=== PATIENT | female | born 1955 | race Caucasian/White ===

== ENCOUNTER 2017-02-22 14:50 | Emergency (ER) | payer MEDICARE, OTHER ==
[2017-02-22] MEDS ORDERED: SODIUM CHLORIDE 0.9% 1,000 ML IV ONE (15:21)
--- NOTE | 2017-02-22 15:30 | ED ---
Altered Mental Status HPI - General Source: patient, EMS, RN notes reviewed, Caregiver Mode of arrival: EMS Limitations: altered mental status <Gadiel Delaney - Last Filed: 02/22/17 19:17> <Meche Worley - Last Filed: 02/23/17 07:02> <Cresencio Arguello - Last Filed: 02/23/17 20:56> <Suresh Vuong - Last Filed: 02/24/17 16:07> - General Chief Complaint: Altered Mental Status Stated Complaint: Altered Mental Status Time Seen by Provider: 02/22/17 15:06 - History of Present Illness Initial Comments: This 61-year-old female presents emergency Department with caregiver for evaluation. There is concerns the patient may have infection or possible dehydration. Patient had a decline in her mental state. Patient has resided at a assisted living for over 4 years and struggles with schizophrenia. They state that her mental state he has declined tremendously over the last few weeks. Patient has had recurrent urinary tract infections though patient did have urinalysis 2 weeks ago which is negative. There has been no reported fever. Patient is not ambulatory and she only pivots to transfer from to her wheelchair. Information patient is very limited as she is unable to provide any useful information. Patient believes that she is and has had some outbursts. Client Portfolio Manager states ativan does help though only prescribed once a day. There has been no medication changes recently. Patient had lab work approx 2 months ago which showed elevated blood blood cells. There was no further workup from there. (Gadiel Delaney) - Related Data Home Medications Medication Instructions Recorded Confirmed Alendronate Sodium [Fosamax] 70 mg PO FR 10/30/13 02/22/17 Calcium Carbonate/Vitamin D3 1 tab PO BID@0500,1700 10/30/13 02/22/17 [Caltrate 600 Plus D3 Tablet] Docusate Sodium [Dulcolax Stool 100 mg PO BID@0800,1700 10/30/13 02/22/17 Softener] Lovastatin [Mevacor] 20 mg PO HS@2100 10/30/13 02/22/17 Bumetanide [BUMEX] 2 mg PO DAILY@1400 10/20/15 02/22/17 Cetirizine HCl [Zyrtec] 10 mg PO DAILY@1700 06/13/16 10/17/17 Levothyroxine Sodium [Synthroid] 88 mcg PO DAILY@0700 10/20/15 02/22/17 Metolazone [Zaroxolyn] 2.5 mg PO MOFR 10/20/15 02/22/17 Potassium Chloride ER [K-Dur 10] 10 meq PO DAILY@0800 10/20/15 02/22/17 Spironolactone [Aldactone] 100 mg PO DAILY@0800 10/20/15 02/22/17 amLODIPine [Norvasc] 5 mg PO DAILY@1700 10/20/15 02/22/17 ARIPiprazole [Abilify] 30 mg PO HS@209902/22/17 02/22/17 Acetaminophen/Diphenhydramine 2 tab PO HS@209902/22/17 02/22/17 [Tylenol PM 500-25mg] DULoxetine HCL [Cymbalta] 60 mg PO DAILY@0800 02/22/17 02/22/17 LORazepam [Ativan] 1 mg PO BID@0800,199902/22/17 02/22/17 LORazepam [Ativan] 1 mg PO DAILY PRN 02/22/17 02/22/17 Allergies Allergy/AdvReac Type Severity Reaction Status Date / Time Penicillins Allergy Unknown Unknown Verified 02/22/17 15:14 Childhood Review of Systems ROS Other: All systems not noted in ROS Statement are negative. <Gadiel Delaney - Last Filed: 02/22/17 19:17> ROS Other: All systems not noted in ROS Statement are negative. <Meche Worley - Last Filed: 02/23/17 07:02> ROS Other: All systems not noted in ROS Statement are negative. <Cresencio Arguello - Last Filed: 02/23/17 20:56> ROS Other: All systems not noted in ROS Statement are negative. <Suresh Vuong - Last Filed: 02/24/17 16:07> ROS Statement: Those systems with pertinent positive or pertinent negative responses have been documented in the HPI. Past Medical History Past Medical History: GERD/Reflux, Hyperlipidemia, Hypertension, Thyroid Disorder History of Any Multi-Drug Resistant Organisms: None Reported Past Surgical History: Breast Surgery, Tubal Ligation Additional Past Surgical History / Comment(s): BREAST BX'S- CAREGIVER UNSURE OF OTHER SURGERYS Past Anesthesia/Blood Transfusion Reactions: Unable to Obtain Past Psychological History: Anxiety, Depression, Schizophrenia Smoking Status: Never smoker Past Alcohol Use History: None Reported Past Drug Use History: None Reported <Gadiel Delaney - Last Filed: 02/22/17 19:17> General Exam Limitations: altered mental status General appearance: alert, in no apparent distress Head exam: Present: atraumatic, normocephalic, normal inspection Eye exam: Present: normal appearance, PERRL, EOMI. Absent: scleral icterus, conjunctival injection, periorbital swelling ENT exam: Present: normal exam, normal oropharynx, mucous membranes moist, TM's normal bilaterally, normal external ear exam Neck exam: Present: normal inspection, full ROM. Absent: tenderness, meningismus, lymphadenopathy Respiratory exam: Present: normal lung sounds bilaterally. Absent: respiratory distress, wheezes, rales, rhonchi, stridor Cardiovascular Exam: Present: normal rhythm, tachycardia, normal heart sounds. Absent: systolic murmur, diastolic murmur, rubs, gallop, clicks GI/Abdominal exam: Present: soft, normal bowel sounds. Absent: distended, tenderness, guarding, rebound, rigid Neurological exam: Present: alert, CN II-XII intact. Absent: oriented X3 Skin exam: Present: warm, dry, intact, normal color. Absent: rash <Gadiel Delaney M - Last Filed: 02/22/17 19:17> Course <Gadiel Delaney - Last Filed: 02/22/17 19:17> <Meche Worley - Last Filed: 02/23/17 07:02> <Cresencio Arguello - Last Filed: 02/23/17 20:56> <Suresh Vuong - Last Filed: 02/24/17 16:07> Vital Signs 02/22/17 02/22/17 02/22/17 15:09 18:17 19:00 Temperature 97.0 F L Pulse Rate 114 H 94 Respiratory 22 17 18 Rate Blood Pressure 161/81 108/66 O2 Sat by Pulse 94 L 96 Oximetry 02/22/17 02/22/17 02/22/17 20:00 21:00 22:00 Temperature 97.0 F L Pulse Rate 94 91 Respiratory 16 16 16 Rate Blood Pressure O2 Sat by Pulse 94 L 96 Oximetry 02/23/17 02/23/17 02/23/17 00:20 01:21 02:26 Temperature 98.5 F Pulse Rate 80 71 71 Respiratory 18 18 18 Rate Blood Pressure 127/58 109/65 105/58 O2 Sat by Pulse 96 98 97 Oximetry 02/23/17 02/23/17 02/23/17 03:05 04:41 05:50 Temperature Pulse Rate 84 89 Respiratory 18 17 17 Rate Blood Pressure 134/71 126/71 O2 Sat by Pulse 95 95 Oximetry 02/23/17 02/23/17 02/23/17 14:00 14:51 16:42 Temperature Pulse Rate 107 H 70 77 Respiratory 20 20 20 Rate Blood Pressure 140/72 134/73 O2 Sat by Pulse 96 99 99 Oximetry 02/23/17 02/23/17 02/23/17 19:00 20:30 21:31 Temperature Pulse Rate 79 79 92 Respiratory 20 20 18 Rate Blood Pressure 141/68 155/84 121/56 O2 Sat by Pulse 99 99 97 Oximetry 02/23/17 02/24/17 02/24/17 22:52 06:18 07:18 Temperature 98.3 F Pulse Rate 69 71 90 Respiratory 18 19 16 Rate Blood Pressure 136/62 110/65 140/75 O2 Sat by Pulse 94 L 100 95 Oximetry 02/24/17 02/24/17 11:00 15:14 Temperature Pulse Rate 85 84 Respiratory 18 20 Rate Blood Pressure 132/75 122/72 O2 Sat by Pulse 96 98 Oximetry Cert was done with the patient, heart pressure is pending at this point (Meche Worley) - Reevaluation(s) Reevaluation #1: 02/24/17 16:07 Psychiatrists in ED evaluating patient (Suresh Vuong) Medical Decision Making - Lab Data Result diagrams: 02/22/17 15:30 02/22/17 15:30 <Gadiel Delaney - Last Filed: 02/22/17 19:17> - Lab Data Result diagrams: 02/22/17 15:30 02/22/17 15:30 <Meche Worley - Last Filed: 02/23/17 07:02> - Lab Data Result diagrams: 02/23/17 17:20 02/23/17 17:20 <Cresencio Arguello - Last Filed: 02/23/17 20:56> - Lab Data Result diagrams: 02/24/17 14:46 02/24/17 14:46 <Suresh Vuong - Last Filed: 02/24/17 16:07> - Medical Decision Making Patient continues to have psychotic features. Still thinking delusions of being . Not able to care for herself her understanding for further treatment. I completed a certificate after reevaluation. Dr. Arguello (Cresencio Arguello ) 61 female in the ER for evaluation. Patient was evaluated here in the ER by psychiatry and okay for discharge home (Suresh Vuong) - Lab Data Lab Results 02/22/17 02/22/17 02/22/17 Range/Units 15:30 15:30 15:30 WBC 13.4 H (3.8-10.6) k/uL RBC 4.23 (3.80-5.40) m/uL Hgb 13.7 (11.4-16.0) gm/dL Hct 42.2 (34.0-46.0) % MCV 99.7 (80.0-100.0) fL MCH 32.3 (25.0-35.0) pg MCHC 32.4 (31.0-37.0) g/dL RDW 12.0 (11.5-15.5) % Plt Count 392 (150-450) k/uL Neutrophils % 78 % Lymphocytes % 11 % Monocytes % 9 % Eosinophils % 0 % Basophils % 0 % Neutrophils # 10.5 H (1.3-7.7) k/uL Lymphocytes # 1.5 (1.0-4.8) k/uL Monocytes # 1.2 H (0-1.0) k/uL Eosinophils # 0.0 (0-0.7) k/uL Basophils # 0.0 (0-0.2) k/uL PT (9.0-12.0) sec INR (<1.2) APTT (22.0-30.0) sec Sodium 136 L (137-145) mmol/L Potassium 3.8 (3.5-5.1) mmol/L Chloride 95 L (98-107) mmol/L Carbon Dioxide 26 (22-30) mmol/L Anion Gap 15 mmol/L BUN 41 H (7-17) mg/dL Creatinine 1.41 H (0.52-1.04) mg/dL Est GFR (MDRD) Af Amer 46 (>60 ml/min/1.73 sqM) Est GFR (MDRD) Non-Af 38 (>60 ml/min/1.73 sqM) Glucose 143 H (74-99) mg/dL POC Glucose (mg/dL) (75-99) mg/dL POC Glu Chemistry Technician ID Calcium 10.2 (8.4-10.2) mg/dL Total Bilirubin 0.4 (0.2-1.3) mg/dL AST 22 (14-36) U/L ALT 27 (9-52) U/L Alkaline Phosphatase 102 (38-126) U/L Total Creatine Kinase 101 (30-135) U/L CK-MB (CK-2) 2.4 (0.0-2.4) ng/mL CK-MB (CK-2) Rel Index 2.4 Troponin I <0.012 (0.000-0.034) ng/mL Total Protein 7.7 (6.3-8.2) g/dL Albumin 4.3 (3.5-5.0) g/dL Urine Color Urine Appearance (Clear) Urine pH (5.0-8.0) Ur Specific [place] (1.001-1.035) Urine Protein (Negative) Urine Glucose (UA) (Negative) Urine Ketones (Negative) Urine Blood (Negative) Urine Nitrite (Negative) Urine Bilirubin (Negative) Urine Urobilinogen (<2.0) mg/dL Ur Leukocyte Esterase (Negative) Urine Opiates Screen (NotDetected) Ur Oxycodone Screen (NotDetected) Urine Methadone Screen (NotDetected) Ur Propoxyphene Screen (NotDetected) Ur Barbiturates Screen (NotDetected) U Tricyclic Antidepress (NotDetected) Ur Phencyclidine Scrn (NotDetected) Ur Amphetamines Screen (NotDetected) U Methamphetamines Scrn (NotDetected) U Benzodiazepines Scrn (NotDetected) Urine Cocaine Screen (NotDetected) U Marijuana (THC) Screen (NotDetected) Serum Alcohol <10 mg/dL 02/22/17 02/22/17 02/22/17 Range/Units 15:30 15:30 16:13 WBC (3.8-10.6) k/uL RBC (3.80-5.40) m/uL Hgb (11.4-16.0) gm/dL Hct (34.0-46.0) % MCV (80.0-100.0) fL MCH (25.0-35.0) pg MCHC (31.0-37.0) g/dL RDW (11.5-15.5) % Plt Count (150-450) k/uL Neutrophils % % Lymphocytes % % Monocytes % % Eosinophils % % Basophils % % Neutrophils # (1.3-7.7) k/uL Lymphocytes # (1.0-4.8) k/uL Monocytes # (0-1.0) k/uL Eosinophils # (0-0.7) k/uL Basophils # (0-0.2) k/uL PT 10.6 (9.0-12.0) sec INR 1.0 (<1.2) APTT 22.5 (22.0-30.0) sec Sodium (137-145) mmol/L Potassium (3.5-5.1) mmol/L Chloride (98-107) mmol/L Carbon Dioxide (22-30) mmol/L Anion Gap mmol/L BUN (7-17) mg/dL Creatinine (0.52-1.04) mg/dL Est GFR (MDRD) Af Amer (>60 ml/min/1.73 sqM) Est GFR (MDRD) Non-Af (>60 ml/min/1.73 sqM) Glucose (74-99) mg/dL POC Glucose (mg/dL) 119 H (75-99) mg/dL POC Glu Chemistry Technician ID Michael, Jasen Calcium (8.4-10.2) mg/dL Total Bilirubin (0.2-1.3) mg/dL AST (14-36) U/L ALT (9-52) U/L Alkaline Phosphatase (38-126) U/L Total Creatine Kinase (30-135) U/L CK-MB (CK-2) (0.0-2.4) ng/mL CK-MB (CK-2) Rel Index Troponin I (0.000-0.034) ng/mL Total Protein (6.3-8.2) g/dL Albumin (3.5-5.0) g/dL Urine Color Yellow Urine Appearance Clear (Clear) Urine pH 5.5 (5.0-8.0) Ur Specific [place] 1.016 (1.001-1.035) Urine Protein Trace H (Negative) Urine Glucose (UA) Negative (Negative) Urine Ketones Negative (Negative) Urine Blood Negative (Negative) Urine Nitrite Negative (Negative) Urine Bilirubin Negative (Negative) Urine Urobilinogen <2.0 (<2.0) mg/dL Ur Leukocyte Esterase Negative (Negative) Urine Opiates Screen Not Detected (NotDetected) Ur Oxycodone Screen Not Detected (NotDetected) Urine Methadone Screen Not Detected (NotDetected) Ur Propoxyphene Screen Not Detected (NotDetected) Ur Barbiturates Screen Not Detected (NotDetected) U Tricyclic Antidepress Not Detected (NotDetected) Ur Phencyclidine Scrn Not Detected (NotDetected) Ur Amphetamines Screen Not Detected (NotDetected) U Methamphetamines Scrn Not Detected (NotDetected) U Benzodiazepines Scrn Detected H (NotDetected) Urine Cocaine Screen Not Detected (NotDetected) U Marijuana (THC) Screen Not Detected (NotDetected) Serum Alcohol mg/dL 02/23/17 02/23/17 02/24/17 Range/Units 17:20 17:20 14:46 WBC 10.6 8.6 (3.8-10.6) k/uL RBC 3.74 L 3.63 L (3.80-5.40) m/uL Hgb 12.0 11.8 (11.4-16.0) gm/dL Hct 37.5 36.3 (34.0-46.0) % MCV 100.2 H 100.1 H (80.0-100.0) fL MCH 32.1 32.5 (25.0-35.0) pg MCHC 32.1 32.4 (31.0-37.0) g/dL RDW 12.9 12.0 (11.5-15.5) % Plt Count 331 334 (150-450) k/uL Neutrophils % 75 % Lymphocytes % 15 % Monocytes % 7 % Eosinophils % 1 % Basophils % 1 % Neutrophils # 7.9 H (1.3-7.7) k/uL Lymphocytes # 1.5 (1.0-4.8) k/uL Monocytes # 0.7 (0-1.0) k/uL Eosinophils # 0.1 (0-0.7) k/uL Basophils # 0.1 (0-0.2) k/uL PT (9.0-12.0) sec INR (<1.2) APTT (22.0-30.0) sec Sodium 138 (137-145) mmol/L Potassium 3.5 (3.5-5.1) mmol/L Chloride 99 (98-107) mmol/L Carbon Dioxide 29 (22-30) mmol/L Anion Gap 10 mmol/L BUN 33 H (7-17) mg/dL Creatinine 1.10 H (0.52-1.04) mg/dL Est GFR (MDRD) Af Amer >60 (>60 ml/min/1.73 sqM) Est GFR (MDRD) Non-Af 51 (>60 ml/min/1.73 sqM) Glucose 143 H (74-99) mg/dL POC Glucose (mg/dL) (75-99) mg/dL POC Glu Chemistry Technician ID Calcium 9.1 (8.4-10.2) mg/dL Total Bilirubin (0.2-1.3) mg/dL AST (14-36) U/L ALT (9-52) U/L Alkaline Phosphatase (38-126) U/L Total Creatine Kinase (30-135) U/L CK-MB (CK-2) (0.0-2.4) ng/mL CK-MB (CK-2) Rel Index Troponin I (0.000-0.034) ng/mL Total Protein (6.3-8.2) g/dL Albumin (3.5-5.0) g/dL Urine Color Urine Appearance (Clear) Urine pH (5.0-8.0) Ur Specific [place] (1.001-1.035) Urine Protein (Negative) Urine Glucose (UA) (Negative) Urine Ketones (Negative) Urine Blood (Negative) Urine Nitrite (Negative) Urine Bilirubin (Negative) Urine Urobilinogen (<2.0) mg/dL Ur Leukocyte Esterase (Negative) Urine Opiates Screen (NotDetected) Ur Oxycodone Screen (NotDetected) Urine Methadone Screen (NotDetected) Ur Propoxyphene Screen (NotDetected) Ur Barbiturates Screen (NotDetected) U Tricyclic Antidepress (NotDetected) Ur Phencyclidine Scrn (NotDetected) Ur Amphetamines Screen (NotDetected) U Methamphetamines Scrn (NotDetected) U Benzodiazepines Scrn (NotDetected) Urine Cocaine Screen (NotDetected) U Marijuana (THC) Screen (NotDetected) Serum Alcohol mg/dL 02/24/17 Range/Units 14:46 WBC (3.8-10.6) k/uL RBC (3.80-5.40) m/uL Hgb (11.4-16.0) gm/dL Hct (34.0-46.0) % MCV (80.0-100.0) fL MCH (25.0-35.0) pg MCHC (31.0-37.0) g/dL RDW (11.5-15.5) % Plt Count (150-450) k/uL Neutrophils % % Lymphocytes % % Monocytes % % Eosinophils % % Basophils % % Neutrophils # (1.3-7.7) k/uL Lymphocytes # (1.0-4.8) k/uL Monocytes # (0-1.0) k/uL Eosinophils # (0-0.7) k/uL Basophils # (0-0.2) k/uL PT (9.0-12.0) sec INR (<1.2) APTT (22.0-30.0) sec Sodium 139 (137-145) mmol/L Potassium 3.9 (3.5-5.1) mmol/L Chloride 102 (98-107) mmol/L Carbon Dioxide 29 (22-30) mmol/L Anion Gap 8 mmol/L BUN 29 H (7-17) mg/dL Creatinine 1.10 H (0.52-1.04) mg/dL Est GFR (MDRD) Af Amer >60 (>60 ml/min/1.73 sqM) Est GFR (MDRD) Non-Af 51 (>60 ml/min/1.73 sqM) Glucose 99 (74-99) mg/dL POC Glucose (mg/dL) (75-99) mg/dL POC Glu Chemistry Technician ID Calcium 8.6 (8.4-10.2) mg/dL Total Bilirubin 0.4 (0.2-1.3) mg/dL AST 23 (14-36) U/L ALT 27 (9-52) U/L Alkaline Phosphatase 94 (38-126) U/L Total Creatine Kinase (30-135) U/L CK-MB (CK-2) (0.0-2.4) ng/mL CK-MB (CK-2) Rel Index Troponin I (0.000-0.034) ng/mL Total Protein 6.9 (6.3-8.2) g/dL Albumin 3.7 (3.5-5.0) g/dL Urine Color Urine Appearance (Clear) Urine pH (5.0-8.0) Ur Specific [place] (1.001-1.035) Urine Protein (Negative) Urine Glucose (UA) (Negative) Urine Ketones (Negative) Urine Blood (Negative) Urine Nitrite (Negative) Urine Bilirubin (Negative) Urine Urobilinogen (<2.0) mg/dL Ur Leukocyte Esterase (Negative) Urine Opiates Screen (NotDetected) Ur Oxycodone Screen (NotDetected) Urine Methadone Screen (NotDetected) Ur Propoxyphene Screen (NotDetected) Ur Barbiturates Screen (NotDetected) U Tricyclic Antidepress (NotDetected) Ur Phencyclidine Scrn (NotDetected) Ur Amphetamines Screen (NotDetected) U Methamphetamines Scrn (NotDetected) U Benzodiazepines Scrn (NotDetected) Urine Cocaine Screen (NotDetected) U Marijuana (THC) Screen (NotDetected) Serum Alcohol mg/dL 02/22/17 19:17 EKG performed at 15:39 normal sinus rhythm with left axis deviation rate of 98 UT interval 138 QRS duration 76 QT/QTC 358/457 (Gadiel Delaney) Disposition <Gadiel Delaney - Last Filed: 02/22/17 19:17> <Meche Worley - Last Filed: 02/23/17 07:02> <Cresencio Arguello - Last Filed: 02/23/17 20:56> <Suresh Vuong - Last Filed: 02/24/17 16:07> Clinical Impression: Psychosis Disposition: HOME SELF-CARE Condition: Fair Instructions: Brief Psychotic Disorder (ED) Referrals: Jozef Borrero MD [Primary Care Provider] - 1-2 days
[2017-02-22 16:12] LABS: Appearance,Urine Clear (Clear); Bilirubin,Urine Negative (Negative); Glucose,Urine (UA) Negative (Negative); Ketones,Urine Negative (Negative); Leukocyte Esterase,Urine Negative (Negative); Nitrite,Urine Negative (Negative); PH, Urine 5.5 (5.0-8.0); Protein,Urine Trace (Negative); Specific Gravity,Urine 1.016 (1.001-1.035); UA Billing (MACRO vs. MICRO) CHEM; Urobilinogen,Urine <2.0 mg/dL (<2.0)
[2017-02-22 16:14] LABS: Basophils % (A) 0 %; CH 32.9; CHCM 33.1; Eosinophils % (A) 0 %; HCT 42.2 % (34.0-46.0); HDW 2.12; HGB 13.7 gm/dL (11.4-16.0); Luc # (Auto) 0.26; Luc % (Auto) 2; Lymphocytes # (A) 1.5 k/uL (1.0-4.8); Lymphocytes % (A) 11 %; MCH 32.3 pg (25.0-35.0); MCHC 32.4 g/dL (31.0-37.0); MCV 99.7 fL (80.0-100.0); Mean Platelet Volume 6.5; Monocytes # (A) 1.2 k/uL (0-1.0); Monocytes % (A) 9 %; Neutrophils # (A) 10.5 k/uL (1.3-7.7); Neutrophils % (A) 78 %; RBC 4.23 m/uL (3.80-5.40); WBC 13.4 k/uL (3.8-10.6); WBC (Perox) 13.25
[2017-02-22 16:16] LABS: Glucose,Whole Blood 119 mg/dL (75-99)
[2017-02-22 16:21] LABS: Partial Thromboplastin Time 22.5 sec (22.0-30.0)
[2017-02-22 16:23] LABS: Prothrombin Time 10.6 sec (9.0-12.0)
[2017-02-22 16:26] LABS: ALT 27 U/L (9-52); AST 22 U/L (14-36); Alcohol <10 mg/dL; Alkaline Phosphatase 102 U/L (38-126); Anion Gap 15 mmol/L; Blood Urea Nitrogen 41 mg/dL (7-17); Calcium 10.2 mg/dL (8.4-10.2); Carbon Dioxide 26 mmol/L (22-30); Chloride 95 mmol/L (98-107); Glucose 143 mg/dL (74-99); Non-African American GFR(MDRD) 38 (>60 ml/min/1.73 sqM); Potassium 3.8 mmol/L (3.5-5.1); Sodium 136 mmol/L (137-145); Total Bilirubin 0.4 mg/dL (0.2-1.3); Total Protein 7.7 g/dL (6.3-8.2)
[2017-02-22 16:39] LABS: Creatine Kinase 101 U/L (30-135)
[2017-02-22 16:51] LABS: Creatine Kinase MB 2.4 ng/mL (0.0-2.4); Troponin I <0.012 ng/mL (0.000-0.034)
--- NOTE | 2017-02-22 16:56 | CT ---
EXAMINATION TYPE: CT brain wo con DATE OF EXAM: 02/22/2017 COMPARISON: NONE HISTORY: Altered mental status. CT DLP: 1056.60 mGycm Automated exposure control for dose reduction was used. FINDINGS: There is some limitations for subtle hemorrhage due to artifact. No obvious gross acute intraparenchy mal hemorrhage. No midline shift or mass effect. Areas of low attenuation in the white matter are non specific. Calvarium intact. Intracranial atherosclerotic changes noted. Ossified density along the an terior parietal bone superiorly may represent a small osteoma. IMPRESSION: NO OBVIOUS ACUTE INTRACRANIAL HEMORRHAGE OR MASS EFFECT. THERE IS SOME LIMITATION DUE TO ARTIFACT. AR EA OF INCREASED DENSITY ALONG THE RIGHT FRONTAL CORTEX IS FELT TO BE MOST LIKELY ARTIFACTUAL. RECOMME ND CORRELATION WITH MRI.
--- NOTE | 2017-02-22 16:59 | XR ---
EXAMINATION TYPE: XR chest 2V DATE OF EXAM: 02/22/2017 COMPARISON: NONE TECHNIQUE: PA and lateral views submitted. HISTORY: Altered mental status FINDINGS: Exam limited. The heart is prominent. Arthropathy of the shoulders seen. Small bilateral effusion not ed. No overt failure. Degenerative change of the spine noted. IMPRESSION: 1. Subsegmental atelectasis or infiltrate at the lung bases correlate clinically.
[2017-02-23] MEDS ORDERED: LORazepam 2 MG/ML INJ IV STA ×2 (14:05→16:58)
--- NOTE | 2017-02-23 16:58 | XR ---
EXAMINATION TYPE: XR chest 2V DATE OF EXAM: 02/23/2017 COMPARISON: 02/22/2017 INDICATION: Chest pain cough TECHNIQUE: Frontal and lateral views of the chest are obtained. FINDINGS: The heart size is enlarged. The pulmonary vasculature is normal. The lungs are clear. Advanced degenerative changes are at the left shoulder. IMPRESSION: 1. Mild cardiomegaly
[2017-02-23 17:27] LABS: Basophils # (A) 0.1 k/uL (0-0.2); Basophils % (A) 1 %; CH 33.7; CHCM 33.8; Eosinophils # (A) 0.1 k/uL (0-0.7); Eosinophils % (A) 1 %; HCT 37.5 % (34.0-46.0); HDW 2.08; Luc # (Auto) 0.23; Luc % (Auto) 2; Lymphocytes # (A) 1.5 k/uL (1.0-4.8); Lymphocytes % (A) 15 %; MCH 32.1 pg (25.0-35.0); MCHC 32.1 g/dL (31.0-37.0); MCV 100.2 fL (80.0-100.0); Mean Platelet Volume 7.2; Monocytes # (A) 0.7 k/uL (0-1.0); Monocytes % (A) 7 %; Neutrophils # (A) 7.9 k/uL (1.3-7.7); Neutrophils % (A) 75 %; RBC 3.74 m/uL (3.80-5.40); RDW 12.9 % (11.5-15.5); WBC 10.6 k/uL (3.8-10.6)
[2017-02-23 17:41] LABS: Anion Gap 10 mmol/L; Blood Urea Nitrogen 33 mg/dL (7-17); Calcium 9.1 mg/dL (8.4-10.2); Carbon Dioxide 29 mmol/L (22-30); Chloride 99 mmol/L (98-107); Glucose 143 mg/dL (74-99); Non-African American GFR(MDRD) 51 (>60 ml/min/1.73 sqM); Potassium 3.5 mmol/L (3.5-5.1); Sodium 138 mmol/L (137-145)
[2017-02-24] MEDS ORDERED: LORazepam 2 MG/ML INJ IV STA (06:59)
[2017-02-24] MEDS ORDERED: LORazepam 2 MG/ML INJ ONE (07:05)
[2017-02-24 14:59] LABS: CH 32.8; CHCM 32.9; HCT 36.3 % (34.0-46.0); HDW 2.13; HGB 11.8 gm/dL (11.4-16.0); MCH 32.5 pg (25.0-35.0); MCHC 32.4 g/dL (31.0-37.0); MCV 100.1 fL (80.0-100.0); Mean Platelet Volume 6.8; RBC 3.63 m/uL (3.80-5.40); WBC 8.6 k/uL (3.8-10.6)
[2017-02-24 15:07] LABS: ALT 27 U/L (9-52); AST 23 U/L (14-36); Alkaline Phosphatase 94 U/L (38-126); Anion Gap 8 mmol/L; Blood Urea Nitrogen 29 mg/dL (7-17); Calcium 8.6 mg/dL (8.4-10.2); Carbon Dioxide 29 mmol/L (22-30); Chloride 102 mmol/L (98-107); Glucose 99 mg/dL (74-99); Non-African American GFR(MDRD) 51 (>60 ml/min/1.73 sqM); Sodium 139 mmol/L (137-145); Total Bilirubin 0.4 mg/dL (0.2-1.3); Total Protein 6.9 g/dL (6.3-8.2)
[2017-02-24 15:10] LABS: Potassium 3.9 mmol/L (3.5-5.1)
[2017-02-25 01:40] VITALS: BP 122/65; PULSE 85; RESP 18; TEMP 97.5
== END 2017-02-24 19:40 | disposition home or self-care (01) ==
LOC: EC 14:50
DX: F29 Unspecified psychosis not due to a substance or known physiological condition (principal); R41.82 Altered mental status, unspecified; K21.9 Gastro-esophageal reflux disease without esophagitis; E78.5 Hyperlipidemia, unspecified; I10 Essential (primary) hypertension; E07.9 Disorder of thyroid, unspecified; F32.9 Major depressive disorder, single episode, unspecified; F41.9 Anxiety disorder, unspecified; F20.9 Schizophrenia, unspecified; Z79.899 Other long term (current) drug therapy; Z88.0 Allergy status to penicillin
CPT/HCPCS: 99285 ×2; 96374 ×2; 96376 ×3; 96361 ×16; 36415 ×3; 93005; 80053 ×2; 80048; 82550; 82553; 84484; 85025 ×2; 85027; 85610; 85730; 81003; 80306; 80320; 71020 ×2; 70450; J2060 ×2

== ENCOUNTER 2017-09-14 15:52 | Emergency (ER) | payer MEDICARE, OTHER ==
[2017-09-14] MEDS ORDERED: ONDANSETRON 4 MG/2 ML VIAL IVP STA (16:21)
[2017-09-14] MEDS ORDERED: LORazepam 2 MG/ML INJ IV STA ×2 (16:21→19:05)
[2017-09-14] MEDS ORDERED: SODIUM CHLORIDE 0.9% 1,000 ML IV STA (16:21)
--- NOTE | 2017-09-14 16:25 | ED ---
General Adult HPI - General Source: patient, RN notes reviewed Mode of arrival: EMS Limitations: no limitations <Tulio Preciado - Last Filed: 09/14/17 19:30> <Gerardo Kwong - Last Filed: 09/14/17 19:57> <Gerardo Dupont - Last Filed: 09/15/17 04:04> - General Chief complaint: Psychiatric Symptoms Stated complaint: Mental Health Time Seen by Provider: 09/14/17 15:58 - History of Present Illness Initial comments: Patient 62-year-old female presenting to the emergency room today by EMS, with a pairing machine operator who states that she has been willing to take her medication of Ativan at home. States that she's been screaming at times. States that this is similar to episodes that she's had in the past but does admit that usually she'll take Ativan abdomen: Down. Patient refusing to take medicine. Does admit to abdominal pain. She states it's all over. Rv Repairer stating that she complained about this in the morning she offered her Tums and Tylenol but did not want take any medication. Patient's sports internship was at the residence eventually decided to have her sent here to the emergency room for further evaluation. Patient admits to abdominal pain but denies complaints. Patient denies any recent fever, chills, shortness of breath, chest pain, back pain, nausea or vomiting, dysuria or hematuria, constipation or diarrhea, or any other complaints. (Tulio Preciado) - Related Data Home Medications Medication Instructions Recorded Confirmed Alendronate Sodium [Fosamax] 70 mg PO FR 10/30/13 09/14/17 Calcium Carbonate/Vitamin D3 1 tab PO BID@0500,169910/30/13 09/14/17 [Caltrate 600 Plus D3 Tablet] Docusate Sodium [Dulcolax Stool 100 mg PO BID@0800,169910/30/13 09/14/17 Softener] Lovastatin [Mevacor] 20 mg PO HS@2100 10/30/13 09/14/17 Cetirizine HCl [Zyrtec] 10 mg PO DAILY@1700 10/20/15 09/14/17 Levothyroxine Sodium [Synthroid] 88 mcg PO DAILY@0700 10/20/15 09/14/17 Potassium Chloride ER [K-Dur 10] 10 meq PO DAILY@0800 10/20/15 09/14/17 Spironolactone [Aldactone] 100 mg PO DAILY@0800 10/20/15 09/14/17 amLODIPine [Norvasc] 5 mg PO DAILY@1700 10/20/15 09/14/17 Acetaminophen/Diphenhydramine 2 tab PO HS@2100 02/22/17 09/14/17 [Tylenol PM 500-25mg] DULoxetine HCL [Cymbalta] 60 mg PO DAILY@0800 02/22/17 09/14/17 DULoxetine HCL [Cymbalta] 30 mg PO DAILY 09/14/17 09/14/17 Furosemide [Lasix] 20 mg PO DAILY@0809/14/17 09/14/17 LORazepam [Ativan] 2 mg PO BID PRN 09/14/17 09/14/17 Losartan Potassium [Cozaar] 25 mg PO DAILY@0809/14/17 09/14/17 Allergies Allergy/AdvReac Type Severity Reaction Status Date / Time Penicillins Allergy Unknown Unknown Verified 09/14/17 16:19 Childhood Review of Systems ROS Other: All systems not noted in ROS Statement are negative. <Tulio Preciado - Last Filed: 09/14/17 19:30> ROS Other: All systems not noted in ROS Statement are negative. <Gerardo Kwong - Last Filed: 09/14/17 19:57> ROS Other: All systems not noted in ROS Statement are negative. <Gerardo Dupont - Last Filed: 09/15/17 04:04> ROS Statement: Those systems with pertinent positive or pertinent negative responses have been documented in the HPI. Past Medical History Past Medical History: GERD/Reflux, Hyperlipidemia, Hypertension, Thyroid Disorder History of Any Multi-Drug Resistant Organisms: None Reported Past Surgical History: Breast Surgery, Tubal Ligation Additional Past Surgical History / Comment(s): BREAST BX'S- CAREGIVER UNSURE OF OTHER SURGERYS Past Anesthesia/Blood Transfusion Reactions: Unable to Obtain Past Psychological History: Anxiety, Depression, Schizophrenia Smoking Status: Never smoker Past Alcohol Use History: None Reported Past Drug Use History: None Reported <Tulio Preciado - Last Filed: 09/14/17 19:30> General Exam Limitations: no limitations <Tulio Preciado - Last Filed: 09/14/17 19:30> <Gerardo Kwong - Last Filed: 09/14/17 19:57> <Gerardo Dupont - Last Filed: 09/15/17 04:04> - General Exam Comments Initial Comments: General: The patient is awake and alert, in no distress, and does not appear acutely ill. Eye: Pupils are equal, round and reactive to light, extra-ocular movements are intact. No nystagmus. There is normal conjunctiva bilaterally. No signs of icterus. Ears, nose, mouth and throat: There are moist mucous membranes and no oral lesions. Neck: The neck is supple, there is no tenderness or JVD. Cardiovascular: There is a regular rate and rhythm. No murmur, rub or gallop is appreciated. Respiratory: Lungs are clear to auscultation, respirations are non-labored, breath sounds are equal. No wheezes, stridor, rales, or rhonchi. Gastrointestinal: Abdomen soft on palpation. Mild tenderness throughout abdomen. No specific point tenderness. No rebound tenderness. No guarding. Musculoskeletal: Normal ROM, no tenderness. Strength 5/5. Sensation intact. Pulses equal bilaterally 2+. Neurological: A&O x 3. CN II-XII intact, There are no obvious motor or sensory deficits. Coordination appears grossly intact. Speech is normal. Skin: Skin is warm and dry and no rashes or lesions are noted. Psychiatric: Cooperative. Sporadic random outburst (Tulio Preciado) Course <Tulio Preciado - Last Filed: 09/14/17 19:30> <Gerardo Kwong N - Last Filed: 09/14/17 19:57> <Gerardo Dupont - Last Filed: 09/15/17 04:04> Vital Signs 09/14/17 09/14/17 09/14/17 16:01 18:27 20:00 Temperature 97.9 F 98.9 F Pulse Rate 125 H 106 H 110 H Respiratory 16 16 16 Rate Blood Pressure 156/63 152/76 124/71 O2 Sat by Pulse 98 97 95 Oximetry 09/14/17 09/15/17 09/15/17 22:26 00:00 01:00 Temperature 98.0 F 97.8 F Pulse Rate 100 Respiratory 16 15 Rate Blood Pressure 158/77 O2 Sat by Pulse 100 Oximetry 09/15/17 09/15/17 02:12 03:42 Temperature 98.3 F Pulse Rate 94 78 Respiratory 19 16 Rate Blood Pressure 143/78 129/63 O2 Sat by Pulse 95 96 Oximetry - Reevaluation(s) Reevaluation #1: 09/14/17 19:27 Patient has been seen here in emergency room and evaluated by mental health. They recommend admission. Patient unable to stay here at the hospital and will need to be transferred. Case discussed and signed out to Dr. Kwong (Tulio Preciado) 09/14/17 2100 Patient's care is signed out at shift change to Dr. Dupont awaiting placement and final EPS disposition. (Gerardo Kwong) Medical Decision Making - Lab Data Result diagrams: 09/14/17 16:47 09/14/17 16:47 <Tulio Preciado - Last Filed: 09/14/17 19:30> - Lab Data Result diagrams: 09/14/17 16:47 09/14/17 16:47 <Gerardo Kwong - Last Filed: 09/14/17 19:57> - Lab Data Result diagrams: 09/14/17 16:47 09/14/17 16:47 <Gerardo Dupont - Last Filed: 09/15/17 04:04> - Medical Decision Making The patient did require some sedation while in the emergency department. She was resting comfortably afterwards. She will be transferred I did fill out a clinical certification on the patient. She is demonstrating schizophrenia with psychotic features. (Gerardo Dupont) - Lab Data Lab Results 09/14/17 09/14/17 09/14/17 Range/Units 16:47 16:47 16:47 WBC 11.9 H (3.8-10.6) k/uL RBC 4.14 (3.80-5.40) m/uL Hgb 13.1 (11.4-16.0) gm/dL Hct 39.3 (34.0-46.0) % MCV 95.1 (80.0-100.0) fL MCH 31.8 (25.0-35.0) pg MCHC 33.4 (31.0-37.0) g/dL RDW 12.2 (11.5-15.5) % Plt Count 324 (150-450) k/uL Neutrophils % 77 % Lymphocytes % 14 % Monocytes % 7 % Eosinophils % 0 % Basophils % 0 % Neutrophils # 9.2 H (1.3-7.7) k/uL Lymphocytes # 1.7 (1.0-4.8) k/uL Monocytes # 0.8 (0-1.0) k/uL Eosinophils # 0.0 (0-0.7) k/uL Basophils # 0.0 (0-0.2) k/uL PT 9.7 (9.0-12.0) sec INR 1.0 (<1.2) APTT 22.0 (22.0-30.0) sec Sodium 138 (137-145) mmol/L Potassium 4.7 (3.5-5.1) mmol/L Chloride 101 (98-107) mmol/L Carbon Dioxide 22 (22-30) mmol/L Anion Gap 15 mmol/L BUN 18 H (7-17) mg/dL Creatinine 0.94 (0.52-1.04) mg/dL Est GFR (CKD-EPI)AfAm 76 (>60 ml/min/1.73 sqM) Est GFR (CKD-EPI)NonAf 66 (>60 ml/min/1.73 sqM) Glucose 130 H (74-99) mg/dL Calcium 9.6 (8.4-10.2) mg/dL Total Bilirubin 0.3 (0.2-1.3) mg/dL AST 19 (14-36) U/L ALT 22 (9-52) U/L Alkaline Phosphatase 95 (38-126) U/L Total Protein 7.3 (6.3-8.2) g/dL Albumin 4.5 (3.5-5.0) g/dL Urine Color Urine Appearance (Clear) Urine pH (5.0-8.0) Ur Specific [place] (1.001-1.035) Urine Protein (Negative) Urine Glucose (UA) (Negative) Urine Ketones (Negative) Urine Blood (Negative) Urine Nitrite (Negative) Urine Bilirubin (Negative) Urine Urobilinogen (<2.0) mg/dL Ur Leukocyte Esterase (Negative) Urine Opiates Screen (NotDetected) Ur Oxycodone Screen (NotDetected) Urine Methadone Screen (NotDetected) Ur Propoxyphene Screen (NotDetected) Ur Barbiturates Screen (NotDetected) U Tricyclic Antidepress (NotDetected) Ur Phencyclidine Scrn (NotDetected) Ur Amphetamines Screen (NotDetected) U Methamphetamines Scrn (NotDetected) U Benzodiazepines Scrn (NotDetected) Urine Cocaine Screen (NotDetected) U Marijuana (THC) Screen (NotDetected) Serum Alcohol <10 mg/dL 09/14/17 Range/Units 17:00 WBC (3.8-10.6) k/uL RBC (3.80-5.40) m/uL Hgb (11.4-16.0) gm/dL Hct (34.0-46.0) % MCV (80.0-100.0) fL MCH (25.0-35.0) pg MCHC (31.0-37.0) g/dL RDW (11.5-15.5) % Plt Count (150-450) k/uL Neutrophils % % Lymphocytes % % Monocytes % % Eosinophils % % Basophils % % Neutrophils # (1.3-7.7) k/uL Lymphocytes # (1.0-4.8) k/uL Monocytes # (0-1.0) k/uL Eosinophils # (0-0.7) k/uL Basophils # (0-0.2) k/uL PT (9.0-12.0) sec INR (<1.2) APTT (22.0-30.0) sec Sodium (137-145) mmol/L Potassium (3.5-5.1) mmol/L Chloride (98-107) mmol/L Carbon Dioxide (22-30) mmol/L Anion Gap mmol/L BUN (7-17) mg/dL Creatinine (0.52-1.04) mg/dL Est GFR (CKD-EPI)AfAm (>60 ml/min/1.73 sqM) Est GFR (CKD-EPI)NonAf (>60 ml/min/1.73 sqM) Glucose (74-99) mg/dL Calcium (8.4-10.2) mg/dL Total Bilirubin (0.2-1.3) mg/dL AST (14-36) U/L ALT (9-52) U/L Alkaline Phosphatase (38-126) U/L Total Protein (6.3-8.2) g/dL Albumin (3.5-5.0) g/dL Urine Color Yellow Urine Appearance Clear (Clear) Urine pH 6.5 (5.0-8.0) Ur Specific [place] 1.012 (1.001-1.035) Urine Protein Trace H (Negative) Urine Glucose (UA) Negative (Negative) Urine Ketones Negative (Negative) Urine Blood Negative (Negative) Urine Nitrite Negative (Negative) Urine Bilirubin Negative (Negative) Urine Urobilinogen <2.0 (<2.0) mg/dL Ur Leukocyte Esterase Negative (Negative) Urine Opiates Screen Not Detected (NotDetected) Ur Oxycodone Screen Not Detected (NotDetected) Urine Methadone Screen Not Detected (NotDetected) Ur Propoxyphene Screen Not Detected (NotDetected) Ur Barbiturates Screen Not Detected (NotDetected) U Tricyclic Antidepress Not Detected (NotDetected) Ur Phencyclidine Scrn Not Detected (NotDetected) Ur Amphetamines Screen Not Detected (NotDetected) U Methamphetamines Scrn Not Detected (NotDetected) U Benzodiazepines Scrn Not Detected (NotDetected) Urine Cocaine Screen Not Detected (NotDetected) U Marijuana (THC) Screen Not Detected (NotDetected) Serum Alcohol mg/dL Disposition <Tulio Preciado - Last Filed: 09/14/17 19:30> <Gerardo Kwong - Last Filed: 09/14/17 19:57> Is patient prescribed a controlled substance at d/c from ED?: No - Out of Hospital Transfer - Req. Specs Out of Hospital Transfer - Requested Specifics: Psychiatric Non-ICU <Gerardo Dupont - Last Filed: 09/15/17 04:04> Clinical Impression: Acute psychosis, Chronic schizophrenia Disposition: TRANSFER TO PSYCH HOSP/UNIT Condition: Stable Referrals: None,Stated [Primary Care Provider] - 1-2 days
[2017-09-14 16:56] LABS: Basophils % (A) 0 %; Eosinophils % (A) 0 %; HCT 39.3 % (34.0-46.0); HGB 13.1 gm/dL (11.4-16.0); Lymphocytes # (A) 1.7 k/uL (1.0-4.8); Lymphocytes % (A) 14 %; MCH 31.8 pg (25.0-35.0); MCHC 33.4 g/dL (31.0-37.0); MCV 95.1 fL (80.0-100.0); Mean Platelet Volume 7.3; Monocytes # (A) 0.8 k/uL (0-1.0); Monocytes % (A) 7 %; Neutrophils # (A) 9.2 k/uL (1.3-7.7); Neutrophils % (A) 77 %; Platelet Count 324 k/uL (150-450); RBC 4.14 m/uL (3.80-5.40); RDW 12.2 % (11.5-15.5); WBC 11.9 k/uL (3.8-10.6)
[2017-09-14 17:05] LABS: ALT 22 U/L (9-52); AST 19 U/L (14-36); Albumin 4.5 g/dL (3.5-5.0); Alcohol <10 mg/dL; Alkaline Phosphatase 95 U/L (38-126); Anion Gap 15 mmol/L; Blood Urea Nitrogen 18 mg/dL (7-17); Calcium 9.6 mg/dL (8.4-10.2); Carbon Dioxide 22 mmol/L (22-30); Chloride 101 mmol/L (98-107); Glucose 130 mg/dL (74-99); Potassium 4.7 mmol/L (3.5-5.1); Sodium 138 mmol/L (137-145); Total Bilirubin 0.3 mg/dL (0.2-1.3); Total Protein 7.3 g/dL (6.3-8.2)
[2017-09-14 17:14] LABS: Prothrombin Time 9.7 sec (9.0-12.0)
[2017-09-14 17:15] LABS: Appearance,Urine Clear (Clear); Bilirubin,Urine Negative (Negative); Blood,Urine Negative (Negative); Color,Urine Yellow; Glucose,Urine (UA) Negative (Negative); Ketones,Urine Negative (Negative); Leukocyte Esterase,Urine Negative (Negative); Nitrite,Urine Negative (Negative); PH, Urine 6.5 (5.0-8.0); Protein,Urine Trace (Negative); Specific Gravity,Urine 1.012 (1.001-1.035); Urobilinogen,Urine <2.0 mg/dL (<2.0)
[2017-09-14 17:26] LABS: Cocaine Screen,Urine Not Detected (NotDetected); Opiate Screen,Urine Not Detected (NotDetected); Phencyclidine Screen,Urine Not Detected (NotDetected); Urn Cannabinoid Scrn Not Detected (NotDetected)
[2017-09-14 17:27] LABS: Amphetamine Screen,Urine Not Detected (NotDetected); Barbiturate Screen,Urine Not Detected (NotDetected); Benzodiazepines Screen,Urine Not Detected (NotDetected); Methadone Screen, Urine Not Detected (NotDetected); Oxycodone Screen, Urine Not Detected (NotDetected); Tricyclic Antidepressant,Urine Not Detected (NotDetected)
[2017-09-14] MEDS ORDERED: LORazepam 2 MG/ML INJ IM STA (22:16)
[2017-09-14] MEDS ORDERED: ZIPRASIDONE 20 MG VIAL IM STA (22:31)
[2017-09-15 04:01] VITALS: BP 129/63; PULSE 78; RESP 16; TEMP 98.3
[2017-09-15] MEDS ORDERED: LORazepam 2 MG/ML INJ IM STA (04:56)
== END 2017-09-15 05:17 ==
LOC: EC 15:52
DX: F23 Brief psychotic disorder (principal); F20.9 Schizophrenia, unspecified; R10.9 Unspecified abdominal pain; K21.9 Gastro-esophageal reflux disease without esophagitis; E78.5 Hyperlipidemia, unspecified; I10 Essential (primary) hypertension; E07.9 Disorder of thyroid, unspecified; F32.9 Major depressive disorder, single episode, unspecified; F41.9 Anxiety disorder, unspecified; Z79.899 Other long term (current) drug therapy; Z88.0 Allergy status to penicillin
CPT/HCPCS: 36415; 80053; 85025; 85610; 85730; 81003; 80306; 80320; 87086; 99285; 96374; 96376; 96375; 96361 ×2; 96372 ×3; J2060 ×2; J2405; J3486

== ENCOUNTER 2017-10-21 12:55 | Inpatient (IN) | payer MEDICARE, MEDICAID ==
--- NOTE | 2017-10-21 14:16 | ED ---
General Adult HPI - General Chief complaint: Psychiatric Symptoms Stated complaint: Mental Health Eval Time Seen by Provider: 10/21/17 13:05 Source: patient, EMS, RN notes reviewed, old records reviewed Mode of arrival: EMS Limitations: altered mental status - History of Present Illness Initial comments: 62-year-old female history of schizophrenia presents for psychiatric evaluation. Patient has increased verbal outbursts she has also been throwing food and coffee at the staff members of the long term where she resides. She was recently admitted approximately one month ago for inpatient psychiatric treatment. She was discharged earlier this week. She has not slept in the past 3-4 days. She is accompanied by her caregiver at the long term who is able to give a history. Patient is nonverbal. - Related Data Home Medications Medication Instructions Recorded Confirmed Alendronate Sodium [Fosamax] 70 mg PO FR 10/30/13 10/21/17 Calcium Carbonate/Vitamin D3 1 tab PO BID@0500,1700 10/30/13 10/21/17 [Caltrate 600 Plus D3 Tablet] Docusate Sodium [Dulcolax Stool 100 mg PO BID@0800,1700 10/30/13 10/21/17 Softener] Lovastatin [Mevacor] 20 mg PO HS@209910/30/13 10/21/17 Cetirizine HCl [Zyrtec] 10 mg PO DAILY@1700 PRN 10/20/15 10/21/17 Levothyroxine Sodium [Synthroid] 88 mcg PO DAILY@0700 10/20/15 10/21/17 Potassium Chloride ER [K-Dur 10] 10 meq PO DAILY@0810/20/15 10/21/17 Spironolactone [Aldactone] 100 mg PO DAILY@0810/20/15 10/21/17 amLODIPine [Norvasc] 5 mg PO DAILY@1700 10/20/15 10/21/17 Acetaminophen/Diphenhydramine 2 tab PO HS@2100 02/22/17 10/21/17 [Tylenol PM 500-25mg] Furosemide [Lasix] 20 mg PO DAILY@0800 09/14/17 10/21/17 LORazepam [Ativan] 2 mg PO BID PRN 09/14/17 10/21/17 Losartan Potassium [Cozaar] 25 mg PO DAILY@0800 09/14/17 10/21/17 ARIPiprazole [Abilify] 20 mg PO DAILY@0800 10/21/17 10/21/17 Escitalopram [Lexapro] 20 mg PO DAILY@0800 10/21/17 10/21/17 traZODone HCL [Desyrel] 100 mg PO HS@2100 10/21/17 10/21/17 Allergies Allergy/AdvReac Type Severity Reaction Status Date / Time Penicillins Allergy Unknown Unknown Verified 10/21/17 13:15 Childhood Review of Systems ROS Statement: Those systems with pertinent positive or pertinent negative responses have been documented in the HPI. ROS Other: All systems not noted in ROS Statement are negative. Past Medical History Past Medical History: GERD/Reflux, Hyperlipidemia, Hypertension, Thyroid Disorder History of Any Multi-Drug Resistant Organisms: None Reported Past Surgical History: Breast Surgery, Tubal Ligation Additional Past Surgical History / Comment(s): BREAST BX'S- CAREGIVER UNSURE OF OTHER SURGERYS Past Anesthesia/Blood Transfusion Reactions: Unable to Obtain Past Psychological History: Anxiety, Depression, Schizophrenia Smoking Status: Never smoker Past Alcohol Use History: None Reported Past Drug Use History: None Reported General Exam Limitations: altered mental status General appearance: alert, in no apparent distress Head exam: Present: atraumatic, normocephalic Eye exam: Present: normal appearance, PERRL, EOMI ENT exam: Present: normal exam Neck exam: Present: normal inspection. Absent: tenderness, meningismus Respiratory exam: Present: normal lung sounds bilaterally. Absent: respiratory distress, wheezes Cardiovascular Exam: Present: regular rate, normal rhythm GI/Abdominal exam: Present: soft. Absent: distended, tenderness, guarding, rebound Extremities exam: Present: normal inspection, full ROM. Absent: tenderness Neurological exam: Present: alert, CN II-XII intact. Absent: motor sensory deficit Psychiatric exam: Present: agitated, flat affect Skin exam: Present: warm, dry, intact. Absent: cyanosis, diaphoretic Course Vital Signs 10/21/17 10/22/17 10/22/17 12:58 03:51 09:42 Temperature 98.9 F Pulse Rate 82 78 82 Respiratory 18 18 18 Rate Blood Pressure 119/69 132/79 109/62 O2 Sat by Pulse 100 97 98 Oximetry - Reevaluation(s) Reevaluation #1: 10/21/17 15:27 Patient will be signed out at shift change to Dr. Vuong. Medical Decision Making - Medical Decision Making 62-year-old female brought in for psychiatric evaluation. Patient has been observed in the emergency department for 24 hours. She has been evaluated by EPS. She does require inpatient treatment. There is no transfer facility available at this time patient will be admitted to this institution for further psychiatric care. - Lab Data Result diagrams: 10/21/17 14:13 10/21/17 14:13 Lab Results 10/21/17 10/21/17 10/21/17 Range/Units 14:13 14:13 15:32 WBC 7.3 (3.8-10.6) k/uL RBC 4.05 (3.80-5.40) m/uL Hgb 12.6 (11.4-16.0) gm/dL Hct 38.5 (34.0-46.0) % MCV 95.2 (80.0-100.0) fL MCH 31.1 (25.0-35.0) pg MCHC 32.7 (31.0-37.0) g/dL RDW 12.2 (11.5-15.5) % Plt Count 322 (150-450) k/uL Neutrophils % 65 % Lymphocytes % 22 % Monocytes % 9 % Eosinophils % 2 % Basophils % 1 % Neutrophils # 4.7 (1.3-7.7) k/uL Lymphocytes # 1.6 (1.0-4.8) k/uL Monocytes # 0.7 (0-1.0) k/uL Eosinophils # 0.1 (0-0.7) k/uL Basophils # 0.1 (0-0.2) k/uL Sodium 141 (137-145) mmol/L Potassium 4.4 (3.5-5.1) mmol/L Chloride 106 (98-107) mmol/L Carbon Dioxide 25 (22-30) mmol/L Anion Gap 10 mmol/L BUN 24 H (7-17) mg/dL Creatinine 1.09 H (0.52-1.04) mg/dL Est GFR (CKD-EPI)AfAm 64 (>60 ml/min/1.73 sqM) Est GFR (CKD-EPI)NonAf 56 (>60 ml/min/1.73 sqM) Glucose 91 (74-99) mg/dL Calcium 9.3 (8.4-10.2) mg/dL Total Bilirubin 0.3 (0.2-1.3) mg/dL AST 27 (14-36) U/L ALT 28 (9-52) U/L Alkaline Phosphatase 70 (38-126) U/L Total Protein 6.6 (6.3-8.2) g/dL Albumin 4.0 (3.5-5.0) g/dL Urine Color Yellow Urine Appearance Clear (Clear) Urine pH 5.5 (5.0-8.0) Ur Specific [place] 1.023 (1.001-1.035) Urine Protein Negative (Negative) Urine Glucose (UA) Negative (Negative) Urine Ketones Trace H (Negative) Urine Blood Negative (Negative) Urine Nitrite Negative (Negative) Urine Bilirubin Negative (Negative) Urine Urobilinogen <2.0 (<2.0) mg/dL Ur Leukocyte Esterase Small H (Negative) Urine RBC <1 (0-5) /hpf Urine WBC 2 (0-5) /hpf Ur Squamous Epith Cells 1 (0-4) /hpf Urine Bacteria Rare H (None) /hpf Urine Mucus Rare H (None) /hpf Urine Opiates Screen Not Detected (NotDetected) Ur Oxycodone Screen Not Detected (NotDetected) Urine Methadone Screen Not Detected (NotDetected) Ur Propoxyphene Screen Not Detected (NotDetected) Ur Barbiturates Screen Not Detected (NotDetected) U Tricyclic Antidepress Not Detected (NotDetected) Ur Phencyclidine Scrn Not Detected (NotDetected) Ur Amphetamines Screen Not Detected (NotDetected) U Methamphetamines Scrn Not Detected (NotDetected) U Benzodiazepines Scrn Not Detected (NotDetected) Urine Cocaine Screen Not Detected (NotDetected) U Marijuana (THC) Screen Not Detected (NotDetected) Disposition Clinical Impression: Bipolar disorder, Psychosis Disposition: ADMITTED IP TO THIS [facility] Condition: Stable Is patient prescribed a controlled substance at d/c from ED?: No Referrals: None,Stated [Primary Care Provider] - 1-2 days Decision to Admit Reason: Admit from EC Decision Date: 10/22/17 Decision Time: 13:13
[2017-10-21 14:27] LABS: Basophils # (A) 0.1 k/uL (0-0.2); Basophils % (A) 1 %; Eosinophils # (A) 0.1 k/uL (0-0.7); Eosinophils % (A) 2 %; HCT 38.5 % (34.0-46.0); HGB 12.6 gm/dL (11.4-16.0); Lymphocytes # (A) 1.6 k/uL (1.0-4.8); Lymphocytes % (A) 22 %; MCH 31.1 pg (25.0-35.0); MCHC 32.7 g/dL (31.0-37.0); MCV 95.2 fL (80.0-100.0); Mean Platelet Volume 6.8; Monocytes # (A) 0.7 k/uL (0-1.0); Monocytes % (A) 9 %; Neutrophils # (A) 4.7 k/uL (1.3-7.7); Neutrophils % (A) 65 %; Platelet Count 322 k/uL (150-450); RBC 4.05 m/uL (3.80-5.40); RDW 12.2 % (11.5-15.5); WBC 7.3 k/uL (3.8-10.6)
[2017-10-21] MEDS ORDERED: LORazepam 2 MG/ML INJ IV STA (14:30)
[2017-10-21 14:34] LABS: Calcium 9.3 mg/dL (8.4-10.2); Potassium 4.4 mmol/L (3.5-5.1); Total Bilirubin 0.3 mg/dL (0.2-1.3); Total Protein 6.6 g/dL (6.3-8.2)
[2017-10-21] MEDS ORDERED: LORazepam 2 MG/ML INJ IM STA ×2 (14:56→19:39)
[2017-10-21 15:56] LABS: Phencyclidine Screen,Urine Not Detected (NotDetected); Urn Cannabinoid Scrn Not Detected (NotDetected)
[2017-10-21 15:57] LABS: Amphetamine Screen,Urine Not Detected (NotDetected); Barbiturate Screen,Urine Not Detected (NotDetected); Benzodiazepines Screen,Urine Not Detected (NotDetected); Cocaine Screen,Urine Not Detected (NotDetected); Methadone Screen, Urine Not Detected (NotDetected); Opiate Screen,Urine Not Detected (NotDetected); Oxycodone Screen, Urine Not Detected (NotDetected); Tricyclic Antidepressant,Urine Not Detected (NotDetected)
[2017-10-21 15:58] LABS: Appearance,Urine Clear (Clear); Bacteria,Urine Rare /hpf; Bilirubin,Urine Negative (Negative); Blood,Urine Negative (Negative); Color,Urine Yellow; Glucose,Urine (UA) Negative (Negative); Ketones,Urine Trace (Negative); Leukocyte Esterase,Urine Small (Negative); Mucus,Urine Rare /hpf; Nitrite,Urine Negative (Negative); PH, Urine 5.5 (5.0-8.0); Protein,Urine Negative (Negative); RBC,Urine <1 /hpf (0-5); Specific Gravity,Urine 1.023 (1.001-1.035); Squamous Epithelial Cell,Urine 1 /hpf (0-4); Urobilinogen,Urine <2.0 mg/dL (<2.0); WBC,Urine 2 /hpf (0-5)
[2017-10-21] MEDS: LORazepam 2 MG/ML INJ IM STA (23:18)
[2017-10-22] MEDS ORDERED: LORazepam 1 MG TAB PO PRN (05:21)
[2017-10-22] MEDS ORDERED: ESCITALOPRAM 20 MG TAB PO SCH (09:00)
[2017-10-22] MEDS ORDERED: amLODIPine 5 MG TAB PO SCH (09:00)
[2017-10-22] MEDS ORDERED: LEVOTHYROXINE 88 MCG TAB PO SCH (09:00)
[2017-10-22] MEDS ORDERED: LOSARTAN 25 MG TAB PO SCH (09:00)
[2017-10-22] MEDS ORDERED: SPIRONOLACTONE 25 MG TAB PO SCH (09:00)
[2017-10-22] MEDS ORDERED: POTASSIUM CHLORIDE ER 10 MEQ TAB.ER.PRT PO SCH (09:00)
[2017-10-22] MEDS: LORazepam 2 MG/ML INJ IM STA (11:47)
[2017-10-22] MEDS ORDERED: MAG HYDROX/AL HYDROX/SIMETH 30 ML CUP PO PRN (16:47)
[2017-10-22] MEDS ORDERED: MAGNESIUM HYDROXIDE 2,400 MG/10 ML CUP PO PRN (16:47)
[2017-10-22] MEDS ORDERED: LORATADINE 10 MG TAB PO PRN (16:49)
[2017-10-22] MEDS ORDERED: HALOPERIDOL 2 MG TAB PO PRN (17:18)
[2017-10-22] MEDS: amLODIPine 5 MG TAB PO SCH (18:37)
[2017-10-22] MEDS: CALCIUM CARB-VIT D 500MG-200UN 1 EACH TAB PO SCH (18:38)
[2017-10-22] MEDS: DOCUSATE 100 MG CAP PO SCH (18:39)
[2017-10-22] MEDS: traZODone HCL 100 MG TAB PO SCH (20:24)
[2017-10-22] MEDS: ACETAMINOPHEN TAB 325 MG TAB PO PRN (20:25)
[2017-10-22] MEDS: ATORVASTATIN 10 MG TAB PO SCH (20:26)
--- NOTE | 2017-10-22 20:40 | P.MDCNMH ---
History of Present Illness H&P Date: 10/22/17 Chief Complaint: Medical evaluation 62-year-old female with history of schizophrenia who was just discharged from an outside hospital after a prolonged stay presented to the emergency department because of increased verbal outbursts at her prison, she has also been throwing food and coffee at the staff members. Patient complained that she has not slept in the past 3-4 days. When I talked to her she seemed intermittently confused. She denied having any symptoms including chest pain, shortness of breath, nausea or vomiting, diarrhea or constipation. She stated that she has chronic abdominal pain. No recent illness, no fevers or chills. Review of Systems 12 point review of system performed, negative except HPI Past Medical History Past Medical History: GERD/Reflux, Hyperlipidemia, Hypertension, Thyroid Disorder History of Any Multi-Drug Resistant Organisms: None Reported Past Surgical History: Breast Surgery, Tubal Ligation Additional Past Surgical History / Comment(s): BREAST BX'S- CAREGIVER UNSURE OF OTHER SURGERYS Past Anesthesia/Blood Transfusion Reactions: Unable to Obtain Past Psychological History: Anxiety, Depression, Schizophrenia Smoking Status: Never smoker Past Alcohol Use History: None Reported Past Drug Use History: None Reported Medications and Allergies Home Medications Medication Instructions Recorded Confirmed Type Alendronate Sodium [Fosamax] 70 mg PO FR 10/30/13 10/22/17 History Calcium Carbonate/Vitamin D3 1 tab PO BID@0500,1700 10/30/13 10/22/17 History [Caltrate 600 Plus D3 Tablet] Docusate Sodium [Dulcolax Stool 100 mg PO BID@0800,1700 10/30/13 10/22/17 History Softener] Lovastatin [Mevacor] 20 mg PO HS@2100 10/30/13 10/22/17 History Cetirizine HCl [Zyrtec] 10 mg PO DAILY@1700 PRN 10/20/15 10/22/17 History Levothyroxine Sodium [Synthroid] 88 mcg PO DAILY@0700 10/20/15 10/22/17 History Potassium Chloride ER [K-Dur 10] 10 meq PO DAILY@0800 10/20/15 10/22/17 History Spironolactone [Aldactone] 100 mg PO DAILY@0800 10/20/15 10/22/17 History amLODIPine [Norvasc] 5 mg PO DAILY@1700 10/20/15 10/22/17 History Acetaminophen/Diphenhydramine 2 tab PO HS@2100 02/22/17 10/22/17 History [Tylenol PM 500-25mg] Furosemide [Lasix] 20 mg PO DAILY@0809/14/17 10/22/17 History LORazepam [Ativan] 2 mg PO BID PRN 09/14/17 10/22/17 History Losartan Potassium [Cozaar] 25 mg PO DAILY@0809/14/17 10/22/17 History ARIPiprazole [Abilify] 20 mg PO DAILY@0810/21/17 10/22/17 History Escitalopram [Lexapro] 20 mg PO DAILY@0810/21/17 10/22/17 History traZODone HCL [Desyrel] 100 mg PO HS@209910/21/17 10/22/17 History Allergies Allergy/AdvReac Type Severity Reaction Status Date / Time Penicillins Allergy Unknown Unknown Verified 10/21/17 13:15 Childhood Physical Exam Vitals: Vital Signs Temp Pulse Pulse Resp BP BP Pulse Ox 10/22/17 16:37 98.3 F 73 16 134/61 97 10/22/17 14:35 99.2 F 87 15 127/76 97 10/22/17 09:42 82 18 109/62 98 10/22/17 03:51 78 18 132/79 97 Intake and Output 10/22/17 10/22/17 10/22/17 06:59 14:59 22:59 Other: Weight 96.615 kg Constitutional: No acute distress, conversant, pleasant Eyes:Anicteric sclerae, moist conjunctiva, no lid-lag, PERRLA, ENMT: Oropharynx clear, no erythema, exudates Neck: Supple, FROM, no masses, or JVD, No carotid bruits, No thyromegaly Lungs: Clear to auscultation, Clear to percussion, Normal respiratory effort, no accessory muscle use Cardiovascular: Heart regular in rate and rhythm, No murmurs, gallops, or rubs, No peripheral edema Abdominal: Soft, Nontender, no guarding, rebound or rigidity, Normoactive bowel sounds, No hepatomegaly, No splenomegaly, No palpable mass Skin: Normal temperature, tone, texture, turgor, no induration, No subcutaneous nodules, No rash, lesions, No ulcers Extremities: No digital cyanosis, No clubbing, Pedal pulses intact and symmetrical, Radial pulses intact and symmetrical, No calf tenderness Neuro: Muscles Strength 5/5 in all 4 extremities, Sensation to light touch grossly present throughout, Cranial nerves II-XII grossly intact, no focal sensory deficits Cranial Nerve Examination - Cranial Nerves Cranial Nerve II- Optic: Intact Cranial Nerve III- Oculomotor: Intact Cranial Nerve IV- Trochlear: Intact Cranial Nerve V- Trigeminal: Intact Cranial Nerve - Abducens: Intact Cranial Nerve VII- Facial: Intact Cranial Nerve VIII- Auditory: Intact Cranial Nerve IX- Glossopharyngeal: Intact Cranial Nerve X- Vagus: Intact Cranial Nerve XI- Accessory: Intact Cranial Nerve XII- Hypoglossal: Intact Results CBC & Chem 7: 10/21/17 14:13 10/21/17 14:13 Labs: Microbiology - Last 24 Hours (Table) 10/21/17 15:32 Urine Culture - Preliminary Urine,Catheterized Assessment and Plan Plan: #1 Anger issues/history of schizophrenia and depression Management per psychiatry #2 GERD/Reflux, Hyperlipidemia, Hypertension, Thyroid Disorder Check CBC, CMP, TSH, A1c and lipid profile Resume home medications
[2017-10-22] MEDS ORDERED: traZODone HCL 100 MG TAB PO SCH (21:00)
[2017-10-22] MEDS ORDERED: ATORVASTATIN 20 MG TAB PO SCH (21:00)
[2017-10-23] MEDS: HALOPERIDOL LACTATE 5 MG/ML 1 ML VIAL IM PRN ×2 (00:43→06:55)
[2017-10-23] MEDS: LORazepam 2 MG/ML INJ IM PRN (03:25)
[2017-10-23] MEDS: DOCUSATE 100 MG CAP PO SCH ×2 (08:00→16:43)
[2017-10-23] MEDS: LEVOTHYROXINE 88 MCG TAB PO SCH (08:00)
[2017-10-23] MEDS: CALCIUM CARB-VIT D 500MG-200UN 1 EACH TAB PO SCH ×2 (08:00→16:43)
[2017-10-23] MEDS: FUROSEMIDE 20 MG TAB PO SCH (08:00)
[2017-10-23] MEDS: POTASSIUM CHLORIDE ER 10 MEQ TAB.ER.PRT PO SCH (08:00)
[2017-10-23] MEDS: SPIRONOLACTONE 25 MG TAB PO SCH (08:00)
[2017-10-23] MEDS: LOSARTAN 25 MG TAB PO SCH (08:00)
[2017-10-23] MEDS: ESCITALOPRAM 20 MG TAB PO SCH (08:00)
--- NOTE | 2017-10-23 12:36 | HP ---
HISTORY AND PHYSICAL DATE OF SERVICE: 10/23/2017. IDENTIFYING DATA: This patient is a 62-year-old single female who was admitted to us from her adult foster senior care for acutely agitated behavior. HISTORY OF PRESENT ILLNESS: The patient presents with a petition stating "patient not sleeping, screaming, grabbing hair, swatting at staff at [facility] home, hearing voices 'why did you do that to me', screaming." The patient is a partial historian. Reportedly, she was admitted to [facility] for approximately 4 weeks. We have no records available at this time. We are requesting records from that facility. She reportedly was discharged back to the [facility] home. She was mute for 2-3 days but then began demonstrating agitated behavior, which prompted the transfer to our ER. [facility] declined readmitting the patient and she was subsequently admitted to our unit. The patient states that she has not been sleeping. She feels sad for unexplained reasons. She describes experiencing "bad voices" but provides no specific information as to what she is hearing. She describes feeling anxious but is unable to state why. She states that her past diagnosis could be bipolar or schizophrenia. Again, she is a partial historian and with several questions. She will provide no answer. Staff reports that the patient was yelling all evening, which was a significant disruption for the entire milieu. They report that she has not been doing that this morning. She is in a wheelchair and staff reports that she is not doing anything in terms of self-care and requires assistance. We currently have her on a one-to-one due to concern of fall risk and transfers. She indicates that previously she was ambulating with a walker. It is unclear if she has any history of hypomanic or manic episodes. She is endorsing no visual hallucinations. She indicates she feels safe in the hospital. PAST PSYCHIATRIC HISTORY: She states that she has had 4-5 inpatient admissions. No suicide attempts are reported. She does go to [facility] and Karyna Gomez is her prescriber. Currently she is on Abilify 20 mg daily, Lexapro 20 mg daily, trazodone 100 mg at bedtime. There is documentation that she has been on Abilify Maintena and the last known injection at [facility] was 08/23/2017. It is unclear if that was continued while at [facility]. The patient has a documented history of intellectual disability. PAST MEDICAL HISTORY: GERD, hyperlipidemia, hypertension, thyroid disorder. She is on Lipitor, Lasix, Synthroid, Cozaar, Aldactone. ALLERGIES: PENICILLIN. CHEMICAL DEPENDENCY HISTORY: She reports using no alcohol or illicit drugs. Again, she is an [facility] home resident. It is unclear if she has ever been placed in residential treatment for chemical dependency reasons. FAMILY PSYCHIATRIC HISTORY: She reports her brother has schizophrenia. Unclear if there are any suicides in the family. FAMILY CHEMICAL DEPENDENCY HISTORY: Unknown. SOCIAL HISTORY: The patient is 62 years old. She is single. She has no children. She has resided at the same [facility] home for the last 4 years. She has a guardian, Ramandeep. It is unclear as to what the patient's education level is. She states she is originally from the [facility]. LEGAL HISTORY: She was arrested at age 23 for DUI. ABUSE HISTORY: Unknown. MENTAL STATUS EXAM: The patient is an obese female, appearing her stated age. She is dressed in hospital attire. She seated in a wheelchair. She wears eye glasses. She demonstrates psychomotor slowing, most likely from medications administered last evening. She has a distraught affect at times. Speech can be spontaneous. There are questions that she provides no response to and simply stares back at me. She is demonstrating no verbal or physical aggressiveness. She denies having any thoughts of wanting to hurt herself or others. She indicates she is hearing "bad voices but does not specify the content of what she is hearing. Both insight and judgment are impaired. She is oriented to person. She is oriented to place as hospital, the month is October, the year is 2017. She incorrectly names the day of the week as Tuesday. She was able to spell world backwards. STRENGTHS: Housing, [facility], outpatient followup. She has a guardian in place. WEAKNESSES: Exacerbation of psychosis, possible noncompliance recently with medication. INTELLECT: Documented to be below average. IMPRESSIONS: 1. Psychosis, unspecified. Rule out schizoaffective disorder versus schizophrenia, intellectual disability, mild. 2. Medical comorbidities include hypertension, hyperlipidemia, hypothyroidism, gastroesophageal reflux disease. PLAN: The patient has been admitted to the mental health unit on a petition and clinical certificate. She is not able to understand the options of signing in versus being here involuntarily. I will proceed with completing a 2nd clinical certificate and she will have an opportunity to meet with a court-appointed district attorney to discuss further options in terms of this hospitalization. At this time, we will continue her Abilify 20 mg daily, Lexapro 20 mg daily, trazodone 100 mg at bedtime. We will verify when she received her last Abilify Maintena. We are hoping to get records from [facility] today. We may need to prescribe different medication in the evening for her to sleep. She will be seen by internal medicine for routine history and physical exam. Laboratory studies reviewed, which were essentially normal. There was a mild elevation of BUN and creatinine, but nothing significant. Vital signs reviewed. She will remain on one-to-one supervision. We will put in for a physical therapy evaluation so we can determine her capabilities to transfer and ambulate with or without an implement. We will attempt to get collateral information from her sister if possible as well as her guardian. Social Work will complete a psychosocial assessment. MMODL / IJN: [id number] /
[2017-10-23] MEDS: ACETAMINOPHEN TAB 325 MG TAB PO PRN (14:05)
[2017-10-23] MEDS: LORazepam 1 MG TAB PO PRN ×2 (14:05→16:43)
[2017-10-23] MEDS: amLODIPine 5 MG TAB PO SCH (16:44)
[2017-10-23] MEDS: ATORVASTATIN 10 MG TAB PO SCH (21:14)
[2017-10-23] MEDS: traZODone HCL 100 MG TAB PO SCH (21:14)
[2017-10-24] MEDS: LORazepam 2 MG/ML INJ IM PRN ×2 (01:13→23:28)
[2017-10-24] MEDS: HALOPERIDOL LACTATE 5 MG/ML 1 ML VIAL IM PRN ×2 (01:13→23:29)
[2017-10-24] MEDS: SPIRONOLACTONE 25 MG TAB PO SCH (09:34)
[2017-10-24] MEDS: DOCUSATE 100 MG CAP PO SCH ×2 (09:35→17:04)
[2017-10-24] MEDS: CALCIUM CARB-VIT D 500MG-200UN 1 EACH TAB PO SCH ×2 (09:35→17:04)
[2017-10-24] MEDS: LOSARTAN 25 MG TAB PO SCH (09:35)
[2017-10-24] MEDS: ESCITALOPRAM 20 MG TAB PO SCH (09:35)
[2017-10-24] MEDS: LEVOTHYROXINE 88 MCG TAB PO SCH (09:35)
[2017-10-24] MEDS: FUROSEMIDE 20 MG TAB PO SCH (09:35)
[2017-10-24] MEDS: POTASSIUM CHLORIDE ER 10 MEQ TAB.ER.PRT PO SCH (09:35)
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
[2017-10-24] MEDS: DIVALPROEX ER 500 MG TAB.ER.24H PO SCH ×3 (10:43→20:01)
[2017-10-24 11:38] LABS: Hemoglobin A1C 5.4 % (4.0-6.0)
[2017-10-24] MEDS: LORazepam 1 MG TAB PO PRN (14:27)
[2017-10-24] MEDS: HALOPERIDOL 5 MG TAB PO PRN (14:27)
[2017-10-24] MEDS: amLODIPine 5 MG TAB PO SCH (17:04)
[2017-10-24] MEDS: ATORVASTATIN 10 MG TAB PO SCH (20:01)
[2017-10-24] MEDS ORDERED: traZODone HCL 50 MG TAB PO SCH (21:00)
[2017-10-24] MEDS: ACETAMINOPHEN TAB 325 MG TAB PO PRN (21:59)
[2017-10-25] MEDS ORDERED: ZIPRASIDONE 20 MG VIAL IM STA (01:16)
[2017-10-25] MEDS: CALCIUM CARB-VIT D 500MG-200UN 1 EACH TAB PO SCH ×4 (05:35→18:41)
[2017-10-25] MEDS: LEVOTHYROXINE 88 MCG TAB PO SCH (06:03)
[2017-10-25] MEDS ORDERED: ESCITALOPRAM 10 MG TAB PO SCH (09:00)
[2017-10-25] MEDS: HALOPERIDOL LACTATE 5 MG/ML 1 ML VIAL IM PRN (10:01)
[2017-10-25] MEDS: LORazepam 2 MG/ML INJ IM PRN (10:01)
--- NOTE | 2017-10-25 10:27 | P.PN ---
Progress Note - Text Interval history: The patient is found in her room. She is heard screaming loudly. Staff report she was up all night screaming and fell asleep at 6 AM waking around 10 AM we continued to have a loss prevention/safety district manager at bedside. Upon entering the room the patient is lying in bed her eyes are closed she will yell "stop it" she provides very few answers to questions asked. Staff reports she' s been more aggressive in terms of trying to hit. Staff are trying to engage in conversation to see what needs can be met to make her more comfortable but she provides no response other than screaming loudly. Mental status exam: The patient is an obese female she is disheveled hygiene and impaired. She is dressed in hospital attire. She keeps her eyes closed and is constantly yelling. She does not engage in a conversation. She often yells "stop it" randomly. Insight and judgment are poor. She does appear more agitated and she was observed making a hitting-like motion towards the staff sitting with her. She displays a dysphoric affect but is not tearful. She demonstrates no abnormal involuntary movements. Plan: The patient's will continue on the Abilify we will increase that to 30 mg daily. Continue Depakote ER. She has Haldol available as needed for agitation. Although we prefer to try not to combine antipsychotics I will prescribe Seroquel at bedtime. This was added by [facility] as an outpatient and it may possibly have helped with sleep. I will discontinue the antidepressant medication at this time as it may be agitating her. She requires continued psychiatric hospitalization. We will continue the one-to- one supervision at this time due to her unpredictable behavior.
[2017-10-25] MEDS: LOSARTAN 25 MG TAB PO SCH (10:50)
[2017-10-25] MEDS: POTASSIUM CHLORIDE ER 10 MEQ TAB.ER.PRT PO SCH (10:51)
[2017-10-25] MEDS: SPIRONOLACTONE 25 MG TAB PO SCH (10:51)
[2017-10-25] MEDS: DOCUSATE 100 MG CAP PO SCH ×3 (10:51→18:41)
[2017-10-25] MEDS: FUROSEMIDE 20 MG TAB PO SCH (10:51)
[2017-10-25] MEDS: DIVALPROEX ER 500 MG TAB.ER.24H PO SCH ×2 (10:51→20:06)
[2017-10-25] MEDS: LORazepam 1 MG TAB PO PRN (15:06)
[2017-10-25] MEDS: amLODIPine 5 MG TAB PO SCH ×2 (16:40→18:42)
[2017-10-25] MEDS: ATORVASTATIN 10 MG TAB PO SCH (20:06)
[2017-10-25] MEDS: ACETAMINOPHEN TAB 325 MG TAB PO PRN (20:49)
[2017-10-25] MEDS ORDERED: QUEtiapine 100 MG TAB PO SCH (21:00)
[2017-10-26] MEDS: LORazepam 1 MG TAB PO PRN (01:25)
[2017-10-26] MEDS: HALOPERIDOL 5 MG TAB PO PRN (01:25)
[2017-10-26] MEDS: LORazepam 2 MG/ML INJ IM PRN ×3 (01:34→16:34)
[2017-10-26] MEDS: HALOPERIDOL LACTATE 5 MG/ML 1 ML VIAL IM PRN ×2 (01:34→16:33)
[2017-10-26] MEDS: LEVOTHYROXINE 88 MCG TAB PO SCH (06:02)
[2017-10-26] MEDS: CALCIUM CARB-VIT D 500MG-200UN 1 EACH TAB PO SCH ×2 (06:03→17:20)
[2017-10-26] MEDS: SPIRONOLACTONE 25 MG TAB PO SCH (08:43)
[2017-10-26] MEDS: POTASSIUM CHLORIDE ER 10 MEQ TAB.ER.PRT PO SCH (08:43)
[2017-10-26] MEDS: FUROSEMIDE 20 MG TAB PO SCH (08:43)
[2017-10-26] MEDS: ARIPiprazole 15 MG TAB PO SCH (08:43)
[2017-10-26] MEDS: LOSARTAN 25 MG TAB PO SCH (08:43)
[2017-10-26] MEDS: DIVALPROEX ER 500 MG TAB.ER.24H PO SCH ×2 (08:43→20:55)
[2017-10-26] MEDS: DOCUSATE 100 MG CAP PO SCH ×2 (08:43→17:20)
--- NOTE | 2017-10-26 09:53 | P.PN ---
Progress Note - Text Interval history: The patient is found in her room she is lying in bed she remains on one-to-one supervision. Staff report that the patient did yell throughout the night but it was less than the night before. It seemed that the addition of Seroquel did help with sleep. This morning the patient is awake in bed initially she stares at me and then spontaneously screams. She is her doing this throughout the morning hours. She does provide some verbal responses. She indicates that staff and patients are laughing at her. She reports feeling unsafe and states "you know why". At random times she will begin yelling the rest of her response or statement. She slowly rolls back and forth in her bed but is redirectable in terms of lying back down. Mental status exam: The patient is an obese female. She is more attentive to the conversation versus yesterday. She still remains acutely agitated and screams. She indicates a paranoid and persecutory thought process. Insight and judgment are poor. She is known to have an intellectual disability. In terms of orientation she is oriented to [facility], she names the months of year as July and the date as the . She does correctly name the year. She did not respond when asked if she had any suicidal thoughts or thought of harming others. She demonstrates no abnormal involuntary movements. Plan: Vital signs reviewed. We will titrate the Seroquel to 200 mg at bedtime. This is being done to try to improve the quantity of sleep in the evening. It will also augment the Abilify in terms of treating symptoms of psychosis. Ideally we would only use one antipsychotic medication however this patient is very agitated and is not sufficiently responding to the Abilify alone. We will continue to monitor her with one-to-one supervision primarily for fall risk and for transferring. She requires ongoing psychiatric hospitalization.
[2017-10-26] MEDS: ACETAMINOPHEN TAB 325 MG TAB PO PRN (10:44)
[2017-10-26] MEDS: amLODIPine 5 MG TAB PO SCH (17:20)
[2017-10-26] MEDS: QUEtiapine 200 MG TAB PO SCH (20:55)
[2017-10-26] MEDS: ATORVASTATIN 10 MG TAB PO SCH (20:55)
[2017-10-26] MEDS ORDERED: LORazepam 2 MG/ML INJ IM STA (22:43)
[2017-10-26] MEDS ORDERED: HALOPERIDOL LACTATE 5 MG/ML 1 ML VIAL IM ONE (22:46)
[2017-10-27] MEDS: LEVOTHYROXINE 88 MCG TAB PO SCH ×3 (06:12→09:35)
[2017-10-27] MEDS: CALCIUM CARB-VIT D 500MG-200UN 1 EACH TAB PO SCH ×4 (06:16→17:31)
[2017-10-27] MEDS: ARIPiprazole 15 MG TAB PO SCH ×2 (08:50→09:34)
[2017-10-27] MEDS: LOSARTAN 25 MG TAB PO SCH ×2 (08:51→09:35)
[2017-10-27] MEDS: DIVALPROEX ER 500 MG TAB.ER.24H PO SCH ×3 (08:51→20:25)
[2017-10-27] MEDS: DOCUSATE 100 MG CAP PO SCH ×3 (08:51→17:31)
[2017-10-27] MEDS: FUROSEMIDE 20 MG TAB PO SCH ×2 (08:51→09:34)
[2017-10-27] MEDS: SPIRONOLACTONE 25 MG TAB PO SCH ×2 (08:51→09:34)
[2017-10-27] MEDS: HALOPERIDOL LACTATE 5 MG/ML 1 ML VIAL IM PRN (08:52)
[2017-10-27] MEDS: LORazepam 2 MG/ML INJ IM PRN (08:53)
[2017-10-27] MEDS: POTASSIUM CHLORIDE ER 10 MEQ TAB.ER.PRT PO SCH (09:34)
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
[2017-10-27] MEDS: amLODIPine 5 MG TAB PO SCH (16:10)
[2017-10-27] MEDS: ATORVASTATIN 10 MG TAB PO SCH (20:25)
[2017-10-27] MEDS: QUEtiapine 200 MG TAB PO SCH (20:25)
[2017-10-27] MEDS: HALOPERIDOL 5 MG TAB PO PRN (20:43)
[2017-10-27] MEDS: LORazepam 1 MG TAB PO PRN (23:31)
[2017-10-27] MEDS: ACETAMINOPHEN TAB 325 MG TAB PO PRN (23:31)
[2017-10-28] MEDS ORDERED: HALOPERIDOL LACTATE 5 MG/ML 1 ML VIAL IM STA (02:50)
[2017-10-28] MEDS ORDERED: LORazepam 2 MG/ML INJ IM STA (02:50)
[2017-10-28] MEDS: LEVOTHYROXINE 88 MCG TAB PO SCH (06:32)
[2017-10-28] MEDS: CALCIUM CARB-VIT D 500MG-200UN 1 EACH TAB PO SCH ×2 (06:32→17:07)
[2017-10-28] MEDS: FUROSEMIDE 20 MG TAB PO SCH (08:45)
[2017-10-28] MEDS: DIVALPROEX ER 500 MG TAB.ER.24H PO SCH ×2 (08:45→21:02)
[2017-10-28] MEDS: LOSARTAN 25 MG TAB PO SCH (08:45)
[2017-10-28] MEDS: POTASSIUM CHLORIDE ER 10 MEQ TAB.ER.PRT PO SCH (08:45)
[2017-10-28] MEDS: ARIPiprazole 15 MG TAB PO SCH (08:45)
[2017-10-28] MEDS: DOCUSATE 100 MG CAP PO SCH ×2 (08:45→17:07)
[2017-10-28] MEDS: SPIRONOLACTONE 25 MG TAB PO SCH (08:46)
[2017-10-28] MEDS: NON-FORMULARY DRUG (Alendronate Sodium [Fosamax] 70 MG) PO SCH (08:49)
--- NOTE | 2017-10-28 11:26 | P.PN ---
Progress Note - Text Interval history: The patient is found in her room she remains on one-to-one supervision. She continues to have difficulty sleeping in the evening. She does sleep during the later morning hours. Staff report that in comparison to the last 2 days her behavior has improved. She will still yell or scream but it has been less frequent. She did engage in conversation with some staff this morning and she was verbal with me as well. During our brief interaction she did not yell. She indicated some distress that she is being teased and that people here we'll try to hurt her. She indicated she had nightmares last evening and try to describe it. Appetite is been stable. She does require continued use of injected when necessary medication. Mental status exam: The patient is an obese female she has a disheveled appearance she is dressed in hospital gowns. She does appear tired but is not lethargic this morning she makes eye contact. She provides verbal responses to several questions without yelling area she describes a sense of fearfulness and persecution. She states she is being teased and is in danger. She briefly response to reassurance that she is safe. She is oriented to the hospital she knows my name can name the month day and year. She is reporting no suicidal or homicidal thoughts. She is endorsing no auditory or visual hallucinations. Insight and judgment remain impaired. Again she does have a chronic intellectual disability. Plan: The patient's is demonstrating some mild improvement in comparison to last 2 days. She continues to require as needed medication but her episodes of screaming are less frequent. We will continue her medications as written. We will provide reality orientation when possible. We will continue one-to-one supervision for her safety. Vital signs reviewed.
[2017-10-28] MEDS: HALOPERIDOL 5 MG TAB PO PRN (12:43)
[2017-10-28] MEDS: LORazepam 1 MG TAB PO PRN ×2 (12:43→21:03)
[2017-10-28] MEDS: amLODIPine 5 MG TAB PO SCH (17:07)
[2017-10-28] MEDS: ACETAMINOPHEN TAB 325 MG TAB PO PRN (19:14)
[2017-10-28] MEDS: QUEtiapine 200 MG TAB PO SCH (21:02)
[2017-10-28] MEDS: ATORVASTATIN 10 MG TAB PO SCH (21:02)
[2017-10-29] MEDS: HALOPERIDOL LACTATE 5 MG/ML 1 ML VIAL IM PRN (00:33)
[2017-10-29] MEDS: LORazepam 2 MG/ML INJ IM PRN (04:39)
[2017-10-29] MEDS: LEVOTHYROXINE 88 MCG TAB PO SCH (06:28)
[2017-10-29] MEDS: CALCIUM CARB-VIT D 500MG-200UN 1 EACH TAB PO SCH ×2 (06:28→17:32)
[2017-10-29] MEDS: ARIPiprazole 15 MG TAB PO SCH (09:19)
[2017-10-29] MEDS: FUROSEMIDE 20 MG TAB PO SCH (09:19)
[2017-10-29] MEDS: SPIRONOLACTONE 25 MG TAB PO SCH (09:19)
[2017-10-29] MEDS: LOSARTAN 25 MG TAB PO SCH (09:19)
[2017-10-29] MEDS: DOCUSATE 100 MG CAP PO SCH ×2 (09:20→17:32)
[2017-10-29] MEDS: DIVALPROEX ER 500 MG TAB.ER.24H PO SCH ×2 (09:20→20:27)
[2017-10-29] MEDS: POTASSIUM CHLORIDE ER 10 MEQ TAB.ER.PRT PO SCH (09:20)
--- NOTE | 2017-10-29 10:38 | P.PN ---
Progress Note - Text Progress Note Date: 10/29/17 Interval History: I reviewed the medical record and attempted to interview the patient. She is a 62-year-old female who has history of an intellectual disability. She was admitted to the psychiatric unit for treatment of an specified psychotic disorder. She has been a challenge to manage on the unit due to her disruptive behavior. She remains on one-to-one throughout the day. She was markedly sedated this morning and difficult interview. According to the MAR she received 1 mg of Ativan IM at 439 and 5mg of Haldol IM at 1236 this morning. She has been compliant with prescribed psychotropic medications. Overall, nursing reports less "screaming" then was present earlier admission. Mental Status Exam: She presented as a disheveled appearing and sedated 8-year- old woman who was sitting in a wheelchair. The clinical nursing director was in attendance throughout the interview. The patient did not make eye contact and did not appear to attend to interview. She showed psychomotor retardation but no abnormal movements. Her speech was not spontaneous and was slurred. Her affect was flat. She did not express suicidal ideation or wishes. She stated that "voices" are saying "kill her." She did not appear to be responding to internal stimuli during our interview. Her thinking was concrete and associations were not fully coherent and organized. Plan: Continue inpatient hospitalization. Continue one-to-one supervision and safety precautions. Continue Abilify 30 mg daily, Depakote 500 mg twice a day and Seroquel 200 mg at bedtime. Continue Haldol 5 mg IM/by mouth twice a day and lorazepam 1 mg by mouth 3 times a day when necessary and/or 1 mg IM every 8 hours when necessary; both the Haldol and Ativan treatment for agitation and/or aggression. Continue dose of Norvasc, Lipitor, Os-Neto, Colace, Lasix, Synthroid , Claritin, Cozaar, Fosamax, K door and Aldactone as recommended by medicine service. She is not appropriate for therapeutic groups and activities due to her disruptive behavior. Evaluate clinical status response to treatment on a daily basis.
[2017-10-29 11:07] LABS: Valproic Acid (Depakene) 63.4 ug/mL
[2017-10-29] MEDS: ACETAMINOPHEN TAB 325 MG TAB PO PRN (16:27)
[2017-10-29] MEDS: amLODIPine 5 MG TAB PO SCH (17:33)
[2017-10-29] MEDS: QUEtiapine 200 MG TAB PO SCH (20:26)
[2017-10-29] MEDS: ATORVASTATIN 10 MG TAB PO SCH (20:27)
[2017-10-30] MEDS: LORazepam 2 MG/ML INJ IM PRN (01:18)
[2017-10-30] MEDS: HALOPERIDOL LACTATE 5 MG/ML 1 ML VIAL IM PRN ×3 (01:19→22:46)
[2017-10-30] MEDS: LEVOTHYROXINE 88 MCG TAB PO SCH (06:56)
[2017-10-30] MEDS: CALCIUM CARB-VIT D 500MG-200UN 1 EACH TAB PO SCH ×2 (06:56→16:39)
[2017-10-30] MEDS: DOCUSATE 100 MG CAP PO SCH ×2 (08:04→16:39)
[2017-10-30] MEDS: ARIPiprazole 15 MG TAB PO SCH (08:04)
[2017-10-30] MEDS: FUROSEMIDE 20 MG TAB PO SCH (08:04)
[2017-10-30] MEDS: SPIRONOLACTONE 25 MG TAB PO SCH (08:04)
[2017-10-30] MEDS: LOSARTAN 25 MG TAB PO SCH (08:06)
[2017-10-30] MEDS: POTASSIUM CHLORIDE ER 10 MEQ TAB.ER.PRT PO SCH (08:06)
[2017-10-30] MEDS: DIVALPROEX ER 500 MG TAB.ER.24H PO SCH ×2 (08:06→20:41)
[2017-10-30 11:50] LABS: Appearance,Urine Cloudy (Clear); Bacteria,Urine Rare /hpf; Bilirubin,Urine Negative (Negative); Blood,Urine Moderate (Negative); Budding Yeast,Urine Many /hpf; Color,Urine Light Yellow; Glucose,Urine (UA) Negative (Negative); Ketones,Urine Negative (Negative); Leukocyte Esterase,Urine Large (Negative); Nitrite,Urine Negative (Negative); Protein,Urine Negative (Negative); RBC,Urine 16 /hpf (0-5); Specific Gravity,Urine 1.009 (1.001-1.035); Squamous Epithelial Cell,Urine 1 /hpf (0-4); Urobilinogen,Urine <2.0 mg/dL (<2.0); WBC,Urine >182 /hpf (0-5)
--- NOTE | 2017-10-30 11:51 | P.PN ---
Progress Note - Text Progress Note Date: 10/30/17 Interval history: I reviewed the medical record and attempted to interview the patient. She is a 8-year-old female who has history of an intellectual disability. She was admitted to the psychiatric unit for the treatment of an unspecified psychosis. She has been a challenge to manage on the unit due to her disruptive behavior. She remains on one-to-one throughout the day. She complained that staff are "making fun of me." I ask questions in an attempt understand why she believes this but I could not understand her answers. When I asked her attendant whether she had recently received any IM medications she feels "no more injections." She attended most therapeutic groups and activities briefly yesterday. Staff report that she appears disheveled and her speech is slow and garbled. She was "inattentive" and unable to focus on the topic of conversation. She did not sleep last night. She had difficulty falling asleep, was restless and woke up frequently during the night. Mental Status Exam: She presented as a disheveled-appearing, moderately obese female who is laying comfortably in bed. She appeared sedated but opened her eyes and made eye contact. She appeared to attend to the interview. She had a blunted facial expression. She showed psychomotor retardation but no abnormal movements. Her speech was not spontaneous and was dysarthric and difficult to understand. Her affect was blunted and labile. She did not express suicidal or homicidal ideation. She expressed fragmented paranoid delusional beliefs. Her thinking was concrete and not fully organized and coherent. She did not appear to be responding to internal stimuli. Plan: Continue inpatient hospitalization. Continue one-to-one supervision and safety precautions. Continue Abilify 30 mg daily, Depakote 500 mg twice per day and Seroquel 200 mg at bedtime. Continue Haldol 5 mg IM/by mouth twice a day and/or lorazepam 1 mg by mouth 3 times a day IM/by mouth for agitation acute psychosis. Continue other medications as recommended by medicine service. Continue to encourage as much participation in therapeutic groups as tolerated. Evaluate clinical status response to treatment daily basis.
[2017-10-30] MEDS: LORazepam 1 MG TAB PO PRN ×2 (13:27→20:42)
[2017-10-30] MEDS: amLODIPine 5 MG TAB PO SCH (16:39)
[2017-10-30] MEDS: QUEtiapine 200 MG TAB PO SCH (20:41)
[2017-10-30] MEDS: ATORVASTATIN 10 MG TAB PO SCH (20:41)
[2017-10-31] MEDS: ARIPiprazole 15 MG TAB PO SCH (08:28)
[2017-10-31] MEDS: POTASSIUM CHLORIDE ER 10 MEQ TAB.ER.PRT PO SCH (08:28)
[2017-10-31] MEDS: DOCUSATE 100 MG CAP PO SCH ×2 (08:28→16:59)
[2017-10-31] MEDS: DIVALPROEX ER 500 MG TAB.ER.24H PO SCH ×2 (08:28→21:08)
[2017-10-31] MEDS: FUROSEMIDE 20 MG TAB PO SCH (08:28)
[2017-10-31] MEDS: LOSARTAN 25 MG TAB PO SCH (08:28)
[2017-10-31] MEDS: CALCIUM CARB-VIT D 500MG-200UN 1 EACH TAB PO SCH ×2 (08:28→16:59)
[2017-10-31] MEDS: LEVOTHYROXINE 88 MCG TAB PO SCH (08:28)
[2017-10-31] MEDS: SPIRONOLACTONE 25 MG TAB PO SCH (08:30)
[2017-10-31] MEDS: LORazepam 1 MG TAB PO PRN ×2 (08:31→15:43)
[2017-10-31] MEDS: SULFAMETHOX-TMP 800-160MG 1 EACH TAB PO SCH ×2 (08:44→21:08)
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
[2017-10-31] MEDS: HALOPERIDOL 5 MG TAB PO PRN (15:43)
[2017-10-31] MEDS: amLODIPine 5 MG TAB PO SCH (16:59)
[2017-10-31] MEDS: ACETAMINOPHEN TAB 325 MG TAB PO PRN ×2 (17:52→23:46)
[2017-10-31] MEDS: ATORVASTATIN 10 MG TAB PO SCH (21:08)
[2017-10-31] MEDS: QUEtiapine 200 MG TAB PO SCH (21:08)
[2017-10-31] MEDS: HALOPERIDOL LACTATE 5 MG/ML 1 ML VIAL IM PRN (23:13)
[2017-10-31] MEDS: LORazepam 2 MG/ML INJ IM PRN (23:14)
[2017-11-01] MEDS: CALCIUM CARB-VIT D 500MG-200UN 1 EACH TAB PO SCH ×2 (08:12→16:36)
[2017-11-01] MEDS: LEVOTHYROXINE 88 MCG TAB PO SCH (08:12)
[2017-11-01] MEDS: DOCUSATE 100 MG CAP PO SCH ×2 (09:27→16:36)
[2017-11-01] MEDS: SPIRONOLACTONE 25 MG TAB PO SCH (09:27)
[2017-11-01] MEDS: DIVALPROEX ER 500 MG TAB.ER.24H PO SCH ×2 (09:27→20:37)
[2017-11-01] MEDS: LOSARTAN 25 MG TAB PO SCH (09:27)
[2017-11-01] MEDS: POTASSIUM CHLORIDE ER 10 MEQ TAB.ER.PRT PO SCH (09:28)
[2017-11-01] MEDS: ARIPiprazole 15 MG TAB PO SCH (09:28)
[2017-11-01] MEDS: FUROSEMIDE 20 MG TAB PO SCH (09:28)
[2017-11-01] MEDS: SULFAMETHOX-TMP 800-160MG 1 EACH TAB PO SCH ×2 (09:28→20:37)
--- NOTE | 2017-11-01 10:21 | P.PN ---
Progress Note - Text Interval history: The patient is found in her room. She remains on one-to-one supervision as ordered. She is much more agitated this morning compared to yesterday. She has been heard yelling throughout the morning. She was able to refrain from yelling behavior during our conversation but does appear agitated. She states that she is being tortured here and laughed at. She states she wants to return home. She is not able to participate in a conversation regarding her medications at this time. Staff report she slept 2 hours last evening. Mental status exam: The patient is an obese female she seated in her wheelchair. She has a disheveled appearance she is dressed in hospital gowns. She is agitated but not yelling during our interaction but is observed yelling before and after our interaction. She endorses paranoid and persecutory thoughts. She demonstrated no physical aggressiveness during our interaction. Insight and judgment remain poor. She is reporting no thoughts of wanting to harm herself or harm others. Thought process can be tangential no loose associations or flight of ideas. Physically she is in no acute distress respirations are normal. She does have some psychomotor slowing most likely due to as needed medication. Plan: The patient's continues to verbalize paranoid persecutory thoughts that seem to be responsible for the yelling behavior. I will titrate the Seroquel to 100 mg in the morning and 300 mg at bedtime. She continues to sleep poorly at night. We will continue her other psychotropic medication as written. Vital signs reviewed they're within normal limits. Continue one-to-one supervision due to unpredictable aggressive behavior and fall risk. She requires continued psychiatric hospitalization for her acute symptoms.
[2017-11-01] MEDS: QUEtiapine 100 MG TAB PO SCH ×2 (10:22→20:37)
[2017-11-01] MEDS: ACETAMINOPHEN TAB 325 MG TAB PO PRN ×3 (13:00→21:50)
[2017-11-01] MEDS: LORazepam 1 MG TAB PO PRN ×2 (14:03→17:49)
[2017-11-01] MEDS: amLODIPine 5 MG TAB PO SCH (16:38)
[2017-11-01] MEDS: ATORVASTATIN 10 MG TAB PO SCH (20:37)
[2017-11-01] MEDS: HALOPERIDOL LACTATE 5 MG/ML 1 ML VIAL IM PRN (22:47)
[2017-11-01] MEDS: LORazepam 2 MG/ML INJ IM PRN (22:47)
[2017-11-02] MEDS: DOCUSATE 100 MG CAP PO SCH ×2 (09:10→16:49)
[2017-11-02] MEDS: LOSARTAN 25 MG TAB PO SCH (09:10)
[2017-11-02] MEDS: ARIPiprazole 15 MG TAB PO SCH (09:10)
[2017-11-02] MEDS: CALCIUM CARB-VIT D 500MG-200UN 1 EACH TAB PO SCH ×2 (09:10→16:49)
[2017-11-02] MEDS: SPIRONOLACTONE 25 MG TAB PO SCH (09:10)
[2017-11-02] MEDS: POTASSIUM CHLORIDE ER 10 MEQ TAB.ER.PRT PO SCH (09:10)
[2017-11-02] MEDS: QUEtiapine 100 MG TAB PO SCH ×2 (09:10→20:02)
[2017-11-02] MEDS: LEVOTHYROXINE 88 MCG TAB PO SCH (09:10)
[2017-11-02] MEDS: SULFAMETHOX-TMP 800-160MG 1 EACH TAB PO SCH ×2 (09:10→20:02)
[2017-11-02] MEDS: DIVALPROEX ER 500 MG TAB.ER.24H PO SCH ×2 (09:10→20:02)
[2017-11-02] MEDS: FUROSEMIDE 20 MG TAB PO SCH (09:10)
--- NOTE | 2017-11-02 10:57 | P.PN ---
Progress Note - Text Interval history: The patient is found in the hallway she was interviewed in the library. She continues to be on one-to-one supervision as ordered. She indicates that she is eating she had some difficulty sleeping last night. Staff report that she did receive a Haldol and Ativan injection. She's been demonstrating less screaming behavior this morning compared to yesterday. No reports of any aggressive behavior in the last 24 hours. She appears tired but does make an effort to participate in the conversation. Mental status exam: The patient is tired appearing she is an overweight female. She is disheveled she is dressed in hospital gowns. She is mobile with a wheelchair. Eye contact is intermittent. She demonstrates psychomotor slowing. She provides verbal responses to several questions. She has a chronic impediment of speech. During our interaction she demonstrated no yelling behavior. She demonstrated no physical aggressiveness. Insight and judgment remain impaired. She continues to have paranoid and persecutory thinking. She is reporting no suicidal or homicidal thoughts. She is oriented to place as the hospital the year the day the week. She names the current month as September. Plan: The patient will continue on her current medications. The Seroquel has been recently titrated. We will monitor her for safety we will continue her on one-to-one supervision. Once she is more cooperative we consider a physical therapy evaluation. Vital signs reviewed.
[2017-11-02] MEDS: LORazepam 1 MG TAB PO PRN (15:52)
[2017-11-02] MEDS: amLODIPine 5 MG TAB PO SCH (16:49)
[2017-11-02] MEDS: ATORVASTATIN 10 MG TAB PO SCH (20:02)
[2017-11-02] MEDS: ACETAMINOPHEN TAB 325 MG TAB PO PRN (20:03)
[2017-11-02] MEDS: LORazepam 2 MG/ML INJ IM PRN (23:46)
[2017-11-02] MEDS: HALOPERIDOL LACTATE 5 MG/ML 1 ML VIAL IM PRN (23:48)
[2017-11-03] MEDS: POTASSIUM CHLORIDE ER 10 MEQ TAB.ER.PRT PO SCH (09:17)
[2017-11-03] MEDS: CALCIUM CARB-VIT D 500MG-200UN 1 EACH TAB PO SCH ×2 (09:17→18:38)
[2017-11-03] MEDS: DIVALPROEX ER 500 MG TAB.ER.24H PO SCH ×2 (09:17→20:51)
[2017-11-03] MEDS: LOSARTAN 25 MG TAB PO SCH (09:17)
[2017-11-03] MEDS: SPIRONOLACTONE 25 MG TAB PO SCH (09:17)
[2017-11-03] MEDS: DOCUSATE 100 MG CAP PO SCH ×2 (09:17→18:38)
[2017-11-03] MEDS: SULFAMETHOX-TMP 800-160MG 1 EACH TAB PO SCH ×2 (09:17→20:51)
[2017-11-03] MEDS: ARIPiprazole 15 MG TAB PO SCH (09:17)
[2017-11-03] MEDS: FUROSEMIDE 20 MG TAB PO SCH (09:17)
[2017-11-03] MEDS: QUEtiapine 100 MG TAB PO SCH ×2 (09:18→20:51)
[2017-11-03] MEDS: LEVOTHYROXINE 88 MCG TAB PO SCH (09:18)
--- NOTE | 2017-11-03 09:39 | P.PN ---
Progress Note - Text Interval history: The patient is found in her room we spoke in the library. She continues to have one-to-one supervision as ordered. She indicates that her mood is better today. She does continue to feel tired reporting that she received injectable medication again yesterday. Staff report that the patient has been more cooperative this morning she is dressed in her own clothing. She reports feeling safe today in the hospital. We discussed prior behaviors and she demonstrates little insight into those. She has no questions regarding her medications she has been compliant with them. Mental status exam: The patient is an obese female she is dressed in her own clothing she is seated in a wheelchair. She is tired appearing but not lethargic. She has a disheveled appearance. She indicates her mood is better she describes some uncertainty as to how her mood will be throughout the day. She is reporting no suicidal or homicidal ideation. She demonstrated no yelling or screaming behavior during our interaction. I have not heard her doing that this morning yet. She demonstrates no physical aggressiveness. No abnormal involuntary movements observed. Insight and judgment chronically impaired. She does have an impediment of speech chronically and she is known to have intellectual disability. She is reporting visual hallucinations but does not specify what. She reports no auditory hallucinations. Plan: The patient will continue on her current psychotropic medication we will monitor her for safety. Vital signs reviewed. This morning she demonstrates clinical improvement compared to past days. We will continue to provide reality orientation and encourage appropriate participation in the milieu.
[2017-11-03 09:55] VITALS: BMI 33.3
[2017-11-03] MEDS: HALOPERIDOL 5 MG TAB PO PRN (10:43)
[2017-11-03] MEDS: LORazepam 1 MG TAB PO PRN (10:43)
[2017-11-03] MEDS: amLODIPine 5 MG TAB PO SCH (16:53)
[2017-11-03] MEDS: ATORVASTATIN 10 MG TAB PO SCH (20:51)
[2017-11-04] MEDS: HALOPERIDOL 5 MG TAB PO PRN ×2 (01:11→14:01)
[2017-11-04] MEDS: LORazepam 1 MG TAB PO PRN ×2 (01:11→14:01)
[2017-11-04] MEDS: ACETAMINOPHEN TAB 325 MG TAB PO PRN ×3 (01:11→21:59)
[2017-11-04] MEDS: CALCIUM CARB-VIT D 500MG-200UN 1 EACH TAB PO SCH ×2 (05:21→16:42)
[2017-11-04] MEDS: LEVOTHYROXINE 88 MCG TAB PO SCH (08:52)
[2017-11-04] MEDS: QUEtiapine 100 MG TAB PO SCH ×2 (08:52→20:21)
[2017-11-04] MEDS: SPIRONOLACTONE 25 MG TAB PO SCH (08:52)
[2017-11-04] MEDS: DIVALPROEX ER 500 MG TAB.ER.24H PO SCH ×2 (08:52→20:21)
[2017-11-04] MEDS: SULFAMETHOX-TMP 800-160MG 1 EACH TAB PO SCH ×2 (08:52→20:21)
[2017-11-04] MEDS: ARIPiprazole 15 MG TAB PO SCH (08:52)
[2017-11-04] MEDS: DOCUSATE 100 MG CAP PO SCH ×2 (08:52→16:42)
[2017-11-04] MEDS: LOSARTAN 25 MG TAB PO SCH (08:53)
[2017-11-04] MEDS: FUROSEMIDE 20 MG TAB PO SCH (08:53)
[2017-11-04] MEDS: POTASSIUM CHLORIDE ER 10 MEQ TAB.ER.PRT PO SCH (08:53)
[2017-11-04] MEDS: NON-FORMULARY DRUG (Alendronate Sodium [Fosamax] 70 MG) PO SCH (08:54)
--- NOTE | 2017-11-04 11:19 | P.PN ---
Progress Note - Text Interval history: The patient is found in her room sleeping. She has a sitter at bedside. The patient was observed earlier this morning the library with staff. She participated in breakfast she has demonstrated no yelling behavior so far this morning. Staff report no aggressive behavior in the last 24 hours although she did receive Haldol and Ativan by mouth during the evening. Mental status exam: The patient is currently sleeping. Efforts were made to wake her but she is too tired to tolerate an interview. She is in no acute distress. She is lying comfortably in bed with a normal respiratory rate. Again she was observed seated upright in her wheelchair earlier this morning allowing staff to help with her grooming. She was observed participating in conversation with staff. Staff reports she continues to report some symptoms of psychosis. Reportedly she has been making more of an effort to ambulate. Insight and judgment chronically limited. She does have an ongoing diagnosis of intellectual disability. Plan: The patient will be continued on her current medication. It appears her has been demonstrations of clinical improvement over this week. We will continue to monitor her for safety. We will continue the one-to-one supervision for fall risk. She requires continued psychiatric hospitalization as we are trying to improve her overall function prior to returning back to her longterm.
[2017-11-04] MEDS: amLODIPine 5 MG TAB PO SCH (16:41)
[2017-11-04] MEDS: ATORVASTATIN 10 MG TAB PO SCH (20:21)
[2017-11-05] MEDS: LORazepam 1 MG TAB PO PRN ×3 (00:44→22:00)
[2017-11-05] MEDS: HALOPERIDOL 5 MG TAB PO PRN ×3 (00:44→22:00)
[2017-11-05] MEDS: CALCIUM CARB-VIT D 500MG-200UN 1 EACH TAB PO SCH ×2 (06:55→16:15)
[2017-11-05] MEDS: LEVOTHYROXINE 88 MCG TAB PO SCH (08:19)
[2017-11-05] MEDS: POTASSIUM CHLORIDE ER 10 MEQ TAB.ER.PRT PO SCH (08:53)
[2017-11-05] MEDS: ARIPiprazole 15 MG TAB PO SCH (08:53)
[2017-11-05] MEDS: QUEtiapine 100 MG TAB PO SCH ×2 (08:53→20:07)
[2017-11-05] MEDS: DOCUSATE 100 MG CAP PO SCH ×2 (08:53→16:15)
[2017-11-05] MEDS: DIVALPROEX ER 500 MG TAB.ER.24H PO SCH ×2 (08:53→20:07)
[2017-11-05] MEDS: SULFAMETHOX-TMP 800-160MG 1 EACH TAB PO SCH ×2 (08:53→20:07)
[2017-11-05] MEDS: FUROSEMIDE 20 MG TAB PO SCH ×2 (10:48→10:49)
[2017-11-05] MEDS: SPIRONOLACTONE 25 MG TAB PO SCH (10:49)
[2017-11-05] MEDS: LOSARTAN 25 MG TAB PO SCH (10:50)
[2017-11-05] MEDS: amLODIPine 5 MG TAB PO SCH (16:16)
[2017-11-05] MEDS: ATORVASTATIN 10 MG TAB PO SCH (20:07)
--- NOTE | 2017-11-05 21:19 | P.PN ---
Progress Note - Text Progress Note Date: 11/05/17 Patient was seen today. She uses wheel chair to ambulate but says she tries to walk with out it at times. She has a sitter due to fall risk. She complains of hearing a jorge voice. She says the voice is not clear but feels bothered with it. She also complains of seeing a man sleeping at the bottom of her bed. She reports poor sleep due to pain. She reports good appetite. She denies symptoms of depression or branden. No major behavioral problems reported. 62 year old woman. She is obese. She appears in marginal grooming and hygiene. She maintains good eye contact. No abnormal movements noted. Her speech is soft , low in volume and rate. Her mood is reported as fair and affect appropriate. She reports auditory and visual hallucinations. She denies paranoia. Her insight and judgement are limited. Continue her current medications Will titrate her medications if she continues to complain about auditory and visual hallucinations. Monitor for symptoms.
[2017-11-06] MEDS: LOSARTAN 25 MG TAB PO SCH (08:46)
[2017-11-06] MEDS: FUROSEMIDE 20 MG TAB PO SCH (08:46)
[2017-11-06] MEDS: CALCIUM CARB-VIT D 500MG-200UN 1 EACH TAB PO SCH ×2 (08:46→16:55)
[2017-11-06] MEDS: LEVOTHYROXINE 88 MCG TAB PO SCH (08:46)
[2017-11-06] MEDS: DOCUSATE 100 MG CAP PO SCH ×2 (08:46→16:55)
[2017-11-06] MEDS: POTASSIUM CHLORIDE ER 10 MEQ TAB.ER.PRT PO SCH (08:47)
[2017-11-06] MEDS: ARIPiprazole 15 MG TAB PO SCH (08:47)
[2017-11-06] MEDS: SPIRONOLACTONE 25 MG TAB PO SCH (08:47)
[2017-11-06] MEDS: LORazepam 1 MG TAB PO PRN ×3 (08:48→21:50)
[2017-11-06] MEDS: SULFAMETHOX-TMP 800-160MG 1 EACH TAB PO SCH ×2 (08:48→20:02)
[2017-11-06] MEDS: DIVALPROEX ER 500 MG TAB.ER.24H PO SCH ×2 (08:48→20:02)
[2017-11-06] MEDS: HALOPERIDOL 5 MG TAB PO PRN ×2 (08:48→21:50)
[2017-11-06] MEDS: QUEtiapine 100 MG TAB PO SCH (08:48)
[2017-11-06] MEDS: ACETAMINOPHEN TAB 325 MG TAB PO PRN (15:36)
[2017-11-06] MEDS: amLODIPine 5 MG TAB PO SCH (16:55)
[2017-11-06] MEDS: ATORVASTATIN 10 MG TAB PO SCH (20:02)
[2017-11-06] MEDS: QUEtiapine 400 MG TAB PO SCH (20:02)
[2017-11-06] MEDS ORDERED: QUEtiapine 100 MG TAB PO SCH (21:00)
[2017-11-06] MEDS ORDERED: QUEtiapine 400 MG TAB PO SCH (21:00)
[2017-11-07] MEDS: CALCIUM CARB-VIT D 500MG-200UN 1 EACH TAB PO SCH ×2 (06:25→16:38)
[2017-11-07] MEDS: ACETAMINOPHEN TAB 325 MG TAB PO PRN (06:25)
[2017-11-07] MEDS: POTASSIUM CHLORIDE ER 10 MEQ TAB.ER.PRT PO SCH (08:41)
[2017-11-07] MEDS: DIVALPROEX ER 500 MG TAB.ER.24H PO SCH ×2 (08:41→20:44)
[2017-11-07] MEDS: SPIRONOLACTONE 25 MG TAB PO SCH (08:41)
[2017-11-07] MEDS: LEVOTHYROXINE 88 MCG TAB PO SCH (08:41)
[2017-11-07] MEDS: ARIPiprazole 15 MG TAB PO SCH (08:41)
[2017-11-07] MEDS: FUROSEMIDE 20 MG TAB PO SCH (08:41)
[2017-11-07] MEDS: DOCUSATE 100 MG CAP PO SCH ×2 (08:41→16:38)
[2017-11-07] MEDS: SULFAMETHOX-TMP 800-160MG 1 EACH TAB PO SCH ×2 (08:41→20:44)
[2017-11-07] MEDS: LOSARTAN 25 MG TAB PO SCH (08:41)
[2017-11-07] MEDS: HALOPERIDOL 5 MG TAB PO PRN ×2 (10:41→20:45)
[2017-11-07] MEDS: LORazepam 1 MG TAB PO PRN ×2 (10:41→15:31)
--- NOTE | 2017-11-07 11:17 | P.PN ---
Progress Note - Text Interval history: The patient is found in the hallway she is seen in an interview room. She continues to have one-to-one staff ordered for fall risk. Staff report that the patient demonstrates some improvement in behavior. There has been less yelling. She did receive Ativan over the weekend but I was informed she did not receive Haldol Tuesday or Tuesday. The patient is more tearful this morning and pessimistic that she'll ever be discharged. She indicates that she would like to return home. Social work states that the patient is able to return back to the [facility] home at any time. Documentation from the weekend was reviewed. The Seroquel was titrated to 400 mg at bedtime. Mental status exam: The patient is an obese female she seated in a wheelchair. She is awake but keeps her eyes closed for most of our interaction. She has a disheveled appearance. She is dressed in her own clothing. She is tearful for several minutes. She indicates she wants to go home. Later she is very pessimistic that she'll ever leave here. She is reporting no suicidal or homicidal ideation. She is chronically reported a concern of people teasing her or trying to hurt her. No abnormal involuntary movements. There is some psychomotor slowing. Insight and judgment are limited. There is chronic intellectual disability. There is an impediment of speech which worsens when she is upset and crying. She demonstrates no verbal or physical aggressiveness. Plan: The patient will continue on her current psychotropic medication. We will continue to monitor her for safety with one-to-one supervision. She is slowly stabilizing. We'll continue to assess her daily. Vital signs reviewed. If she demonstrates sufficient improvement we could consider discharge sometime this week.
[2017-11-07] MEDS: amLODIPine 5 MG TAB PO SCH (16:37)
[2017-11-07] MEDS: ATORVASTATIN 10 MG TAB PO SCH (20:44)
[2017-11-07] MEDS: QUEtiapine 400 MG TAB PO SCH (20:45)
[2017-11-08] MEDS: LORazepam 1 MG TAB PO PRN ×2 (00:10→12:28)
[2017-11-08] MEDS: ACETAMINOPHEN TAB 325 MG TAB PO PRN (00:10)
[2017-11-08 07:25] VITALS: BP 100/59; PULSE 66; RESP 14; TEMP 97.6
[2017-11-08] MEDS: LEVOTHYROXINE 88 MCG TAB PO SCH (07:54)
[2017-11-08] MEDS: CALCIUM CARB-VIT D 500MG-200UN 1 EACH TAB PO SCH (07:55)
[2017-11-08] MEDS: FUROSEMIDE 20 MG TAB PO SCH (09:01)
[2017-11-08] MEDS: LOSARTAN 25 MG TAB PO SCH (09:01)
[2017-11-08] MEDS: POTASSIUM CHLORIDE ER 10 MEQ TAB.ER.PRT PO SCH (09:02)
[2017-11-08] MEDS: DOCUSATE 100 MG CAP PO SCH (09:03)
[2017-11-08] MEDS: ARIPiprazole 15 MG TAB PO SCH (09:03)
[2017-11-08] MEDS: DIVALPROEX ER 500 MG TAB.ER.24H PO SCH (09:05)
[2017-11-08] MEDS: SPIRONOLACTONE 25 MG TAB PO SCH (09:06)
[2017-11-08] MEDS: SULFAMETHOX-TMP 800-160MG 1 EACH TAB PO SCH (09:07)
[2017-11-08] MEDS ORDERED: ARIPiprazole 400 MG VIAL (NO CHARGE) IM ONE (11:14)
--- NOTE | 2017-11-08 11:41 | P.DS ---
Providers Date of admission: 10/22/17 14:32 Expected date of discharge: 11/08/17 Attending physician: Alejandro Hunter Consults: 10/22/17 16:47 Consult Physician Routine Consulting Provider: [facility] Consult Reason/Comments: follow up H & P Do you want consulting provider notified?: Yes Primary care physician: Stated None - Discharge Diagnosis(es) (1) Schizoaffective disorder Current Visit: Yes Status: Acute Priority: High (2) Intellectual disability Current Visit: Yes Status: Acute Priority: High Hospital Course: Brief summary of admission note: This patient is a 62-year-old single female who was admitted to the mental health unit from her adult foster detention for acutely agitated behavior. The patient was petition stating she was not sleeping she was demonstrating screaming behavior grabbing her hair and trying to hit staff. she indicated hearing voices and felt persecuted. Prior to this admission the patient was at [facility] for approximately 4 weeks. She will return to the long-term for approximately 2-3 days and presented to our emergency room. The patient has a known diagnosis of schizoaffective disorder intellectual disability and receives outpatient care through [facility]. For full details please refer to the psychiatric evaluation dictated October 24 2007. Summary of hospital course: The patient was admitted to the mental health unit in voluntarily. A second clinical certificate was completed and a court hearing was held regarding a treatment order. The patient did not attend the hearing by choice. A treatment order was issued. The patient was continued on Abilify 30 mg daily Seroquel was titrated during the course of her stay. Depakote ER was added for behavioral control. A Depakote level was drawn during the hospitalization and the level was therapeutic at 63.4 Haldol and Ativan were used during the hospitalization for agitated behaviors. To address all risk patient was kept on one-to-one supervision during the hospitalization. She has made progress in terms of some ambulation with in her room utilizing a walker. Over the last week the patient has improved in significantly reducing yelling behavior and attending some groups. She has been compliant with getting dressed in her own clothing. She does clearly use the yelling as a behavioral strategy. She has been verbally redirectable and it easier to get her to engage in a healthier activity. She is reporting no thoughts of harming herself or others. She has not been demonstrating any aggressive behavior such as trying to hit or throw anything for more than a week. She is able to return to her long-term. She was treated for a urinary tract infection with Bactrim. Mental status exam: The patient is an obese female seated in a wheelchair. She is dressed in her own clothing. She has a disheveled appearance hygiene is adequate. She has a hirsute facies. Eye contact is intermittent. Speech is spontaneous. She demonstrates no yelling behavior. She does express some tearfulness but reconstitutes. She reports no suicidal or homicidal ideation intent or plan. She endorses no thoughts of wanting to harm others. She is reporting no auditory hallucinations. She continues to express a thought that people may be teasing her. No command auditory hallucinations endorses area she demonstrates no abnormal involuntary movements. She demonstrates no verbal or physical aggressiveness. Affect is constricted for the most part. She is oriented to person place and year. She indicates wanting to return to long-term and indicates she will sleep better in her own bed. Impressions 1. Schizoaffective disorder, intellectual disability 2. Medical comorbidities including hypertension, hyperlipidemia, hypothyroidism , GERD, recent UTI 3. Impaired coping skills due to intellectual disability Plan: The patient will be discharged from the mental health unit today to return to her long-term. She will continue on Abilify 30 mg daily for 2 weeks then discontinue. She will receive and Abilify maintena injection today prior to discharge of 300 mg. We will continue Depakote ER 500 mg twice daily and Seroquel 400 mg at bedtime. Only as a when necessary we will supply Ativan 1 mg up to 3 times daily. There is no imminent safety risk the patient is appropriate for transition back to outpatient care with community mental services. She will present to the hospital again any acute safety issues. Patient Condition at Discharge: Stable Plan - Discharge Summary New Discharge Prescriptions: New ARIPiprazole [Abilify] 30 mg PO DAILY #14 tab ARIPiprazole IM [Abilify Maintena] 300 mg IM ONCE #1 vial Divalproex ER [Depakote ER] 500 mg PO BID #60 tab.er.24h Docusate [Colace] 100 mg PO BID@0800,1700 #60 cap Levothyroxine Sodium [Synthroid] 88 mcg PO DAILY@0700 #30 tab LORazepam [Ativan] 1 mg PO TID PRN #45 tab PRN Reason: Anxiety, Agitation QUEtiapine [SEROquel] 400 mg PO HS #30 tab Continue Calcium Carbonate/Vitamin D3 [Caltrate 600 Plus D3 Tablet] 1 tab PO BID@0500, 1700 Alendronate Sodium [Fosamax] 70 mg PO FR #4 tablet amLODIPine [Norvasc] 5 mg PO DAILY@1700 #30 tab Cetirizine HCl [Zyrtec] 10 mg PO DAILY@1700 PRN #30 tablet PRN Reason: Allergy Symptoms Furosemide [Lasix] 20 mg PO DAILY@0800 #30 tab Losartan Potassium [Cozaar] 25 mg PO DAILY@0800 #30 tablet Lovastatin [Mevacor] 20 mg PO HS@2100 #30 tab Potassium Chloride ER [K-Dur 10] 10 meq PO DAILY@0800 #30 tab.er.prt Spironolactone [Aldactone] 100 mg PO DAILY@0800 #30 tablet Discontinued Docusate Sodium [Dulcolax Stool Softener] 100 mg PO BID@0800,1700 Levothyroxine Sodium [Synthroid] 88 mcg PO DAILY@0700 Acetaminophen/Diphenhydramine [Tylenol PM 500-25mg] 2 tab PO HS@2100 LORazepam [Ativan] 2 mg PO BID PRN PRN Reason: Anxiety traZODone HCL [Desyrel] 100 mg PO HS@2100 Escitalopram [Lexapro] 20 mg PO DAILY@0800 ARIPiprazole [Abilify] 20 mg PO DAILY@0800 Discharge Medication List Calcium Carbonate/Vitamin D3 [Caltrate 600 Plus D3 Tablet] 1 tab PO BID@0500, 1700 10/30/13 [History] ARIPiprazole IM [Abilify Maintena] 300 mg IM ONCE #1 vial 11/08/17 [Rx] ARIPiprazole [Abilify] 30 mg PO DAILY #14 tab 11/08/17 [Rx] Alendronate Sodium [Fosamax] 70 mg PO FR #4 tablet 11/08/17 [Rx] Cetirizine HCl [Zyrtec] 10 mg PO DAILY@1700 PRN #30 tablet 11/08/17 [Rx] Divalproex ER [Depakote ER] 500 mg PO BID #60 tab.er.24h 11/08/17 [Rx] Docusate [Colace] 100 mg PO BID@0800,1700 #60 cap 11/08/17 [Rx] Furosemide [Lasix] 20 mg PO DAILY@0800 #30 tab 11/08/17 [Rx] LORazepam [Ativan] 1 mg PO TID PRN #45 tab 11/08/17 [Rx] Levothyroxine Sodium [Synthroid] 88 mcg PO DAILY@0700 #30 tab 11/08/17 [Rx] Losartan Potassium [Cozaar] 25 mg PO DAILY@0800 #30 tablet 11/08/17 [Rx] Lovastatin [Mevacor] 20 mg PO HS@2100 #30 tab 11/08/17 [Rx] Potassium Chloride ER [K-Dur 10] 10 meq PO DAILY@0800 #30 tab.er.prt 11/08/17 [ Rx] QUEtiapine [SEROquel] 400 mg PO HS #30 tab 11/08/17 [Rx] Spironolactone [Aldactone] 100 mg PO DAILY@0800 #30 tablet 11/08/17 [Rx] amLODIPine [Norvasc] 5 mg PO DAILY@1700 #30 tab 11/08/17 [Rx] Follow up Appointment(s)/Referral(s): None,Stated [Primary Care Provider] - 1-2 days
[2017-11-08] MEDS: HALOPERIDOL 5 MG TAB PO PRN (12:28)
== END 2017-11-08 13:38 | disposition home or self-care (01) | DRG 885 ==
LOC: EC 12:55 → 3MHU 10-22 14:32
PROVIDERS: ADMIT Psychiatry & Neurology Psychiatry; ATTEND Psychiatry & Neurology Psychiatry
DX: F25.9 Schizoaffective disorder, unspecified (principal); N39.0 Urinary tract infection, site not specified; F79 Unspecified intellectual disabilities; E03.9 Hypothyroidism, unspecified; F41.9 Anxiety disorder, unspecified; R45.1 Restlessness and agitation; G47.9 Sleep disorder, unspecified; I10 Essential (primary) hypertension; E78.5 Hyperlipidemia, unspecified; K21.9 Gastro-esophageal reflux disease without esophagitis; E66.9 Obesity, unspecified; Z68.35 Body mass index [BMI] 35.0-35.9, adult; Z79.83 Long term (current) use of bisphosphonates; Z79.890 Hormone replacement therapy; Z79.899 Other long term (current) drug therapy; Z91.81 History of falling; Z98.51 Tubal ligation status; Z88.0 Allergy status to penicillin; Z81.8 Family history of other mental and behavioral disorders
CPT/HCPCS: 36415; 80053; 80061; 80164; 80306; 81001; 82075; 83036; 84443; 84450; 84460; 85025; 87086; 96372; 99285

== ENCOUNTER → 2018-05-16 | Outpatient (CLI) | payer MEDICARE, MEDICAID ==
--- NOTE | 2018-05-16 18:46 | BD ---
EXAMINATION TYPE: Axial Bone Density DATE OF EXAM: 05/16/2018 COMPARISON: NONE CLINICAL HISTORY: 63-year-old female osteoporosis Height: 5'2 Weight: 236 FRAX RISK QUESTIONS: Secondary Osteoporosis: RISK FACTORS HISTORY OF: Active: n Postmenopausal woman: y MEDICATIONS: Thyroid Medications: Which medication: Synthroid How Lon years Additional History: blood pressure, depression EXAM MEASUREMENTS: Bone mineral densitometry was performed using the Breather System. Bone mineral density as measured about the Lumbar spine is: ----- L1-L4(G/cm2): 1.446 T Score Values are as follows: ----- L2: 3.3 ----- L3: 1.5 ----- L4: 1.7 ----- L1-L4:2.2 (Suspect increased T score values due to underlying degenerative sclerosis) Bone mineral density about the R hip (g/cm2): 0.858 Bone mineral density about the L hip (g/cm2): 0.919 T Score values are as follows: -----R Neck: -1.3 -----L Neck: -0.9 -----R Total: -0.6 -----L Total: -0.7 IMPRESSION: Osteopenia (T Score between -2.5 and -1). There is slightly increased risk of fracture and the patient may be considered for treatment. Re-Screen 2-5 years. NOTE: T-SCORE=SD OF THE YOUNG ADULT MEAN.
== END ==
LOC: RADBDWWP 09:09
PROVIDERS: ATTEND Family Medicine
DX: M85.80 Other specified disorders of bone density and structure, unspecified site (principal)
CPT/HCPCS: 77080

== ENCOUNTER → 2021-11-26 | Outpatient (CLI) | payer MEDICARE, OTHER ==
--- NOTE | 2021-11-27 08:27 | MM ---
Reason for Exam: Screening (asymptomatic). Last mammogram was performed 6 year(s) and 1 month(s) ago. Patient History: Menarche at age 14. Patient has no children. Postmenopausal. Breast cancer, right, age 58. 2001, Benign Excisional Biopsy on the left side. 11/05/2013, Mastectomy on the Right side. 11/05/2013, Malignant Core Biopsy on the right side. 10/15/2013, Malignant Core Biopsy on the right side. Sister had breast cancer, age 50. Mother had breast cancer, right, age 50. Prior Study Comparison: 10/05/2013 Right Diagnostic Mammogram, [facility]. 10/22/2014 Left Diagnostic Mammogram, [facility]. 10/31/2015 Left Diagnostic Mammogram, [facility]. Tissue Density: Left: The breast tissue is heterogeneously dense. This may lower the sensitivity of mammography. Findings: Analyzed By CAD. Finding 1: Calcification. Laterality: Left. Depth: Anterior. Region: Retroareolar. 15 cm cm from nipple. Distribution: Grouped/Clustered. Suspicious morphology: Fine pleomorphic. New punctate clustered calcifications in the left breast retroareolar region about 1.5 cm from the nipple. Overall Assessment: Incomplete: need additional imaging evaluation, BI-RAD 0 Management: Diagnostic Mammogram of the left breast. A clinical breast exam by your physician is recommended on an annual basis and results should be correlated with mammographic findings. [facility] will attempt to contact patient to return for supplemental views and ultrasound if indicated. Electronically signed and approved by: Henok Daly D.O.
== END | disposition home or self-care (01) ==
LOC: RADMAMWWP 11:49
PROVIDERS: ATTEND General Practice
DX: Z12.31 Encounter for screening mammogram for malignant neoplasm of breast (principal); M15.9 Polyosteoarthritis, unspecified; K59.00 Constipation, unspecified; E66.01 Morbid (severe) obesity due to excess calories
CPT/HCPCS: 77063; 77067

== ENCOUNTER → 2021-12-23 | Outpatient (CLI) | payer MEDICARE, OTHER ==
--- NOTE | 2021-12-23 11:42 | MM ---
Reason for Exam: Additional evaluation requested from abnormal screening. Last screening mammogram was performed less than 1 month ago. Patient History: Menarche at age 14. Patient has no children. Postmenopausal. Breast cancer, right, age 58. 2001, Benign Excisional Biopsy on the left side. 11/05/2013, Mastectomy on the Right side. 11/05/2013, Malignant Core Biopsy on the right side. 10/15/2013, Malignant Core Biopsy on the right side. Sister had breast cancer, age 50. Mother had breast cancer, right, age 50. Prior Study Comparison: 10/22/2014 Left Diagnostic Mammogram, [facility]. 10/31/2015 Left Diagnostic Mammogram, [facility]. 11/26/2021 Left MG screen fito unilateral w/cad, [facility]. Tissue Density: Left: There are scattered fibroglandular densities. Findings: Analyzed By CAD. Benign oil cyst calcifications. Small grouped subareolar calcifications on the left appear punctate and are likely benign. Six-month follow-up recommended to reassess. Overall Assessment: Probably benign, BI-RAD 3 Management: Diagnostic Mammogram of the left breast in 6 months. 1. Patient should continue monthly self breast exams. 2. A clinical breast exam by your physician is recommended on an annual basis. 3. This exam should not preclude additional follow-up of suspicious palpable abnormalities. Results were given to the patient verbally at the time of exam. Electronically signed and approved by: Abeba Echavarria M.D. Radiologist
== END | disposition home or self-care (01) ==
LOC: RADMAMWWP 10:19
PROVIDERS: ATTEND General Practice
DX: R92.8 Other abnormal and inconclusive findings on diagnostic imaging of breast (principal); Z78.0 Asymptomatic menopausal state; Z85.3 Personal history of malignant neoplasm of breast
CPT/HCPCS: 77065; G0279; 77061

== ENCOUNTER 2022-05-16 03:15 | Inpatient (IN) | payer MEDICARE, OTHER ==
[2022-05-16 03:55] LABS: Basophils % (A) 1 %; Eosinophils # (A) 0.1 k/uL (0-0.7); Eosinophils % (A) 1 %; HCT 39.3 % (34.0-46.0); HGB 12.7 gm/dL (11.4-16.0); Lymphocytes # (A) 2.1 k/uL (1.0-4.8); Lymphocytes % (A) 27 %; MCH 32.3 pg (25.0-35.0); MCHC 32.4 g/dL (31.0-37.0); MCV 99.7 fL (80.0-100.0); Mean Platelet Volume 7.5; Monocytes # (A) 0.8 k/uL (0-1.0); Monocytes % (A) 11 %; Neutrophils # (A) 4.5 k/uL (1.3-7.7); Neutrophils % (A) 58 %; Platelet Count 282 k/uL (150-450); RBC 3.94 m/uL (3.80-5.40); RDW 11.6 % (11.5-15.5); WBC 7.8 k/uL (3.8-10.6)
[2022-05-16 04:07] LABS: Calcium 9.1 mg/dL (8.4-10.2); Magnesium 2.3 mg/dL (1.6-2.3); Potassium 4.3 mmol/L (3.5-5.1); Total Bilirubin 0.3 mg/dL (0.2-1.3); Total Protein 6.9 g/dL (6.3-8.2)
--- NOTE | 2022-05-16 04:44 | XR ---
EXAMINATION TYPE: XR chest 2V DATE OF EXAM: 05/16/2022 COMPARISON: 02/23/2017 HISTORY: Cough TECHNIQUE: FINDINGS: There is no heart failure nor confluent pneumonic infiltrate. No pleural effusion. There ar e chest leads. There is spurring in the thoracic spine. IMPRESSION: No active cardiopulmonary disease. No adverse change.
--- NOTE | 2022-05-16 06:46 | ED ---
General Adult HPI - General Source: patient, EMS Mode of arrival: EMS Limitations: altered mental status <Micah Falk - Last Filed: 05/16/22 06:37> <Suresh Kuhn - Last Filed: 05/16/22 10:25> - General Chief complaint: Fall Stated complaint: Lower extremity swelling, Weakness Time Seen by Provider: 05/16/22 03:16 - History of Present Illness Initial comments: This is a 67-year-old female with an extensive past medical history [facility] emergency department [facility] after being unable to be picked up off of her bed. The patient stated that she has had this issue at night several times but because of this, the [facility]entiary workers called EMS. The patient on arrival denied any acute pain or distress and denied any different symptoms. The patient was resting in bed comfortably and denied any shortness breath or difficulty in breathing. The patient stated that she has had this weakness and difficulty getting out of bed at night since and has not changed. (Micah Falk) - Related Data Home Medications Medication Instructions Recorded Confirmed Calcium Carbonate/Vitamin D3 1 tab PO BID@0500,1700 10/30/13 10/22/17 [Caltrate 600 Plus D3 Tablet] Previous Rx's Medication Instructions Recorded ARIPiprazole IM [Abilify Maintena] 300 mg IM ONCE #1 vial 11/08/17 ARIPiprazole [Abilify] 30 mg PO DAILY #14 tab 11/08/17 Alendronate Sodium [Fosamax] 70 mg PO FR #4 tablet 11/08/17 Cetirizine HCl [Zyrtec] 10 mg PO DAILY@1700 PRN #30 tablet 11/08/17 Divalproex ER [Depakote ER] 500 mg PO BID #60 tab.er.24h 11/08/17 Docusate [Colace] 100 mg PO BID@0800,1700 #60 cap 11/08/17 Furosemide [Lasix] 20 mg PO DAILY@0800 #30 tab 11/08/17 LORazepam [Ativan] 1 mg PO TID PRN #45 tab 11/08/17 Levothyroxine Sodium [Synthroid] 88 mcg PO DAILY@0700 #30 tab 11/08/17 Losartan Potassium [Cozaar] 25 mg PO DAILY@0800 #30 tablet 11/08/17 Lovastatin [Mevacor] 20 mg PO HS@2100 #30 tab 11/08/17 Potassium Chloride ER [K-Dur 10] 10 meq PO DAILY@0800 #30 tab.er.prt 11/08/17 QUEtiapine [SEROquel] 400 mg PO HS #30 tab 11/08/17 Spironolactone [Aldactone] 100 mg PO DAILY@0800 #30 tablet 11/08/17 amLODIPine [Norvasc] 5 mg PO DAILY@1700 #30 tab 11/08/17 Allergies Allergy/AdvReac Type Severity Reaction Status Date / Time Penicillins Allergy Unknown Unknown Verified 10/21/17 13:15 Childhood Review of Systems ROS Other: All systems not noted in ROS Statement are negative. <Micah Falk - Last Filed: 05/16/22 06:37> ROS Other: All systems not noted in ROS Statement are negative. <Suresh Kuhn - Last Filed: 05/16/22 10:25> ROS Statement: Those systems with pertinent positive or pertinent negative responses have been documented in the HPI. Past Medical History Past Medical History: GERD/Reflux, Hyperlipidemia, Hypertension, Thyroid Disorder History of Any Multi-Drug Resistant Organisms: None Reported Past Surgical History: Breast Surgery, Tubal Ligation Additional Past Surgical History / Comment(s): BREAST BX'S- CAREGIVER UNSURE OF OTHER SURGERYS Past Anesthesia/Blood Transfusion Reactions: Unable to Obtain Past Psychological History: Anxiety, Depression, Schizophrenia Past Alcohol Use History: None Reported Past Drug Use History: None Reported <Micah Falk - Last Filed: 05/16/22 06:37> General Exam Limitations: no limitations General appearance: alert, in no apparent distress, obese Head exam: Present: atraumatic, normocephalic, normal inspection Eye exam: Present: normal appearance, PERRL Pupils: Present: normal accommodation ENT exam: Present: normal exam, normal oropharynx, mucous membranes moist Neck exam: Present: normal inspection, full ROM Respiratory exam: Present: normal lung sounds bilaterally Cardiovascular Exam: Present: regular rate, normal rhythm, normal heart sounds GI/Abdominal exam: Present: soft, normal bowel sounds Extremities exam: Present: normal inspection, full ROM, pedal edema Back exam: Present: normal inspection, full ROM Neurological exam: Present: alert, oriented X3, CN II-XII intact Psychiatric exam: Present: normal affect, normal mood Skin exam: Present: warm, dry <Micah Falk - Last Filed: 05/16/22 06:37> Course Vital Signs 05/16/22 05/16/22 05/16/22 03:19 06:18 08:00 Temperature 97.7 F Pulse Rate 76 79 67 Respiratory 16 16 18 Rate Blood Pressure 128/80 138/69 138/67 O2 Sat by Pulse 98 97 97 Oximetry EKG Findings - EKG Comments: EKG Findings:: An EKG was obtained was interpreted by myself. EKG showed a rate of 76, IL interval of 161, QRS duration of 73 and QTC of 391. This EKG showed a normal sinus rhythm with no ST segment elevation or depression noted. <Micah Falk - Last Filed: 05/16/22 06:37> Medical Decision Making - Lab Data Result diagrams: 05/16/22 03:45 05/16/22 03:45 <Micah Falk - Last Filed: 05/16/22 06:37> - Lab Data Result diagrams: 05/16/22 03:45 05/16/22 03:45 <Suresh Kuhn - Last Filed: 05/16/22 10:25> - Medical Decision Making Was pt. sent in by a medical professional or institution ([facility], [employer], urgent care, hospital, or usp...) When possible be specific @ -Yes, penitentiary Did you speak to anyone other than the patient for history (EMS, parent, family, police, friend...)? What history was obtained from this source @ -No Did you review nursing and triage notes (agree or disagree)? Why? @ -I reviewed and agree with nursing and triage notes Were old charts reviewed (outside hosp., previous admission, EMS record, old EKG, old radiological studies, urgent care reports/EKG's, usp records)? Report findings @ -No old charts were reviewed Differential Diagnosis (chest pain, altered mental status, abdominal pain women, abdominal pain men, vaginal bleeding, weakness, fever, dyspnea, syncope, headache, dizziness, GI bleed, back pain, seizure, CVA, palpatations, mental health)? @ -UTI, pneumonia, URI EKG interpreted by me (3pts min.). @ -As above X-rays interpreted by me (1pt min.). @ -Chest x-ray was obtained and was interpreted by myself showing no acute process. CT interpreted by me (1pt min.). @ -None done U/S interpreted by me (1pt. min.). @ -None done What testing was considered but not performed or refused? (CT, X-rays, U/S, labs)? Why? @ -None What meds were considered but not given or refused? Why? @ -None Did you discuss the management of the patient with other professionals (professionals i.e. , PA, CANDY MAKER HELPER, lab, RT, psych nurse, social work assistant, blanker press operator, teacher, immigration officer, case repairer)? Give summary @ -No Was smoking cessation discussed for >3mins.? @ -No Was critical care preformed (if so, how long)? @ -No Were there social determinants of health that impacted care today? How? (Homelessness, low income, unemployed, alcoholism, drug addiction, transportation, low edu. Level, literacy, decrease access to med. care, custodial, rehab)? @ -Yes, patient lives in a penitentiary Was there de-escalation of care discussed even if they declined (Discuss DNR or withdrawal of care, Hospice)? DNR status @ -No What co-morbidities impacted this encounter? (DM, HTN, Smoking, COPD, CAD, Cancer, CVA, ARF, Chemo, Hep., AIDS, mental health diagnosis, sleep apnea, morbid obesity)? @ -Multiple including hypertension, CHF, CAD Was patient admitted / discharged? Hospital course, mention meds given and route, prescriptions, significant lab abnormalities, going to OR and other pertinent info. @ -The patient was seen and evaluated emergency department. Physical exam, the patient was sitting in bed without any acute distress. Vital signs were stable. Laboratory workup was within normal limits however urine was to pending at this time. The patient was offered to be admitted for placement as she had some possible issues with treatment at the penitentiary because she has been using increasing amount of staff to help but the patient refuses and wanted to go back to the penitentiary. The patient will be signed out to Dr. Kuhn pending the urine in order to discharge the patient back to the penitentiary. Undiagnosed new problem with uncertain prognosis? @ -No Drug Therapy requiring intensive monitoring for toxicity (Heparin, Nitro, Insulin, Cardizem)? @ -No Were any procedures done? @ -No Diagnosis/symptom? @ -Weakness, NOS Acute, or Chronic, or Acute on Chronic? @ -Chronic Uncomplicated (without systemic symptoms) or Complicated (systemic symptoms)? @ -Uncomplicated Side effects of treatment? @ -No Exacerbation, Progression, or Severe Exacerbation? @ -No Poses a threat to life or bodily function? How? (Chest pain, [place], [place], pneumonia, PE, COPD, DKA, ARF, appy, cholecystitis, CVA, Diverticulitis, Homicidal, Suicidal, threat to staff... and all critical care pts) @ -No (Micah Falk) Patient needed to be admitted because she was too weak to help assist at the penitentiary so I spoke with Dr. Matt he agreed to admit the patient to the patient wrote admitting orders. (Suresh Kuhn) - Lab Data Lab Results 05/16/22 05/16/22 05/16/22 Range/Units 03:45 03:45 03:45 WBC 7.8 (3.8-10.6) k/uL RBC 3.94 (3.80-5.40) m/uL Hgb 12.7 (11.4-16.0) gm/dL Hct 39.3 (34.0-46.0) % MCV 99.7 (80.0-100.0) fL MCH 32.3 (25.0-35.0) pg MCHC 32.4 (31.0-37.0) g/dL RDW 11.6 (11.5-15.5) % Plt Count 282 (150-450) k/uL MPV 7.5 Neutrophils % 58 % Lymphocytes % 27 % Monocytes % 11 % Eosinophils % 1 % Basophils % 1 % Neutrophils # 4.5 (1.3-7.7) k/uL Lymphocytes # 2.1 (1.0-4.8) k/uL Monocytes # 0.8 (0-1.0) k/uL Eosinophils # 0.1 (0-0.7) k/uL Basophils # 0.0 (0-0.2) k/uL Sodium 138 (137-145) mmol/L Potassium 4.3 (3.5-5.1) mmol/L Chloride 103 (98-107) mmol/L Carbon Dioxide 29 (22-30) mmol/L Anion Gap 6 mmol/L BUN 24 H (7-17) mg/dL Creatinine 0.97 (0.52-1.04) mg/dL Est GFR (CKD-EPI)AfAm 71 (>60 ml/min/1.73 sqM) Est GFR (CKD-EPI)NonAf 62 (>60 ml/min/1.73 sqM) Glucose 106 H (74-99) mg/dL Calcium 9.1 (8.4-10.2) mg/dL Magnesium 2.3 (1.6-2.3) mg/dL Total Bilirubin 0.3 (0.2-1.3) mg/dL AST 22 (14-36) U/L ALT 19 (4-34) U/L Alkaline Phosphatase 75 (38-126) U/L Troponin I <0.012 (0.000-0.034) ng/mL NT-Pro-B Natriuret Pep pg/mL Total Protein 6.9 (6.3-8.2) g/dL Albumin 4.0 (3.5-5.0) g/dL Lipase 185 (23-300) U/L Urine Color Urine Appearance (Clear) Urine pH (5.0-8.0) Ur Specific [place] (1.001-1.035) Urine Protein (Negative) Urine Glucose (UA) (Negative) Urine Ketones (Negative) Urine Blood (Negative) Urine Nitrite (Negative) Urine Bilirubin (Negative) Urine Urobilinogen (<2.0) mg/dL Ur Leukocyte Esterase (Negative) Valproic Acid ug/mL 05/16/22 05/16/22 05/16/22 Range/Units 03:45 08:05 09:28 WBC (3.8-10.6) k/uL RBC (3.80-5.40) m/uL Hgb (11.4-16.0) gm/dL Hct (34.0-46.0) % MCV (80.0-100.0) fL MCH (25.0-35.0) pg MCHC (31.0-37.0) g/dL RDW (11.5-15.5) % Plt Count (150-450) k/uL MPV Neutrophils % % Lymphocytes % % Monocytes % % Eosinophils % % Basophils % % Neutrophils # (1.3-7.7) k/uL Lymphocytes # (1.0-4.8) k/uL Monocytes # (0-1.0) k/uL Eosinophils # (0-0.7) k/uL Basophils # (0-0.2) k/uL Sodium (137-145) mmol/L Potassium (3.5-5.1) mmol/L Chloride (98-107) mmol/L Carbon Dioxide (22-30) mmol/L Anion Gap mmol/L BUN (7-17) mg/dL Creatinine (0.52-1.04) mg/dL Est GFR (CKD-EPI)AfAm (>60 ml/min/1.73 sqM) Est GFR (CKD-EPI)NonAf (>60 ml/min/1.73 sqM) Glucose (74-99) mg/dL Calcium (8.4-10.2) mg/dL Magnesium (1.6-2.3) mg/dL Total Bilirubin (0.2-1.3) mg/dL AST (14-36) U/L ALT (4-34) U/L Alkaline Phosphatase (38-126) U/L Troponin I (0.000-0.034) ng/mL NT-Pro-B Natriuret Pep 59 pg/mL Total Protein (6.3-8.2) g/dL Albumin (3.5-5.0) g/dL Lipase (23-300) U/L Urine Color Light Yellow Urine Appearance Clear (Clear) Urine pH 7.0 (5.0-8.0) Ur Specific [place] 1.009 (1.001-1.035) Urine Protein Negative (Negative) Urine Glucose (UA) Negative (Negative) Urine Ketones Negative (Negative) Urine Blood Negative (Negative) Urine Nitrite Negative (Negative) Urine Bilirubin Negative (Negative) Urine Urobilinogen <2.0 (<2.0) mg/dL Ur Leukocyte Esterase Negative (Negative) Valproic Acid 58.1 ug/mL Disposition Is patient prescribed a controlled substance at d/c from ED?: No <Micah Falk - Last Filed: 05/16/22 06:37> <Suresh Kuhn - Last Filed: 05/16/22 10:25> Clinical Impression: Weakness Disposition: ADMITTED IP TO THIS HOSP Condition: Stable Instructions (If sedation given, give patient instructions): Fall Prevention for Older Adults (ED) Referrals: Jozef Borrero MD [Primary Care Provider] - 1-2 days
[2022-05-16 08:26] LABS: Appearance,Urine Clear (Clear); Bilirubin,Urine Negative (Negative); Blood,Urine Negative (Negative); Color,Urine Light Yellow; Glucose,Urine (UA) Negative (Negative); Ketones,Urine Negative (Negative); Leukocyte Esterase,Urine Negative (Negative); Nitrite,Urine Negative (Negative); Protein,Urine Negative (Negative); Specific Gravity,Urine 1.009 (1.001-1.035); Urobilinogen,Urine <2.0 mg/dL (<2.0)
[2022-05-16] MEDS ORDERED: SODIUM CHLORIDE 0.9% 1,000 ML IV ONE (10:25)
[2022-05-16] MEDS ORDERED: LACTULOSE 20 GM/30 ML CUP PO PRN (14:52)
[2022-05-16] MEDS ORDERED: NALOXONE 0.4 MG/ML 1 ML VIAL IV PRN (14:52)
[2022-05-16] MEDS ORDERED: CALCIUM CARBONATE 500 MG CHEWABLE PO PRN (14:52)
[2022-05-16] MEDS ORDERED: ONDANSETRON 4 MG/2 ML VIAL IVP PRN (14:52)
--- NOTE | 2022-05-16 16:27 | P.HPIM ---
History of Present Illness H&P Date: 05/16/22 Chief Complaint: Week This is a pleasant 67-year-old patient, follows with visiting physicians Dr. Borrero. Chronic stable medical conditions include GERD, hypertension, hyperlip idemia, hypothyroid. Schizophrenia. Patient is resident of [facility]. According to the staff of the EMS patient is attempting to transfer onto a wheelchair use a bathroom when she slid out of the bed onto the floor. Patient was AO 4. Denied any pain. Patient been having some increased weakness. Unable to maintain standing position on her own. Patient states her appetite is good. No foreign bowel movement. No injury. She just notices increasing weakness and lower limbs. Finding it difficult to stand. No fever no chills. No history symptoms. Patient does feel she feels sleepy in the daytime. Takes medications to sleep. Some swelling of lower extremity. Patient denies any back pain or trauma. Review of systems: GEN.: Tired] EYES: None HEENT: None NECK: None RESPIRATORY: None CARDIOVASCULAR: None GASTROINTESTINAL: None GENITOURINARY: None MUSCULOSKELETAL: Joint pains LYMPHATICS: None HEMATOLOGICAL: None PSYCHIATRY: None NEUROLOGICAL: [Weakness of the legs Past medical history to include: GERD, hyperlipidemia, hypertension, hypothyroid, schizophrenia, anxiety de pression Social history: No smoking and I'll call. Resident of [facility]. Physical examination: VITAL SIGNS: 97.4, 76, 16, 120/80, 98% room air GENERAL: BMI 43.9, declining red, awake, comfortable. EYES: Pupils equal. Conjunctiva normal. HEENT: External appearance of nose and ears normal, oral cavity grossly normal. NECK: JVD not raised; masses not palpable. HEART: First and second heart sounds are normal; no edema. LUNGS: Respiratory rate normal; clear to auscultation. ABDOMEN: Soft, nontender, liver spleen not palpable, no masses palpable. PSYCH: Alert and oriented x3; mood and affect normal. MUSCULOSKELETAL:No Clubbing/cyanosis;muscles-grossly intact. Evidence of OA NEUROLOGICAL: Cranial nerves grossly intact; no facial asymmetry, able to move her lower extremity and sensation grossly intact. LYMPHATICS: No lymph nodes palpable in the axilla and neck INVESTIGATIONS, reviewed in the clinical context: White count 7.8 hemoglobin 12.7 platelets 282 progression 4.3 BUN 24 creatinine 0.97 Troponin I less than 0.012 UA: Negative EKG tracing personally reviewed by me-sinus rhythm Chest x-ray film personally reviewed by me-no obvious abnormality Assessment and plan: -Increased fluid retention in the lower extremity leading to increased weakness. This seems to be combination of side effect of amlodipine and venous stasis. DC amlodipine. Fluid restriction. Angelito wrap. PTOT -Schizophrenia Abilify -Anxiety depression Cymbalta, Depakote -Chronic insomnia Continue Seroquel -Hypothyroid Synthroid -Essential hypertension DC amlodipine because of edema. Increase Cozaar to 50 mg day. -Chronic gait dysfunction, uses a baseline wheelchair/walker DC amlodipine. Increase Cozaar to 50 mg day. PTOT. Stop Lasix. Fluid restriction 1500 mL a day. Angelito wrap. Consult family caseworker for rehab. Past Medical History Past Medical History: GERD/Reflux, Hyperlipidemia, Hypertension, Thyroid Disorder History of Any Multi-Drug Resistant Organisms: None Reported Past Surgical History: Breast Surgery, Tubal Ligation Additional Past Surgical History / Comment(s): BREAST BX'S- CAREGIVER UNSURE OF OTHER SURGERYS Past Anesthesia/Blood Transfusion Reactions: Unable to Obtain Past Psychological History: Anxiety, Depression, Schizophrenia Past Alcohol Use History: None Reported Past Drug Use History: None Reported Medications and Allergies Home Medications Medication Instructions Recorded Confirmed Type Alendronate Sodium [Fosamax] 70 mg PO FR #4 tablet 11/08/17 05/16/22 Rx ARIPiprazole [Abilify] 30 mg PO DAILY@59905/16/22 05/16/22 History Calcium Citrate 200mg 1 tab PO DAILY@59905/16/22 05/16/22 History Cetirizine HCl [Zyrtec] 10 mg PO AC-SUPPER@179905/16/22 05/16/22 History DULoxetine HCL [Cymbalta] 60 mg PO DAILY@59905/16/22 05/16/22 History Divalproex ER [Depakote ER] 500 mg PO BID@0600,1800 05/16/22 05/16/22 History Docusate [Colace] 100 mg PO DAILY@59905/16/22 05/16/22 History Furosemide [Lasix] 40 mg PO DAILY@59905/16/22 05/16/22 History Levothyroxine Sodium [Synthroid] 100 mcg PO DAILY@0600 05/16/22 05/16/22 History Losartan Potassium [Cozaar] 25 mg PO DAILY@0600 05/16/22 05/16/22 History Lovastatin [Mevacor] 20 mg PO HS 05/16/22 05/16/22 History Potassium Chloride ER [K-Dur 10] 10 meq PO DAILY@0600 05/16/22 05/16/22 History QUEtiapine [SEROquel] 50 mg PO HS 05/16/22 05/16/22 History QUEtiapine [SEROquel] 100 mg PO HS 05/16/22 05/16/22 History amLODIPine [Norvasc] 5 mg PO AC-SUPPER@1800 05/16/22 05/16/22 History Allergies Allergy/AdvReac Type Severity Reaction Status Date / Time Penicillins Allergy Unknown Unknown Verified 05/16/22 14:17 Childhood Physical Exam Vitals: Vital Signs Temp Pulse Resp BP Pulse Ox 05/16/22 10:00 70 18 135/70 98 05/16/22 08:00 67 18 138/67 97 05/16/22 06:18 79 16 138/69 97 05/16/22 03:19 97.7 F 76 16 128/80 98 Intake and Output 05/15/22 05/16/22 05/16/22 22:59 06:59 14:59 Other: Weight 112.491 kg Results CBC & Chem 7: 05/16/22 03:45 05/16/22 03:45 Labs: Abnormal Lab Results - Last 24 Hours (Table) 05/16/22 Range/Units 03:45 BUN 24 H (7-17) mg/dL Glucose 106 H (74-99) mg/dL
[2022-05-16] MEDS: DIVALPROEX ER 500 MG TAB.ER.24H PO SCH (17:59)
[2022-05-16] MEDS ORDERED: amLODIPine 5 MG TAB PO SCH (18:00)
[2022-05-16] MEDS: QUEtiapine 100 MG TAB PO SCH (20:03)
[2022-05-16] MEDS: ATORVASTATIN 10 MG TAB PO SCH (20:03)
[2022-05-16] MEDS ORDERED: QUEtiapine 50 MG TAB PO SCH (21:00)
[2022-05-16] MEDS ORDERED: LISINOPRIL-HCTZ 20-12.5 MG 1 EACH TAB PO SCH (21:00)
[2022-05-17] MEDS: LEVOTHYROXINE 100 MCG TAB PO SCH (05:40)
[2022-05-17] MEDS: DULoxetine HCL 60 MG CAPSULE.DR PO SCH (05:41)
[2022-05-17] MEDS: DIVALPROEX ER 500 MG TAB.ER.24H PO SCH ×2 (05:41→17:22)
[2022-05-17] MEDS: CALCIUM CARBONATE 500 MG CHEWABLE PO SCH (05:41)
[2022-05-17] MEDS: ARIPiprazole 15 MG TAB PO SCH (05:41)
[2022-05-17] MEDS ORDERED: LOSARTAN 25 MG TAB PO SCH (06:00)
[2022-05-17] MEDS: LOSARTAN 50 MG TAB PO SCH (07:53)
[2022-05-17] MEDS: ACETAMINOPHEN TAB 325 MG TAB PO PRN (14:58)
--- NOTE | 2022-05-17 17:12 | P.PN ---
Progress Note - Text Progress Note Date: 05/17/22 Chief Complaint: Week This is a pleasant 67-year-old patient, follows with visiting physicians Dr. Borrero. Chronic stable medical conditions include GERD, hypertension, hyperlipidemia, hypothyroid. Schizophrenia. Patient is resident of [facility]. According to the staff of the EMS patient is attempting to transfer onto a wheelchair use a bathroom when she slid out of the bed onto the floor. Patient was AO 4. Denied any pain. Patient been having some increased weakness. Unable to maintain standing position on her own. Patient states her appetite is good. No foreign bowel movement. No injury. She just notices increasing weakness and lower limbs. Finding it difficult to stand. No fever no chills. No history symptoms. Patient does feel she feels sleepy in the daytime. Takes medications to sleep. Some swelling of lower extremity. Patient denies any back pain or trauma. Admitted with lower extremity weakness and swelling. 05/17/2022: Sitting up in a chair. Yesterday patient's evening dose of Seroquel was cutback. Norvasc was changed with increased dose of Cozaar to cutback on lower extremity swelling. Oral intake good. Patient was a total assist to pivot transfer to a chair with PT OT. farmworker machine looking into placement. Active Medications Acetaminophen (Acetaminophen Tab 325 Mg Tab) 650 mg PO Q6HR PRN PRN Reason: Mild Pain or Fever > 100.5 Last Admin: 05/17/22 14:58 Dose: 650 mg Aripiprazole (Aripiprazole 15 Mg Tab) 30 mg PO DAILY@0600 [facility] Last Admin: 05/17/22 05:41 Dose: 30 mg Atorvastatin Calcium (Atorvastatin 10 Mg Tab) 10 mg PO HS [facility] Last Admin: 05/16/22 20:03 Dose: 10 mg Calcium Carbonate/Glycine (Calcium Carbonate 500 Mg Chewable) 500 mg PO DAILY@0600 [facility] Last Admin: 05/17/22 05:41 Dose: 500 mg Calcium Carbonate/Glycine (Calcium Carbonate 500 Mg Chewable) 1,000 mg PO Q4HR PRN PRN Reason: Dyspepsia Divalproex Sodium (Divalproex Er 500 Mg Tab.Er.24h) 500 mg PO BID@0600,1800 [facility] Last Admin: 05/17/22 05:41 Dose: 500 mg Duloxetine HCl (Duloxetine Hcl 60 Mg Capsule.) 60 mg PO DAILY@0600 [facility] Last Admin: 05/17/22 05:41 Dose: 60 mg Lactulose (Lactulose 20 Gm/30 Ml Cup) 20 gm PO DAILY PRN PRN Reason: Constipation Levothyroxine Sodium (Levothyroxine 100 Mcg Tab) 100 mcg PO DAILY@0600 [facility] Last Admin: 05/17/22 05:40 Dose: 100 mcg Losartan Potassium (Losartan 50 Mg Tab) 50 mg PO DAILY [facility] Last Admin: 05/17/22 07:53 Dose: 50 mg Naloxone HCl (Naloxone 0.4 Mg/Ml 1 Ml Vial) 0.2 mg IV Q2M PRN PRN Reason: Opioid Reversal Ondansetron HCl (Ondansetron 4 Mg/2 Ml Vial) 4 mg IVP Q8HR PRN PRN Reason: Nausea And Vomiting Quetiapine Fumarate (Quetiapine 100 Mg Tab) 100 mg PO HS [facility] Last Admin: 05/16/22 20:03 Dose: 100 mg Past medical history to include: GERD, hyperlipidemia, hypertension, hypothyroid, schizophrenia, anxiety de pression Social history: No smoking and I'll call. Resident of [place]. Physical examination: VITAL SIGNS: 98.5, 77, 20, 125/73, 96% room air GENERAL: Sitting up in a chair awake, comfortable. EYES: Pupils equal. Conjunctiva normal. HEENT: External appearance of nose and ears normal, oral cavity grossly normal. NECK: JVD not raised; masses not palpable. HEART: First and second heart sounds are normal; no edema. LUNGS: Respiratory rate normal; clear to auscultation. ABDOMEN: Soft, nontender, liver spleen not palpable, no masses palpable. PSYCH: Alert and oriented x3; mood and affect normal. MUSCULOSKELETAL:No Clubbing/cyanosis;muscles-grossly intact. Evidence of OA NEUROLOGICAL: Cranial nerves grossly intact; no facial asymmetry, able to move her lower extremity and sensation grossly intact. INVESTIGATIONS, reviewed in the clinical context: White count 7.8 hemoglobin 12.7 platelets 282 progression 4.3 BUN 24 creatinine 0.97 Troponin I less than 0.012 UA: Negative EKG tracing personally reviewed by me-sinus rhythm Chest x-ray film personally reviewed by me-no obvious abnormality Assessment and plan: -Increased fluid retention in the lower extremity leading to increased weakness. This seems to be combination of side effect of amlodipine and venous stasis. DC amlodipine. Fluid restriction. Angelito wrap. PTOT -Schizophrenia Abilify -Anxiety depression Cymbalta, Depakote -Chronic insomnia Seroquel decreased 200 mg daily at bedtime -Hypothyroid Synthroid -Essential hypertension DC amlodipine because of edema. Increase Cozaar to 50 mg day. -Chronic gait dysfunction, uses a baseline wheelchair/walker Continue current medication treatment plan. Abatement assessment about placement. Decision.
[2022-05-17] MEDS: ATORVASTATIN 10 MG TAB PO SCH (20:15)
[2022-05-17] MEDS: QUEtiapine 100 MG TAB PO SCH (20:16)
[2022-05-18] MEDS: ARIPiprazole 15 MG TAB PO SCH (05:55)
[2022-05-18] MEDS: DIVALPROEX ER 500 MG TAB.ER.24H PO SCH ×2 (05:56→17:50)
[2022-05-18] MEDS: LEVOTHYROXINE 100 MCG TAB PO SCH (05:56)
[2022-05-18] MEDS: DULoxetine HCL 60 MG CAPSULE.DR PO SCH (05:56)
[2022-05-18] MEDS: CALCIUM CARBONATE 500 MG CHEWABLE PO SCH (05:56)
[2022-05-18] MEDS: LOSARTAN 50 MG TAB PO SCH (08:28)
[2022-05-18] MEDS: ACETAMINOPHEN TAB 325 MG TAB PO PRN ×2 (08:30→23:44)
--- NOTE | 2022-05-18 17:00 | P.PN ---
Progress Note - Text Progress Note Date: 05/18/22 Chief Complaint: Week This is a pleasant 67-year-old patient, follows with visiting physicians Dr. Borrero. Chronic stable medical conditions include GERD, hypertension, hyperlipidemia, hypothyroid. Schizophrenia. Patient is resident of [facility]. According to the staff of the EMS patient is attempting to transfer onto a wheelchair use a bathroom when she slid out of the bed onto the floor. Patient was AO 4. Denied any pain. Patient been having some increased weakness. Unable to maintain standing position on her own. Patient states her appetite is good. No foreign bowel movement. No injury. She just notices increasing weakness and lower limbs. Finding it difficult to stand. No fever no chills. No history symptoms. Patient does feel she feels sleepy in the daytime. Takes medications to sleep. Some swelling of lower extremity. Patient denies any back pain or trauma. Admitted with lower extremity weakness and swelling. 05/17/2022: Sitting up in a chair. Yesterday patient's evening dose of Seroquel was cutback. Norvasc was changed with increased dose of Cozaar to cutback on lower extremity swelling. Oral intake good. Patient was a total assist to pivot transfer to a chair with PT OT. stoneworker looking into placement. 05/18/2022: Up in a chair. Comfortable. Feeling better. Eating well. Discussed with case manager specialist. Looking into placement. Active Medications Acetaminophen (Acetaminophen Tab 325 Mg Tab) 650 mg PO Q6HR PRN PRN Reason: Mild Pain or Fever > 100.5 Last Admin: 05/18/22 08:30 Dose: 650 mg Aripiprazole (Aripiprazole 15 Mg Tab) 30 mg PO DAILY@0600 [facility] Last Admin: 05/18/22 05:55 Dose: 30 mg Atorvastatin Calcium (Atorvastatin 10 Mg Tab) 10 mg PO HS [facility] Last Admin: 05/17/22 20:15 Dose: 10 mg Calcium Carbonate/Glycine (Calcium Carbonate 500 Mg Chewable) 500 mg PO DAILY@0600 [facility] Last Admin: 05/18/22 05:56 Dose: 500 mg Calcium Carbonate/Glycine (Calcium Carbonate 500 Mg Chewable) 1,000 mg PO Q4HR PRN PRN Reason: Dyspepsia Divalproex Sodium (Divalproex Er 500 Mg Tab.Er.24h) 500 mg PO BID@0600,1800 [facility] Last Admin: 05/18/22 05:56 Dose: 500 mg Duloxetine HCl (Duloxetine Hcl 60 Mg Capsule.Dr) 60 mg PO DAILY@0600 [facility] Last Admin: 05/18/22 05:56 Dose: 60 mg Lactulose (Lactulose 20 Gm/30 Ml Cup) 20 gm PO DAILY PRN PRN Reason: Constipation Levothyroxine Sodium (Levothyroxine 100 Mcg Tab) 100 mcg PO DAILY@0600 [facility] Last Admin: 05/18/22 05:56 Dose: 100 mcg Losartan Potassium (Losartan 50 Mg Tab) 50 mg PO DAILY [facility] Last Admin: 05/18/22 08:28 Dose: 50 mg Naloxone HCl (Naloxone 0.4 Mg/Ml 1 Ml Vial) 0.2 mg IV Q2M PRN PRN Reason: Opioid Reversal Ondansetron HCl (Ondansetron 4 Mg/2 Ml Vial) 4 mg IVP Q8HR PRN PRN Reason: Nausea And Vomiting Quetiapine Fumarate (Quetiapine 100 Mg Tab) 100 mg PO HS [facility] Last Admin: 05/17/22 20:16 Dose: 100 mg Past medical history to include: GERD, hyperlipidemia, hypertension, hypothyroid, schizophrenia, anxiety depression Social history: No smoking and I'll call. Resident of [facility]. Physical examination: VITAL SIGNS: 97.6, 84, 16, 114/69, 95% room air GENERAL: Sitting up in a chair , comfortable. EYES: Pupils equal. Conjunctiva normal. HEENT: External appearance of nose and ears normal, oral cavity grossly normal. NECK: JVD not raised; masses not palpable. HEART: First and second heart sounds are normal; Angelito wrap LUNGS: Respiratory rate normal; clear to auscultation. ABDOMEN: Soft, nontender, liver spleen not palpable, no masses palpable. PSYCH: Alert and oriented x3; mood and affect normal. MUSCULOSKELETAL:No Clubbing/cyanosis;muscles-grossly intact. Evidence of OA NEUROLOGICAL: Cranial nerves grossly intact; no facial asymmetry, able to move her lower extremity and sensation grossly intact. INVESTIGATIONS, reviewed in the clinical context: White count 7.8 hemoglobin 12.7 platelets 282 progression 4.3 BUN 24 creatinine 0.97 Troponin I less than 0.012 UA: Negative EKG tracing personally reviewed by me-sinus rhythm Chest x-ray film personally reviewed by me-no obvious abnormality Assessment and plan: -Increased fluid retention in the lower extremity leading to increased weakness. This seems to be combination of side effect of amlodipine and venous stasis. DC amlodipine. Fluid restriction. Angelito wrap. PTOT -Schizophrenia Abilify -Anxiety depression Cymbalta Depakote -Chronic insomnia Seroquel decreased 200 mg daily at bedtime -Hypothyroid Synthroid -Essential hypertension DC amlodipine because of edema. Increase Cozaar to 50 mg day. -Chronic gait dysfunction, uses a baseline wheelchair/walker Continue current medication . Discussed with case manager specialist. Pending rehab placement.
[2022-05-18] MEDS: ATORVASTATIN 10 MG TAB PO SCH (20:09)
[2022-05-18] MEDS: QUEtiapine 100 MG TAB PO SCH (20:10)
[2022-05-19] MEDS: LEVOTHYROXINE 100 MCG TAB PO SCH (05:43)
[2022-05-19] MEDS: DIVALPROEX ER 500 MG TAB.ER.24H PO SCH (05:43)
[2022-05-19] MEDS: DULoxetine HCL 60 MG CAPSULE.DR PO SCH (05:43)
[2022-05-19] MEDS: ARIPiprazole 15 MG TAB PO SCH (05:43)
[2022-05-19] MEDS: CALCIUM CARBONATE 500 MG CHEWABLE PO SCH (05:43)
[2022-05-19] MEDS: ACETAMINOPHEN TAB 325 MG TAB PO PRN (08:39)
[2022-05-19] MEDS: LOSARTAN 50 MG TAB PO SCH (08:39)
[2022-05-19 08:52] VITALS: PULSE 81; RESP 16
[2022-05-19 13:02] VITALS: BP 118/69; TEMP 98.9
--- NOTE | 2022-05-19 13:17 | P.DS ---
Providers Date of admission: 05/16/22 10:25 Expected date of discharge: 05/19/22 Attending physician: Naren Matt Primary care physician: Jozef Borrero MD Hospital Course: Chief Complaint: Week This is a pleasant 67-year-old patient, follows with visiting physicians Dr. Borrero. Chronic stable medical conditions include GERD, hypertension, hyperlipidemia, hypothyroid. Schizophrenia. Patient is resident of [facility]. According to the staff of the EMS patient is attempting to transfer onto a wheelchair use a bathroom when she slid out of the bed onto the floor. Patient was AO 4. Denied any pain. Patient been having some increased weakness. Unable to maintain standing position on her own. Patient states her appetite is good. No foreign bowel movement. No injury. She just notices increasing weakness and lower limbs. Finding it difficult to stand. No fever no chills. No history symptoms. Patient does feel she feels sleepy in the daytime. Takes medications to sleep. Some swelling of lower extremity. Patient denies any back pain or trauma. Admitted with lower extremity weakness and swelling. 05/17/2022: Sitting up in a chair. Yesterday patient's evening dose of Seroquel was cutback. Norvasc was changed with increased dose of Cozaar to cutback on lower extremity swelling. Oral intake good. Patient was a total assist to pivot transfer to a chair with PT OT. machine shop worker looking into placement. 05/18/2022: Up in a chair. Comfortable. Feeling better. Eating well. Discussed with correctional casework specialist. Looking into placement. 05/19/2022: In bed. Comfortable. Blood pressure stable. Decreased edema. Discussed with correctional casework specialist. Accepted at rehab. Discussion and discharge planning more than 35 minutes Past medical history to include: GERD, hyperlipidemia, hypertension, hypothyroid, schizophrenia, anxiety depression Social history: No smoking and I'll call. Resident of [facility]. Physical examination: VITAL SIGNS: 98.9, 16, 80, 11 8 x 69, 91% room air GENERAL: Reclining in bed, comfortable. EYES: Pupils equal. Conjunctiva normal. HEENT: External appearance of nose and ears normal, oral cavity grossly normal. NECK: JVD not raised; masses not palpable. HEART: First and second heart sounds are normal; Angelito wrap LUNGS: Respiratory rate normal; clear to auscultation. ABDOMEN: Soft, nontender, liver spleen not palpable, no masses palpable. PSYCH: Alert and oriented x3; mood and affect normal. MUSCULOSKELETAL:No Clubbing/cyanosis;muscles-grossly intact. Evidence of OA NEUROLOGICAL: Cranial nerves grossly intact; no facial asymmetry, able to move her lower extremity and sensation grossly intact. INVESTIGATIONS, reviewed in the clinical context: COVID-19: Not detected White count 7.8 hemoglobin 12.7 platelets 282 progression 4.3 BUN 24 creatinine 0.97 Troponin I less than 0.012 UA: Negative EKG tracing personally reviewed by me-sinus rhythm Chest x-ray film personally reviewed by me-no obvious abnormality Assessment and plan: -Increased fluid retention in the lower extremity leading to increased weakness. This seems to be combination of side effect of amlodipine and venous stasis. DC amlodipine. Fluid restriction. Angelito wrap. PTOT -Schizophrenia Abilify -Anxiety depression Cymbalta, Depakote -Chronic insomnia Seroquel decreased 100 mg daily at bedtime -Hypothyroid Synthroid 100 g daily -Essential hypertension DC amlodipine because of edema. Increase Cozaar to 50 mg day. -Chronic gait dysfunction, uses a baseline wheelchair/walker Disposition: Rehab at [facility] Patient Condition at Discharge: Stable Plan - Discharge Summary Discharge Rx Participant: Yes New Discharge Prescriptions: New Losartan [Cozaar] 50 mg PO DAILY tab Acetaminophen Tab [Tylenol] 650 mg PO Q6HR PRN tab PRN Reason: Mild Pain Or Fever > 100.5 Continue Alendronate Sodium [Fosamax] 70 mg PO FR #4 tablet Lovastatin [Mevacor] 20 mg PO HS Divalproex ER [Depakote ER] 500 mg PO BID@0600,1800 Calcium Citrate 200mg 1 tab PO DAILY@0600 DULoxetine HCL [Cymbalta] 60 mg PO DAILY@0600 QUEtiapine [SEROquel] 100 mg PO HS Levothyroxine Sodium [Synthroid] 100 mcg PO DAILY@0600 ARIPiprazole [Abilify] 30 mg PO DAILY@0600 Discontinued Furosemide [Lasix] 40 mg PO DAILY@0600 amLODIPine [Norvasc] 5 mg PO AC-SUPPER@1800 Potassium Chloride ER [K-Dur 10] 10 meq PO DAILY@0600 Docusate [Colace] 100 mg PO DAILY@0600 QUEtiapine [SEROquel] 50 mg PO HS Losartan Potassium [Cozaar] 25 mg PO DAILY@0600 Cetirizine HCl [Zyrtec] 10 mg PO AC-SUPPER@1800 Discharge Medication List Alendronate Sodium [Fosamax] 70 mg PO FR #4 tablet 11/08/17 [Rx] ARIPiprazole [Abilify] 30 mg PO DAILY@0600 05/16/22 [History] Calcium Citrate 200mg 1 tab PO DAILY@0605/16/22 [History] DULoxetine HCL [Cymbalta] 60 mg PO DAILY@0605/16/22 [History] Divalproex ER [Depakote ER] 500 mg PO BID@0600,1800 05/16/22 [History] Levothyroxine Sodium [Synthroid] 100 mcg PO DAILY@0600 05/16/22 [History] Lovastatin [Mevacor] 20 mg PO HS 05/16/22 [History] QUEtiapine [SEROquel] 100 mg PO HS 05/16/22 [History] Acetaminophen Tab [Tylenol] 650 mg PO Q6HR PRN tab 05/19/22 [Rx] Losartan [Cozaar] 50 mg PO DAILY tab 05/19/22 [Rx] Follow up Appointment(s)/Referral(s): Jozef Borrero MD [Primary Care Provider] - 1-2 days Patient Instructions/Handouts: Fall Prevention for Older Adults (ED)
[2022-05-21] MEDS ORDERED: NON FORMULARY DRUG (Alendronate Sodium [Fosamax] 70 MG Tablet) PO SCH (14:47)
== END 2022-05-19 14:20 | DRG 556 ==
LOC: EC 03:15 → 5NMEDONC 10:25
PROVIDERS: ADMIT Hospitalist; ATTEND Hospitalist
DX: M79.89 Other specified soft tissue disorders (principal); E03.9 Hypothyroidism, unspecified; F32.A Depression, unspecified; I10 Essential (primary) hypertension; F20.9 Schizophrenia, unspecified; F51.04 Psychophysiologic insomnia; F41.9 Anxiety disorder, unspecified; I87.8 Other specified disorders of veins; E78.5 Hyperlipidemia, unspecified; K21.9 Gastro-esophageal reflux disease without esophagitis; T46.1X5A Adverse effect of calcium-channel blockers, initial encounter; R26.9 Unspecified abnormalities of gait and mobility; W06.XXXA Fall from bed, initial encounter; Y92.122 Bedroom in nursing home as the place of occurrence of the external cause; Z79.890 Hormone replacement therapy; Z79.899 Other long term (current) drug therapy; Z79.83 Long term (current) use of bisphosphonates; Z88.0 Allergy status to penicillin; Z75.1 Person awaiting admission to adequate facility elsewhere
CPT/HCPCS: 36415; 71046; 80053; 80164; 81003; 83690; 83735; 83880; 84484; 85025; 87635; 93005; 99285

== ENCOUNTER 2023-03-19 13:51 | Inpatient (IN) | payer MEDICARE, OTHER ==
[2023-03-19] MEDS ORDERED: IPRATROPIUM-ALBUTEROL 3 ML NEB INHALATION STA (13:59)
[2023-03-19] MEDS ORDERED: methylPREDNISolone SOD SUCCI 125 MG/2 ML VIAL IV STA (13:59)
--- NOTE | 2023-03-19 14:06 | ED ---
SOB HPI - General Chief Complaint: Shortness of Breath Stated Complaint: SOB Time Seen by Provider: 03/19/23 13:53 Source: patient Mode of arrival: EMS - History of Present Illness Initial Comments: 67-year-old female with a history of CHF history of GERD hypertension hyperlipidemia and hypothyroidism schizophrenia who presents by EMS from a [facility] with complaints of fever today 101.2 with shortness of breath basilar rhonchi in the lower lobes hallucinations and possible weight gain over last 24 hours. Per transfer sheet 33.6, awake and in 24 hours patient herself is a poor historian. Patient obtained from paperwork in from paramedics. MD Complaint: shortness of breath - Related Data Home Medications Medication Instructions Recorded Confirmed ARIPiprazole [Abilify] 30 mg PO DAILY@0800 05/16/22 03/19/23 Calcium Citrate 200mg 1 tab PO DAILY@1200 05/16/22 03/19/23 DULoxetine HCL [Cymbalta] 60 mg PO DAILY@0700 05/16/22 03/19/23 Levothyroxine Sodium [Synthroid] 100 mcg PO DAILY@0700 05/16/22 03/19/23 Lovastatin [Mevacor] 20 mg PO HS 05/16/22 03/19/23 ALPRAZolam [Xanax] 0.25 mg PO BID@0800,1700 03/19/23 03/19/23 Alendronate Sodium [Fosamax] 70 mg PO SA@0600 03/19/23 03/19/23 Cariprazine HCl [Vraylar] 3 mg PO HS 03/19/23 03/19/23 Cholecalciferol [Vitamin D3 (25 50 mcg PO DAILY@0800 03/19/23 03/19/23 Mcg = 1000 Iu)] Diclofenac Sodium Gel [Voltaren 1% 1 applic TOPICAL BID@0800,1700 03/19/23 03/19/23 Gel] Divalproex Sodium [Depakote] 500 mg PO BID@0700,1900 03/19/23 03/19/23 Furosemide [Lasix] 40 mg PO DAILY@0800 03/19/23 03/19/23 Gabapentin [Neurontin] 100 mg PO BID@0800,1700 03/19/23 03/19/23 Ipratropium-Albuterol Nebulize 3 ml INHALATION RT-Q6H PRN 03/19/23 03/19/23 [Duoneb 0.5 mg-3 mg/3 ml Soln] Loperamide HCl [Imodium A-D] 2 - 4 mg PO QID PRN 03/19/23 03/19/23 Losartan [Cozaar] 50 mg PO DAILY@0800 03/19/23 03/19/23 Mag Hydrox/Al Hydrox/Simeth 30 ml PO Q6H PRN 03/19/23 03/19/23 [Maalox] Magnesium Hydroxide [Milk of 7,200 mg PO DIRECTED PRN 03/19/23 03/19/23 Magnesia Concentrate] Na Phos,M-B/Na Phos,Di-Ba [Fleet 133 ml RECTAL DAILY PRN 03/19/23 03/19/23 Adult] QUEtiapine [SEROquel] 200 mg PO HS 03/19/23 03/19/23 Sennosides/Docusate Sodium 2 tab PO HS 03/19/23 03/19/23 [Senna-S 8.6-50 mg Tablet] bisacodyL [Dulcolax] 10 mg RECTAL DAILY PRN 03/19/23 03/19/23 guaiFENesin [guaiFENesin Oral 200 mg PO Q4H PRN 03/19/23 03/19/23 Solution] Previous Rx's Medication Instructions Recorded Acetaminophen Tab [Tylenol] 650 mg PO Q6HR PRN tab 05/19/22 Allergies Allergy/AdvReac Type Severity Reaction Status Date / Time Penicillins Allergy Unknown Unknown Verified 03/19/23 16:58 Childhood Review of Systems ROS Statement: Those systems with pertinent positive or pertinent negative responses have been documented in the HPI. ROS Other: All systems not noted in ROS Statement are negative. Past Medical History Past Medical History: GERD/Reflux, Hyperlipidemia, Hypertension, Thyroid Disorder History of Any Multi-Drug Resistant Organisms: None Reported Past Surgical History: Breast Surgery, Tubal Ligation Additional Past Surgical History / Comment(s): BREAST BX'S- CAREGIVER UNSURE OF OTHER SURGERYS Past Anesthesia/Blood Transfusion Reactions: Unable to Obtain Past Psychological History: Anxiety, Depression, Schizophrenia Past Alcohol Use History: None Reported Past Drug Use History: None Reported General Exam - General Exam Comments Initial Comments: This a well-developed well-nourished female who is awake alert demonstrate dyspnea with hypoxemia General appearance: alert, anxious Head exam: Present: atraumatic, normocephalic, normal inspection Eye exam: Present: normal appearance, PERRL, EOMI. Absent: scleral icterus, conjunctival injection, periorbital swelling ENT exam: Present: mucous membranes dry Neck exam: Present: normal inspection, full ROM, other (No stridor JVD or bruits). Absent: tenderness, meningismus, lymphadenopathy Respiratory exam: Present: rhonchi, decreased breath sounds, other (Tachypnea). Absent: respiratory distress, wheezes, rales, stridor Cardiovascular Exam: Present: regular rate, normal rhythm, normal heart sounds. Absent: systolic murmur, diastolic murmur, rubs, gallop, clicks GI/Abdominal exam: Present: soft, normal bowel sounds. Absent: distended, tenderness, guarding, rebound, rigid Extremities exam: Present: normal inspection, full ROM, normal capillary refill. Absent: tenderness, pedal edema, joint swelling, calf tenderness Back exam: Present: normal inspection Neurological exam: Present: alert, oriented X3, CN II-XII intact Psychiatric exam: Present: normal affect, normal mood Skin exam: Present: warm, dry, intact, normal color. Absent: rash Course Vital Signs 03/19/23 03/19/23 03/19/23 13:56 14:00 14:50 Temperature 100.2 F H Pulse Rate 96 93 84 Respiratory 32 H 32 H 18 Rate Blood Pressure 109/56 106/58 111/63 O2 Sat by Pulse 88 L 92 L 93 L Oximetry 03/19/23 03/19/23 03/19/23 15:50 15:58 17:11 Temperature 98.1 F Pulse Rate 76 80 80 Respiratory 18 Rate Blood Pressure 106/67 O2 Sat by Pulse 96 Oximetry 03/19/23 17:41 Temperature Pulse Rate 79 Respiratory 18 Rate Blood Pressure 99/63 O2 Sat by Pulse 93 L Oximetry Medical Decision Making - Medical Decision Making I did discuss findings with the patient. The patient appears to be consistent with pneumonitis lactic acid was elevated 2.2 but this appears be more of a volume issue she does not meet SIRS or septic shock criteria. The patient will be admitted I did discuss case with . Patient be started on IV antibiotics and IV fluids. Was pt. sent in by a medical professional or institution ([facility], TUBING MACHINE TENDER, urgent care, hospital, or [facility]...) When possible be specific @ -No Did you speak to anyone other than the patient for history (EMS, parent, family, police, friend...)? What history was obtained from this source @ -[facility] upon arrival] Did you review nursing and triage notes (agree or disagree)? Why? @ -I reviewed and agree with nursing and triage notes Were old charts reviewed (outside hosp., previous admission, EMS record, old EKG, old radiological studies, urgent care reports/EKG's, [facility] records)? Report findings @ -snf old charts were reviewed Differential Diagnosis (chest pain, altered mental status, abdominal pain women, abdominal pain men, vaginal bleeding, weakness, fever, dyspnea, syncope, headache, dizziness, GI bleed, back pain, seizure, CVA, palpatations, mental health, musculoskeletal)? @ -Febrile illness, pneumonia, UTI, dyspnea EKG interpreted by me (3pts min.). @ -As above EKG interpreted by me normal sinus rhythm 82 WI interval 157 QRS duration 80 QT since QTC 358/396 low-voltage no acute ST-T wave changes X-rays interpreted by me (1pt min.). @ -Chest x-ray interpreted by me evidence of increased bony vascular markings no definitive evidence of focal infiltrate or pleural effusion CT interpreted by me (1pt min.). @ -None done U/S interpreted by me (1pt. min.). @ -None done What testing was considered but not performed or refused? (CT, X-rays, U/S, labs)? Why? @ -None What meds were considered but not given or refused? Why? @ -None Did you discuss the management of the patient with other professionals (vahid cota i.e. [facility], TUBING MACHINE TENDER, lab, RT, psych nurse, social psychologist, lease purchase driver, teacher, electrical engineering drafting officer, case management assistant)? Give summary @ -Dr. Holguin patient will be admitted for pneumonia and fever and dehydration Was smoking cessation discussed for >3mins.? @ -No Was critical care preformed (if so, how long)? @ -No Were there social determinants of health that impacted care today? How? (Homelessness, low income, unemployed, alcoholism, drug addiction, transportation, low edu. Level, literacy, decrease access to med. care, ch[facility], rehab)? @ -No Was there de-escalation of care discussed even if they declined (Discuss DNR or withdrawal of care, Hospice)? DNR status @ -No What co-morbidities impacted this encounter? (DM, HTN, Smoking, COPD, CAD, Cancer, CVA, ARF, Chemo, Hep., AIDS, mental health diagnosis, sleep apnea, morbid obesity)? @ -Hypertension, schizophrenia, depression Was patient admitted / discharged? Hospital course, mention meds given and route, prescriptions, significant lab abnormalities, going to OR and other pertinent info. @ -hospital course was admitted for treatment of fever, pneumonitis, dehydration Undiagnosed new problem with uncertain prognosis? @ -Fever and pneumonitis Drug Therapy requiring intensive monitoring for toxicity (Heparin, Nitro, Insulin, Cardizem)? @ -No Were any procedures done? @ -No Diagnosis/symptom? @ -Febrile illness, pneumonitis, dehydration, lactic acidosis Acute, or Chronic, or Acute on Chronic? @ -Acute Uncomplicated (without systemic symptoms) or Complicated (systemic symptoms)? @ -Complicated Side effects of treatment? @ -No Exacerbation, Progression, or Severe Exacerbation? @ -No Poses a threat to life or bodily function? How? (Chest pain, USA, MD, pneumonia, PE, COPD, DKA, ARF, appy, cholecystitis, CVA, Diverticulitis, Homicidal, Suicidal, threat to staff... and all critical care pts) @ -Potential, pneumonitis, dehydration - Lab Data Result diagrams: 03/19/23 14:17 03/19/23 14:17 Lab Results 03/19/23 03/19/23 03/19/23 Range/Units 14:17 14:17 14:17 WBC 17.3 H (3.8-10.6) k/uL RBC 3.67 L (3.80-5.40) m/uL Hgb 12.2 (11.4-16.0) gm/dL Hct 37.7 (34.0-46.0) % MCV 102.7 H (80.0-100.0) fL MCH 33.3 (25.0-35.0) pg MCHC 32.4 (31.0-37.0) g/dL RDW 12.7 (11.5-15.5) % Plt Count 232 (150-450) k/uL MPV 7.5 Neutrophils % (Manual) 78 % Band Neuts % (Manual) 3 % Lymphocytes % (Manual) 8 % Monocytes % (Manual) 11 % Neutrophils # (Manual) 14.00 H (1.3-7.7) k/uL Lymphocytes # (Manual) 1.38 (1.0-4.8) k/uL Monocytes # (Manual) 1.90 H (0-1.0) k/uL Nucleated RBCs 0 (0-0) /100 WBC Manual Slide Review Performed Macrocytosis Slight PT 10.5 (10.0-12.5) sec INR 0.9 (<1.2) APTT 21.5 L (22.0-30.0) sec Sodium 138 (137-145) mmol/L Potassium 4.3 (3.5-5.1) mmol/L Chloride 101 (98-107) mmol/L Carbon Dioxide 29 (22-30) mmol/L Anion Gap 8 mmol/L BUN 28 H (7-17) mg/dL Creatinine 0.96 (0.52-1.04) mg/dL Est GFR (CKD-EPI)AfAm 72 (>60 ml/min/1.73 sqM) Est GFR (CKD-EPI)NonAf 62 (>60 ml/min/1.73 sqM) Glucose 141 H (74-99) mg/dL Lactic Ac Sepsis Rflx Plasma Lactic Acid Hung (0.7-2.0) mmol/L Calcium 8.7 (8.4-10.2) mg/dL Magnesium 2.0 (1.6-2.3) mg/dL Total Bilirubin 0.4 (0.2-1.3) mg/dL AST 21 (14-36) U/L ALT 14 (4-34) U/L Alkaline Phosphatase 61 (38-126) U/L Troponin I (0.000-0.034) ng/mL NT-Pro-B Natriuret Pep 201 pg/mL Total Protein 6.0 L (6.3-8.2) g/dL Albumin 3.3 L (3.5-5.0) g/dL Influenza Type A (PCR) (Not Detectd) Influenza Type B (PCR) (Not Detectd) RSV (PCR) (Not Detectd) SARS-CoV-2 (PCR) (Not Detectd) 03/19/23 03/19/23 03/19/23 Range/Units 14:17 14:17 14:17 WBC (3.8-10.6) k/uL RBC (3.80-5.40) m/uL Hgb (11.4-16.0) gm/dL Hct (34.0-46.0) % MCV (80.0-100.0) fL MCH (25.0-35.0) pg MCHC (31.0-37.0) g/dL RDW (11.5-15.5) % Plt Count (150-450) k/uL MPV Neutrophils % (Manual) % Band Neuts % (Manual) % Lymphocytes % (Manual) % Monocytes % (Manual) % Neutrophils # (Manual) (1.3-7.7) k/uL Lymphocytes # (Manual) (1.0-4.8) k/uL Monocytes # (Manual) (0-1.0) k/uL Nucleated RBCs (0-0) /100 WBC Manual Slide Review Macrocytosis PT (10.0-12.5) sec INR (<1.2) APTT (22.0-30.0) sec Sodium (137-145) mmol/L Potassium (3.5-5.1) mmol/L Chloride (98-107) mmol/L Carbon Dioxide (22-30) mmol/L Anion Gap mmol/L BUN (7-17) mg/dL Creatinine (0.52-1.04) mg/dL Est GFR (CKD-EPI)AfAm (>60 ml/min/1.73 sqM) Est GFR (CKD-EPI)NonAf (>60 ml/min/1.73 sqM) Glucose (74-99) mg/dL Lactic Ac Sepsis Rflx Plasma Lactic Acid Hung 2.2 H* (0.7-2.0) mmol/L Calcium (8.4-10.2) mg/dL Magnesium (1.6-2.3) mg/dL Total Bilirubin (0.2-1.3) mg/dL AST (14-36) U/L ALT (4-34) U/L Alkaline Phosphatase (38-126) U/L Troponin I <0.012 (0.000-0.034) ng/mL NT-Pro-B Natriuret Pep pg/mL Total Protein (6.3-8.2) g/dL Albumin (3.5-5.0) g/dL Influenza Type A (PCR) Not Detected (Not Detectd) Influenza Type B (PCR) Not Detected (Not Detectd) RSV (PCR) Not Detected (Not Detectd) SARS-CoV-2 (PCR) Not Detected (Not Detectd) 03/19/23 Range/Units 14:55 WBC (3.8-10.6) k/uL RBC (3.80-5.40) m/uL Hgb (11.4-16.0) gm/dL Hct (34.0-46.0) % MCV (80.0-100.0) fL MCH (25.0-35.0) pg MCHC (31.0-37.0) g/dL RDW (11.5-15.5) % Plt Count (150-450) k/uL MPV Neutrophils % (Manual) % Band Neuts % (Manual) % Lymphocytes % (Manual) % Monocytes % (Manual) % Neutrophils # (Manual) (1.3-7.7) k/uL Lymphocytes # (Manual) (1.0-4.8) k/uL Monocytes # (Manual) (0-1.0) k/uL Nucleated RBCs (0-0) /100 WBC Manual Slide Review Macrocytosis PT (10.0-12.5) sec INR (<1.2) APTT (22.0-30.0) sec Sodium (137-145) mmol/L Potassium (3.5-5.1) mmol/L Chloride (98-107) mmol/L Carbon Dioxide (22-30) mmol/L Anion Gap mmol/L BUN (7-17) mg/dL Creatinine (0.52-1.04) mg/dL Est GFR (CKD-EPI)AfAm (>60 ml/min/1.73 sqM) Est GFR (CKD-EPI)NonAf (>60 ml/min/1.73 sqM) Glucose (74-99) mg/dL Lactic Ac Sepsis Rflx Y Plasma Lactic Acid Hung (0.7-2.0) mmol/L Calcium (8.4-10.2) mg/dL Magnesium (1.6-2.3) mg/dL Total Bilirubin (0.2-1.3) mg/dL AST (14-36) U/L ALT (4-34) U/L Alkaline Phosphatase (38-126) U/L Troponin I (0.000-0.034) ng/mL NT-Pro-B Natriuret Pep pg/mL Total Protein (6.3-8.2) g/dL Albumin (3.5-5.0) g/dL Influenza Type A (PCR) (Not Detectd) Influenza Type B (PCR) (Not Detectd) RSV (PCR) (Not Detectd) SARS-CoV-2 (PCR) (Not Detectd) - EKG Data -: EKG Interpreted by Me - Radiology Data Interpreted by me: Imaging interpreted by me evidence of increased pulmonary vascular markings Disposition Clinical Impression: Pneumonia, Febrile illness, acute, Dehydration, Leukocytosis Disposition: ADMITTED IP TO THIS [facility] Condition: Stable Referrals: aMrshall Grande MD [Primary Care Provider] - 1-2 days Decision Date: 03/19/23 Decision Time: 18:00
[2023-03-19 14:33] LABS: HCT 37.7 % (34.0-46.0); HGB 12.2 gm/dL (11.4-16.0); MCH 33.3 pg (25.0-35.0); MCHC 32.4 g/dL (31.0-37.0); MCV 102.7 fL (80.0-100.0); Macrocytosis Slight; Mean Platelet Volume 7.5; Platelet Count 232 k/uL (150-450); RBC 3.67 m/uL (3.80-5.40); RDW 12.7 % (11.5-15.5); WBC 17.3 k/uL (3.8-10.6)
--- NOTE | 2023-03-19 14:40 | XR ---
EXAMINATION TYPE: XR chest 2V DATE OF EXAM: 03/19/2023 2:25 PM CLINICAL INDICATION:Female, 67 years old with history of difficulty breathing; [facility] COMPARISON: Chest radiographs from 05/16/2022 TECHNIQUE: XR chest 2V Frontal and lateral views of the chest. FINDINGS: Lungs/Pleura: There is no evidence of pleural effusion, focal consolidation, or pneumothorax. Pulmonary vascularity: Pulmonary vascular congestion. Heart/mediastinum: Cardiomediastinal silhouette is enlarged and stable. Musculoskeletal: No acute osseous pathology. Other findings: None IMPRESSION: Low lung volumes with a generalized hazy appearance which could represent atelectasis versus pulmonar y edema correlate with serum BNP.
[2023-03-19 14:53] LABS: INR 0.9 (<1.2); Prothrombin Time 10.5 sec (10.0-12.5)
[2023-03-19 14:56] LABS: ALT 14 U/L (4-34); AST 21 U/L (14-36); African American GFR (CKD) 72 (>60 ml/min/1.73 sqM); Albumin 3.3 g/dL (3.5-5.0); Alkaline Phosphatase 61 U/L (38-126); Anion Gap 8 mmol/L; Blood Urea Nitrogen 28 mg/dL (7-17); Calcium 8.7 mg/dL (8.4-10.2); Carbon Dioxide 29 mmol/L (22-30); Chloride 101 mmol/L (98-107); Glucose 141 mg/dL (74-99); Non-African American GFR(CKD) 62 (>60 ml/min/1.73 sqM); Potassium 4.3 mmol/L (3.5-5.1); Sodium 138 mmol/L (137-145); Total Bilirubin 0.4 mg/dL (0.2-1.3)
[2023-03-19 15:00] LABS: Band Neutrophils % 3 %; Lymphocytes # (M) 1.38 k/uL (1.0-4.8); Neutrophils % (M) 78 %; Nucleated Red Blood Cells 0 /100 WBC (0-0); Total Cells Counted 100
[2023-03-19 15:03] LABS: Partial Thromboplastin Time 21.5 sec (22.0-30.0)
[2023-03-19 15:04] LABS: NT-Pro-B-Type Natriuretic Pept 201 pg/mL
[2023-03-19] MEDS ORDERED: cefTRIAXone IN SWFI 1,000 MG/10 ML SYRINGE IVP STA (16:53)
[2023-03-19] MEDS ORDERED: SODIUM CHLORIDE 0.9% 1,000 ML IV STA ×3 (16:54→20:34)
[2023-03-19] MEDS ORDERED: AZITHROMYCIN 500 MG in SODIUM CHLORIDE 0.9% 250 ML IVPB STA (18:45)
[2023-03-19] MEDS ORDERED: PNEUMONIA PROTOCOL UTILIZED 1 EACH MISC PO PRN (18:45)
[2023-03-19] MEDS ORDERED: bisacodyL 10 MG SUPP RECTAL PRN (18:46)
[2023-03-19] MEDS ORDERED: guaiFENesin SYRUP 100MG/5ML 200 MG/10 ML CUP PO PRN (18:46)
[2023-03-19] MEDS ORDERED: NA PHOS,M-B/NA PHOS,DI-BA 133 ML ENEMA RECTAL PRN (18:46)
[2023-03-19] MEDS ORDERED: MAGNESIUM HYDROXIDE 2,400 MG/30 ML CUP PO PRN (18:46)
[2023-03-19] MEDS ORDERED: MAG HYDROX/AL HYDROX/SIMETH 30 ML CUP PO PRN (18:46)
[2023-03-19] MEDS: SODIUM CHLORIDE 0.9% 1,000 ML IV SCH ×2 (19:19→22:56)
[2023-03-19] MEDS: DIVALPROEX 500 MG TABLET.DR PO SCH (19:29)
[2023-03-19] MEDS: ATORVASTATIN 10 MG TAB PO SCH (20:33)
[2023-03-19] MEDS: SENNOSIDES-DOCUSATE SODIUM 1 EACH TAB PO SCH (20:33)
[2023-03-19] MEDS: QUEtiapine 200 MG TAB PO SCH (20:33)
[2023-03-19] MEDS: NON FORMULARY DRUG (Cariprazine Hcl [Vraylar] 3 MG Capsule) PO SCH (20:35)
[2023-03-19] MEDS: IPRATROPIUM-ALBUTEROL 3 ML NEB INHALATION PRN (22:27)
[2023-03-19] MEDS ORDERED: SODIUM CHLORIDE 0.9% 500 ML 500 ML IV ONE (23:41)
[2023-03-20] MEDS: IPRATROPIUM-ALBUTEROL 3 ML NEB INHALATION PRN (04:12)
[2023-03-20] MEDS: LEVOTHYROXINE 100 MCG TAB PO SCH (06:24)
[2023-03-20] MEDS: DULoxetine HCL 60 MG CAPSULE.DR PO SCH (06:24)
[2023-03-20] MEDS: DIVALPROEX 500 MG TABLET.DR PO SCH ×2 (06:24→17:21)
[2023-03-20 07:42] LABS: Basophils % (A) 0 %; Eosinophils % (A) 0 %; HCT 37.9 % (34.0-46.0); HGB 12.4 gm/dL (11.4-16.0); Lymphocytes # (A) 1.1 k/uL (1.0-4.8); Lymphocytes % (A) 5 %; MCH 34.2 pg (25.0-35.0); MCHC 32.7 g/dL (31.0-37.0); MCV 104.5 fL (80.0-100.0); Macrocytosis Slight; Monocytes # (A) 0.8 k/uL (0-1.0); Monocytes % (A) 4 %; Neutrophils # (A) 18.9 k/uL (1.3-7.7); Neutrophils % (A) 90 %; Platelet Count 242 k/uL (150-450); RBC 3.62 m/uL (3.80-5.40); RDW 12.5 % (11.5-15.5); WBC 20.9 k/uL (3.8-10.6)
--- NOTE | 2023-03-20 07:55 | XR ---
EXAMINATION TYPE: XR chest 1V portable DATE OF EXAM: 03/20/2023 6:14 AM COMPARISON: Chest radiographs from .3 TECHNIQUE: XR chest 1V portable Portable AP radiograph of the chest. CLINICAL INDICATION:Female, 67 years old with history of pneumonia; FINDINGS: Lungs/Pleura: No pneumothorax. Blunting of the left costophrenic angle. No focal consolidation. Pulmonary vascularity: Pulmonary vascular congestion. Heart/mediastinum: Cardiomediastinal silhouette is enlarged and stable. Musculoskeletal: No acute osseous pathology. IMPRESSION: Pulmonary vascular congestion with small left pleural effusion and cardiac megaly suggest CHF exacerb ation. Superimposed infectious process not excluded.
[2023-03-20 07:56] LABS: African American GFR (CKD) 73 (>60 ml/min/1.73 sqM); Anion Gap 10 mmol/L; Blood Urea Nitrogen 29 mg/dL (7-17); Calcium 8.5 mg/dL (8.4-10.2); Carbon Dioxide 24 mmol/L (22-30); Chloride 102 mmol/L (98-107); Glucose 169 mg/dL (74-99); Non-African American GFR(CKD) 63 (>60 ml/min/1.73 sqM); Potassium 4.1 mmol/L (3.5-5.1); Sodium 136 mmol/L (137-145)
[2023-03-20 08:11] LABS: C Reactive Protein 17.7 mg/dL (<1.0)
[2023-03-20] MEDS ORDERED: IPRATROPIUM-ALBUTEROL 3 ML NEB INHALATION PRN (08:32)
[2023-03-20] MEDS: FUROSEMIDE 40 MG TAB PO SCH (08:42)
[2023-03-20] MEDS: GABAPENTIN 100 MG CAP PO SCH ×2 (08:42→17:21)
[2023-03-20] MEDS: ALPRAZolam 0.25 MG TAB PO SCH ×2 (08:42→17:21)
[2023-03-20] MEDS: LOSARTAN 50 MG TAB PO SCH (08:42)
[2023-03-20] MEDS: CHOLECALCIFEROL 25 MCG (1000 IU) TABLET PO SCH (08:42)
[2023-03-20] MEDS: PIPERACILLIN-TAZOBACTAM 3.375 GM in SODIUM CHLORIDE 0.9% 100 ML IVPB SCH ×3 (08:43→23:54)
[2023-03-20] MEDS: ARIPiprazole 15 MG TAB PO SCH (08:43)
--- NOTE | 2023-03-20 08:51 | P.HPIM ---
History of Present Illness This is a pleasant 67 years old female with past medical history of schizophrenia, GERD/Reflux, Hyperlipidemia, Hypertension, hypothyroidism. Patient has been living in [facility] for the last 6 months. Patient presents with dyspnea for 2 days duration associated with little confusion.. With her coughing but she denies chest pain. No diarrhea, no change in urine or bowel habits or symptoms. No headache dizziness weakness or numbness. She has good appetite and denies choking. No smoking alcohol or illicit drugs. Patient on the patient has a fever of 100.2, blood pressure was borderline but I was improved, she was on 4 L oxygen via nasal cannula, currently requiring 8 units. Lactic acid this coming down to 3.8, WBC is still elevated at 20,900. Hemoglobin and platelet count are within the reference range. BMP and liver enzymes are unremarkable. Lactic acid is still elevated at 3.8. BNP is 201. CRP is elevated at 17.7 On admission patient received several boluses of normal saline and she was started on Zithromax and ceftriaxone, her oxygen requirements went up before we switch her antibiotics to Zosyn Patient will be transferred from [address] [place] [address] unit at the [facility] for close observation Review of Systems Review of systems CONSTITUTIONAL: No fever, no malaise, no fatigue. HEENT: No recent visual problems or hearing problems. Denied any sore throat. CARDIOVASCULAR: No orthopnea, PND, no palpitations, no syncope. PULMONARY: No chest wall tenderness, no hemoptysis. GASTROINTESTINAL: No diarrhea, no nausea, no vomiting, no abdominal pain. Normoactive bowel sounds. NEUROLOGICAL: No headaches, no weakness, no numbness. HEMATOLOGICAL: Denies any bleeding or petechiae. GENITOURINARY: Denies any burning micturition, frequency, or urgency. MUSCULOSKELETAL/RHEUMATOLOGICAL: Denies any joint pain, swelling, or any muscle pain. ENDOCRINE: Denies any polyuria or polydipsia. Past Medical History Past Medical History: GERD/Reflux, Hyperlipidemia, Hypertension, Thyroid Disorder History of Any Multi-Drug Resistant Organisms: None Reported Past Surgical History: Breast Surgery, Tubal Ligation Additional Past Surgical History / Comment(s): BREAST BX'S- CAREGIVER UNSURE OF OTHER SURGERYS Past Anesthesia/Blood Transfusion Reactions: Unable to Obtain Past Psychological History: Anxiety, Depression, Schizophrenia Smoking Status: Never smoker Past Alcohol Use History: None Reported Past Drug Use History: None Reported Medications and Allergies Home Medications Medication Instructions Recorded Confirmed Type ARIPiprazole [Abilify] 30 mg PO DAILY@0800 05/16/22 03/19/23 History Calcium Citrate 200mg 1 tab PO DAILY@1200 05/16/22 03/19/23 History DULoxetine HCL [Cymbalta] 60 mg PO DAILY@0700 05/16/22 03/19/23 History Levothyroxine Sodium [Synthroid] 100 mcg PO DAILY@0700 05/16/22 03/19/23 History Lovastatin [Mevacor] 20 mg PO HS 05/16/22 03/19/23 History Acetaminophen Tab [Tylenol] 650 mg PO Q6HR PRN tab 05/19/22 03/19/23 Rx ALPRAZolam [Xanax] 0.25 mg PO BID@0800,1700 03/19/23 03/19/23 History Alendronate Sodium [Fosamax] 70 mg PO SA@0600 03/19/23 03/19/23 History Cariprazine HCl [Vraylar] 3 mg PO HS 03/19/23 03/19/23 History Cholecalciferol [Vitamin D3 (25 50 mcg PO DAILY@0800 03/19/23 03/19/23 History Mcg = 1000 Iu)] Diclofenac Sodium Gel [Voltaren 1% 1 applic TOPICAL BID@0800,1700 03/19/2303/09 History Gel] Divalproex Sodium [Depakote] 500 mg PO BID@0700,1900 03/19/23 03/19/23 History Furosemide [Lasix] 40 mg PO DAILY@0800 03/19/23 03/19/23 History Gabapentin [Neurontin] 100 mg PO BID@0800,1700 03/19/23 03/19/23 History Ipratropium-Albuterol Nebulize 3 ml INHALATION RT-Q6H PRN 03/19/23 03/19/23 History [Duoneb 0.5 mg-3 mg/3 ml Soln] Loperamide HCl [Imodium A-D] 2 - 4 mg PO QID PRN 03/19/23 03/19/23 History Losartan [Cozaar] 50 mg PO DAILY@0800 03/19/23 03/19/23 History Mag Hydrox/Al Hydrox/Simeth 30 ml PO Q6H PRN 03/19/23 03/19/23 History [Maalox] Magnesium Hydroxide [Milk of 7,200 mg PO DIRECTED PRN 03/19/23 03/19/23 History Magnesia Concentrate] Na Phos,M-B/Na Phos,Di-Ba [Fleet 133 ml RECTAL DAILY PRN 03/19/23 03/19/23 History Adult] QUEtiapine [SEROquel] 200 mg PO HS 03/19/23 03/19/23 History Sennosides/Docusate Sodium 2 tab PO HS 03/19/23 03/19/23 History [Senna-S 8.6-50 mg Tablet] bisacodyL [Dulcolax] 10 mg RECTAL DAILY PRN 03/19/23 03/19/23 History guaiFENesin [guaiFENesin Oral 200 mg PO Q4H PRN 03/19/23 03/19/23 History Solution] Allergies Allergy/AdvReac Type Severity Reaction Status Date / Time Penicillins Allergy Unknown Unknown Verified 03/19/23 16:58 Childhood Physical Exam Vitals: Vital Signs Temp Pulse Pulse Resp BP BP Pulse Ox 03/20/23 07:23 97.3 F L 88 19 122/74 90 L 03/20/23 06:04 100 03/20/23 04:26 90 03/20/23 04:14 89 L 03/20/23 04:12 89 03/20/23 01:19 97.8 F 70 20 93/57 96 03/19/23 22:36 82 03/19/23 22:27 85 03/19/23 22:25 93 L 03/19/23 21:05 97.7 F 74 18 101/64 93 L 03/19/23 20:48 75 93 H 113/66 92 L 03/19/23 18:56 98.1 F 80 18 107/58 94 L 03/19/23 17:41 79 18 99/63 93 L 03/19/23 17:11 98.1 F 80 18 106/67 96 03/19/23 15:58 80 03/19/23 15:50 76 03/19/23 14:50 84 18 111/63 93 L 03/19/23 14:00 93 32 H 106/58 92 L 03/19/23 13:56 100.2 F H 96 32 H 109/56 88 L Intake and Output 03/19/23 03/20/23 03/20/23 22:59 06:59 14:59 Output Total 600 Balance -600 Output: Urine 600 Other: Voiding Method External Catheter # Voids 2 # Bowel Movements 1 Weight 113.398 kg -GENERAL: The patient is alert and oriented x3, not in any acute distress. Morbidly obese HEENT: Pupils are round and equally reacting to light. EOMI. No scleral icterus. No conjunctival pallor. Normocephalic, atraumatic. No pharyngeal erythema. No thyromegaly. CARDIOVASCULAR: S1 and S2 present. No murmurs, rubs, or gallops. -PULMONARY: Chest is clear to auscultation, no wheezing , no crackles. Tachypnea ABDOMEN: Soft, nontender, nondistended, normoactive bowel sounds. No palpable organomegaly. MUSCULOSKELETAL: No joint swelling or deformity. EXTREMITIES: No cyanosis, clubbing, or pedal edema. NEUROLOGICAL: Gross neurological examination did not reveal any focal deficits. SKIN: No rashes. no petechiae. Results CBC & Chem 7: 03/20/23 05:54 03/20/23 05:54 Labs: Abnormal Lab Results - Last 24 Hours (Table) 03/19/23 03/19/23 03/19/23 Range/Units 14:17 14:17 14:17 WBC 17.3 H (3.8-10.6) k/uL RBC 3.67 L (3.80-5.40) m/uL MCV 102.7 H (80.0-100.0) fL Neutrophils # (1.3-7.7) k/uL Neutrophils # (Manual) 14.00 H (1.3-7.7) k/uL Monocytes # (Manual) 1.90 H (0-1.0) k/uL APTT 21.5 L (22.0-30.0) sec Sodium (137-145) mmol/L BUN 28 H (7-17) mg/dL Glucose 141 H (74-99) mg/dL Plasma Lactic Acid Hung (0.7-2.0) mmol/L C-Reactive Protein (<1.0) mg/dL Total Protein 6.0 L (6.3-8.2) g/dL Albumin 3.3 L (3.5-5.0) g/dL 03/19/23 03/19/23 03/19/23 Range/Units 14:17 19:40 22:42 WBC (3.8-10.6) k/uL RBC (3.80-5.40) m/uL MCV (80.0-100.0) fL Neutrophils # (1.3-7.7) k/uL Neutrophils # (Manual) (1.3-7.7) k/uL Monocytes # (Manual) (0-1.0) k/uL APTT (22.0-30.0) sec Sodium (137-145) mmol/L BUN (7-17) mg/dL Glucose (74-99) mg/dL Plasma Lactic Acid Hung 2.2 H* 2.6 H* 4.1 H* (0.7-2.0) mmol/L C-Reactive Protein (<1.0) mg/dL Total Protein (6.3-8.2) g/dL Albumin (3.5-5.0) g/dL 03/20/23 03/20/23 03/20/23 Range/Units 02:16 05:54 05:54 WBC 20.9 H (3.8-10.6) k/uL RBC 3.62 L (3.80-5.40) m/uL MCV 104.5 H (80.0-100.0) fL Neutrophils # 18.9 H (1.3-7.7) k/uL Neutrophils # (Manual) (1.3-7.7) k/uL Monocytes # (Manual) (0-1.0) k/uL APTT (22.0-30.0) sec Sodium (137-145) mmol/L BUN (7-17) mg/dL Glucose (74-99) mg/dL Plasma Lactic Acid Hung 3.8 H* 3.6 H* (0.7-2.0) mmol/L C-Reactive Protein (<1.0) mg/dL Total Protein (6.3-8.2) g/dL Albumin (3.5-5.0) g/dL 03/20/23 Range/Units 05:54 WBC (3.8-10.6) k/uL RBC (3.80-5.40) m/uL MCV (80.0-100.0) fL Neutrophils # (1.3-7.7) k/uL Neutrophils # (Manual) (1.3-7.7) k/uL Monocytes # (Manual) (0-1.0) k/uL APTT (22.0-30.0) sec Sodium 136 L (137-145) mmol/L BUN 29 H (7-17) mg/dL Glucose 169 H (74-99) mg/dL Plasma Lactic Acid Hung (0.7-2.0) mmol/L C-Reactive Protein 17.7 H (<1.0) mg/dL Total Protein (6.3-8.2) g/dL Albumin (3.5-5.0) g/dL Thrombosis Risk Factor Assmnt - Choose All That Apply Any of the Below Risk Factors Present?: Yes Each Factor Represents 1 point: Obesity (BMI >25), Serious lung disease incl. pneumonia (< 1month), Varicose veins Other Risk Factors: Yes Each Risk Factor Represents 2 Points: Age 61-74 years Other congenital or acquired thrombophilia - If yes, enter type in comment: No Thrombosis Risk Factor Assessment Total Risk Factor Score: 5 Thrombosis Risk Factor Assessment Level: High Risk Assessment and Plan Assessment: Healthcare associated pneumonia Acute hypoxic respiratory failure Hypertension Hyperlipidemia History of GERD Hypothyroidism Morbid obesity with BMI 47.2 Plan: Continue with Zosyn, follow-up culture results Continue with IV hydration Pulmonary team consult Labs and medication were reviewed.. Continue same treatment. Continue with symptomatic treatment. Resume home medication. Monitor labs and vitals. DVT and GI prophylaxis. Further recommendations as per clinical course of the patient DVT prophylaxis: Subcutaneous heparin GI Prophylaxis: Pepcid Prognosis is guarded
[2023-03-20] MEDS: HEPARIN SODIUM,PORCINE 5,000 UNIT/ML 1 ML VIAL SQ SCH ×2 (09:46→20:27)
[2023-03-20] MEDS: FAMOTIDINE 20 MG/2 ML VIAL IV SCH (09:47)
--- NOTE | 2023-03-20 10:11 | P.CNPUL ---
History of Present Illness Consult date: 03/20/23 Requesting physician: Lele E Sheet Reason for consult: dyspnea, hypoxemia, pneumonia, abnormal CXR/CT Chief complaint: Shortness of breath, weight gain. History of present illness: Pulmonary consult dated 03/20/2023. 67-year-old female, poor historian, transferred to [facility] on March 19, via EMS, for shortness of breath. In addition, the patient apparently had a fever of 101.2, and, was thought to have possible pneumonia. In addition, the patient apparently had a significant weight gain of about 33 pounds over the last 24 hours, according to the documentation from [facility]. The patient has a mention is a very poor historian. She's currently on 8 L high bere w oxygen. She's getting saline at 130 mL an hour, which I asked the nurse to turn down to KVO. The patient's currently on Zosyn and azithromycin. A pro- calcitonin level is pending. The patient herself, cannot really had anything to the history. Her white count was 20.9, hemoglobin 12.4, hematocrit 37.9, with a normal platelet count. Sodium 136, potassium 4.1, chlorides 102, CO2 24, BUN 29, and creatinine 0.95. The patient's lactic acids were 3.8, 3.6, and 3.2. The pro-calcitonin level is currently pending. Troponin was normal. The patient tested negative for influenza A and influenza B, respiratory syncytial virus, and coronavirus. Chest x-ray is difficult to interpret because of the patient's body habitus, but, could be consistent with either CHF, and/or pneumonia. Review of Systems REVIEW OF SYSTEMS: CONSTITUTIONAL: Fever. NEUROLOGIC: [ Negative.] HEENT: [ Negative.] CARDIAC: 33 pound weight gain. PULMONARY: Shortness of breath and cough. GI: [Negative.] : [Negative.] RHEUMATOLOGIC: [ Negative.] IMMUNOLOGIC: [ Negative.] ENDOCRINE: [Negative. ] DERMATOLOGIC: [Negative.] Past Medical History Past Medical History: GERD/Reflux, Hyperlipidemia, Hypertension, Thyroid Disorder History of Any Multi-Drug Resistant Organisms: None Reported Past Surgical History: Breast Surgery, Tubal Ligation Additional Past Surgical History / Comment(s): BREAST BX'S- CAREGIVER UNSURE OF OTHER SURGERYS Past Anesthesia/Blood Transfusion Reactions: Unable to Obtain Past Psychological History: Anxiety, Depression, Schizophrenia Smoking Status: Never smoker Past Alcohol Use History: None Reported Past Drug Use History: None Reported Medications and Allergies Home Medications Medication Instructions Recorded Confirmed Type ARIPiprazole [Abilify] 30 mg PO DAILY@0800 05/16/22 03/19/23 History Calcium Citrate 200mg 1 tab PO DAILY@1200 05/16/22 03/19/23 History DULoxetine HCL [Cymbalta] 60 mg PO DAILY@0700 05/16/22 03/19/23 History Levothyroxine Sodium [Synthroid] 100 mcg PO DAILY@0700 05/16/22 03/19/23 History Lovastatin [Mevacor] 20 mg PO HS 05/16/22 03/19/23 History Acetaminophen Tab [Tylenol] 650 mg PO Q6HR PRN tab 05/19/22 03/19/23 Rx ALPRAZolam [Xanax] 0.25 mg PO BID@0800,1700 03/19/23 03/19/23 History Alendronate Sodium [Fosamax] 70 mg PO SA@0600 03/19/23 03/19/23 History Cariprazine HCl [Vraylar] 3 mg PO HS 03/19/23 03/19/23 History Cholecalciferol [Vitamin D3 (25 50 mcg PO DAILY@0800 03/19/23 03/19/23 History Mcg = 1000 Iu)] Diclofenac Sodium Gel [Voltaren 1% 1 applic TOPICAL BID@0800,1700 03/19/23 03/19/23 History Gel] Divalproex Sodium [Depakote] 500 mg PO BID@0700,1900 03/19/23 03/19/23 History Furosemide [Lasix] 40 mg PO DAILY@0800 03/19/23 03/19/23 History Gabapentin [Neurontin] 100 mg PO BID@0800,1700 03/19/23 03/19/23 History Ipratropium-Albuterol Nebulize 3 ml INHALATION RT-Q6H PRN 03/19/23 03/19/23 History [Duoneb 0.5 mg-3 mg/3 ml Soln] Loperamide HCl [Imodium A-D] 2 - 4 mg PO QID PRN 03/19/23 03/19/23 History Losartan [Cozaar] 50 mg PO DAILY@0800 03/19/23 03/19/23 History Mag Hydrox/Al Hydrox/Simeth 30 ml PO Q6H PRN 03/19/23 03/19/23 History [Maalox] Magnesium Hydroxide [Milk of 7,200 mg PO DIRECTED PRN 03/19/23 03/19/23 History Magnesia Concentrate] Na Phos,M-B/Na Phos,Di-Ba [Fleet 133 ml RECTAL DAILY PRN 03/19/23 03/19/23 History Adult] QUEtiapine [SEROquel] 200 mg PO HS 03/19/23 03/19/23 History Sennosides/Docusate Sodium 2 tab PO HS 03/19/23 03/19/23 History [Senna-S 8.6-50 mg Tablet] bisacodyL [Dulcolax] 10 mg RECTAL DAILY PRN 03/19/23 03/19/23 History guaiFENesin [guaiFENesin Oral 200 mg PO Q4H PRN 03/19/23 03/19/23 History Solution] Allergies Allergy/AdvReac Type Severity Reaction Status Date / Time Penicillins Allergy Unknown Unknown Verified 03/19/23 16:58 Childhood Physical Exam Osteopathic Statement: *. No significant issues noted on an osteopathic structural exam other than those noted in the History and Physical/Consult. Vitals: Vital Signs Temp Pulse Pulse Resp BP BP Pulse Ox 03/20/23 09:22 97.8 F 99 22 132/73 93 L 03/20/23 07:23 97.3 F L 88 19 122/74 90 L 03/20/23 06:04 100 03/20/23 04:26 90 03/20/23 04:14 89 L 03/20/23 04:12 89 03/20/23 01:19 97.8 F 70 20 93/57 96 03/19/23 22:36 82 03/19/23 22:27 85 03/19/23 22:25 93 L 03/19/23 21:05 97.7 F 74 18 101/64 93 L 03/19/23 20:48 75 93 H 113/66 92 L 03/19/23 18:56 98.1 F 80 18 107/58 94 L 03/19/23 17:41 79 18 99/63 93 L 03/19/23 17:11 98.1 F 80 18 106/67 96 03/19/23 15:58 80 03/19/23 15:50 76 03/19/23 14:50 84 18 111/63 93 L 03/19/23 14:00 93 32 H 106/58 92 L 03/19/23 13:56 100.2 F H 96 32 H 109/56 88 L Intake and Output 03/19/23 03/20/23 03/20/23 22:59 06:59 14:59 Output Total 600 Balance -600 Output: Urine 600 Other: Voiding Method External Catheter External Catheter # Voids 2 # Bowel Movements 1 Weight 113.398 kg No acute distress, obese, lethargic, and a very poor historian. High flow nasal cannula in place. HEENT examination is grossly unremarkable. Neck supple. Full range of motion. No adenopathy thyromegaly or neck vein distention. Cardiovascular examination reveals regular rhythm rate. S1-S2 normal. No S3 or S4. No discernible murmur noted. Heart rate 99 bpm. Lungs reveal scattered bilateral rhonchi. No distinct wheezes or crackles. Breath sounds are equal bilaterally. 8 L high flow saturation is 93%. Abdomen obese, with bowel sounds. No masses. Extremities are intact. No cyanosis or clubbing, with only minimal edema. Skin is without rash or lesion. Neurologic examination is brief but nonfocal. Results - Laboratory Findings CBC and BMP: 03/20/23 05:54 03/20/23 05:54 PT/INR, D-dimer PT 10.5 sec (10.0-12.5) 03/19/23 14:17 INR 0.9 (<1.2) 03/19/23 14:17 Abnormal lab findings: Abnormal Labs 03/19/23 03/19/23 03/19/23 14:17 14:17 14:17 WBC 17.3 H RBC 3.67 L MCV 102.7 H Neutrophils # Neutrophils # (Manual) 14.00 H Monocytes # (Manual) 1.90 H APTT 21.5 L Sodium BUN 28 H Glucose 141 H Plasma Lactic Acid Hung C-Reactive Protein Total Protein 6.0 L Albumin 3.3 L 03/19/23 03/19/23 03/19/23 14:17 19:40 22:42 WBC RBC MCV Neutrophils # Neutrophils # (Manual) Monocytes # (Manual) APTT Sodium BUN Glucose Plasma Lactic Acid Hung 2.2 H* 2.6 H* 4.1 H* C-Reactive Protein Total Protein Albumin 03/20/23 03/20/23 03/20/23 02:16 05:54 05:54 WBC 20.9 H RBC 3.62 L MCV 104.5 H Neutrophils # 18.9 H Neutrophils # (Manual) Monocytes # (Manual) APTT Sodium BUN Glucose Plasma Lactic Acid Hung 3.8 H* 3.6 H* C-Reactive Protein Total Protein Albumin 03/20/23 03/20/23 05:54 08:46 WBC RBC MCV Neutrophils # Neutrophils # (Manual) Monocytes # (Manual) APTT Sodium 136 L BUN 29 H Glucose 169 H Plasma Lactic Acid Hung 3.2 H* C-Reactive Protein 17.7 H Total Protein Albumin - Diagnostic Findings Chest x-ray: image reviewed Assessment and Plan Assessment: Acute hypoxemic respiratory failure, likely on the bases of the pneumonia, although a component of fluid overload cannot be excluded. History of hypertension. History of hyperlipidemia. History of hypothyroidism. History of GERD. Morbid obesity. Multiple other medical problems and comorbidities. Plan: Plan dated 03/20/2023. The patient continues on Zosyn and azithromycin for the time being. That is an unusual combination, but we will await the pro-calcitonin level. The patient is on 8 L high flow nasal cannula. Her saline which is running at 130 mL an hour, was turned down to 10 mL an hour. According to the retirement, the patient apparently gained 33 pounds in the previous 24 hours. Labs, x-rays, and medications are reviewed. Additional recommendations and suggestions are forthcoming. Prognosis is guarded. We will continue to follow the patient, and make recommendations. In addition, the primary service is transferring the patient down from the 4th floor to the third floor. Time with Patient: Greater than 30
[2023-03-20] MEDS: IPRATROPIUM-ALBUTEROL 3 ML NEB INHALATION SCH ×3 (11:12→20:13)
[2023-03-20] MEDS: CALCIUM CARBONATE 500 MG CHEWABLE PO SCH (12:05)
[2023-03-20] MEDS ORDERED: AZITHROMYCIN 500 MG TAB PO SCH (19:00)
[2023-03-20] MEDS: ATORVASTATIN 10 MG TAB PO SCH (20:26)
[2023-03-20] MEDS: SENNOSIDES-DOCUSATE SODIUM 1 EACH TAB PO SCH (20:26)
[2023-03-20] MEDS: NON FORMULARY DRUG (Cariprazine Hcl [Vraylar] 3 MG Capsule) PO SCH (20:27)
[2023-03-20] MEDS: QUEtiapine 200 MG TAB PO SCH (20:27)
[2023-03-20] MEDS ORDERED: SODIUM CHLORIDE 0.9% 1,000 ML IV SCH (21:00)
[2023-03-21] MEDS: SODIUM CHLORIDE 0.9% 1,000 ML IV SCH (02:31)
[2023-03-21] MEDS: DULoxetine HCL 60 MG CAPSULE.DR PO SCH (05:46)
[2023-03-21] MEDS: DIVALPROEX 500 MG TABLET.DR PO SCH ×2 (05:46→18:33)
[2023-03-21] MEDS: LEVOTHYROXINE 100 MCG TAB PO SCH (05:46)
[2023-03-21] MEDS: FAMOTIDINE 20 MG/2 ML VIAL IV SCH (07:48)
[2023-03-21] MEDS: IPRATROPIUM-ALBUTEROL 3 ML NEB INHALATION SCH ×4 (07:48→20:36)
[2023-03-21] MEDS: HEPARIN SODIUM,PORCINE 5,000 UNIT/ML 1 ML VIAL SQ SCH ×3 (07:48→20:54)
[2023-03-21] MEDS: GABAPENTIN 100 MG CAP PO SCH ×2 (07:49→16:31)
[2023-03-21] MEDS: FUROSEMIDE 40 MG TAB PO SCH (07:49)
[2023-03-21] MEDS: CHOLECALCIFEROL 25 MCG (1000 IU) TABLET PO SCH (07:49)
[2023-03-21] MEDS: ARIPiprazole 15 MG TAB PO SCH (07:49)
[2023-03-21] MEDS: ALPRAZolam 0.25 MG TAB PO SCH ×2 (07:49→16:31)
[2023-03-21] MEDS: LOSARTAN 50 MG TAB PO SCH (07:49)
[2023-03-21] MEDS: PIPERACILLIN-TAZOBACTAM 3.375 GM in SODIUM CHLORIDE 0.9% 100 ML IVPB SCH ×3 (07:50→23:51)
[2023-03-21 08:47] LABS: Basophils % (A) 0 %; Eosinophils % (A) 0 %; HCT 37.4 % (34.0-46.0); HGB 11.9 gm/dL (11.4-16.0); Hypochromasia Moderate; Lymphocytes # (A) 1.8 k/uL (1.0-4.8); Lymphocytes % (A) 16 %; MCH 33.8 pg (25.0-35.0); MCHC 31.8 g/dL (31.0-37.0); MCV 106.3 fL (80.0-100.0); Macrocytosis Moderate; Mean Platelet Volume 7.5; Monocytes # (A) 0.8 k/uL (0-1.0); Monocytes % (A) 7 %; Neutrophils % (A) 76 %; Platelet Count 240 k/uL (150-450); RBC 3.52 m/uL (3.80-5.40); RDW 12.7 % (11.5-15.5); WBC 11.8 k/uL (3.8-10.6)
[2023-03-21 08:59] LABS: African American GFR (CKD) 67 (>60 ml/min/1.73 sqM); Anion Gap 9 mmol/L; Blood Urea Nitrogen 27 mg/dL (7-17); Calcium 8.7 mg/dL (8.4-10.2); Carbon Dioxide 27 mmol/L (22-30); Chloride 105 mmol/L (98-107); Glucose 149 mg/dL (74-99); Non-African American GFR(CKD) 58 (>60 ml/min/1.73 sqM); Potassium 4.5 mmol/L (3.5-5.1); Sodium 141 mmol/L (137-145)
[2023-03-21 09:05] LABS: NT-Pro-B-Type Natriuretic Pept 1000 pg/mL
[2023-03-21 10:39] VITALS: BMI 31.0
--- NOTE | 2023-03-21 11:18 | P.PN ---
Subjective This is a pleasant 67 years old female with past medical history of schizophrenia, GERD/Reflux, Hyperlipidemia, Hypertension, hypothyroidism. Patient has been living in [facility] for the last 6 months. Patient presents with dyspnea for 2 days duration associated with little confusion.. With her coughing but she denies chest pain. No diarrhea, no change in urine or bowel habits or symptoms. No headache dizziness weakness or numbness. She has good appetite and denies choking. No smoking alcohol or illicit drugs. Patient on the patient has a fever of 100.2, blood pressure was borderline but I was improved, she was on 4 L oxygen via nasal cannula, currently requiring 8 units. Lactic acid this coming down to 3.8, WBC is still elevated at 20,900. Hemoglobin and platelet count are within the reference range. BMP and liver enzymes are unremarkable. Lactic acid is still elevated at 3.8. BNP is 201. CRP is elevated at 17.7 On admission patient received several boluses of normal saline and she was started on Zithromax and ceftriaxone, her oxygen requirements went up before we switch her antibiotics to Zosyn Patient will be transferred from [address] [place] [address] unit at the [facility] for close observation 03/21/2023 Patient is still tachypneic and short of breath however oxygen requirements went down from 8 down to 6 L/m No more fever. WBC down to 11,000. ProBNP is elevated from 200 up to 1000. Therefore we will discontinue IV fluids normal saline 75 mL/h She remains on Zosyn. Zithromax was discontinued. We'll continue close monitoring. Speech evaluation is requested Review of systems CONSTITUTIONAL: No fever, no malaise, no fatigue. HEENT: No recent visual problems or hearing problems. Denied any sore throat. CARDIOVASCULAR: No orthopnea, PND, no palpitations, no syncope. NEUROLOGICAL: No headaches, no weakness, no numbness. HEMATOLOGICAL: Denies any bleeding or petechiae. GENITOURINARY: Denies any burning micturition, frequency, or urgency. MUSCULOSKELETAL/RHEUMATOLOGICAL: Denies any joint pain, swelling, or any muscle pain. Active Medications Generic Name Dose Route Start Last Admin Trade Name Freq PRN Reason Stop Dose Admin Acetaminophen 650 mg 03/19/23 18:46 Acetaminophen Tab 325 Mg Tab PO Q6HR PRN Mild Pain or Fever > 100.5 Al Hydroxide/Mg Hydroxide 30 ml 03/19/23 18:46 Mag Hydrox/Al Hydrox/Simeth 30 Ml Cup PO Q6H PRN GI Upset Albuterol/Ipratropium 3 ml 03/20/23 08:32 Ipratropium-Albuterol 3 Ml Neb INHALATION RT-Q2H PRN Shortness Of Breath/Congestion Albuterol/Ipratropium 3 ml 03/20/23 12:00 03/21/23 07:48 Ipratropium-Albuterol 3 Ml Neb INHALATION 3 ml RT-QID PARRISH Administration Alprazolam 0.25 mg 03/20/23 08:00 03/21/23 07:49 Alprazolam 0.25 Mg Tab PO 0.25 mg BID@0800,1700 PARRISH Administration Aripiprazole 30 mg 03/20/23 08:00 03/21/23 07:49 Aripiprazole 15 Mg Tab PO 30 mg DAILY@0800 PARRISH Administration Atorvastatin Calcium 10 mg 03/19/23 21:00 03/20/23 20:26 Atorvastatin 10 Mg Tab PO 10 mg HS PARRISH Administration Bisacodyl 10 mg 03/19/23 18:46 Bisacodyl 10 Mg Supp RECTAL DAILY PRN Constipation Calcium Carbonate/Glycine 500 mg 03/20/23 12:00 03/20/23 12:05 Calcium Carbonate 500 Mg Chewable PO 500 mg DAILY@1200 PARRISH Administration Cholecalciferol 50 mcg 03/20/23 08:00 03/21/23 07:49 Cholecalciferol 25 Mcg (1000 Iu) Tablet PO 50 mcg DAILY@0800 PARRISH Administration Divalproex Sodium 500 mg 03/19/23 19:00 03/21/23 05:46 Divalproex 500 Mg Tablet. PO 500 mg BID@0700,1900 PARRISH Administration Duloxetine HCl 60 mg 03/20/23 07:00 03/21/23 05:46 Duloxetine Hcl 60 Mg Capsule. PO 60 mg DAILY@0700 PARRISH Administration Famotidine 20 mg 03/20/23 09:00 03/21/23 07:48 Famotidine 20 Mg/2 Ml Vial IV 20 mg DAILY PARRISH Administration Furosemide 40 mg 03/20/23 08:00 03/21/23 07:49 Furosemide 40 Mg Tab PO 40 mg DAILY@0800 PARRISH Administration Gabapentin 100 mg 03/20/23 08:00 03/21/23 07:49 Gabapentin 100 Mg Cap PO 100 mg BID@0800,1700 PARRISH Administration Guaifenesin 200 mg 03/19/23 18:46 Guaifenesin Syrup 100mg/5ml 200 Mg/10 Ml Cup PO Q4H PRN Cough Heparin Sodium (Porcine) 5,000 unit 03/20/23 09:00 03/21/23 08:08 Heparin Sodium,Porcine 5,000 Unit/Ml 1 Ml Vial SQ Not Given Q12HR PARRISH Sodium Chloride 1,000 mls @ 10 mls/hr 03/19/23 18:45 03/21/23 02:31 Saline 0.9% IV Not Given .Q24H PARRISH Piperacillin Sod/Tazobactam 100 mls @ 25 mls/hr 03/20/23 08:00 03/21/23 07:50 Sod 3.375 gm/ Sodium Chloride IVPB 25 mls/hr Q8HR PARRISH Administration Protocol Levothyroxine Sodium 100 mcg 03/20/23 07:00 03/21/23 05:46 Levothyroxine 100 Mcg Tab PO 100 mcg DAILY@0700 PARRISH Administration Losartan Potassium 50 mg 03/20/23 08:00 03/21/23 07:49 Losartan 50 Mg Tab PO 50 mg DAILY@0800 PARRISH Administration Magnesium Hydroxide 2,400 mg 03/19/23 18:46 Magnesium Hydroxide 2,400 Mg/30 Ml Cup PO Q48H PRN 2 days no BM Miscellaneous Information 1 each 03/19/23 18:45 Pneumonia Protocol Utilized 1 Each Misc PO ONCE PRN Per Protocol Non-Formulary Medication 3 mg 03/19/23 21:00 03/20/23 20:27 Cariprazine Hcl [Vraylar] PO Not Given HS PARRISH Quetiapine Fumarate 200 mg 03/19/23 21:00 03/20/23 20:27 Quetiapine 200 Mg Tab PO 200 mg HS PARRISH Administration Senna/Docusate Sodium 2 each 03/19/23 21:00 03/20/23 20:26 Sennosides-Docusate Sodium 1 Each Tab PO 2 each HS PARRISH Administration Sodium Biphosphate/Sodium Phosphate 133 ml 03/19/23 18:46 Na Phos,M-B/Na Phos,Di-Ba 133 Ml Enema RECTAL DAILY PRN Constipation Objective - Vital Signs Vital signs: Vital Signs Temp 97.6 F 03/21/23 07:46 Pulse 88 03/21/23 08:05 Resp 20 03/21/23 07:46 BP 103/69 03/21/23 07:46 Pulse Ox 95 03/21/23 07:58 FiO2 Intake & Output 03/20/23 03/21/23 03/21/23 18:59 06:59 18:59 Intake Total 716 357 335 Output Total 2074 1650 850 Balance -4289 -6177 -433 Weight 74.5 kg Intake: Oral 716 357 335 Output: Urine 2074 1650 850 Other: Voiding Method External Catheter External Catheter External Catheter # Voids 1 - Exam GENERAL: The patient is alert and oriented x3, not in any acute distress. Well developed, well nourished. HEENT: Pupils are round and equally reacting to light. EOMI. No scleral icterus. No conjunctival pallor. Normocephalic, atraumatic. No pharyngeal erythema. No thyromegaly. CARDIOVASCULAR: S1 and S2 present. No murmurs, rubs, or gallops. -PULMONARY: Chest is clear to auscultation, no wheezing , no crackles. Tachypnea with decreased air entry at the bases ABDOMEN: Soft, nontender, nondistended, normoactive bowel sounds. No palpable organomegaly. MUSCULOSKELETAL: No joint swelling or deformity. EXTREMITIES: No cyanosis, clubbing, or pedal edema. NEUROLOGICAL: Gross neurological examination did not reveal any focal deficits. SKIN: No rashes. no petechiae. - Labs CBC & Chem 7: 03/21/23 08:11 03/21/23 08:11 Labs: Abnormal Lab Results - Last 24 Hours (Table) 03/20/23 03/21/23 03/21/23 Range/Units 05:54 08:11 08:11 WBC 11.8 H (3.8-10.6) k/uL RBC 3.52 L (3.80-5.40) m/uL MCV 106.3 H (80.0-100.0) fL Neutrophils # 9.0 H (1.3-7.7) k/uL BUN 27 H (7-17) mg/dL Glucose 149 H (74-99) mg/dL Procalcitonin 2.75 H (0.02-0.09) ng/mL Microbiology - Last 24 Hours (Table) 03/19/23 14:46 Blood Culture - Preliminary Blood 03/19/23 14:30 Blood Culture - Preliminary Blood Assessment and Plan Assessment: Healthcare associated pneumonia Acute hypoxic respiratory failure Hypertension Hyperlipidemia History of GERD Hypothyroidism Morbid obesity with BMI 47.2 Plan: Continue with Zosyn, follow-up culture results DC IV hydration Pulmonary team consult Oxygen to keep saturation above 90% no bronchodilator Labs and medication were reviewed.. Continue same treatment. Continue with symptomatic treatment. Resume home medication. Monitor labs and vitals. DVT and GI prophylaxis. Further recommendations as per clinical course of the patient DVT prophylaxis: Subcutaneous heparin GI Prophylaxis: Pepcid Prognosis is guarded
[2023-03-21] MEDS: CALCIUM CARBONATE 500 MG CHEWABLE PO SCH (11:20)
--- NOTE | 2023-03-21 12:47 | P.PN ---
Subjective Progress Note Date: 03/21/23 67-year-old female, poor historian, transferred to [facility] on March 19, via EMS, for shortness of breath. In addition, the patient apparently had a fever of 101.2, and, was thought to have possible pneumonia. In addition, the patient apparently had a significant weight gain of about 33 pounds over the last 24 hours, according to the documentation from [facility]. The patient has a mention is a very poor historian. She's currently on 8 L high flow oxygen. She's getting saline at 130 mL an hour, which I asked the nurse to turn down to KVO. The patient's currently on Zosyn and azithromycin. A pro- calcitonin level is pending. The patient herself, cannot really had anything to the history. Her white count was 20.9, hemoglobin 12.4, hematocrit 37.9, with a normal platelet count. Sodium 136, potassium 4.1, chlorides 102, CO2 24, BUN 29, and creatinine 0.95. The patient's lactic acids were 3.8, 3.6, and 3.2. The pro-calcitonin level is currently pending. Troponin was normal. The patient tested negative for influenza A and influenza B, respiratory syncytial virus, and coronavirus. Chest x-ray is difficult to interpret because of the patient's body habitus, but, could be consistent with either CHF, and/or pneumonia. On today's evaluation of 03/21/2023, seeing the patient for a follow-up. The patient was hospitalized for shortness of breath, COPD exacerbation and fever. Currently the patient is afebrile. She does have some signs of fluid overload and leg edema. She is currently covered with IV Zosyn. She is also taking Lasix 40 mg by mouth daily. She is on 5 L of oxygen by nasal cannula. Chest x- ray and the family admission showed pulmonary vascular congestion and small left-sided pleural effusion suggestive of CHF. No other new complaints otherwise for now. Labs show a meniscal 11.8, hemoglobin 11.7 and a platelet count of 240. BUN is 27 with a creatinine of 1.02 and a sodium level is at 141. ProBNP level is 1000. The lactic acid level has been improving. Objective - Vital Signs Vital signs: Vital Signs Temp 97.6 F 03/21/23 07:46 Pulse 88 03/21/23 08:05 Resp 20 03/21/23 07:46 BP 103/69 03/21/23 07:46 Pulse Ox 95 03/21/23 07:58 FiO2 Intake & Output 03/20/23 03/21/23 03/21/23 18:59 06:59 18:59 Intake Total 716 357 335 Output Total 2074 1650 Balance -1359 -1293 335 Weight 74.5 kg Intake: Oral 716 357 335 Output: Urine 2074 1650 Other: Voiding Method External Catheter External Catheter External Catheter # Voids 1 - Exam No acute distress, obese, lethargic, and a very poor historian. High flow nasal cannula in place. HEENT examination is grossly unremarkable. Neck supple. Full range of motion. No adenopathy thyromegaly or neck vein distention. Cardiovascular examination reveals regular rhythm rate. S1-S2 normal. No S3 or S4. No discernible murmur noted. Heart rate 99 bpm. Lungs reveal scattered bilateral rhonchi. No distinct wheezes or crackles. Breath sounds are equal bilaterally. 8 L high flow saturation is 93%. Abdomen obese, with bowel sounds. No masses. Extremities are intact. No cyanosis or clubbing, with only minimal edema. Skin is without rash or lesion. Neurologic examination is brief but nonfocal. - Labs CBC & Chem 7: 03/21/23 08:11 03/21/23 08:11 Labs: Abnormal Lab Results - Last 24 Hours (Table) 03/20/23 03/21/23 03/21/23 Range/Units 05:54 08:11 08:11 WBC 11.8 H (3.8-10.6) k/uL RBC 3.52 L (3.80-5.40) m/uL MCV 106.3 H (80.0-100.0) fL Neutrophils # 9.0 H (1.3-7.7) k/uL BUN 27 H (7-17) mg/dL Glucose 149 H (74-99) mg/dL Procalcitonin 2.75 H (0.02-0.09) ng/mL Microbiology - Last 24 Hours (Table) 03/19/23 14:46 Blood Culture - Preliminary Blood 03/19/23 14:30 Blood Culture - Preliminary Blood Assessment and Plan Plan: Acute hypoxemic respiratory failure, likely on the bases of the pneumonia, although a component of fluid overload cannot be excluded. Patient is currently on 5 L of oxygen by nasal cannula. Patient is on IV Zosyn. The patient is on oral Lasix. There is any component of CHF currently getting to the patient's hypoxic respiratory failure Shortness of breath secondary to above Acute febrile illness with leukocytosis, improving. Currently afebrile and the white cycles also improving. History of hypertension. History of hyperlipidemia. History of hypothyroidism. History of GERD. Morbid obesity. Multiple other medical problems and comorbidities. Plan: Titrate FiO2 to maintain a saturation above 90% Continue IV Zosyn Stop IV fluids Continue oral Lasix Echocardiogram DVT and GI prophylaxis We'll follow
[2023-03-21] MEDS: SENNOSIDES-DOCUSATE SODIUM 1 EACH TAB PO SCH (20:53)
[2023-03-21] MEDS: ATORVASTATIN 10 MG TAB PO SCH (20:53)
[2023-03-21] MEDS: QUEtiapine 200 MG TAB PO SCH (20:53)
[2023-03-21] MEDS: NON FORMULARY DRUG (Cariprazine Hcl [Vraylar] 3 MG Capsule) PO SCH (20:54)
[2023-03-22] MEDS: SODIUM CHLORIDE 0.9% 1,000 ML IV SCH (02:40)
[2023-03-22] MEDS: DULoxetine HCL 60 MG CAPSULE.DR PO SCH (05:51)
[2023-03-22] MEDS: LEVOTHYROXINE 100 MCG TAB PO SCH (05:51)
[2023-03-22] MEDS: DIVALPROEX 500 MG TABLET.DR PO SCH ×2 (05:51→17:37)
--- NOTE | 2023-03-22 07:29 | CA ---
Transthoracic Echo Report Name: Zeinab Fontenot Age: 67 Gender: F : 1955 Exam Date: 03/21/2023 15:47 Exam Location: [facility] Ht (in): 61 Wt (lb): 164 Ordering Physician: Sandy Ponce MD Attending/Referring Phys: Sack Cleaner Irina Lopez [facility] Procedure CPT: Indications: dyspnea Cardiac Hx: Technical Quality: Technically difficult study Contrast 1: Definity Total Dose (mL): 6 Contrast 2: Total Dose (mL): MEASUREMENTS (Male / Female) Normal Values 2D ECHO LV Diastolic Diameter PLAX 4.3 cm 4.2 - 5.9 / 3.9 - 5.3 cm LV Systolic Diameter PLAX 3.0 cm IVS Diastolic Thickness 1.2 cm 0.6 - 1.0 / 0.6 - 0.9 cm LVPW Diastolic Thickness 1.3 cm 0.6 - 1.0 / 0.6 - 0.9 cm LV Relative Wall Thickness 0.6 LVOT Diameter 2.0 cm Ascending Aorta Diameter 3.2 cm M-MODE Aortic Root Diameter MM 2.6 cm LA Systolic Diameter MM 4.0 cm LA Ao Ratio MM 1.5 AV Cusp Separation MM 1.9 cm DOPPLER AV Peak Velocity 194.5 cm/s AV Peak Gradient 15.1 mmHg AV Mean Velocity 126.5 cm/s AV Mean Gradient 7.2 mmHg AV Velocity Time Integral 34.1 cm LVOT Peak Velocity 111.3 cm/s LVOT Peak Gradient 5.0 mmHg LVOT Velocity Time Integral 20.4 cm LVOT Stroke Volume 61.9 cm??? LVOT Stroke Volume Index 35.6 ml/m??? LVOT Cardiac Index 3268.2 cm???/min???m??? AV Area Cont Eq vti 1.8 cm??? AV Area Cont Eq pk 1.7 cm??? Mitral E Point Velocity 68.5 cm/s Mitral A Point Velocity 83.2 cm/s Mitral E to A Ratio 0.8 MV Deceleration Time 169.5 ms LV E' Septal Velocity 6.3 cm/s Mitral E to LV E' Septal Ratio 10.8 TR Peak Velocity 165.9 cm/s TR Peak Gradient 11.0 mmHg Right Atrial Pressure 8.0 mmHg Pulmonary Artery Systolic Pressu 19.0 mmHg Right Ventricular Systolic Press 19.0 mmHg FINDINGS Left Ventricle Mildly increased left ventricular wall thickness. Left ventricular cavity size normal. Normal left ventricular systolic function with no obvious regional wall motion abnormalities. Left ventricular ejection fraction is estimated at 55- 60%. Right Ventricle Right ventricle not well visualized. Right Atrium Right atrium not well visualized. Left Atrium Left atrium not well visualized. Mitral Valve Mitral valve not well visualized. Aortic Valve Aortic valve not well visualized. Aortic valve sclerosis. No aortic regurgitation. Tricuspid Valve Tricuspid valve not well visualized. Trace tricuspid regurgitation. Pulmonic Valve Pulmonic valve not well visualized. Pericardium No pericardial effusion. Echo free space anterior to the right ventricle likely represents a fat pad. Aorta Normal size aortic root and proximal ascending aorta. CONCLUSIONS TDS, patient uncooperative. Technically difficult study. Echo contrast was used. Grossly LV systolic function is normal. Doppler exam is suboptimal but does not appear to have any significant abnormalities. No significant pulmonary hypertension Probable fat pad but no significant pericardial effusion Previewed by: Dr. Fara Barnes MD (Electronically Signed) Final Date: 22 March 2023 07:28
[2023-03-22] MEDS: ALPRAZolam 0.25 MG TAB PO SCH ×2 (08:10→16:02)
[2023-03-22] MEDS: FUROSEMIDE 40 MG TAB PO SCH (08:13)
[2023-03-22] MEDS: GABAPENTIN 100 MG CAP PO SCH ×2 (08:13→16:02)
[2023-03-22] MEDS: LOSARTAN 50 MG TAB PO SCH (08:14)
[2023-03-22] MEDS: ARIPiprazole 15 MG TAB PO SCH (08:14)
[2023-03-22] MEDS: CHOLECALCIFEROL 25 MCG (1000 IU) TABLET PO SCH (08:20)
[2023-03-22] MEDS: HEPARIN SODIUM,PORCINE 5,000 UNIT/ML 1 ML VIAL SQ SCH ×2 (08:29→22:09)
[2023-03-22] MEDS: IPRATROPIUM-ALBUTEROL 3 ML NEB INHALATION SCH ×4 (08:37→20:21)
[2023-03-22] MEDS: PIPERACILLIN-TAZOBACTAM 3.375 GM in SODIUM CHLORIDE 0.9% 100 ML IVPB SCH ×3 (08:37→23:46)
[2023-03-22] MEDS: FAMOTIDINE 20 MG/2 ML VIAL IV SCH (08:37)
[2023-03-22 09:22] LABS: Basophils % (A) 0 %; Eosinophils # (A) 0.1 k/uL (0-0.7); Eosinophils % (A) 1 %; HCT 39.2 % (34.0-46.0); HGB 12.1 gm/dL (11.4-16.0); Lymphocytes # (A) 2.2 k/uL (1.0-4.8); Lymphocytes % (A) 21 %; MCH 32.3 pg (25.0-35.0); MCHC 30.8 g/dL (31.0-37.0); MCV 104.9 fL (80.0-100.0); Macrocytosis Slight; Mean Platelet Volume 7.9; Monocytes # (A) 0.7 k/uL (0-1.0); Monocytes % (A) 7 %; Neutrophils # (A) 7.4 k/uL (1.3-7.7); Neutrophils % (A) 70 %; Platelet Count 233 k/uL (150-450); RBC 3.74 m/uL (3.80-5.40); WBC 10.6 k/uL (3.8-10.6)
[2023-03-22 09:33] LABS: African American GFR (CKD) 73 (>60 ml/min/1.73 sqM); Anion Gap 10 mmol/L; Blood Urea Nitrogen 28 mg/dL (7-17); Calcium 9.1 mg/dL (8.4-10.2); Carbon Dioxide 28 mmol/L (22-30); Chloride 103 mmol/L (98-107); Glucose 100 mg/dL (74-99); Non-African American GFR(CKD) 63 (>60 ml/min/1.73 sqM); Potassium 4.4 mmol/L (3.5-5.1); Sodium 141 mmol/L (137-145)
[2023-03-22 09:40] LABS: NT-Pro-B-Type Natriuretic Pept 260 pg/mL
--- NOTE | 2023-03-22 10:58 | P.PN ---
Subjective Progress Note Date: 03/22/23 67-year-old female, poor historian, transferred to [facility] on March 19, via EMS, for shortness of breath. In addition, the patient apparently had a fever of 101.2, and, was thought to have possible pneumonia. In addition, the patient apparently had a significant weight gain of about 33 pounds over the last 24 hours, according to the documentation from [facility]. The patient has a mention is a very poor historian. She's currently on 8 L high flow oxygen. She's getting saline at 130 mL an hour, which I asked the nurse to turn down to KVO. The patient's currently on Zosyn and azithromycin. A pro- calcitonin level is pending. The patient herself, cannot really had anything to the history. Her white count was 20.9, hemoglobin 12.4, hematocrit 37.9, with a normal platelet count. Sodium 136, potassium 4.1, chlorides 102, CO2 24, BUN 29, and creatinine 0.95. The patient's lactic acids were 3.8, 3.6, and 3.2. The pro-calcitonin level is currently pending. Troponin was normal. The patient tested negative for influenza A and influenza B, respiratory syncytial virus, and coronavirus. Chest x-ray is difficult to interpret because of the patient's body habitus, but, could be consistent with either CHF, and/or pneumonia. On today's evaluation of 03/21/2023, seeing the patient for a follow-up. The patient was hospitalized for shortness of breath, COPD exacerbation and fever. Currently the patient is afebrile. She does have some signs of fluid overload and leg edema. She is currently covered with IV Zosyn. She is also taking Lasix 40 mg by mouth daily. She is on 5 L of oxygen by nasal cannula. Chest x- ray and the family admission showed pulmonary vascular congestion and small left-sided pleural effusion suggestive of CHF. No other new complaints otherwise for now. Labs show a meniscal 11.8, hemoglobin 11.7 and a platelet count of 240. BUN is 27 with a creatinine of 1.02 and a sodium level is at 141. ProBNP level is 1000. The lactic acid level has been improving. On 03/22/2023, the patient remains confused and she is having episodes of hallucinations. She is also having episodes of delusions. She remains on Seroquel 200 mg at bedtime. She also on Abilify. She is on IV Zosyn for pneumonia. No respiratory difficulties. She feels less short of breath compared to yesterday. She is on 3 L of oxygen by nasal cannula with a pulse ox of 94%. Her breathing is nonlabored. She is hemodynamically stable. Blood work from today shows a hemoglobin of 12, white cell count of 10.6, platelet count of 233, BUN is at 28 with a creatinine of 0.9 and sodium levels of 141. The pro BNP level is not elevated at 260. I reviewed the echocardiogram. The patient has normal LV function. No pulmonary hypertension. No evident abnormalities. Objective - Vital Signs Vital signs: Vital Signs Temp 98.2 F 03/22/23 08:33 Pulse 92 03/22/23 08:47 Resp 20 03/22/23 08:33 BP 126/76 03/22/23 08:33 Pulse Ox 94 L 03/22/23 08:40 FiO2 Intake & Output 03/21/23 03/22/23 03/22/23 18:59 06:59 18:59 Intake Total 785 240 Output Total 2000 700 Balance -1215 -700 240 Weight 74.5 kg Intake: Oral 785 240 Output: Urine 2000 700 Other: Voiding Method External Catheter External Catheter External Catheter # Voids 1 - Exam No acute distress, obese, lethargic, and a very poor historian. High flow nasal cannula in place. HEENT examination is grossly unremarkable. Neck supple. Full range of motion. No adenopathy thyromegaly or neck vein distention. Cardiovascular examination reveals regular rhythm rate. S1-S2 normal. No S3 or S4. No discernible murmur noted. Heart rate 99 bpm. Lungs reveal scattered bilateral rhonchi. No distinct wheezes or crackles. Breath sounds are equal bilaterally. 8 L high flow saturation is 93%. Abdomen obese, with bowel sounds. No masses. Extremities are intact. No cyanosis or clubbing, with only minimal edema. Skin is without rash or lesion. Neurologic examination is brief but nonfocal. - Labs CBC & Chem 7: 03/22/23 09:06 03/22/23 09:06 Labs: Microbiology - Last 24 Hours (Table) 03/19/23 14:46 Blood Culture - Preliminary Blood 03/19/23 14:30 Blood Culture - Preliminary Blood Assessment and Plan Plan: Acute hypoxemic respiratory failure, likely on the bases of the pneumonia, although a component of fluid overload cannot be excluded. Patient is currently on 3 L of oxygen by nasal cannula. Patient is on IV Zosyn. The patient is on oral Lasix. There is any component of CHF currently getting to the patient's hypoxic respiratory failure Shortness of breath secondary to above Acute febrile illness with leukocytosis, improving. Currently afebrile and the white cycles also improving. History of hypertension. History of hyperlipidemia. History of hypothyroidism. History of GERD. Morbid obesity. Multiple other medical problems and comorbidities. Plan: Titrate FiO2 to maintain a saturation above 90%, she has been weaned down to 3 L of oxygen by nasal cannula Continue IV Zosyn IV fluids to KVO Continue oral Lasix Echocardiogram was completed and the patient was found to have a normal ejection fraction of 55-60%, no significant valvular abnormalities. DVT and GI prophylaxis We'll follow
[2023-03-22] MEDS: CALCIUM CARBONATE 500 MG CHEWABLE PO SCH (11:38)
[2023-03-22] MEDS: ACETAMINOPHEN TAB 325 MG TAB PO PRN (11:38)
--- NOTE | 2023-03-22 13:22 | P.PN ---
Subjective This is a pleasant 67 years old female with past medical history of schizophrenia, GERD/Reflux, Hyperlipidemia, Hypertension, hypothyroidism. Patient has been living in [facility] for the last 6 months. Patient presents with dyspnea for 2 days duration associated with little confusion.. With her coughing but she denies chest pain. No diarrhea, no change in urine or bowel habits or symptoms. No headache dizziness weakness or numbness. She has good appetite and denies choking. No smoking alcohol or illicit drugs. Patient on the patient has a fever of 100.2, blood pressure was borderline but I was improved, she was on 4 L oxygen via nasal cannula, currently requiring 8 units. Lactic acid this coming down to 3.8, WBC is still elevated at 20,900. Hemoglobin and platelet count are within the reference range. BMP and liver enzymes are unremarkable. Lactic acid is still elevated at 3.8. BNP is 201. CRP is elevated at 17.7 On admission patient received several boluses of normal saline and she was started on Zithromax and ceftriaxone, her oxygen requirements went up before we switch her antibiotics to Zosyn Patient will be transferred from [address] [place] [address] unit at the [facility] for close observation 03/21/2023 Patient is still tachypneic and short of breath however oxygen requirements went down from 8 down to 6 L/m No more fever. WBC down to 11,000. ProBNP is elevated from 200 up to 1000. Therefore we will discontinue IV fluids normal saline 75 mL/h She remains on Zosyn. Zithromax was discontinued. We'll continue close monitoring. Speech evaluation is requested 03/22/2023 Patient breathing easier today however she still somewhat tachypnea, she stain in bed most of the time. Oxygen requirement down to 4 L/m, saturation is at 92%. Personal vitals and labs are reviewed the looks stable. She remains on Zosyn. No IV fluids. Objective - Vital Signs Vital signs: Vital Signs Temp 97.5 F L 03/22/23 11:57 Pulse 87 03/22/23 12:19 Resp 23 03/22/23 11:57 BP 124/74 03/22/23 11:57 Pulse Ox 92 L 03/22/23 11:57 FiO2 Intake & Output 03/21/23 03/22/23 03/22/23 18:59 06:59 18:59 Intake Total 785 240 Output Total 2000 700 300 Balance -1215 -700 -60 Weight 74.5 kg Intake: Oral 785 240 Output: Urine 1999 300 Other: Voiding Method External Catheter External Catheter External Catheter # Voids 1 - Exam GENERAL: The patient is alert and oriented x3, not in any acute distress. Well developed, well nourished. HEENT: Pupils are round and equally reacting to light. EOMI. No scleral icterus. No conjunctival pallor. Normocephalic, atraumatic. No pharyngeal erythema. No thyromegaly. CARDIOVASCULAR: S1 and S2 present. No murmurs, rubs, or gallops. -PULMONARY: Chest is clear to auscultation, no wheezing , no crackles. Tachypnea with decreased air entry at the bases ABDOMEN: Soft, nontender, nondistended, normoactive bowel sounds. No palpable organomegaly. MUSCULOSKELETAL: No joint swelling or deformity. EXTREMITIES: No cyanosis, clubbing, or pedal edema. NEUROLOGICAL: Gross neurological examination did not reveal any focal deficits. SKIN: No rashes. no petechiae. - Labs CBC & Chem 7: 03/22/23 09:06 03/22/23 09:06 Labs: Abnormal Lab Results - Last 24 Hours (Table) 03/22/23 03/22/23 Range/Units 09:06 09:06 RBC 3.74 L (3.80-5.40) m/uL MCV 104.9 H (80.0-100.0) fL MCHC 30.8 L (31.0-37.0) g/dL BUN 28 H (7-17) mg/dL Glucose 100 H (74-99) mg/dL Microbiology - Last 24 Hours (Table) 03/19/23 14:46 Blood Culture - Preliminary Blood 03/19/23 14:30 Blood Culture - Preliminary Blood Assessment and Plan Assessment: Healthcare associated pneumonia Acute hypoxic respiratory failure Hypertension Hyperlipidemia History of GERD Hypothyroidism Morbid obesity with BMI 47.2 Plan: Continue with Zosyn, follow-up culture results DC IV hydration Pulmonary team consult Oxygen to keep saturation above 90% no bronchodilator Labs and medication were reviewed.. Continue same treatment. Continue with symptomatic treatment. Resume home medication. Monitor labs and vitals. DVT and GI prophylaxis. Further recommendations as per clinical course of the patient DVT prophylaxis: Subcutaneous heparin GI Prophylaxis: Pepcid Prognosis is guarded
[2023-03-22] MEDS ORDERED: ALPRAZolam 0.25 MG TAB PO PRN (16:04)
[2023-03-22] MEDS ORDERED: QUEtiapine 25 MG TAB PO STA (17:14)
[2023-03-22] MEDS ORDERED: HALOPERIDOL LACTATE 5 MG/ML 1 ML VIAL IVP PRN (17:14)
[2023-03-22] MEDS: QUEtiapine 200 MG TAB PO SCH (22:08)
[2023-03-22] MEDS: ATORVASTATIN 10 MG TAB PO SCH (22:08)
[2023-03-22] MEDS: SENNOSIDES-DOCUSATE SODIUM 1 EACH TAB PO SCH (22:08)
[2023-03-22] MEDS: NON FORMULARY DRUG (Cariprazine Hcl [Vraylar] 3 MG Capsule) PO SCH (22:09)
[2023-03-23] MEDS ORDERED: HALOPERIDOL LACTATE 5 MG/ML 1 ML VIAL IVP STA ×2 (00:11→01:11)
[2023-03-23] MEDS: SODIUM CHLORIDE 0.9% 1,000 ML IV SCH (03:47)
[2023-03-23] MEDS: DULoxetine HCL 60 MG CAPSULE.DR PO SCH (06:29)
[2023-03-23] MEDS: LEVOTHYROXINE 100 MCG TAB PO SCH (06:29)
[2023-03-23] MEDS: DIVALPROEX 500 MG TABLET.DR PO SCH ×2 (06:30→20:36)
--- NOTE | 2023-03-23 07:26 | XR ---
EXAMINATION TYPE: XR chest 1V DATE OF EXAM: 03/23/2023 COMPARISON: 03/20/2023 INDICATION: CHF TECHNIQUE: Single frontal view of the chest is obtained. FINDINGS: The heart size is enlarged. The pulmonary vasculature is normal. The lungs are clear. IMPRESSION: 1. Cardiomegaly.
[2023-03-23] MEDS: IPRATROPIUM-ALBUTEROL 3 ML NEB INHALATION SCH ×5 (08:40→20:44)
[2023-03-23] MEDS: ARIPiprazole 15 MG TAB PO SCH (09:59)
[2023-03-23] MEDS: PIPERACILLIN-TAZOBACTAM 3.375 GM in SODIUM CHLORIDE 0.9% 100 ML IVPB SCH ×2 (09:59→17:14)
[2023-03-23] MEDS: LOSARTAN 50 MG TAB PO SCH (10:00)
[2023-03-23] MEDS: FUROSEMIDE 40 MG TAB PO SCH (10:00)
[2023-03-23] MEDS: CHOLECALCIFEROL 25 MCG (1000 IU) TABLET PO SCH (10:00)
[2023-03-23] MEDS: FAMOTIDINE 20 MG/2 ML VIAL IV SCH (10:00)
[2023-03-23] MEDS: ALPRAZolam 0.25 MG TAB PO SCH ×2 (10:00→17:12)
[2023-03-23] MEDS: HEPARIN SODIUM,PORCINE 5,000 UNIT/ML 1 ML VIAL SQ SCH ×2 (10:00→20:37)
[2023-03-23] MEDS: GABAPENTIN 100 MG CAP PO SCH ×2 (10:00→17:12)
[2023-03-23] MEDS: CALCIUM CARBONATE 500 MG CHEWABLE PO SCH (12:49)
--- NOTE | 2023-03-23 15:22 | P.PN ---
Subjective Progress Note Date: 03/23/23 67-year-old female, poor historian, transferred to [facility] on March 19, via EMS, for shortness of breath. In addition, the patient apparently had a fever of 101.2, and, was thought to have possible pneumonia. In addition, the patient apparently had a significant weight gain of about 33 pounds over the last 24 hours, according to the documentation from [facility]. The patient has a mention is a very poor historian. She's currently on 8 L high flow oxygen. She's getting saline at 130 mL an hour, which I asked the nurse to turn down to KVO. The patient's currently on Zosyn and azithromycin. A pro- calcitonin level is pending. The patient herself, cannot really had anything to the history. Her white count was 20.9, hemoglobin 12.4, hematocrit 37.9, with a normal platelet count. Sodium 136, potassium 4.1, chlorides 102, CO2 24, BUN 29, and creatinine 0.95. The patient's lactic acids were 3.8, 3.6, and 3.2. The pro-calcitonin level is currently pending. Troponin was normal. The patient tested negative for influenza A and influenza B, respiratory syncytial virus, and coronavirus. Chest x-ray is difficult to interpret because of the patient's body habitus, but, could be consistent with either CHF, and/or pneumonia. On today's evaluation of 03/21/2023, seeing the patient for a follow-up. The patient was hospitalized for shortness of breath, COPD exacerbation and fever. Currently the patient is afebrile. She does have some signs of fluid overload and leg edema. She is currently covered with IV Zosyn. She is also taking Lasix 40 mg by mouth daily. She is on 5 L of oxygen by nasal cannula. Chest x- ray and the family admission showed pulmonary vascular congestion and small left-sided pleural effusion suggestive of CHF. No other new complaints otherwise for now. Labs show a meniscal 11.8, hemoglobin 11.7 and a platelet count of 240. BUN is 27 with a creatinine of 1.02 and a sodium level is at 141. ProBNP level is 1000. The lactic acid level has been improving. On 03/22/2023, the patient remains confused and she is having episodes of hallucinations. She is also having episodes of delusions. She remains on Seroquel 200 mg at bedtime. She also on Abilify. She is on IV Zosyn for pneumonia. No respiratory difficulties. She feels less short of breath compared to yesterday. She is on 3 L of oxygen by nasal cannula with a pulse ox of 94%. Her breathing is nonlabored. She is hemodynamically stable. Blood work from today shows a hemoglobin of 12, white cell count of 10.6, platelet count of 233, BUN is at 28 with a creatinine of 0.9 and sodium levels of 141. The pro BNP level is not elevated at 260. I reviewed the echocardiogram. The patient has normal LV function. No pulmonary hypertension. No evident abnormalities. On 03/23/2023, the patient is essentially stable. She remains confused and she continues to have hallucinations and delusions. This is probably a chronic problem for this patient. She remains on Seroquel and Abilify. Overall respiratory status is stable. The cough is less congested on today's evaluation she remains on IV Zosyn. She remains also on oral Lasix 40 mg by mouth daily. Oxygenation is stable on 4 L of O2 nasal cannula with a pulse ox of 93%. Labs from yesterday were noted. No significant leukocytosis. No function is stable. Lactic acid level is down to 1.3. Objective - Vital Signs Vital signs: Vital Signs Temp 97.3 F L 03/23/23 07:36 Pulse 98 03/23/23 08:51 Resp 22 03/23/23 07:36 BP 137/74 03/23/23 07:36 Pulse Ox 97 03/23/23 08:40 FiO2 Intake & Output 03/22/23 03/23/23 03/23/23 18:59 06:59 18:59 Intake Total 684 100 Output Total 500 1150 Balance 184 -1150 100 Intake: Oral 684 100 Output: Urine 500 1150 Other: Voiding Method External Catheter External Catheter # Voids 1 # Bowel Movements 1 - Exam No acute distress, obese, lethargic, and a very poor historian. High flow nasal cannula in place. HEENT examination is grossly unremarkable. Neck supple. Full range of motion. No adenopathy thyromegaly or neck vein distention. Cardiovascular examination reveals regular rhythm rate. S1-S2 normal. No S3 or S4. No discernible murmur noted. Heart rate 99 bpm. Lungs reveal scattered bilateral rhonchi. No distinct wheezes or crackles. Breath sounds are equal bilaterally. 8 L high flow saturation is 93%. Abdomen obese, with bowel sounds. No masses. Extremities are intact. No cyanosis or clubbing, with only minimal edema. Skin is without rash or lesion. Neurologic examination is brief but nonfocal. - Labs CBC & Chem 7: 03/22/23 09:06 03/22/23 09:06 Labs: Microbiology - Last 24 Hours (Table) 03/19/23 14:46 Blood Culture - Preliminary Blood 03/19/23 14:30 Blood Culture - Preliminary Blood Assessment and Plan Plan: Acute hypoxemic respiratory failure, likely on the bases of the pneumonia, although a component of fluid overload cannot be excluded. Patient is currently on 3 L of oxygen by nasal cannula. Patient is on IV Zosyn. The patient is on oral Lasix. There is any component of CHF currently getting to the patient's hypoxic respiratory failure Shortness of breath secondary to above Acute febrile illness with leukocytosis, improving. Currently afebrile and the white cycles also improving. History of hypertension. History of hyperlipidemia. History of hypothyroidism. History of GERD. Morbid obesity. Multiple other medical problems and comorbidities. Plan: Overall condition remains stable and the patient is not showing any signs of respiratory distress Titrate FiO2 to maintain a saturation above 90%, she is currently on 4 L of Oxymizer nasal cannula Continue IV Zosyn IV fluids to KVO Continue oral Lasix, currently on 40 mg of Lasix on a daily basis Echocardiogram was completed and the patient was found to have a normal ejection fraction of 55-60%, no significant valvular abnormalities. DVT and GI prophylaxis We'll follow
[2023-03-23] MEDS: NON FORMULARY DRUG (Cariprazine Hcl [Vraylar] 3 MG Capsule) PO SCH (20:18)
[2023-03-23] MEDS: SENNOSIDES-DOCUSATE SODIUM 1 EACH TAB PO SCH ×2 (20:36→20:38)
[2023-03-23] MEDS: ATORVASTATIN 10 MG TAB PO SCH (20:36)
[2023-03-23] MEDS: QUEtiapine 200 MG TAB PO SCH (20:37)
--- NOTE | 2023-03-23 23:12 | P.PN ---
Subjective This is a pleasant 67 years old female with past medical history of schizophrenia, GERD/Reflux, Hyperlipidemia, Hypertension, hypothyroidism. Patient has been living in [facility] for the last 6 months. Patient presents with dyspnea for 2 days duration associated with little confusion.. With her coughing but she denies chest pain. No diarrhea, no change in urine or bowel habits or symptoms. No headache dizziness weakness or numbness. She has good appetite and denies choking. No smoking alcohol or illicit drugs. Patient on the patient has a fever of 100.2, blood pressure was borderline but I was improved, she was on 4 L oxygen via nasal cannula, currently requiring 8 units. Lactic acid this coming down to 3.8, WBC is still elevated at 20,900. Hemoglobin and platelet count are within the reference range. BMP and liver enzymes are unremarkable. Lactic acid is still elevated at 3.8. BNP is 201. CRP is elevated at 17.7 On admission patient received several boluses of normal saline and she was started on Zithromax and ceftriaxone, her oxygen requirements went up before we switch her antibiotics to Zosyn Patient will be transferred from [address] [place] [address] unit at the [facility] for close observation 03/21/2023 Patient is still tachypneic and short of breath however oxygen requirements went down from 8 down to 6 L/m No more fever. WBC down to 11,000. ProBNP is elevated from 200 up to 1000. Therefore we will discontinue IV fluids normal saline 75 mL/h She remains on Zosyn. Zithromax was discontinued. We'll continue close monitoring. Speech evaluation is requested 03/22/2023 Patient breathing easier today however she still somewhat tachypnea, she stain in bed most of the time. Oxygen requirement down to 4 L/m, saturation is at 92%. Personal vitals and labs are reviewed the looks stable. She remains on Zosyn. No IV fluids. 03/23/2023 Patient respiratory status is improving, his oxygen requirements down to 3 L/m also patient passed a swallow evaluation Patient may be considered to be discharged soon regarding risks However patient developed a new problem last night, she become more agitated, bedside nurse informed me that he needed 6 people to hold her down a certain point, several doses of Seroquel and IV Haldol are needed to calm her down, this morning she was lying in bed, looks anxious paranoid and she thinks someone was talking to her but she could not tell what exactly. Reassurance provided for the patient as well as her psychiatric medication helps her. We'll consult psychiatry for further recommendation. Objective - Vital Signs Vital signs: Vital Signs Temp 97.3 F L 03/23/23 07:36 Pulse 98 03/23/23 08:51 Resp 22 03/23/23 07:36 BP 137/74 03/23/23 07:36 Pulse Ox 97 03/23/23 08:40 FiO2 Intake & Output 03/22/23 03/23/23 03/23/23 18:59 06:59 18:59 Intake Total 684 100 Output Total 500 1150 Balance 184 -1150 100 Intake: Oral 684 100 Output: Urine 500 1150 Other: Voiding Method External Catheter External Catheter # Voids 1 # Bowel Movements 1 - Exam GENERAL: The patient is alert and oriented x3, not in any acute distress. Well developed, well nourished. HEENT: Pupils are round and equally reacting to light. EOMI. No scleral icterus. No conjunctival pallor. Normocephalic, atraumatic. No pharyngeal erythema. No thyromegaly. CARDIOVASCULAR: S1 and S2 present. No murmurs, rubs, or gallops. -PULMONARY: Chest is clear to auscultation, no wheezing , no crackles. Tachypnea with decreased air entry at the bases ABDOMEN: Soft, nontender, nondistended, normoactive bowel sounds. No palpable organomegaly. MUSCULOSKELETAL: No joint swelling or deformity. EXTREMITIES: No cyanosis, clubbing, or pedal edema. NEUROLOGICAL: Gross neurological examination did not reveal any focal deficits. SKIN: No rashes. no petechiae. - Labs CBC & Chem 7: 03/22/23 09:06 03/22/23 09:06 Labs: Microbiology - Last 24 Hours (Table) 03/19/23 14:46 Blood Culture - Preliminary Blood 03/19/23 14:30 Blood Culture - Preliminary Blood Assessment and Plan Assessment: Acute delirium with hallucinations and agitation which also related to her psychiatric illness Healthcare associated pneumonia Acute hypoxic respiratory failure, improving Schizophrenia, depression and anxiety Hypertension Hyperlipidemia History of GERD Hypothyroidism Morbid obesity with BMI 47.2 Plan: Continue with Zosyn, follow-up culture results DC IV hydration Pulmonary team consult Oxygen to keep saturation above 90% no bronchodilator Psych consult and continue with her psychiatrist medication with when necessary IV haldol Labs and medication were reviewed.. Continue same treatment. Continue with symptomatic treatment. Resume home medication. Monitor labs and vitals. DVT and GI prophylaxis. Further recommendations as per clinical course of the patient DVT prophylaxis: Subcutaneous heparin GI Prophylaxis: Pepcid Prognosis is guarded
[2023-03-24] MEDS: PIPERACILLIN-TAZOBACTAM 3.375 GM in SODIUM CHLORIDE 0.9% 100 ML IVPB SCH ×4 (00:25→23:34)
[2023-03-24] MEDS ORDERED: HALOPERIDOL LACTATE 5 MG/ML 1 ML VIAL IM PRN (02:20)
[2023-03-24] MEDS: DULoxetine HCL 60 MG CAPSULE.DR PO SCH (06:34)
[2023-03-24] MEDS: DIVALPROEX 500 MG TABLET.DR PO SCH ×2 (06:34→21:18)
[2023-03-24] MEDS: LEVOTHYROXINE 100 MCG TAB PO SCH (06:34)
[2023-03-24] MEDS: LOSARTAN 50 MG TAB PO SCH (08:15)
[2023-03-24] MEDS: CHOLECALCIFEROL 25 MCG (1000 IU) TABLET PO SCH (08:16)
[2023-03-24] MEDS: ALPRAZolam 0.25 MG TAB PO SCH ×2 (08:16→16:21)
[2023-03-24] MEDS: GABAPENTIN 100 MG CAP PO SCH ×2 (08:17→16:21)
[2023-03-24] MEDS: FUROSEMIDE 40 MG TAB PO SCH (08:17)
[2023-03-24] MEDS: FAMOTIDINE 20 MG/2 ML VIAL IV SCH (08:17)
[2023-03-24] MEDS: HEPARIN SODIUM,PORCINE 5,000 UNIT/ML 1 ML VIAL SQ SCH ×2 (08:17→21:19)
[2023-03-24] MEDS: IPRATROPIUM-ALBUTEROL 3 ML NEB INHALATION SCH ×4 (08:30→20:12)
[2023-03-24] MEDS: ARIPiprazole 15 MG TAB PO SCH (08:32)
[2023-03-24] MEDS: CALCIUM CARBONATE 500 MG CHEWABLE PO SCH (13:37)
[2023-03-24] MEDS ORDERED: OLANZapine 5 MG TAB PO ONE (13:45)
--- NOTE | 2023-03-24 13:47 | P.CN ---
Psychiatric Consult - . Consult date: 03/24/23 Consult:: 03/24/23 12:48 IDENTIFYING DATA: This patient is a 67-year-old female, she currently lives in a correction. REASON FOR REFERRAL: Psychiatry was consulted for "hallucinations and agitation". HISTORY OF PRESENT ILLNESS: The patient presented to the hospital on 03/19, from the correction complaining of fever, shortness of breath and hallucinations. At that time patient was rather a poor historian. Patient was admitted for dehydration, pneumonia and was placed on antibiotics. Patient's WBCs were elevated at 17.3, MCV was elevated, absolute neutrophil count was elevated. Patient's nurse claims that patient was combative earlier was crying and talking to herself. Patient was seen today at the bedside. She explained that she has a chronic history of schizophrenia, claims that she was at the correction and was not able to sleep and claims that she was having a "fever". She claims that she is doing a little bit better today. She had fair distress tolerance, was fairly concrete and constricted in affect, denies any mood or anxiety changes. States that her mood is "fine". She claims that she is hearing voices "talking about being" and also explained that their negative in nature. She is denying any visual hallucinations. States that she is feeling mildly paranoid at this time. Claims that his sleep has been poor, appetite is fair. At this time patient denies any suicidal or homical ideations, intent or plan. Patients admits to using no recreational drugs or substances PAST PSYCHIATRIC HISTORY: Patient has a a history of schizoaffective disorder, intellectual disability. Patient is currently on several different psychiatric medications including Depakote, Seroquel, Cymbalta, Xanax, Abilify, was previously on Abilify Maintenna. Also on vraylar. Patient states that she was last psychiatrically admitted to the mental health unit in 2018. Patient denies any psychiatric outpatient follow-up. Patient denies any history of suicide attempts in the past. Past Medical History: GERD/Reflux, Hyperlipidemia, Hypertension, Thyroid Disorder History of Any Multi-Drug Resistant Organisms: None Reported Past Surgical History: Breast Surgery, Tubal Ligation Additional Past Surgical History / Comment(s): BREAST BX'S- CAREGIVER UNSURE OF OTHER SURGERYS Past Anesthesia/Blood Transfusion Reactions: Unable to Obtain Past Psychological History: Anxiety, Depression, Schizophrenia Past Alcohol Use History: None Reported Past Drug Use History: None Reported ALLERGIES: as per EMR. CHEMICAL DEPENDENCY HISTORY: as per HPI FAMILY PSYCHIATRIC/SUBSTANCE USE HISTORY: denies SOCIAL HISTORY: Patient was born and raised in [facility]. 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 Claims that she completed high school. States that she currently lives in a correction. She denies any legal history.. MENTAL STATUS EXAM: General Appearance: Patient appears to be mildly overweight, stated age is alert, directable and attempts to be cooperative. Patient appears to have fair hygiene and grooming wearing hospital gown with intense eye contact. Behavior: Patient is calmly lying in bed without any agitated behavior. Suspiciousness Speech: Patient's speech is fluent and nonpressured. concrete. monotone. Mood/Affect: Patient reports their mood is "ok", affect is congruent and constricted Suicidality/Homicidality: Patient denies having any suicidal or homicidal ideation intent or plan Perceptions: Patient denies any visual hallucinations and claims that she is hearing voices Though content/process: Patient has fairly concrete, appropriate, endorsing paranoia. Memory and concentration: AOX3, grossly intact for the purposes of this session. Can spell "WORLD" backwards Judgment and insight: Chronically limited IMPRESSIONS: Schizoaffective disorder Intellectual disability PLAN: -At this time patient DOES NOT meet criteria for inpatient psychiatric admission. -Would recommend the following medication changes/additions: Can continue with Depakote as prescribed, will discontinue vraylar and Seroquel and replace with Zyprexa, will give 5 mg one time dose now with 10 mg scheduled daily at bedtime for mood stabilization/psychosis/insomnia. Can continue Xanax, Abilify and Cymbalta as prescribed. -Communicated plan to patient's nurse -Will continue to follow along tomorrow to ensure that patient is improving with medication adjustments and hopefully sign off tomorrow. Patient should have either [facility] outpatient f/u or f/u at correction for psych services/med mgt. -Please contact with any questions. 03/24/23 13:34
--- NOTE | 2023-03-24 15:19 | P.PN ---
Subjective Progress Note Date: 03/24/23 67-year-old female, poor historian, transferred to [facility] on March 19, via EMS, for shortness of breath. In addition, the patient apparently had a fever of 101.2, and, was thought to have possible pneumonia. In addition, the patient apparently had a significant weight gain of about 33 pounds over the last 24 hours, according to the documentation from [facility]. The patient has a mention is a very poor historian. She's currently on 8 L high flow oxygen. She's getting saline at 130 mL an hour, which I asked the nurse to turn down to KVO. The patient's currently on Zosyn and azithromycin. A pro- calcitonin level is pending. The patient herself, cannot really had anything to the history. Her white count was 20.9, hemoglobin 12.4, hematocrit 37.9, with a normal platelet count. Sodium 136, potassium 4.1, chlorides 102, CO2 24, BUN 29, and creatinine 0.95. The patient's lactic acids were 3.8, 3.6, and 3.2. The pro-calcitonin level is currently pending. Troponin was normal. The patient tested negative for influenza A and influenza B, respiratory syncytial virus, and coronavirus. Chest x-ray is difficult to interpret because of the patient's body habitus, but, could be consistent with either CHF, and/or pneumonia. On today's evaluation of 03/21/2023, seeing the patient for a follow-up. The patient was hospitalized for shortness of breath, COPD exacerbation and fever. Currently the patient is afebrile. She does have some signs of fluid overload and leg edema. She is currently covered with IV Zosyn. She is also taking Lasix 40 mg by mouth daily. She is on 5 L of oxygen by nasal cannula. Chest x- ray and the family admission showed pulmonary vascular congestion and small left-sided pleural effusion suggestive of CHF. No other new complaints otherwise for now. Labs show a meniscal 11.8, hemoglobin 11.7 and a platelet count of 240. BUN is 27 with a creatinine of 1.02 and a sodium level is at 141. ProBNP level is 1000. The lactic acid level has been improving. On 03/22/2023, the patient remains confused and she is having episodes of hallucinations. She is also having episodes of delusions. She remains on Seroquel 200 mg at bedtime. She also on Abilify. She is on IV Zosyn for pneumonia. No respiratory difficulties. She feels less short of breath compared to yesterday. She is on 3 L of oxygen by nasal cannula with a pulse ox of 94%. Her breathing is nonlabored. She is hemodynamically stable. Blood work from today shows a hemoglobin of 12, white cell count of 10.6, platelet count of 233, BUN is at 28 with a creatinine of 0.9 and sodium levels of 141. The pro BNP level is not elevated at 260. I reviewed the echocardiogram. The patient has normal LV function. No pulmonary hypertension. No evident abnormalities. On 03/23/2023, the patient is essentially stable. She remains confused and she continues to have hallucinations and delusions. This is probably a chronic problem for this patient. She remains on Seroquel and Abilify. Overall respiratory status is stable. The cough is less congested on today's evaluation she remains on IV Zosyn. She remains also on oral Lasix 40 mg by mouth daily. Oxygenation is stable on 4 L of O2 nasal cannula with a pulse ox of 93%. Labs from yesterday were noted. No significant leukocytosis. No function is stable. Lactic acid level is down to 1.3. On today's evaluation of 03/24/2023, the patient continues to have delusions and hallucinations. She has been seen by psychiatry and the patient is been diagnosed having a schizoaffective disorder and intellectual disability. The patient was asked to continue Xanax, Abilify and Cymbalta. She was asked to co ntinue the Depakote and Seroquel will be replaced with Zyprexa. The patient has no major respiratory difficulties at this point in time. She remains on oxygen at 3 L with a pulse ox of 97%. Coughing congestion subsided. She is afebrile. She remains on IV Zosyn. A repeat chest x-ray was done yesterday and showed normal pulmonary vasculature, the lungs were clear and there was some myocardial megaly. No other acute abnormalities have been noted. Objective - Vital Signs Vital signs: Vital Signs Temp 97.4 F L 03/24/23 07:04 Pulse 78 03/24/23 07:40 Resp 20 03/24/23 07:40 BP 102/64 03/24/23 07:04 Pulse Ox 92 L 03/24/23 07:04 FiO2 Intake & Output 03/23/23 03/24/23 03/24/23 18:59 06:59 18:59 Intake Total 580 540 Output Total 1300 650 Balance -720 -110 Intake: Oral 580 540 Output: Urine 1300 650 Other: Voiding Method External Catheter External Catheter External Catheter # Voids 4 - Exam No acute distress, obese, lethargic, and a very poor historian. 2 L of oxygen by nasal cannula HEENT examination is grossly unremarkable. Neck supple. Full range of motion. No adenopathy thyromegaly or neck vein distention. Cardiovascular examination reveals regular rhythm rate. S1-S2 normal. No S3 or S4. No discernible murmur noted. Lungs reveal scattered bilateral rhonchi. No distinct wheezes or crackles. Breath sounds are equal bilaterally. 2 L O2 nasal cannula Abdomen obese, with bowel sounds. No masses. Extremities are intact. No cyanosis or clubbing, with only minimal edema. Skin is without rash or lesion. Neurologic examination is brief but nonfocal. - Labs CBC & Chem 7: 03/22/23 09:06 03/22/23 09:06 Assessment and Plan Plan: Acute hypoxemic respiratory failure, likely on the bases of the pneumonia, although a component of fluid overload cannot be excluded. Patient is currently on 2 L of oxygen by nasal cannula. Patient is on IV Zosyn. The patient is on oral Lasix. There is any component of CHF currently getting to the patient's hypoxic respiratory failure, this is a for the most recent chest x-ray from 03/23/2023 showed hepatomegaly without any pulmonary vessel congestion or any signs of failure Schizoaffective disorder with ongoing hallucinations and delusions Shortness of breath secondary to above, improved and stable for now Acute febrile illness with leukocytosis, improving. Currently afebrile and the white cycles also improving. History of hypertension. History of hyperlipidemia. History of hypothyroidism. History of GERD. Morbid obesity. Multiple other medical problems and comorbidities. Plan: I appreciate psychiatric evaluation Overall condition remains stable and the patient is not showing any signs of respiratory distress Titrate FiO2 to maintain a saturation above 90%, she is currently on 2 L of Oxymizer nasal cannula Continue IV Zosyn IV fluids to KVO Continue oral Lasix, currently on 40 mg of Lasix on a daily basis Echocardiogram was completed and the patient was found to have a normal ejection fraction of 55-60%, no significant valvular abnormalities. DVT and GI prophylaxis We'll follow
[2023-03-24] MEDS ORDERED: OLANZapine 10 MG TAB PO SCH (21:00)
[2023-03-24] MEDS: SODIUM CHLORIDE 0.9% 1,000 ML IV SCH (21:13)
[2023-03-24] MEDS: SENNOSIDES-DOCUSATE SODIUM 1 EACH TAB PO SCH (21:18)
[2023-03-24] MEDS: ATORVASTATIN 10 MG TAB PO SCH (21:18)
--- NOTE | 2023-03-24 22:18 | P.PN ---
Subjective This is a pleasant 67 years old female with past medical history of schizophrenia, GERD/Reflux, Hyperlipidemia, Hypertension, hypothyroidism. Patient has been living in [facility] for the last 6 months. Patient presents with dyspnea for 2 days duration associated with little confusion.. With her coughing but she denies chest pain. No diarrhea, no change in urine or bowel habits or symptoms. No headache dizziness weakness or numbness. She has good appetite and denies choking. No smoking alcohol or illicit drugs. Patient on the patient has a fever of 100.2, blood pressure was borderline but I was improved, she was on 4 L oxygen via nasal cannula, currently requiring 8 units. Lactic acid this coming down to 3.8, WBC is still elevated at 20,900. Hemoglobin and platelet count are within the reference range. BMP and liver enzymes are unremarkable. Lactic acid is still elevated at 3.8. BNP is 201. CRP is elevated at 17.7 On admission patient received several boluses of normal saline and she was started on Zithromax and ceftriaxone, her oxygen requirements went up before we switch her antibiotics to Zosyn Patient will be transferred from [address] [place] [id number] unit at the [facility] [[email or web address]] for close observation 03/21/2023 Patient is still tachypneic and short of breath however oxygen requirements went down from 8 down to 6 L/m No more fever. WBC down to 11,000. ProBNP is elevated from 200 up to 1000. Therefore we will discontinue IV fluids normal saline 75 mL/h She remains on Zosyn. Zithromax was discontinued. We'll continue close monitoring. Speech evaluation is requested 03/22/2023 Patient breathing easier today however she still somewhat tachypnea, she stain in bed most of the time. Oxygen requirement down to 4 L/m, saturation is at 92%. Personal vitals and labs are reviewed the looks stable. She remains on Zosyn. No IV fluids. 03/23/2023 Patient respiratory status is improving, his oxygen requirements down to 3 L/m also patient passed a swallow evaluation Patient may be considered to be discharged soon regarding risks However patient developed a new problem last night, she become more agitated, bedside nurse informed me that he needed 6 people to hold her down a certain point, several doses of Seroquel and IV Haldol are needed to calm her down, this morning she was lying in bed, looks anxious paranoid and she thinks someone was talking to her but she could not tell what exactly. Reassurance provided for the patient as well as her psychiatric medication helps her. We'll consult psychiatry for further recommendation. 03/24/2023 Patient pneumonia is improving, respiratory status stable, she is breathing quietly requiring 2-3 L/m while she is on Zosyn. She may be considered for discharge soon However today she is very paranoid and other symptoms of her schizophrenia looks more active, she answers and the other [place] for example when I ask her "how is your pain" she answers me "you know how my pain is". When I asked her "how is your breathing" she answers me "you know how is my breathing is". Psychiatry input is appreciated, patient continued on Cymbalta, Xanax Abilify, Seroquel and Depakote were discontinued and patient was started on Zyprexa Possible discharge in 24-48 hours if she remains stable and improving Objective - Vital Signs Vital signs: Vital Signs Temp 97.4 F L 03/24/23 07:04 Pulse 78 03/24/23 07:40 Resp 20 03/24/23 07:40 BP 102/64 03/24/23 07:04 Pulse Ox 92 L 03/24/23 07:04 FiO2 Intake & Output 03/23/23 03/24/23 03/24/23 18:59 06:59 18:59 Intake Total 580 540 Output Total 1300 650 Balance -720 -110 Intake: Oral 580 540 Output: Urine 1300 650 Other: Voiding Method External Catheter External Catheter External Catheter # Voids 4 - Exam GENERAL: The patient is alert and oriented x3, not in any acute distress. Well developed, well nourished. HEENT: Pupils are round and equally reacting to light. EOMI. No scleral icterus. No conjunctival pallor. Normocephalic, atraumatic. No pharyngeal erythema. No thyromegaly. CARDIOVASCULAR: S1 and S2 present. No murmurs, rubs, or gallops. -PULMONARY: Chest is clear to auscultation, no wheezing , no crackles. Tachypnea with decreased air entry at the bases ABDOMEN: Soft, nontender, nondistended, normoactive bowel sounds. No palpable organomegaly. MUSCULOSKELETAL: No joint swelling or deformity. EXTREMITIES: No cyanosis, clubbing, or pedal edema. NEUROLOGICAL: Gross neurological examination did not reveal any focal deficits. SKIN: No rashes. no petechiae. - Labs CBC & Chem 7: 03/22/23 09:06 03/22/23 09:06 Assessment and Plan Assessment: Acute delirium with hallucinations and agitation which also related to her psychiatric illness Healthcare associated pneumonia Acute hypoxic respiratory failure, improving Schizophrenia, depression and anxiety Hypertension Hyperlipidemia History of GERD Hypothyroidism Morbid obesity with BMI 47.2 Plan: Continue with Zosyn, follow-up culture results DC IV hydration Pulmonary team consult Oxygen to keep saturation above 90% no bronchodilator Psych consult and continue with her psychiatrist medication with when necessary IV haldol Labs and medication were reviewed.. Continue same treatment. Continue with symptomatic treatment. Resume home medication. Monitor labs and vitals. DVT and GI prophylaxis. Further recommendations as per clinical course of the patient DVT prophylaxis: Subcutaneous heparin GI Prophylaxis: Pepcid Prognosis is guarded
[2023-03-25] MEDS: SODIUM CHLORIDE 0.9% 1,000 ML IV SCH (03:44)
[2023-03-25] MEDS: DULoxetine HCL 60 MG CAPSULE.DR PO SCH (05:58)
[2023-03-25] MEDS: ACETAMINOPHEN TAB 325 MG TAB PO PRN (05:58)
[2023-03-25] MEDS: DIVALPROEX 500 MG TABLET.DR PO SCH (05:58)
[2023-03-25] MEDS: LEVOTHYROXINE 100 MCG TAB PO SCH (05:58)
[2023-03-25] MEDS: PIPERACILLIN-TAZOBACTAM 3.375 GM in SODIUM CHLORIDE 0.9% 100 ML IVPB SCH (08:38)
[2023-03-25] MEDS: ARIPiprazole 15 MG TAB PO SCH (08:39)
[2023-03-25] MEDS: HEPARIN SODIUM,PORCINE 5,000 UNIT/ML 1 ML VIAL SQ SCH (08:39)
[2023-03-25] MEDS: FUROSEMIDE 40 MG TAB PO SCH (08:40)
[2023-03-25] MEDS: LOSARTAN 50 MG TAB PO SCH (08:40)
[2023-03-25] MEDS: GABAPENTIN 100 MG CAP PO SCH (08:40)
[2023-03-25] MEDS: FAMOTIDINE 20 MG/2 ML VIAL IV SCH (08:40)
[2023-03-25] MEDS: CHOLECALCIFEROL 25 MCG (1000 IU) TABLET PO SCH (08:40)
[2023-03-25] MEDS: ALPRAZolam 0.25 MG TAB PO SCH (08:40)
[2023-03-25] MEDS: IPRATROPIUM-ALBUTEROL 3 ML NEB INHALATION SCH ×3 (08:48→16:20)
[2023-03-25] MEDS ORDERED: OLANZapine 5 MG TAB PO PRN (09:00)
--- NOTE | 2023-03-25 13:10 | P.PN ---
Subjective Progress Note Date: 03/25/23 67-year-old female, poor historian, transferred to [facility] on March 19, via EMS, for shortness of breath. In addition, the patient apparently had a fever of 101.2, and, was thought to have possible pneumonia. In addition, the patient apparently had a significant weight gain of about 33 pounds over the last 24 hours, according to the documentation from [facility]. The patient has a mention is a very poor historian. She's currently on 8 L high flow oxygen. She's getting saline at 130 mL an hour, which I asked the nurse to turn down to KVO. The patient's currently on Zosyn and azithromycin. A pro- calcitonin level is pending. The patient herself, cannot really had anything to the history. Her white count was 20.9, hemoglobin 12.4, hematocrit 37.9, with a normal platelet count. Sodium 136, potassium 4.1, chlorides 102, CO2 24, BUN 29, and creatinine 0.95. The patient's lactic acids were 3.8, 3.6, and 3.2. The pro-calcitonin level is currently pending. Troponin was normal. The patient tested negative for influenza A and influenza B, respiratory syncytial virus, and coronavirus. Chest x-ray is difficult to interpret because of the patient's body habitus, but, could be consistent with either CHF, and/or pneumonia. On today's evaluation of 03/21/2023, seeing the patient for a follow-up. The patient was hospitalized for shortness of breath, COPD exacerbation and fever. Currently the patient is afebrile. She does have some signs of fluid overload and leg edema. She is currently covered with IV Zosyn. She is also taking Lasix 40 mg by mouth daily. She is on 5 L of oxygen by nasal cannula. Chest x- ray and the family admission showed pulmonary vascular congestion and small left-sided pleural effusion suggestive of CHF. No other new complaints otherwise for now. Labs show a meniscal 11.8, hemoglobin 11.7 and a platelet count of 240. BUN is 27 with a creatinine of 1.02 and a sodium level is at 141. ProBNP level is 1000. The lactic acid level has been improving. On 03/22/2023, the patient remains confused and she is having episodes of hallucinations. She is also having episodes of delusions. She remains on Seroquel 200 mg at bedtime. She also on Abilify. She is on IV Zosyn for pneumonia. No respiratory difficulties. She feels less short of breath compared to yesterday. She is on 3 L of oxygen by nasal cannula with a pulse ox of 94%. Her breathing is nonlabored. She is hemodynamically stable. Blood work from today shows a hemoglobin of 12, white cell count of 10.6, platelet count of 233, BUN is at 28 with a creatinine of 0.9 and sodium levels of 141. The pro BNP level is not elevated at 260. I reviewed the echocardiogram. The patient has normal LV function. No pulmonary hypertension. No evident abnormalities. On 03/23/2023, the patient is essentially stable. She remains confused and she continues to have hallucinations and delusions. This is probably a chronic problem for this patient. She remains on Seroquel and Abilify. Overall respiratory status is stable. The cough is less congested on today's evaluation she remains on IV Zosyn. She remains also on oral Lasix 40 mg by mouth daily. Oxygenation is stable on 4 L of O2 nasal cannula with a pulse ox of 93%. Labs from yesterday were noted. No significant leukocytosis. No function is stable. Lactic acid level is down to 1.3. On today's evaluation of 03/24/2023, the patient continues to have delusions and hallucinations. She has been seen by psychiatry and the patient is been diagnosed having a schizoaffective disorder and intellectual disability. The patient was asked to continue Xanax, Abilify and Cymbalta. She was asked to co ntinue the Depakote and Seroquel will be replaced with Zyprexa. The patient has no major respiratory difficulties at this point in time. She remains on oxygen at 3 L with a pulse ox of 97%. Coughing congestion subsided. She is afebrile. She remains on IV Zosyn. A repeat chest x-ray was done yesterday and showed normal pulmonary vasculature, the lungs were clear and there was some myocardial megaly. No other acute abnormalities have been noted. On 03/25/2023, the patient is stable. No specific complaints. He remains on IV Zosyn. More interactive on today's evaluation. She is still having dreams and hallucinations. Psychiatric medications have been all noted. The patient remains on oxygen at 3 L with a pulse ox of 97% and we should be able to wean it down further. Denies having any chest pain. No cough or sputum production. No other complaints otherwise for now. Objective - Vital Signs Vital signs: Vital Signs Temp 98.1 F 03/25/23 07:45 Pulse 72 03/25/23 09:03 Resp 20 03/25/23 08:00 BP 138/80 03/25/23 07:45 Pulse Ox 97 03/25/23 08:48 FiO2 Intake & Output 03/24/23 03/25/23 03/25/23 18:59 06:59 18:59 Output Total 5250 2900 Balance -5250 -2900 Weight 101 kg Output: Urine 5250 2900 Other: Voiding Method External Catheter External Catheter External Catheter # Bowel Movements 1 - Exam No acute distress, obese, lethargic, and a very poor historian. 2 L of oxygen by nasal cannula HEENT examination is grossly unremarkable. Neck supple. Full range of motion. No adenopathy thyromegaly or neck vein distention. Cardiovascular examination reveals regular rhythm rate. S1-S2 normal. No S3 or S4. No discernible murmur noted. Lungs reveal scattered bilateral rhonchi. No distinct wheezes or crackles. Breath sounds are equal bilaterally. 2 L O2 nasal cannula Abdomen obese, with bowel sounds. No masses. Extremities are intact. No cyanosis or clubbing, with only minimal edema. Skin is without rash or lesion. Neurologic examination is brief but nonfocal. - Labs CBC & Chem 7: 03/22/23 09:06 03/22/23 09:06 Labs: Microbiology - Last 24 Hours (Table) 03/19/23 14:46 Blood Culture - Final Blood 03/19/23 14:30 Blood Culture - Final Blood Assessment and Plan Plan: Acute hypoxemic respiratory failure, likely on the bases of the pneumonia, although a component of fluid overload cannot be excluded. Patient is currently on 3 L of oxygen by nasal cannula. Patient is on IV Zosyn. The patient is on oral Lasix. There is any component of CHF currently getting to the patient's hypoxic respiratory failure, this is a for the most recent chest x-ray from 03/23/2023 showed hepatomegaly without any pulmonary vessel congestion or any signs of failure. Denies having any major respiratory difficulties for now. She should be able to wean down the FiO2 further to maintain a saturation above 90%. Clinically stable. Schizoaffective disorder with ongoing hallucinations and delusions Shortness of breath secondary to above, improved and stable for now Acute febrile illness with leukocytosis, improving. Currently afebrile and the white cell count has dropped down to 10.6 of 03/22/2023. History of hypertension. History of hyperlipidemia. History of hypothyroidism. History of GERD. Morbid obesity. Multiple other medical problems and comorbidities. Plan: I appreciate psychiatric evaluation, we'll continue psychiatric medications Overall condition remains stable and the patient is not showing any signs of respiratory distress Titrate FiO2 to maintain a saturation above 90%, she is currently on 3 L O2 nasal cannula Continue IV Zosyn, this was started 03/20/2023 and the patient should be able to complete a seven-day course and then stop IV fluids to KVO Continue oral Lasix, currently on 40 mg of Lasix on a daily basis Echocardiogram was completed and the patient was found to have a normal ejection fraction of 55-60%, no significant valvular abnormalities. DVT and GI prophylaxis We'll follow
[2023-03-25] MEDS: CALCIUM CARBONATE 500 MG CHEWABLE PO SCH (13:37)
--- NOTE | 2023-03-25 13:43 | P.DS ---
Providers Date of admission: 03/19/23 18:45 Attending physician: Lele Holguin MD Consults: 03/20/23 05:57 Consult Physician Routine Consulting Provider: Gerardo Celaya Consult Reason/Comments: pna Do you want consulting provider notified?: Yes, Notify in am 03/23/23 10:17 Consult Physician Urgent Consulting Provider: Donnie Adkins Consult Reason/Comments: hallucination and agitation Do you want consulting provider notified?: Yes Primary care physician: Vencor Hospital Course: Diagnoses: Healthcare associated pneumonia, improved Acute delirium with hallucinations and agitation which also related to her psychiatric illness and she is a hernia, improved Acute hypoxic respiratory failure, improving Schizophrenia, depression and anxiety Hypertension Hyperlipidemia History of GERD Hypothyroidism Morbid obesity with BMI 47.2 Hospital course: This is a pleasant 67 years old female with past medical history of schizophrenia, GERD/Reflux, Hyperlipidemia, Hypertension, hypothyroidism. Carolina callejas has been living in [facility] for the last 6 months. Patient presents with dyspnea for 2 days duration associated with little confusion.. Patient was found to have bilateral basal pneumonia right more than left, patient was treated with Zosyn and showed interval improvement, pulmonary were following closely, her oxygen requirement went down to baseline of 2-3 L/m Patient that swallow evaluation and she eats well. Patient has very good appetite today. She was calm in the first half of hospitalization however over the last 2 days she was becoming more psychotic, she was agitated and paranoid, psychiatric consult was obtained and he recommended to stop Seroquel and switch her to Zyprexa. Today she is doing very well and it is more calm and interactive and answer questions. She has significant improvement. Also Seroquel was discontinued while Cymbalta, Xanax and Abilify were continued. Depakote was discontinued Patient denies any other new symptoms. pt was cleared for discharge by pulmonary service and psychiatry service. Problems and management plan were discussed with the patient and he verbalized understanding and acceptance Patient was found stable and can be discharged home in guarded prognosis however he needs follow-up as an outpatient. Patient was instructed to follow up with PCP Dr. Valdivia within one week and patient agrees Patient was recommended to follow-up with cable splicer helper Dr. Flores in 2 weeks. We recommend patient follow up with her psychiatrist in 1-2 weeks after discharge. Physical exam -Gen: patient is a AAOx3, no distress. Obese CVS: S1-S2, RRR, no murmur Lungs: B/L CTA, no wheezing. 2l/m oxygen via nasal cannula Abdomen: soft, no distention, no tenderness, positive bowel sounds Extremity: no leg edema or induration Time spent more than 35 minutes Patient Condition at Discharge: Stable Plan - Discharge Summary Discharge Rx Participant: No New Discharge Prescriptions: No Action Lovastatin [Mevacor] 20 mg PO HS Calcium Citrate 200mg 1 tab PO DAILY@1200 Acetaminophen Tab [Tylenol] 650 mg PO Q6HR PRN tab PRN Reason: Mild Pain Or Fever > 100.5 Ipratropium-Albuterol Nebulize [Duoneb 0.5 mg-3 mg/3 ml Soln] 3 ml INHALATION RT-Q6H PRN PRN Reason: Shortness Of Breath/Congestion Na Phos,M-B/Na Phos,Di-Ba [Fleet Adult] 133 ml RECTAL DAILY PRN PRN Reason: Constipation Diclofenac Sodium Gel [Voltaren 1% Gel] 1 applic TOPICAL BID@0800,1700 QUEtiapine [SEROquel] 200 mg PO HS Cariprazine HCl [Vraylar] 3 mg PO HS Sennosides/Docusate Sodium [Senna-S 8.6-50 mg Tablet] 2 tab PO HS Furosemide [Lasix] 40 mg PO DAILY@0800 Magnesium Hydroxide [Milk of Magnesia Concentrate] 7,200 mg PO DIRECTED PRN PRN Reason: 2 dys no BM DULoxetine HCL [Cymbalta] 60 mg PO DAILY@0700 Levothyroxine Sodium [Synthroid] 100 mcg PO DAILY@0700 ARIPiprazole [Abilify] 30 mg PO DAILY@0800 Mag Hydrox/Al Hydrox/Simeth [Maalox] 30 ml PO Q6H PRN PRN Reason: Gi Upset Loperamide HCl [Imodium A-D] 2 - 4 mg PO QID PRN PRN Reason: Diarrhea guaiFENesin [guaiFENesin Oral Solution] 200 mg PO Q4H PRN PRN Reason: Cough bisacodyL [Dulcolax] 10 mg RECTAL DAILY PRN PRN Reason: Constipation Alendronate Sodium [Fosamax] 70 mg PO SA@0600 Gabapentin [Neurontin] 100 mg PO BID@0800,1700 Divalproex Sodium [Depakote] 500 mg PO BID@0700,1900 ALPRAZolam [Xanax] 0.25 mg PO BID@0800,1700 Losartan [Cozaar] 50 mg PO DAILY@0800 Cholecalciferol [Vitamin D3 (25 Mcg = 1000 Iu)] 50 mcg PO DAILY@0800 Discharge Medication List ARIPiprazole [Abilify] 30 mg PO DAILY@0800 05/16/22 [History] Calcium Citrate 200mg 1 tab PO DAILY@1200 05/16/22 [History] DULoxetine HCL [Cymbalta] 60 mg PO DAILY@0700 05/16/22 [History] Levothyroxine Sodium [Synthroid] 100 mcg PO DAILY@0700 05/16/22 [History] Lovastatin [Mevacor] 20 mg PO HS 05/16/22 [History] Acetaminophen Tab [Tylenol] 650 mg PO Q6HR PRN tab 05/19/22 [Rx] ALPRAZolam [Xanax] 0.25 mg PO BID@0800,1700 03/19/23 [History] Alendronate Sodium [Fosamax] 70 mg PO SA@0600 03/19/23 [History] Cariprazine HCl [Vraylar] 3 mg PO HS 03/19/23 [History] Cholecalciferol [Vitamin D3 (25 Mcg = 1000 Iu)] 50 mcg PO DAILY@0800 03/19/23 [History] Diclofenac Sodium Gel [Voltaren 1% Gel] 1 applic TOPICAL BID@0800,1700 03/19/23 [History] Divalproex Sodium [Depakote] 500 mg PO BID@0700,1900 03/19/23 [History] Furosemide [Lasix] 40 mg PO DAILY@0800 03/19/23 [History] Gabapentin [Neurontin] 100 mg PO BID@0800,1700 03/19/23 [History] Ipratropium-Albuterol Nebulize [Duoneb 0.5 mg-3 mg/3 ml Soln] 3 ml INHALATION RT-Q6H PRN 03/19/23 [History] Loperamide HCl [Imodium A-D] 2 - 4 mg PO QID PRN 03/19/23 [History] Losartan [Cozaar] 50 mg PO DAILY@0800 03/19/23 [History] Mag Hydrox/Al Hydrox/Simeth [Maalox] 30 ml PO Q6H PRN 03/19/23 [History] Magnesium Hydroxide [Milk of Magnesia Concentrate] 7,200 mg PO DIRECTED PRN 03/19/23 [History] Na Phos,M-B/Na Phos,Di-Ba [Fleet Adult] 133 ml RECTAL DAILY PRN 03/19/23 [History] QUEtiapine [SEROquel] 200 mg PO HS 03/19/23 [History] Sennosides/Docusate Sodium [Senna-S 8.6-50 mg Tablet] 2 tab PO HS 03/19/23 [History] bisacodyL [Dulcolax] 10 mg RECTAL DAILY PRN 03/19/23 [History] guaiFENesin [guaiFENesin Oral Solution] 200 mg PO Q4H PRN 03/19/23 [History] Follow up Appointment(s)/Referral(s): Marshall Grande MD [Primary Care Provider] - 1-2 days (Please call for follow-up appointment.)
[2023-03-25 15:45] VITALS: BP 125/71; PULSE 80; RESP 21; TEMP 98.5
[2023-03-26] MEDS ORDERED: NON FORMULARY DRUG (Alendronate Sodium [Fosamax] 70 MG Tablet) PO SCH (06:00)
== END 2023-03-25 16:35 | DRG 193 ==
LOC: EC 13:51 → EEVIPCON 13:51 → 4SSUR 18:45 → 3SCARD 03-20 09:00 → 4SSUR 03-23 18:39
PROVIDERS: ADMIT Internal Medicine; ATTEND Internal Medicine
DX: J18.9 Pneumonia, unspecified organism (principal); J96.01 Acute respiratory failure with hypoxia; J44.0 Chronic obstructive pulmonary disease with (acute) lower respiratory infection; Z68.42 Body mass index [BMI] 45.0-49.9, adult; F05 Delirium due to known physiological condition; I50.9 Heart failure, unspecified; I11.0 Hypertensive heart disease with heart failure; E66.01 Morbid (severe) obesity due to excess calories; Z20.822 Contact with and (suspected) exposure to COVID-19; Y95 Nosocomial condition; K21.9 Gastro-esophageal reflux disease without esophagitis; E78.5 Hyperlipidemia, unspecified; E03.9 Hypothyroidism, unspecified; F25.9 Schizoaffective disorder, unspecified; F79 Unspecified intellectual disabilities; F32.A Depression, unspecified; I07.1 Rheumatic tricuspid insufficiency; F41.9 Anxiety disorder, unspecified; J98.4 Other disorders of lung; E86.0 Dehydration; Z71.6 Tobacco abuse counseling; F17.200 Nicotine dependence, unspecified, uncomplicated; Z79.83 Long term (current) use of bisphosphonates; Z79.890 Hormone replacement therapy; Z79.899 Other long term (current) drug therapy; Z88.0 Allergy status to penicillin; Z98.51 Tubal ligation status
CPT/HCPCS: 36415; 71045; 71046; 80048; 80053; 83605; 83735; 83880; 84145; 84484; 85025; 85610; 85730; 86140; 87040; 87449; 87636; 93005; 93306; 94640; 94760; 96361; 96365; 96375; 99285

== ENCOUNTER → 2023-12-22 | Outpatient (CLI) | payer MEDICARE, OTHER | END | disposition home or self-care (01) | LOC: LABPRL 13:00 | PROVIDERS: ATTEND Internal Medicine Geriatric Medicine | DX: R35.0 Frequency of micturition (principal); R82.90 Unspecified abnormal findings in urine | CPT/HCPCS: 87086 ==

== ENCOUNTER 2024-04-26 16:36 | Inpatient (IN) | payer MEDICARE, OTHER ==
--- NOTE | 2024-04-26 17:34 | ED ---
General Adult HPI - General Chief complaint: Altered Mental Status Stated complaint: AMS Time Seen by Provider: 04/26/24 17:03 Source: patient, EMS Mode of arrival: EMS Limitations: altered mental status - History of Present Illness Initial comments: History as noted patient's altered mental status. Per report patient was sent in from [facility] for 4 days of altered mental status though he is "altered at baseline" and hypotension. Further history is obtained by patient from patient's nurse practitioner, Rebeca. States that the patient is usually active at baseline, wanting to go to the cafeteria and socialize any with others over the last 4 days she has been less interactive than normal. Usually oriented x2. Does have hx behavioral issues. Labs and UA were done 4 days ago that did not show signs of infection, mild leukocytosis WBC ~12. Today COPYIST noted patient to have left sided weakness, lethargic, afebrile there, sent patient to the ED for further eval. Has guardian. - Related Data Home Medications Medication Instructions Recorded Confirmed ARIPiprazole [Abilify] 30 mg PO DAILY@0800 05/16/22 04/26/24 Calcium Citrate 200mg 1 tab PO DAILY@1200 05/16/22 04/26/24 DULoxetine HCL [Cymbalta] 60 mg PO DAILY@0700 05/16/22 04/26/24 Levothyroxine Sodium [Synthroid] 100 mcg PO DAILY@0800 05/16/22 04/26/24 Lovastatin [Mevacor] 20 mg PO HS@2100 05/16/22 04/26/24 Alendronate Sodium [Fosamax] 70 mg PO SA@0400 03/19/23 04/26/24 Cholecalciferol [Vitamin D3 (25 50 mcg PO DAILY@0800 03/19/23 04/26/24 Mcg = 1000 Iu)] Diclofenac Sodium Gel [Voltaren 1% 1 applic TOPICAL BID@0800,1700 03/19/23 04/26/24 Gel] Furosemide [Lasix] 40 mg PO BID@0800,1700 03/19/23 04/26/24 Ipratropium-Albuterol Nebulize 3 ml INHALATION RT-Q6H PRN 03/19/23 04/26/24 [Duoneb 0.5 mg-3 mg/3 ml Soln] Loperamide HCl [Imodium A-D] 2 - 4 mg PO QID PRN 03/19/23 04/26/24 Losartan [Cozaar] 50 mg PO DAILY@0800 03/19/23 04/26/24 Mag Hydrox/Al Hydrox/Simeth 30 ml PO Q6H PRN 03/19/23 04/26/24 [Maalox] Magnesium Hydroxide [Milk of 7,200 mg PO Q48H PRN 03/19/23 04/26/24 Magnesia Concentrate] Na Phos,M-B/Na Phos,Di-Ba [Fleet 133 ml RECTAL DAILY PRN 03/19/23 04/26/24 Adult] guaiFENesin [guaiFENesin Oral 200 mg PO Q4H PRN 03/19/23 04/26/24 Solution] Caldesene Powder 1 applic TOPICAL BID 04/26/24 04/26/24 Divalproex Sodium [Depakote] 500 mg PO TID@0800,1400,2200 04/26/24 04/26/24 Docusate [Colace] 100 mg PO BID@0800,1700 04/26/24 04/26/24 Ensure Enlive 120 ml PO DAILY@0800 04/26/24 04/26/24 Hydrophilic Cream [Triad (Kerodex 1 applic TOPICAL TID 04/26/24 04/26/24 geq)] Nystatin 100,000Unit/gm Cream 1 applic TOPICAL TID 04/26/24 04/26/24 [Mycostatin Cream] Potassium Chloride ER [K-Dur 10] 10 meq PO DAILY@0800 04/26/24 04/26/24 bisacodyL [Dulcolax] 10 mg RECTAL DAILY PRN 04/26/24 04/26/24 haloperidoL [Haldol] 10 mg PO TID@0800,1400,2200 04/26/24 04/26/24 Previous Rx's Medication Instructions Recorded Acetaminophen Tab [Tylenol] 650 mg PO Q6HR PRN tab 05/19/22 ALPRAZolam [Xanax] 0.25 mg PO BID@0800,1700 #6 tab 03/25/23 Gabapentin [Neurontin] 100 mg PO BID@0800,1700 #6 cap 03/25/23 Allergies Allergy/AdvReac Type Severity Reaction Status Date / Time Penicillins Allergy Unknown Unknown Verified 04/26/24 17:52 Childhood Review of Systems ROS Statement: Those systems with pertinent positive or pertinent negative responses have been documented in the HPI. ROS Other: All systems not noted in ROS Statement are negative. Limitations: ROS unobtainable due to patients medical condition Past Medical History Past Medical History: GERD/Reflux, Hyperlipidemia, Hypertension, Thyroid Disorder History of Any Multi-Drug Resistant Organisms: None Reported Past Surgical History: Breast Surgery, Tubal Ligation Additional Past Surgical History / Comment(s): BREAST BX'S- CAREGIVER UNSURE OF OTHER SURGERYS Past Anesthesia/Blood Transfusion Reactions: Unable to Obtain Past Psychological History: Anxiety, Depression, Schizophrenia Smoking Status: Never smoker Past Alcohol Use History: None Reported Past Drug Use History: None Reported General Exam - General Exam Comments Initial Comments: PE: CONSTITUTIONAL: In mild distress, ill-appearing, toxic appearing SKIN: Cool, dry, no jaundice, hives or petechiae EYES: Pupils are equally round, extraocular movements intact without nystagmus, discharge, yellowish crusting scant around eyes bilaterally, non-icteric sclera HENT: Normocephalic, atraumatic, dry mucus membranes, oropharynx clear without exudates NECK: , Full range of motion, normal appearance PULMONARY: Exam limited by patient's positioning and body habitus clear to auscultation without wheezes, rhonchi, or rales, normal excursion, no accessory muscle use and no stridor CARDIOVASCULAR: Regular rate, rhythm, normal S1 and S2. No appreciated murmurs, rubs or gallops. Strong radial pulses with intact distal perfusion. No lower extremity edema GASTROINTESTINAL: Soft, active bowel sounds throughout, TTP right side of abdomen/ RUQ, non-distended, no palpable masses, no rebound, guarding with palpation of right side of abdomen. No hepatosplenomegaly GENITOURINARY: MUSCULOSKELETAL: Extremities have no gross deformity, no edema, redness, or swelling. No calf swelling NEUROLOGIC:_a/o x 1, GCS 14, confused mentation and slurred speech. Diffuse weakness, 2/5 strength in all 4 extremities, no facial droop, no focal deficits PSYCHIATRIC: Calm and cooperative Limitations: altered mental status Course Vital Signs 04/26/24 04/26/24 04/26/24 17:10 18:00 19:00 Temperature 98.0 F 101.0 F H Pulse Rate 96 96 87 Respiratory 22 22 18 Rate Blood Pressure 64/47 109/75 104/85 O2 Sat by Pulse 94 L 95 99 Oximetry 04/26/24 04/27/24 04/27/24 21:17 01:20 05:59 Temperature Pulse Rate 74 74 79 Respiratory 18 18 16 Rate Blood Pressure 102/55 102/35 104/78 O2 Sat by Pulse 96 97 Oximetry 04/27/24 04/27/24 04/27/24 09:05 11:00 12:00 Temperature 97.9 F Pulse Rate 90 96 84 Respiratory 20 18 20 Rate Blood Pressure 129/71 106/60 100/60 O2 Sat by Pulse 98 96 96 Oximetry 04/27/24 04/27/24 04/27/24 12:43 14:00 14:51 Temperature 98 F Pulse Rate 65 86 86 Respiratory 20 16 16 Rate Blood Pressure 95/64 100/60 90/60 O2 Sat by Pulse 98 96 98 Oximetry 04/27/24 17:02 Temperature 97.6 F Pulse Rate 95 Respiratory 19 Rate Blood Pressure 92/60 O2 Sat by Pulse 97 Oximetry EKG Findings - EKG Comments: EKG Findings:: Sinus rhythm, rate 96 bpm, DC interval 138 ms, QRS duration 78 ms, QT/QTc 336/390 ms, normal axis, artifact present throughout, no clear ST elevations or depressions. Repeat EKG performed at 1737, artifact present throughout, sinus rhythm, 85 bpm, DC interval 147 ms, QRS duration 88 ms, QT/QTc 335/388 ms, normal axis, artifact does yearly limit interpretation however no clear ST elevations or depressions present Medical Decision Making - Medical Decision Making Was pt. sent in by a medical professional or institution (, PA, COPYIST, urgent care, hospital, or shelter...) When possible be specific @Patient sent in by [facility] Did you speak to anyone other than the patient for history (EMS, parent, family, police, friend...)? What history was obtained from this source @ Called [facility] nursing [facility], [facility], and discussed case with her nurse and the nurse practioner that sent patient to the ED, obtained hx as noted in pts HPI Did you review nursing and triage notes (agree or disagree)? Why? @ -I reviewed and agree with nursing and triage notes Were old charts reviewed (outside hosp., previous admission, EMS record, old EKG, old radiological studies, urgent care reports/EKG's, shelter records)? Report findings Medical records reviewed Differential Diagnosis (chest pain, altered mental status, abdominal pain women, abdominal pain men, vaginal bleeding, weakness, fever, dyspnea, syncope, headache, dizziness, GI bleed, back pain, seizure, CVA, palpatations, mental health, musculoskeletal)? Differential Altered Mental Status: Hypoglycemia, DKA, hypercapnia, ETOH, overdose, myxedema coma, HTN encephalopathy, infection, encephalitis, psychosis, intercranial hemorrhage, hepatic encephalopathy,CVA, this is not meant to be an all-inclusive list EKG interpreted by me (3pts min.). @ -As above X-rays interpreted by me (1pt min.). @X-ray consistent with left lower lobe infiltrate CT interpreted by me (1pt min.). CT brain without evidence of hemorrhage or mass effect, CT abdomen pelvis without evidence of obstruction, mass, free air or free fluid U/S interpreted by me (1pt. min.). @ -None done What testing was considered but not performed or refused? (CT, X-rays, U/S, labs)? Why? @A CTA head and neck was considered due to patient reportedly having left-sided weakness at her facility x 4 days however this was not obtained due to JENNIFER and low GFR, additionally no asymmetric weakness was noted on my assessment What meds were considered but not given or refused? Why? @ -None Did you discuss the management of the patient with other professionals (professionals i.e. , PA, COPYIST, lab, RT, psych nurse, manager social responsibility, contractor buyer, teacher, chief juvenile probation officer, gearcase assembler)? Give summary @Yes this case was discussed with Rebeca, patient's nurse practitioner that evaluates her nursing facility, provided HPI, states patient typically oriented to self and place, usually more interactive able to go to the dining facility and dine with other residents, today did not want to eat or drink Was smoking cessation discussed for >3mins.? @ -No Was critical care preformed (if so, how long)? Yes, 45 minutes Were there social determinants of health that impacted care today? How? (Ho melessness, low income, unemployed, alcoholism, drug addiction, transportation, low edu. Level, literacy, decrease access to med. care, usp, rehab)? @ -Mental health diagnoses, has guardian Was there de-escalation of care discussed even if they declined (Discuss DNR or withdrawal of care, Hospice)? @ -No What co-morbidities impacted this encounter? (DM, HTN, Smoking, COPD, CAD, Cancer, CVA, ARF, Chemo, Hep., AIDS, mental health diagnosis, sleep apnea, morbid obesity)? @GERD, hypertension, hyperlipidemia, thyroid disorder Was patient admitted / discharged? Hospital course, mention meds given and route, prescriptions, significant lab abnormalities, going to OR and other pertinent info. @Admission -patient seen and so shortly for arrival, noted to be hypotensive and tachycardic on my assessment. Chronically ill-appearing, toxic appearing, scant yellow crusting on her eyes, confused, is able to state her name, otherwise unable to provide history. Diffusely weak, abdomen is tender in the right upper quadrant, nondistended with active bowel sounds. Lungs are clear to auscultation bilaterally though this is limited by patient's body habitus and positioning. Patient hypotensive on arrival and tachycardic, rectal temperature 101 degrees. Meets severe sepsis criteria. With abdominal tenderness we will begin broad-spectrum antibiotics with cefepime and Flagyl obtain imaging of the abdomen as well as imaging of the head. 2 blood cultures ordered however only 1 was able to be obtained as patient's RUE is not to be used for lab draws. Patient is on a fluid restriction at her facility and has history of CHF so we will gradually fluid resuscitate with 1 litre NS and reassess instead of giving full 30 cc/kg bolus and in order to avoid fluid overload. Reassessed after liter fluid bolus, blood pressure and maps have improved, MAP consistently >65. Pt placed on maintenance fluids at 130 cc/hr. Her mentation is also improving- she is more alert, stating she wants something to eat and drink. Labs significant for leukocytosis white blood count 20.2, patient has JENNIFER with c reatinine 2.91, previously on 04/23/2024 was 1.5 CK8 34, TSH 5.190 Free T41.48, urine with moderate leukocyte esterase. Of note, lactic level was not ordered until after initial fluid bolus, and was 1.6 when checked. X-ray shows possible left lower lobe infiltrate. Vancomycin and azithromycin was added to antibiotic. CT abdomen/pelvis negative for acute infectious process of abdomen, dose note "early attentuations in left lung" that might be early infectious process. Case discussed with HUONG Boswell, accepts patient for admission. Pt admitted in stable condition. Undiagnosed new problem with uncertain prognosis? @ -No Drug Therapy requiring intensive monitoring for toxicity (Heparin, Nitro, Insulin, Cardizem)? @ -No Were any procedures done? @ -No Diagnosis/symptom? Acute encephalopathy, sepsis, pneumonia Acute, or Chronic, or Acute on Chronic? Acute Uncomplicated (without systemic symptoms) or Complicated (systemic symptoms)? Complicated Side effects of treatment? @ -No Exacerbation, Progression, or Severe Exacerbation? @ -No Poses a threat to life or bodily function? How? (Chest pain, [place], AL, pneumonia, PE, COPD, DKA, ARF, appy, cholecystitis, CVA, Diverticulitis, Homicidal, Suicidal, threat to staff... and all critical care pts) @Yes, can progress to septic shock and if allowed to continue untreated - Lab Data Result diagrams: 04/26/24 18:00 04/26/24 18:00 Lab Results 04/26/24 04/26/24 04/26/24 Range/Units 18:00 18:00 18:00 WBC 20.2 H (3.8-10.6) k/uL RBC 3.56 L (3.80-5.40) m/uL Hgb 12.6 (11.4-16.0) gm/dL Hct 39.3 (34.0-46.0) % MCV 110.3 H (80.0-100.0) fL MCH 35.3 H (25.0-35.0) pg MCHC 32.0 (31.0-37.0) g/dL RDW 12.9 (11.5-15.5) % Plt Count 163 (150-450) k/uL MPV 9.2 Neutrophils % 72 % Lymphocytes % 14 % Monocytes % 12 % Eosinophils % 1 % Basophils % 0 % Neutrophils # 14.5 H (1.3-7.7) k/uL Lymphocytes # 2.9 (1.0-4.8) k/uL Monocytes # 2.3 H (0-1.0) k/uL Eosinophils # 0.1 (0-0.7) k/uL Basophils # 0.1 (0-0.2) k/uL Manual Slide Review Performed Macrocytosis Marked A PT 11.1 (10.0-12.5) sec INR 1.0 (<1.2) APTT 19.0 L (22.0-30.0) sec Sodium (137-145) mmol/L Potassium (3.5-5.1) mmol/L Chloride (98-107) mmol/L Carbon Dioxide (22-30) mmol/L Anion Gap mmol/L BUN (7-17) mg/dL Creatinine (0.52-1.04) mg/dL Est GFR (CKD-EPI)AfAm (>60 ml/min/1.73 sqM) Est GFR (CKD-EPI)NonAf (>60 ml/min/1.73 sqM) Glucose (74-99) mg/dL POC Glucose (mg/dL) (70-110) mg/dL POC Glu Metal Fabricator ID Plasma Lactic Acid Hung (0.7-2.0) mmol/L Calcium (8.4-10.2) mg/dL Total Bilirubin (0.2-1.3) mg/dL AST (14-36) U/L ALT (4-34) U/L Alkaline Phosphatase (38-126) U/L Creatine Kinase (30-135) U/L Troponin I (0.000-0.034) ng/mL NT-Pro-B Natriuret Pep pg/mL Total Protein (6.3-8.2) g/dL Albumin (3.5-5.0) g/dL TSH (0.465-4.680) mIU/L Free T4 (0.78-2.19) ng/dL Urine Color Yellow Urine Appearance Cloudy H (Clear) Urine pH 5.0 (5.0-8.0) Ur Specific [place] 1.020 (1.001-1.035) Urine Protein Trace H (Negative) Urine Glucose (UA) Negative (Negative) Urine Ketones Negative (Negative) Urine Blood Negative (Negative) Urine Nitrite Negative (Negative) Urine Bilirubin Negative (Negative) Urine Urobilinogen 3.0 (<2.0) mg/dL Ur Leukocyte Esterase Moderate H (Negative) Urine RBC 2 (0-5) /hpf Urine WBC 19 H (0-5) /hpf Ur Squamous Epith Cells 4 (0-4) /hpf Hyaline Casts 48 H (0-2) /lpf Urine Mucus Rare H (None) /hpf Urine Opiates Screen Not Detected (NotDetected) Ur Oxycodone Screen Not Detected (NotDetected) Urine Methadone Screen Not Detected (NotDetected) Ur Barbiturates Screen Not Detected (NotDetected) U Tricyclic Antidepress Not Detected (NotDetected) Ur Phencyclidine Scrn Not Detected (NotDetected) Ur Amphetamines Screen Not Detected (NotDetected) U Methamphetamines Scrn Not Detected (NotDetected) U Benzodiazepines Scrn Detected H (NotDetected) Urine Cocaine Screen Not Detected (NotDetected) U Marijuana (THC) Screen Not Detected (NotDetected) 04/26/24 04/26/24 04/26/24 Range/Units 18:00 18:00 18:00 WBC (3.8-10.6) k/uL RBC (3.80-5.40) m/uL Hgb (11.4-16.0) gm/dL Hct (34.0-46.0) % MCV (80.0-100.0) fL MCH (25.0-35.0) pg MCHC (31.0-37.0) g/dL RDW (11.5-15.5) % Plt Count (150-450) k/uL MPV Neutrophils % % Lymphocytes % % Monocytes % % Eosinophils % % Basophils % % Neutrophils # (1.3-7.7) k/uL Lymphocytes # (1.0-4.8) k/uL Monocytes # (0-1.0) k/uL Eosinophils # (0-0.7) k/uL Basophils # (0-0.2) k/uL Manual Slide Review Macrocytosis PT (10.0-12.5) sec INR (<1.2) APTT (22.0-30.0) sec Sodium 145 (137-145) mmol/L Potassium 4.5 (3.5-5.1) mmol/L Chloride 105 (98-107) mmol/L Carbon Dioxide 35 H (22-30) mmol/L Anion Gap 5 mmol/L BUN 67 H (7-17) mg/dL Creatinine 2.91 H (0.52-1.04) mg/dL Est GFR (CKD-EPI)AfAm 19 (>60 ml/min/1.73 sqM) Est GFR (CKD-EPI)NonAf 16 (>60 ml/min/1.73 sqM) Glucose 120 H (74-99) mg/dL POC Glucose (mg/dL) (70-110) mg/dL POC Glu Metal Fabricator ID Plasma Lactic Acid Hung (0.7-2.0) mmol/L Calcium 9.2 (8.4-10.2) mg/dL Total Bilirubin 0.7 (0.2-1.3) mg/dL AST 39 H (14-36) U/L ALT 17 (4-34) U/L Alkaline Phosphatase 86 (38-126) U/L Creatine Kinase 834 H (30-135) U/L Troponin I <0.012 (0.000-0.034) ng/mL NT-Pro-B Natriuret Pep 504 pg/mL Total Protein 7.0 (6.3-8.2) g/dL Albumin 3.5 (3.5-5.0) g/dL TSH 5.190 H (0.465-4.680) mIU/L Free T4 1.48 (0.78-2.19) ng/dL Urine Color Urine Appearance (Clear) Urine pH (5.0-8.0) Ur Specific [place] (1.001-1.035) Urine Protein (Negative) Urine Glucose (UA) (Negative) Urine Ketones (Negative) Urine Blood (Negative) Urine Nitrite (Negative) Urine Bilirubin (Negative) Urine Urobilinogen (<2.0) mg/dL Ur Leukocyte Esterase (Negative) Urine RBC (0-5) /hpf Urine WBC (0-5) /hpf Ur Squamous Epith Cells (0-4) /hpf Hyaline Casts (0-2) /lpf Urine Mucus (None) /hpf Urine Opiates Screen (NotDetected) Ur Oxycodone Screen (NotDetected) Urine Methadone Screen (NotDetected) Ur Barbiturates Screen (NotDetected) U Tricyclic Antidepress (NotDetected) Ur Phencyclidine Scrn (NotDetected) Ur Amphetamines Screen (NotDetected) U Methamphetamines Scrn (NotDetected) U Benzodiazepines Scrn (NotDetected) Urine Cocaine Screen (NotDetected) U Marijuana (THC) Screen (NotDetected) 04/26/24 04/26/24 Range/Units 18:01 21:11 WBC (3.8-10.6) k/uL RBC (3.80-5.40) m/uL Hgb (11.4-16.0) gm/dL Hct (34.0-46.0) % MCV (80.0-100.0) fL MCH (25.0-35.0) pg MCHC (31.0-37.0) g/dL RDW (11.5-15.5) % Plt Count (150-450) k/uL MPV Neutrophils % % Lymphocytes % % Monocytes % % Eosinophils % % Basophils % % Neutrophils # (1.3-7.7) k/uL Lymphocytes # (1.0-4.8) k/uL Monocytes # (0-1.0) k/uL Eosinophils # (0-0.7) k/uL Basophils # (0-0.2) k/uL Manual Slide Review Macrocytosis PT (10.0-12.5) sec INR (<1.2) APTT (22.0-30.0) sec Sodium (137-145) mmol/L Potassium (3.5-5.1) mmol/L Chloride (98-107) mmol/L Carbon Dioxide (22-30) mmol/L Anion Gap mmol/L BUN (7-17) mg/dL Creatinine (0.52-1.04) mg/dL Est GFR (CKD-EPI)AfAm (>60 ml/min/1.73 sqM) Est GFR (CKD-EPI)NonAf (>60 ml/min/1.73 sqM) Glucose (74-99) mg/dL POC Glucose (mg/dL) 119 H (70-110) mg/dL POC Glu Metal Fabricator ID [place] Plasma Lactic Acid Hung 1.6 (0.7-2.0) mmol/L Calcium (8.4-10.2) mg/dL Total Bilirubin (0.2-1.3) mg/dL AST (14-36) U/L ALT (4-34) U/L Alkaline Phosphatase (38-126) U/L Creatine Kinase (30-135) U/L Troponin I (0.000-0.034) ng/mL NT-Pro-B Natriuret Pep pg/mL Total Protein (6.3-8.2) g/dL Albumin (3.5-5.0) g/dL TSH (0.465-4.680) mIU/L Free T4 (0.78-2.19) ng/dL Urine Color Urine Appearance (Clear) Urine pH (5.0-8.0) Ur Specific [place] (1.001-1.035) Urine Protein (Negative) Urine Glucose (UA) (Negative) Urine Ketones (Negative) Urine Blood (Negative) Urine Nitrite (Negative) Urine Bilirubin (Negative) Urine Urobilinogen (<2.0) mg/dL Ur Leukocyte Esterase (Negative) Urine RBC (0-5) /hpf Urine WBC (0-5) /hpf Ur Squamous Epith Cells (0-4) /hpf Hyaline Casts (0-2) /lpf Urine Mucus (None) /hpf Urine Opiates Screen (NotDetected) Ur Oxycodone Screen (NotDetected) Urine Methadone Screen (NotDetected) Ur Barbiturates Screen (NotDetected) U Tricyclic Antidepress (NotDetected) Ur Phencyclidine Scrn (NotDetected) Ur Amphetamines Screen (NotDetected) U Methamphetamines Scrn (NotDetected) U Benzodiazepines Scrn (NotDetected) Urine Cocaine Screen (NotDetected) U Marijuana (THC) Screen (NotDetected) Disposition Clinical Impression: Acute encephalopathy, Sepsis, Pneumonia Disposition: ADMITTED IP TO THIS HOSP Condition: Stable
[2024-04-26 18:02] LABS: Glucose,Whole Blood 119 mg/dL (70-110)
[2024-04-26] MEDS: SODIUM CHLORIDE 0.9% 1,000 ML IV ONE ×2 (18:05→19:37)
[2024-04-26 18:26] LABS: Basophils # (A) 0.1 k/uL (0-0.2); Basophils % (A) 0 %; Eosinophils # (A) 0.1 k/uL (0-0.7); Eosinophils % (A) 1 %; HCT 39.3 % (34.0-46.0); HGB 12.6 gm/dL (11.4-16.0); Lymphocytes # (A) 2.9 k/uL (1.0-4.8); Lymphocytes % (A) 14 %; MCH 35.3 pg (25.0-35.0); MCV 110.3 fL (80.0-100.0); Macrocytosis Marked; Mean Platelet Volume 9.2; Monocytes # (A) 2.3 k/uL (0-1.0); Monocytes % (A) 12 %; Neutrophils # (A) 14.5 k/uL (1.3-7.7); Neutrophils % (A) 72 %; Platelet Count 163 k/uL (150-450); RBC 3.56 m/uL (3.80-5.40); RDW 12.9 % (11.5-15.5); WBC 20.2 k/uL (3.8-10.6)
[2024-04-26 18:28] LABS: ALT 17 U/L (4-34); AST 39 U/L (14-36); African American GFR (CKD) 19 (>60 ml/min/1.73 sqM); Albumin 3.5 g/dL (3.5-5.0); Alkaline Phosphatase 86 U/L (38-126); Anion Gap 5 mmol/L; Blood Urea Nitrogen 67 mg/dL (7-17); Calcium 9.2 mg/dL (8.4-10.2); Carbon Dioxide 35 mmol/L (22-30); Chloride 105 mmol/L (98-107); Creatine Kinase 834 U/L (30-135); Glucose 120 mg/dL (74-99); Non-African American GFR(CKD) 16 (>60 ml/min/1.73 sqM); Potassium 4.5 mmol/L (3.5-5.1); Sodium 145 mmol/L (137-145); Total Bilirubin 0.7 mg/dL (0.2-1.3)
[2024-04-26 18:34] LABS: Prothrombin Time 11.1 sec (10.0-12.5)
[2024-04-26] MEDS: CEFEPIME 2 GM in SODIUM CHLORIDE 0.9% 100 ML IVPB STA (18:54)
[2024-04-26] MEDS: SODIUM CHLORIDE 0.9% 1,000 ML IV SCH (18:57)
[2024-04-26] MEDS: metroNIDAZOLE-NS PMX 500 MG in SALINE 1 100ML.BAG IVPB STA (19:04)
[2024-04-26 19:34] LABS: Appearance,Urine Cloudy (Clear); Bilirubin,Urine Negative (Negative); Blood,Urine Negative (Negative); Color,Urine Yellow; Glucose,Urine (UA) Negative (Negative); Hyaline Casts,Urine 48 /lpf (0-2); Ketones,Urine Negative (Negative); Leukocyte Esterase,Urine Moderate (Negative); Mucus,Urine Rare /hpf; Nitrite,Urine Negative (Negative); Protein,Urine Trace (Negative); RBC,Urine 2 /hpf (0-5); Squamous Epithelial Cell,Urine 4 /hpf (0-4); WBC,Urine 19 /hpf (0-5)
[2024-04-26 19:43] LABS: T4, Free (Free Thyroxine) 1.48 ng/dL (0.78-2.19)
[2024-04-26 19:47] LABS: Amphetamine Screen,Urine Not Detected (NotDetected); Barbiturate Screen,Urine Not Detected (NotDetected); Benzodiazepines Screen,Urine Detected (NotDetected); Cocaine Screen,Urine Not Detected (NotDetected); Methadone Screen, Urine Not Detected (NotDetected); Opiate Screen,Urine Not Detected (NotDetected); Oxycodone Screen, Urine Not Detected (NotDetected); Phencyclidine Screen,Urine Not Detected (NotDetected); Tricyclic Antidepressant,Urine Not Detected (NotDetected); Urn Cannabinoid Scrn Not Detected (NotDetected)
--- NOTE | 2024-04-26 20:12 | XR ---
EXAMINATION TYPE: XR chest 1V portable DATE OF EXAM: 04/26/2024 8:04 PM COMPARISON: Chest radiographs from 03/23/2023 CLINICAL INDICATION: Female, 69 years old with history of altered mental status; [facility] TECHNIQUE: XR chest 1V portable Frontal view of the chest. FINDINGS: Lungs/Pleura: Airspace opacities in the left lung base. The patient is rotated. Possible airspace opa cities on the left lung. There is no evidence of pleural effusion, focal consolidation, or pneumothor ax. Pulmonary vascularity: Unremarkable. Heart/mediastinum: Cardiomediastinal silhouette is unremarkable. Musculoskeletal: No acute osseous pathology. IMPRESSION: Small left pleural effusion versus prominent left epicardial fat pad. [facility], , 04/26/2024 8:10 PM
[2024-04-26] MEDS ORDERED: VANCOMYCIN IV PER PHARMACY 1 EACH MISC MISCELLANE PRN (21:17)
[2024-04-26] MEDS: ACETAMINOPHEN IV (For NPO) 1,000 MG in EMPTY BAG 1 BAG IVPB STA (21:21)
[2024-04-26] MEDS: AZITHROMYCIN 500 MG in SODIUM CHLORIDE 0.9% 250 ML IVPB STA (22:11)
--- NOTE | 2024-04-26 22:13 | CT ---
EXAMINATION TYPE: CT brain wo con CT DLP: 1198.4 mGycm, Automated exposure control for dose reduction was used. DATE OF EXAM: 04/26/2024 9:45 PM COMPARISON: CT head 10/22/2012. CLINICAL INDICATION:Female, 69 years old with history of Altered mental status, AMS. TECHNIQUE: Brain: Axial CT images of the brain were obtained with coronal and sagittal reformats created and rev iewed. Contrast used: None. Oral contrast used: None. FINDINGS: Brain: Extra-axial spaces: No abnormal extra-axial fluid collections. Ventricular system: Dilatation in proportion to cerebral atrophy. Cerebral parenchyma: Cerebral atrophy. No acute intraparenchymal hemorrhage or mass effect. The guo -white junction is well differentiated. Cerebellum: Unremarkable. Mass effect: No evidence of midline shift. Intracranial vasculature: unremarkable Soft tissues: Normal. Calvarium/osseous structures: No depressed skull fracture. Paranasal sinuses and mastoid air cells: Mild scattered paranasal sinus disease. Visualized orbits: Orbital contents are intact. IMPRESSION: No acute intracranial process. [facility], , 04/26/2024 10:11 PM
--- NOTE | 2024-04-26 22:21 | CT ---
EXAMINATION TYPE: CT abdomen pelvis wo con CT DLP: 2830.2 mGycm, Automated exposure control for dose reduction was used. DATE OF EXAM: 04/26/2024 10:01 PM COMPARISON: None. CLINICAL INDICATION:Female, 69 years old with history of diffuse abdominal pain; Diffuse abdominal pa in. TECHNIQUE: Axial CT abdomen pelvis wo con;Sagittal and coronal reformats were created on a separate workstation. Contrast used: mL of , (none if empty) Oral contrast used: without Oral Contrast (none if empty) FINDINGS: LOWER CHEST: Bronchial wall thickening in the lower lobes with bibasilar atelectasis/scarring. Attenu ation in the left lung base may represent small consolidative changes. ABDOMEN LIVER: Unremarkable GALLBLADDER AND BILE DUCTS: Small gallstone noted within the gallbladder which is otherwise unremarka ble. No biliary ductal dilatation. PANCREAS: Unremarkable. SPLEEN: Unremarkable. ADRENAL GLANDS: Unremarkable. KIDNEYS AND URETERS: No evidence of hydronephrosis or renal calculus. The ureters are unremarkable. PELVIS BLADDER: Decompressed with Albright catheter in place. REPRODUCTIVE: Small calcifications noted within the uterus likely related to underlying fibroid brandt es. ABDOMEN & PELVIS STOMACH AND BOWEL: Stomach is grossly unremarkable. Small bowel is of normal caliber. Contrast is see n within the lumen of the large bowel which may be related to recent fluoroscopy or other enteric con tents. No evidence of bowel obstruction. PERITONEUM/RETROPERITONEUM: No evidence of pneumoperitoneum or free fluid. VASCULATURE: No evidence of aortic aneurysm. MUSCULOSKELETAL: No acute osseous abnormalities LYMPH NODES: No gross evidence for lymphadenopathy. SOFT TISSUE/ABDOMINAL WALL: Small fat filled umbilical hernia. IMPRESSION: 1. No acute intra-abdominal/pelvic process. 2. Cholelithiasis. 3. Attenuations in left lung may represent small consolidative changes secondary to early infectious process. Although clinical evaluation. [facility], , 04/26/2024 10:19 PM
[2024-04-26] MEDS: VANCOMYCIN 2,000 MG in SODIUM CHLORIDE 0.9% 500 ML 500 ML IVPB ONE (22:40)
[2024-04-26] MEDS ORDERED: NALOXONE 0.4 MG/ML 1 ML VIAL IV PRN (23:04)
[2024-04-26] MEDS ORDERED: IPRATROPIUM-ALBUTEROL 3 ML NEB INHALATION PRN (23:53)
[2024-04-26] MEDS ORDERED: MAGNESIUM HYDROXIDE 2,400 MG/30 ML CUP PO PRN (23:53)
[2024-04-27] MEDS ORDERED: MAG HYDROX/AL HYDROX/SIMETH 30 ML CUP PO PRN
[2024-04-27] MEDS: haloperidoL 5 MG TAB PO SCH (01:19)
[2024-04-27] MEDS: LEVOTHYROXINE 100 MCG TAB PO SCH (08:41)
[2024-04-27] MEDS: POTASSIUM CHLORIDE ER 10 MEQ TAB.ER.PRT PO SCH (08:41)
[2024-04-27] MEDS: DOCUSATE 100 MG CAP PO SCH (08:41)
[2024-04-27] MEDS: ALPRAZolam 0.25 MG TAB PO SCH (08:41)
[2024-04-27] MEDS: LOSARTAN 50 MG TAB PO SCH (08:41)
[2024-04-27] MEDS: GABAPENTIN 100 MG CAP PO SCH (08:41)
[2024-04-27] MEDS: FAMOTIDINE 20 MG TAB PO SCH (08:41)
[2024-04-27] MEDS: DULoxetine HCL 60 MG CAPSULE.DR PO SCH (08:41)
[2024-04-27] MEDS: CHOLECALCIFEROL 25 MCG (1000 IU) TABLET PO SCH (08:42)
[2024-04-27] MEDS: ARIPiprazole 10 MG TAB PO SCH (08:53)
[2024-04-27] MEDS ORDERED: NA PHOS,M-B/NA PHOS,DI-BA 133 ML ENEMA RECTAL PRN (09:00)
[2024-04-27] MEDS ORDERED: bisacodyL 10 MG SUPP RECTAL PRN (09:00)
[2024-04-27] MEDS ORDERED: NON FORMULARY DRUG (Caldesene Powder 1 APPLIC) TOPICAL SCH (09:00)
[2024-04-27] MEDS ORDERED: HYDROPHILIC TOPICAL SCH (09:00)
[2024-04-27] MEDS ORDERED: CALCIUM CITRATE 200 MG PO SCH (12:00)
[2024-04-27] MEDS ORDERED: IPRATROPIUM-ALBUTEROL 3 ML NEB INHALATION PRN (13:54)
[2024-04-27] MEDS: CEFEPIME 2 GM in SODIUM CHLORIDE 0.9% 100 ML IVPB SCH (14:26)
[2024-04-27] MEDS: PANTOPRAZOLE 40 MG/10 ML VIAL IVP SCH (14:26)
[2024-04-27] MEDS: VANCOMYCIN 1,750 MG in SODIUM CHLORIDE 0.9% 500 ML 500 ML IVPB ONE (16:57)
[2024-04-27] MEDS: SODIUM CHLORIDE 0.9% 500 ML 500 ML IV ONE (19:28)
[2024-04-27] MEDS: IPRATROPIUM-ALBUTEROL 3 ML NEB INHALATION SCH (19:56)
[2024-04-27] MEDS: SODIUM CHLORIDE 0.9% 1,000 ML IV ONE (20:23)
[2024-04-27] MEDS: NOREPINEPHRINE 4 MG in SODIUM CHLORIDE 0.9% 250 ML IV SCH (21:47)
--- NOTE | 2024-04-27 21:53 | P.CONS ---
History of Present Illness - Reason for Consult Consult date: 04/27/24 Sepsis Requesting physician: Niru Hernandez - Chief Complaint Mental status changes x 1 day - History of Present Illness Patient is a 69-year-old female with a past medical history significant for hypertension hyperlipidemia reflux thyroid disorder anxiety depression, patient was brought into the hospital from the local senior care for evaluation of mental status changes that apparently has been admitted from the baseline and hypotension patient apparently did have a UA 4 days ago that was positive though subsequent culture were negative and the patient was noticed to have some left-sided weakness and febrile for the patient was brought into the hospital on arrival to the ER the patient did have a temperature of 101 degrees for night patient was not tachycardic hypotensive mildly hypoxic currently on 2.5 L nasal cannula oxygen patient did have a white count of 20.2 with left shift BUN and creatinine has been mildly elevated AST was elevated urine is mildly positive urine drug screen positive for benzo patient did have a chest x-ray small left effusion versus pulmonary left epicardial fat pad, patient did have a abdominal pelvis CT there was some consolidative changes in the lower lobes cholelithiasis no acute intra-abdominal process patient was started on cefepime and vancomycin infectious disease was consulted regarding sepsis most information has been extracted from review the chart talking to nursing staff patient himself not a very good historian Review of Systems Positive points has been mentioned in HPI complete review could not be obtained because of his underlying mental status Past Medical History Past Medical History: GERD/Reflux, Hyperlipidemia, Hypertension, Thyroid Disorder History of Any Multi-Drug Resistant Organisms: None Reported Past Surgical History: Breast Surgery, Tubal Ligation Additional Past Surgical History / Comment(s): BREAST BX'S- CAREGIVER UNSURE OF OTHER SURGERYS Past Anesthesia/Blood Transfusion Reactions: Unable to Obtain Past Psychological History: Anxiety, Depression, Schizophrenia Smoking Status: Never smoker Past Alcohol Use History: None Reported Past Drug Use History: None Reported Medications and Allergies Home Medications Medication Instructions Recorded Confirmed Type ARIPiprazole [Abilify] 30 mg PO DAILY@0805/16/22 04/26/24 History Calcium Citrate 200mg 1 tab PO DAILY@1200 05/16/22 04/26/24 History DULoxetine HCL [Cymbalta] 60 mg PO DAILY@0700 05/16/22 04/26/24 History Levothyroxine Sodium [Synthroid] 100 mcg PO DAILY@0800 05/16/22 04/26/24 History Lovastatin [Mevacor] 20 mg PO HS@2100 05/16/22 04/26/24 History Acetaminophen Tab [Tylenol] 650 mg PO Q6HR PRN tab 05/19/22 04/26/24 Rx Alendronate Sodium [Fosamax] 70 mg PO SA@0400 03/19/23 04/26/24 History Cholecalciferol [Vitamin D3 (25 50 mcg PO DAILY@0800 03/19/23 04/26/24 History Mcg = 1000 Iu)] Diclofenac Sodium Gel [Voltaren 1% 1 applic TOPICAL BID@0800,1700 03/19/23 04/26/24 History Gel] Furosemide [Lasix] 40 mg PO BID@0800,1700 03/19/23 04/26/24 History Ipratropium-Albuterol Nebulize 3 ml INHALATION RT-Q6H PRN 03/19/23 04/26/24 History [Duoneb 0.5 mg-3 mg/3 ml Soln] Loperamide HCl [Imodium A-D] 2 - 4 mg PO QID PRN 03/19/23 04/26/24 History Losartan [Cozaar] 50 mg PO DAILY@0800 03/19/23 04/26/24 History Mag Hydrox/Al Hydrox/Simeth 30 ml PO Q6H PRN 03/19/23 04/26/24 History [Maalox] Magnesium Hydroxide [Milk of 7,200 mg PO Q48H PRN 03/19/23 04/26/24 History Magnesia Concentrate] Na Phos,M-B/Na Phos,Di-Ba [Fleet 133 ml RECTAL DAILY PRN 03/19/23 04/26/24 History Adult] guaiFENesin [guaiFENesin Oral 200 mg PO Q4H PRN 03/19/23 04/26/24 History Solution] ALPRAZolam [Xanax] 0.25 mg PO BID@0800,1700 #6 tab 03/25/23 04/26/24 Rx Gabapentin [Neurontin] 100 mg PO BID@0800,1700 #6 cap 03/25/23 04/26/24 Rx Caldesene Powder 1 applic TOPICAL BID 04/26/24 04/26/24 History Divalproex Sodium [Depakote] 500 mg PO TID@0800,1400,2200 04/26/24 04/26/24 History Docusate [Colace] 100 mg PO BID@0800,1700 04/26/24 04/26/24 History Ensure Enlive 120 ml PO DAILY@0800 04/26/24 04/26/24 History Hydrophilic Cream [Triad (Kerodex 1 applic TOPICAL TID 04/26/24 04/26/24 History geq)] Nystatin 100,000Unit/gm Cream 1 applic TOPICAL TID 04/26/24 04/26/24 History [Mycostatin Cream] Potassium Chloride ER [K-Dur 10] 10 meq PO DAILY@0800 04/26/24 04/26/24 History bisacodyL [Dulcolax] 10 mg RECTAL DAILY PRN 04/26/24 04/26/24 History haloperidoL [Haldol] 10 mg PO TID@0800,1400,2200 04/26/24 04/26/24 History Allergies Allergy/AdvReac Type Severity Reaction Status Date / Time Penicillins Allergy Unknown Unknown Verified 04/26/24 17:52 Childhood Physical Exam Vitals: Vital Signs Temp Pulse Pulse Resp BP BP Pulse Ox 04/27/24 20:01 78 90/38 04/27/24 19:50 83/44 04/27/24 19:48 83/44 04/27/24 19:36 98.2 F 55 L 15 67/42 98 04/27/24 18:55 56 L 19 78/45 99 04/27/24 17:02 97.6 F 95 19 92/60 97 04/27/24 14:51 86 16 90/60 98 04/27/24 14:00 86 16 100/60 96 04/27/24 12:43 98 F 65 20 95/64 98 04/27/24 12:00 84 20 100/60 96 04/27/24 11:00 96 18 106/60 96 04/27/24 09:05 97.9 F 90 20 129/71 98 04/27/24 05:59 79 16 104/78 97 04/27/24 01:20 74 18 102/35 Intake and Output 04/27/24 04/27/24 04/27/24 06:59 14:59 22:59 Output Total 300 Balance -300 Output: Urine 300 GENERAL DESCRIPTION: Elderly female lying in bed, no distress. No tachypnea or accessory muscle of respiration use. HEENT: Shows Pallor , no scleral icterus. Oral mucous membrane is dry. NECK: Trachea central, no thyromegaly. LUNGS: Unlabored breathing. Decreased breath sound at the base HEART: S1, S2, regular rate and rhythm. No loud murmur ABDOMEN: Soft, no tenderness , guarding or rigidity, no organomegaly EXTREMITIES: No edema of feet. SKIN: No rash, no masses palpable. NEUROLOGICAL: The patient is lethargic but arousable mood and affect normal. Results CBC & Chem 7: 04/29/24 05:12 04/30/24 06:23 Labs: Microbiology - Last 24 Hours (Table) 04/26/24 18:00 Urine Culture - Final Urine,Voided Assessment and Plan (1) Penicillin allergy Current Visit: Yes Status: Acute Code(s): Z88.0 - ALLERGY STATUS TO PENICILLIN SNOMED Code(s): 28699520 (2) Pneumonia Current Visit: Yes Status: Acute Code(s): J18.9 - PNEUMONIA, UNSPECIFIED ORGANISM SNOMED Code(s): 787024795 (3) Sepsis Current Visit: Yes Status: Acute Code(s): A41.9 - SEPSIS, UNSPECIFIED ORGANISM SNOMED Code(s): 76932988 Plan: 1patient kit [facility] hospital with sepsis in this patient who did have a fever elevated white count source likely pneumonia as the patient did have a negative UA noticed to have some consolidative changes in the lung bases on the CT with no intra-abdominal pathology no evidence of any cellulitis or other focus of infection 2-patient with a penicillin allergy that would limit the number of antibiotics safe to use 3-patient with renal insufficiency and high risk of nephrotoxicity 4-patient will be continued on cefepime however discontinue vancomycin to decrease risk of nephrotoxicity We will follow on clinical condition and cultures to further adjust medication if needed Thank you for this consultation we will follow the patient along with you Dictation was produced using [employer] dictation software. please excuse any grammatical, word or spelling errors. Time with Patient: Greater than 30
[2024-04-27] MEDS: ATORVASTATIN 10 MG TAB PO SCH (22:08)
[2024-04-27] MEDS: DIVALPROEX 500 MG TABLET.DR PO SCH (22:09)
[2024-04-27] MEDS: HEPARIN SODIUM,PORCINE 5,000 UNIT/ML 1 ML VIAL SQ SCH (22:42)
--- NOTE | 2024-04-27 23:52 | HP ---
HISTORY AND PHYSICAL CHIEF COMPLAINT: Change in mental status and fever. HISTORY OF PRESENT ILLNESS: This is a 69-year-old woman, who was referred from [facility] with a four- day change in mental status and as well as some fever. The patient is usually active, but diffuse weakness was also noted currently. Apparently, UA was abnormal a few days ago and the patient admitted for further evaluation and treatment. A CT abdomen showed cholelithiasis and possibly left lung pneumonia. The CT of the brain showed no acute intracranial process. There is no history of any rigors, or chills at this time. PAST MEDICAL HISTORY: Reviewed include GERD, hypertension, hyperlipidemia, schizophrenia. Rest of the history and rest of the chart is also reviewed. HOME MEDICATIONS: Reviewed include Dulcolax. Dose and rest of medications reviewed. ALLERGIES: Penicillin. FAMILY HISTORY: Could not be taken. The patient is slightly drowsy. SOCIAL HISTORY: Could not be taken. The patient is slightly drowsy. REVIEW OF SYSTEMS: Could not be taken. The patient is slightly drowsy. PHYSICAL EXAMINATION: VITAL SIGNS: Pulse is 65, blood pressure 95/64, respirations 20. HEENT: Conjunctivae normal. NECK: No JVD. CARDIOVASCULAR: S1, S2. RESPIRATIONS: Breath sounds diminished at the bases. A few scattered rhonchi and crackles. ABDOMEN: Soft, obese. LEGS: No edema. No cyanosis. Diffusely weak. The patient is morbidly obese. BMI is 46. LABORATORY DATA: Reviewed. ASSESSMENT: 1. Possible acute bilateral pneumonia, possibly aspiration with sepsis present on admission. 2. Acute renal failure with acute tubular necrosis. 3. History of recent urinary tract infection. 4. Change in mental status, metabolic encephalopathy, rule out acute stroke. 5. Hypertension. 6. Hyperlipidemia. 7. History of schizophrenia. RECOMMENDATIONS AND DISCUSSION: This is a 69-year-old woman, who presented with multiple complex medical issues, we will monitor the patient closely. I would recommend broad-spectrum IV antibiotics. The patient is started on cefepime. I would also recommend Infectious Disease and Neurology evaluations. Obtain the cultures. Resume the home medications. Prognosis guarded because of multiple complex medical issues. See orders for further details. MMODL / IJN: [id number] /
[2024-04-28 01:25] LABS: Glucose,Whole Blood 105 mg/dL (70-110)
[2024-04-28] MEDS ORDERED: NON FORMULARY DRUG (Alendronate Sodium [Fosamax] 70 MG Tablet) PO SCH (04:00)
[2024-04-28 07:00] LABS: Basophils % (A) 0 %; Eosinophils # (A) 0.3 k/uL (0-0.7); Eosinophils % (A) 3 %; HCT 36.3 % (34.0-46.0); HGB 11.5 gm/dL (11.4-16.0); Hypochromasia Slight; Lymphocytes % (A) 19 %; MCH 35.4 pg (25.0-35.0); MCHC 31.5 g/dL (31.0-37.0); MCV 112.2 fL (80.0-100.0); Macrocytosis Marked; Mean Platelet Volume 8.7; Monocytes # (A) 1.2 k/uL (0-1.0); Monocytes % (A) 11 %; Neutrophils # (A) 7.3 k/uL (1.3-7.7); Neutrophils % (A) 66 %; Platelet Count 165 k/uL (150-450); RBC 3.24 m/uL (3.80-5.40); RDW 12.6 % (11.5-15.5)
[2024-04-28 07:16] LABS: African American GFR (CKD) 63 (>60 ml/min/1.73 sqM); Anion Gap 4 mmol/L; Blood Urea Nitrogen 37 mg/dL (7-17); Calcium 8.7 mg/dL (8.4-10.2); Carbon Dioxide 27 mmol/L (22-30); Chloride 112 mmol/L (98-107); Glucose 113 mg/dL (74-99); Non-African American GFR(CKD) 55 (>60 ml/min/1.73 sqM); Potassium 3.9 mmol/L (3.5-5.1); Sodium 143 mmol/L (137-145)
[2024-04-28 07:21] LABS: Vancomycin,Random 24.6 ug/mL
[2024-04-28] MEDS: FAMOTIDINE 20 MG TAB PO SCH (08:50)
[2024-04-28] MEDS ORDERED: guaiFENesin SYRUP 100MG/5ML 200 MG/10 ML CUP PO PRN (09:11)
[2024-04-28] MEDS ORDERED: ACETAMINOPHEN TAB 325 MG TAB PO PRN (09:11)
[2024-04-28] MEDS: SODIUM CHLORIDE 0.9% 1,000 ML IV SCH (09:59)
--- NOTE | 2024-04-28 12:18 | P.CNPUL ---
History of Present Illness Consult date: 04/28/24 Chief complaint: Sepsis History of present illness: On 04/28/2024, patient is being seen in consultation for sepsis and hypotension. The patient presented to the Emergency Department yesterday because of altered mentation. Apparently, the patient was being treated for urine tract infection or diagnosed having UTI an outpatient basis. The patient was lethargic, weak, debilitated and hypotensive. The patient received a total of 4.5 L of IV fluids. Subsequently, the patient was also started on pressors and the patient is currently on low-dose norepinephrine running at 0.03 mcg/kg/min. Blood pressure is stable for now. Her initial white cell count was 20 dropped down to 11. She had an acute kidney injury with a creatinine of 2.9, creatinine today is down to 1.06. The patient is currently on cefepime and vancomycin. UA is mildly abnormal. Chest x-ray shows some limited left basilar atelectasis. The patient remains on room air oxygen. No significant respiratory distress. Minimal cough. Minimal chest congestion. No pleurisy. No hemoptysis. No nausea. No vomiting. No abdominal pain. No chest pain. She is known to have schizoaffective disorder and she is a senior living resident. Awaiting cultures. Mental status improved significantly compared to yesterday. The patient is able to communicate. Review of Systems Constitutional: Reports fatigue, Reports fever, Reports lethargy, Reports weakness Eyes: denies as per HPI, denies blurred vision, denies bulging eye, denies decreased vision, denies diplopia, denies discharge, denies dry eye, denies irritation, denies itching, denies pain, denies photophobia, denies loss of peripheral vision, denies loss of vision, denies tunnel vision/blind spots Ears: deny: decreased hearing, ear discharge, earache, tinnitus Ears, nose, mouth and throat: Reports as per HPI Breasts: absent: as per HPI, change in shape, gynecomastia, masses, nipple discharge, pain, skin changes, swelling Cardiovascular: Reports dyspnea on exertion Respiratory: Reports as per HPI Gastrointestinal: Reports as per HPI Genitourinary: Reports as per HPI Menstruation: Reports as per HPI Musculoskeletal: Reports as per HPI Musculoskeletal: absent: ankle pain, ankle stiffness, ankle swelling, as per HPI, elbow pain, elbow stiffness, elbow swelling, foot pain, foot stiffness, foot swelling, hand pain, hand stiffness, hand swelling, hip pain, hip stiffness, hip swelling, knee pain, knee stiffness, knee swelling, shoulder pain, shoulder stiffness, shoulder swelling, wrist pain, wrist stiffness, wrist swelling Integumentary: Reports as per HPI Neurological: Reports as per HPI, Reports change in mentation, Reports confusion Psychiatric: Reports as per HPI, Reports confusion Endocrine: Reports as per HPI Hematologic/Lymphatic: Reports as per HPI Allergic/Immunologic: Reports as per HPI Past Medical History Past Medical History: GERD/Reflux, Hyperlipidemia, Hypertension, Thyroid D isorder History of Any Multi-Drug Resistant Organisms: None Reported Past Surgical History: Breast Surgery, Tubal Ligation Additional Past Surgical History / Comment(s): BREAST BX'S- CAREGIVER UNSURE OF OTHER SURGERYS Past Anesthesia/Blood Transfusion Reactions: Unable to Obtain Past Psychological History: Anxiety, Depression, Schizophrenia Smoking Status: Unknown if ever smoked Past Alcohol Use History: None Reported Past Drug Use History: None Reported Medications and Allergies Home Medications Medication Instructions Recorded Confirmed Type ARIPiprazole [Abilify] 30 mg PO DAILY@0800 05/16/22 04/26/24 History Calcium Citrate 200mg 1 tab PO DAILY@1200 05/16/22 04/26/24 History DULoxetine HCL [Cymbalta] 60 mg PO DAILY@0700 05/16/22 04/26/24 History Levothyroxine Sodium [Synthroid] 100 mcg PO DAILY@0800 05/16/22 04/26/24 History Lovastatin [Mevacor] 20 mg PO HS@2100 05/16/22 04/26/24 History Acetaminophen Tab [Tylenol] 650 mg PO Q6HR PRN tab 05/19/22 04/26/24 Rx Alendronate Sodium [Fosamax] 70 mg PO SA@0400 03/19/23 04/26/24 History Cholecalciferol [Vitamin D3 (25 50 mcg PO DAILY@0800 03/19/23 04/26/24 History Mcg = 1000 Iu)] Diclofenac Sodium Gel [Voltaren 1% 1 applic TOPICAL BID@0800,1700 03/19/23 04/26/24 History Gel] Furosemide [Lasix] 40 mg PO BID@0800,1700 03/19/23 04/26/24 History Ipratropium-Albuterol Nebulize 3 ml INHALATION RT-Q6H PRN 03/19/23 04/26/24 History [Duoneb 0.5 mg-3 mg/3 ml Soln] Loperamide HCl [Imodium A-D] 2 - 4 mg PO QID PRN 03/19/23 04/26/24 History Losartan [Cozaar] 50 mg PO DAILY@0800 03/19/23 04/26/24 History Mag Hydrox/Al Hydrox/Simeth 30 ml PO Q6H PRN 03/19/23 04/26/24 History [Maalox] Magnesium Hydroxide [Milk of 7,200 mg PO Q48H PRN 03/19/23 04/26/24 History Magnesia Concentrate] Na Phos,M-B/Na Phos,Di-Ba [Fleet 133 ml RECTAL DAILY PRN 03/19/23 04/26/24 History Adult] guaiFENesin [guaiFENesin Oral 200 mg PO Q4H PRN 03/19/23 04/26/24 History Solution] ALPRAZolam [Xanax] 0.25 mg PO BID@0800,1700 #6 tab 03/25/23 04/26/24 Rx Gabapentin [Neurontin] 100 mg PO BID@0800,1700 #6 cap 03/25/23 04/26/24 Rx Caldesene Powder 1 applic TOPICAL BID 04/26/24 04/26/24 History Divalproex Sodium [Depakote] 500 mg PO TID@0800,1400,2200 04/26/24 04/26/24 History Docusate [Colace] 100 mg PO BID@0800,1700 04/26/24 04/26/24 History Ensure Enlive 120 ml PO DAILY@0800 04/26/24 04/26/24 History Hydrophilic Cream [Triad (Kerodex 1 applic TOPICAL TID 04/26/24 04/26/24 History geq)] Nystatin 100,000Unit/gm Cream 1 applic TOPICAL TID 04/26/24 04/26/24 History [Mycostatin Cream] Potassium Chloride ER [K-Dur 10] 10 meq PO DAILY@0800 04/26/24 04/26/24 History bisacodyL [Dulcolax] 10 mg RECTAL DAILY PRN 04/26/24 04/26/24 History haloperidoL [Haldol] 10 mg PO TID@0800,1400,2200 04/26/24 04/26/24 History Allergies Allergy/AdvReac Type Severity Reaction Status Date / Time Penicillins Allergy Unknown Unknown Verified 04/26/24 17:52 Childhood Physical Exam Vitals: Vital Signs Temp Pulse Pulse Resp BP BP Pulse Ox 04/28/24 08:39 100 04/28/24 08:37 99 04/28/24 08:30 109 H 144/81 97 04/28/24 08:15 123 H 113/77 96 04/28/24 08:00 98.1 F 124 H 20 129/102 96 04/28/24 07:45 123 H 99/84 96 04/28/24 07:30 114 H 100/82 97 04/28/24 07:15 110 H 117/69 98 04/28/24 07:00 104 H 13 115/88 98 04/28/24 06:45 97 21 113/80 99 04/28/24 06:30 15 108/90 100 04/28/24 06:15 116/93 100 04/28/24 06:00 80 22 96/41 99 04/28/24 05:45 16 109/50 99 04/28/24 05:30 68 16 108/84 100 04/28/24 05:15 70 10 L 106/50 100 04/28/24 05:00 67 8 L 120/40 99 04/28/24 04:45 69 8 L 112/59 99 04/28/24 04:30 37 H 113/59 100 04/28/24 04:15 29 H 108/90 100 04/28/24 04:00 98.6 F 82 11 L 113/58 100 04/28/24 03:45 78 9 L 101/49 100 04/28/24 03:30 63 12 92/54 04/28/24 03:15 63 13 106/50 100 04/28/24 03:00 63 13 97/46 100 04/28/24 02:45 62 14 101/53 04/28/24 02:30 63 13 93/73 04/28/24 02:15 65 29 H 107/63 04/28/24 02:00 73 22 111/69 98 04/28/24 01:45 82 19 125/73 99 04/28/24 01:30 15 88/61 99 04/28/24 01:23 21 04/28/24 01:00 78 14 101/50 98 04/28/24 00:45 76 12 110/64 97 04/28/24 00:30 80 14 107/62 99 04/28/24 00:15 82 13 120/69 100 04/28/24 00:00 85 14 116/65 98 04/27/24 23:45 97.6 F 86 86 11 L 110/64 110/64 100 04/27/24 23:30 82 16 109/60 99 04/27/24 23:15 82 12 112/61 99 04/27/24 23:00 67 14 109/61 100 04/27/24 22:55 109/61 04/27/24 22:45 67 14 111/63 100 04/27/24 22:30 67 13 98/66 99 04/27/24 22:21 98/66 04/27/24 22:15 59 L 14 106/66 100 04/27/24 22:05 93/62 04/27/24 22:00 55 L 14 75/50 100 04/27/24 21:51 75/50 04/27/24 21:45 68 13 79/51 98 04/27/24 21:30 68 13 77/40 99 04/27/24 21:18 53 L 14 77/40 98 04/27/24 21:00 69 12 82/43 99 04/27/24 20:45 72 13 89/51 99 04/27/24 20:30 73 14 84/51 97 04/27/24 20:15 76 8 L 89/53 99 04/27/24 20:01 78 90/38 04/27/24 20:00 66 15 83/44 99 04/27/24 19:50 83/44 04/27/24 19:48 83/44 04/27/24 19:45 55 L 13 67/42 97 04/27/24 19:36 98.2 F 55 L 15 67/42 98 04/27/24 19:30 56 L 13 74/42 97 04/27/24 19:15 56 L 15 64/36 97 04/27/24 19:00 67 15 71/46 97 04/27/24 18:55 56 L 19 78/45 99 04/27/24 17:02 97.6 F 95 19 92/60 97 04/27/24 14:51 86 16 90/60 98 04/27/24 14:00 86 16 100/60 96 04/27/24 12:43 98 F 65 20 95/64 98 04/27/24 12:00 84 20 100/60 96 04/27/24 11:00 96 18 106/60 96 04/27/24 09:05 97.9 F 90 20 129/71 98 Intake and Output 04/27/24 04/28/24 04/28/24 22:59 06:59 14:59 Intake Total 92.769 53.228 Output Total 300 580 30 Balance -300 -487.231 23.228 Intake: Intake, IV Titration 92.769 53.228 Amount Norepinephrine 4 mg In 92.769 53.228 Sodium Chloride 0.9% 250 ml @ 0.03 MCG/KG/MIN 11. 406 mls/hr IV .[id number] [facility] Rx#:[id number] Output: Urine 300 580 30 Other: Voiding Method Indwelling Catheter Weight 107 kg The patient appeared well nourished and normally developed. Vital signs as documented. Morbidly obese,, comfortable and the patient is currently on room air oxygen with a BMI of 49.3 Head exam is unremarkable. No scleral icterus or corneal arcus noted. Neck is without jugular venous distension, thyromegaly, or carotid bruits. Ponce tid upstrokes are brisk bilaterally. Lungs Limited crackles in the lung bases specially on the left Cardiac exam reveals the PMI to be normally sized and situated. Rhythm is regular. First and second heart sounds normal. No murmurs, rubs or gallops. Abdominal exam reveals normal bowel sounds, no masses, no organomegaly and no aortic enlargement. Extremities are nonedematous and both femoral and pedal pulses are normal. Examination of the skin revealed no evidence of significant rashes, suspicious appearing nevi or other concerning lesions. Neurologically, the patient is awake and alert and the patient does not have any focal neurological deficit. Cranial nerves are essentially intact. Profound generalized weakness in all 4 extremities. Results - Laboratory Findings CBC and BMP: 04/28/24 06:50 04/28/24 06:50 PT/INR, D-dimer PT 11.1 sec (10.0-12.5) 04/26/24 18:00 INR 1.0 (<1.2) 04/26/24 18:00 Abnormal lab findings: Abnormal Labs 04/26/24 04/26/24 04/26/24 18:00 18:00 18:00 WBC 20.2 H RBC 3.56 L MCV 110.3 H MCH 35.3 H Neutrophils # 14.5 H Monocytes # 2.3 H Macrocytosis Marked A APTT 19.0 L Chloride Carbon Dioxide BUN Creatinine Glucose POC Glucose (mg/dL) AST Creatine Kinase TSH Urine Appearance Cloudy H Urine Protein Trace H Ur Leukocyte Esterase Moderate H Urine WBC 19 H Hyaline Casts 48 H Urine Mucus Rare H U Benzodiazepines Scrn Detected H 04/26/24 04/26/24 04/28/24 18:00 18:01 06:50 WBC RBC MCV MCH Neutrophils # Monocytes # Macrocytosis APTT Chloride 112 H Carbon Dioxide 35 H BUN 67 H 37 H Creatinine 2.91 H 1.06 H Glucose 120 H 113 H POC Glucose (mg/dL) 119 H AST 39 H Creatine Kinase 834 H TSH 5.190 H Urine Appearance Urine Protein Ur Leukocyte Esterase Urine WBC Hyaline Casts Urine Mucus U Benzodiazepines Scrn 04/28/24 06:50 WBC 11.0 H RBC 3.24 L MCV 112.2 H MCH 35.4 H Neutrophils # Monocytes # 1.2 H Macrocytosis Marked A APTT Chloride Carbon Dioxide BUN Creatinine Glucose POC Glucose (mg/dL) AST Creatine Kinase TSH Urine Appearance Urine Protein Ur Leukocyte Esterase Urine WBC Hyaline Casts Urine Mucus U Benzodiazepines Scrn - Diagnostic Findings Chest x-ray: image reviewed Assessment and Plan Plan: Septic shock, under investigation. Rule out urine tract infection with secondary sepsis. Pneumonia is felt to be less likely. Fever, currently afebrile secondary to above Acute hypotension, resuscitated with IV fluids and currently the patient on low- dose pressors as a sepsis being further investigated Acute leukocytosis, improving Acute kidney injury, improving Acute mental status change, improving Schizoaffective disorder History of hypertension. History of hyperlipidemia. History of hypothyroidism. History of GERD. Morbid obesity. Multiple other medical problems and comorbidities. Plan Patient is on room air oxygen. Oxygenation will be monitored. Monitor procalcitonin level Urine cultures and blood cultures Continue cefepime and vancomycin Continue IV fluids and changed to normal saline 20 to 75 cc an hour Resume home medications Provide diet Adequate urine output Mental status improving Will continue to follow
--- NOTE | 2024-04-28 16:10 | P.PN ---
Subjective Progress Note Date: 04/28/24 The patient presented to the Emergency Department yesterday because of altered mentation. Apparently, the patient was being treated for urine tract infection or diagnosed having UTI an outpatient basis. The patient was lethargic, weak, debilitated and hypotensive. The patient received a total of 4.5 L of IV fluids. Subsequently, the patient was also started on pressors and the patient is currently on low-dose norepinephrine running at 0.03 mcg/kg/min. Blood pressure is stable for now. Her initial white cell count was 20 dropped down to 11. She had an acute kidney injury with a creatinine of 2.9, creatinine today is down to 1.06. The patient is currently on cefepime and vancomycin. UA is m ildly abnormal. Chest x-ray shows some limited left basilar atelectasis. The patient remains on room air oxygen. No significant respiratory distress. Minimal cough. Minimal chest congestion. No pleurisy. No hemoptysis. No nausea. No vomiting. No abdominal pain. No chest pain. She is known to have schizoaffective disorder and she is a [facility] resident. Awaiting cultures. Mental status improved significantly compared to yesterday. The patient is able to communicate. Objective - Vital Signs Vital signs: Vital Signs Temp 98.1 F 04/28/24 08:00 Pulse 72 04/28/24 11:00 Resp 16 04/28/24 11:00 BP 89/49 04/28/24 11:00 Pulse Ox 94 L 04/28/24 11:00 FiO2 Intake & Output 04/27/24 04/28/24 04/28/24 18:59 06:59 18:59 Intake Total 92.769 376.915 Output Total 880 235 Balance -787.231 141.915 Weight 107 kg Intake: IV 160 Sodium Chloride 0.9% 1, 160 000 ml @ 75 mls/hr IV . [id number] [facility] Rx#:[id number] Intake, IV Titration 92.769 66.915 Amount Norepinephrine 4 mg In 92.769 66.915 Sodium Chloride 0.9% 250 ml @ 0.03 MCG/KG/MIN 11. 406 mls/hr IV .[id number] [facility] Rx#:[id number] Other 150 Output: Urine 880 235 Other: Voiding Method Indwelling Catheter Indwelling Catheter - Exam SKIN: Cool, dry, no jaundice, hives or petechiae EYES: Pupils are equally round, extraocular movements intact without nystagmus, discharge, yellowish crusting scant around eyes bilaterally, non-icteric sclera HENT: Normocephalic, atraumatic, dry mucus membranes, oropharynx clear without exudates NECK: , Full range of motion, normal appearance PULMONARY: Exam limited by patient's positioning and body habitus clear to auscultation without wheezes, rhonchi, or rales, normal excursion, no accessory muscle use and no stridor CARDIOVASCULAR: Regular rate, rhythm, normal S1 and S2. No appreciated murmurs, rubs or gallops. Strong radial pulses with intact distal perfusion. No lower extremity edema GASTROINTESTINAL: Soft, active bowel sounds throughout, TTP right side of abdomen/ RUQ, non-distended, no palpable masses, no rebound, guarding with palp ation of right side of abdomen. No hepatosplenomegaly GENITOURINARY: MUSCULOSKELETAL: Extremities have no gross deformity, no edema, redness, or swelling. No calf swelling NEUROLOGIC:_a/o x 1, GCS 14, confused mentation and slurred speech. Diffuse weakness, 2/5 strength in all 4 extremities, no facial droop, no focal deficits PSYCHIATRIC: Calm and cooperative - Labs CBC & Chem 7: 04/28/24 06:50 04/28/24 06:50 Labs: Abnormal Lab Results - Last 24 Hours (Table) 04/28/24 04/28/24 Range/Units 06:50 06:50 WBC 11.0 H (3.8-10.6) k/uL RBC 3.24 L (3.80-5.40) m/uL MCV 112.2 H (80.0-100.0) fL MCH 35.4 H (25.0-35.0) pg Monocytes # 1.2 H (0-1.0) k/uL Macrocytosis Marked A Chloride 112 H (98-107) mmol/L BUN 37 H (7-17) mg/dL Creatinine 1.06 H (0.52-1.04) mg/dL Glucose 113 H (74-99) mg/dL Microbiology - Last 24 Hours (Table) 04/26/24 18:00 Blood Culture - Preliminary Blood 04/26/24 18:00 Urine Culture - Final Urine,Voided Assessment and Plan Assessment: Septic shock, under investigation. Rule out urine tract infection with secondary sepsis. Pneumonia is felt to be less likely. Acute hypotension, resuscitated with IV fluids and currently the patient on low- dose pressors as a sepsis being further investigated Acute leukocytosis, improving Acute kidney injury, improving Acute mental status change, improving History of hypertension. History of hyperlipidemia. History of hypothyroidism. Morbid obesity. Plan Patient remains in ICU Patient is on room air oxygen. Oxygenation will be monitored. Monitor procalcitonin level Urine cultures and blood cultures Continue cefepime and vancomycin Continue IV fluids and changed to normal saline 20 to 75 cc an hour Resume home medications Provide diet Adequate urine output Mental status improving
[2024-04-28] MEDS: NYSTATIN 100,000UNIT/GM CREAM 30 GM TUBE TOPICAL SCH (16:25)
[2024-04-28] MEDS: CEFEPIME 2 GM in SODIUM CHLORIDE 0.9% 100 ML IVPB SCH (17:08)
[2024-04-29 05:56] LABS: HCT 31.8 % (34.0-46.0); HGB 10.1 gm/dL (11.4-16.0); Hypochromasia Moderate; MCH 35.8 pg (25.0-35.0); MCHC 31.8 g/dL (31.0-37.0); MCV 112.4 fL (80.0-100.0); Mean Platelet Volume 8.3; Platelet Count 164 k/uL (150-450); RBC 2.83 m/uL (3.80-5.40); RDW 12.3 % (11.5-15.5); WBC 8.6 k/uL (3.8-10.6)
[2024-04-29 06:01] LABS: Macrocytosis Marked
[2024-04-29 06:07] LABS: African American GFR (CKD) 75 (>60 ml/min/1.73 sqM); Anion Gap 3 mmol/L; Blood Urea Nitrogen 27 mg/dL (7-17); Calcium 8.3 mg/dL (8.4-10.2); Carbon Dioxide 26 mmol/L (22-30); Chloride 112 mmol/L (98-107); Glucose 83 mg/dL (74-99); Non-African American GFR(CKD) 65 (>60 ml/min/1.73 sqM); Potassium 3.8 mmol/L (3.5-5.1); Sodium 141 mmol/L (137-145)
[2024-04-29] MEDS ORDERED: NON FORMULARY DRUG (Ensure Enlive 120 ML) PO SCH (08:00)
--- NOTE | 2024-04-29 12:40 | P.PN ---
Subjective Progress Note Date: 04/29/24 On 04/28/2024, patient is being seen in consultation for sepsis and hypotension. The patient presented to the Emergency Department yesterday because of altered mentation. Apparently, the patient was being treated for urine tract infection or diagnosed having UTI an outpatient basis. The patient was lethargic, weak, debilitated and hypotensive. The patient received a total of 4.5 L of IV fluids. Subsequently, the patient was also started on pressors and the patient is currently on low-dose norepinephrine running at 0.03 mcg/kg/min. Blood pressure is stable for now. Her initial white cell count was 20 dropped down to 11. She had an acute kidney injury with a creatinine of 2.9, creatinine today is down to 1.06. The patient is currently on cefepime and vancomycin. UA is mildly abnormal. Chest x-ray shows some limited left basilar atelectasis. The patient remains on room air oxygen. No significant respiratory distress. Minimal cough. Minimal chest congestion. No pleurisy. No hemoptysis. No nausea. No vomiting. No abdominal pain. No chest pain. She is known to have schizoaffective disorder and she is a detention resident. Awaiting cultures. Mental status improved significantly compared to yesterday. The patient is able to communicate. On 04/29/2024, the patient is clinically and hemodynamically stable. The patient denies having any complaints. The patient was adequately resuscitated IV fluids and the patient is currently normotensive and she has recovered from acute kidney injury. She presented to us with septic shock likely secondary urine tract infection. The white cell count is dropped down to 8.6 with a hemoglobin 10.1. The patient's renal function is stable with a BUN of 27 and creatinine 0.9 and sodium levels at 141. She is awake and alert and communicating. She is on room air oxygen. She remains on IV cefepime. IV fluids are in the form of normal saline at rate of 75 cc an hour. Rest of the medications remain unchanged. Objective - Vital Signs Vital signs: Vital Signs Temp 97.6 F 04/29/24 04:00 Pulse 80 04/29/24 07:00 Resp 22 04/29/24 07:00 BP 102/54 04/29/24 07:00 Pulse Ox 97 04/29/24 07:00 FiO2 Intake & Output 1204/29/24 04/29/24 18:59 06:59 18:59 Intake Total 9288.696 4755.224 175 Output Total 592 635 60 Balance 450.975 725.224 115 Weight 110.5 kg Intake: IV 760 825 175 Cefepime 2 gm In Sodium 100 Chloride 0.9% 100 ml @ 25 mls/hr IVPB Q12H [facility] Rx# :[id number] Sodium Chloride 0.9% 1, 760 825 75 000 ml @ 75 mls/hr IV . [id number] [facility] Rx#:[id number] Intake, IV Titration 132.975 55.224 Amount Norepinephrine 4 mg In 132.975 55.224 Sodium Chloride 0.9% 250 ml @ 0.03 MCG/KG/MIN 11. 406 mls/hr IV .[id number] [facility] Rx#:[id number] Oral 480 Other 150 Output: Urine 592 635 60 Other: Voiding Method Indwelling Catheter Indwelling Catheter - Exam The patient appeared well nourished and normally developed. Vital signs as documented. Morbidly obese,, comfortable and the patient is currently on room air oxygen with a BMI of 49.3 Head exam is unremarkable. No scleral icterus or corneal arcus noted. Neck is without jugular venous distension, thyromegaly, or carotid bruits. Carotid upstrokes are brisk bilaterally. Lungs Limited crackles in the lung bases specially on the left Cardiac exam reveals the PMI to be normally sized and situated. Rhythm is regular. First and second heart sounds normal. No murmurs, rubs or gallops. Abdominal exam reveals normal bowel sounds, no masses, no organomegaly and no aortic enlargement. Extremities are nonedematous and both femoral and pedal pulses are normal. Examination of the skin revealed no evidence of significant rashes, suspicious appearing nevi or other concerning lesions. Neurologically, the patient is awake and alert and the patient does not have any focal neurological deficit. Cranial nerves are essentially intact. Profound generalized weakness in all 4 extremities. - Labs CBC & Chem 7: 04/29/24 05:12 04/29/24 05:12 Labs: Abnormal Lab Results - Last 24 Hours (Table) 04/29/24 04/29/24 Range/Units 05:12 05:12 RBC 2.83 L (3.80-5.40) m/uL Hgb 10.1 L (11.4-16.0) gm/dL Hct 31.8 L (34.0-46.0) % MCV 112.4 H (80.0-100.0) fL MCH 35.8 H (25.0-35.0) pg Macrocytosis Marked A Chloride 112 H (98-107) mmol/L BUN 27 H (7-17) mg/dL Calcium 8.3 L (8.4-10.2) mg/dL Microbiology - Last 24 Hours (Table) 04/26/24 18:00 Blood Culture - Preliminary Blood Assessment and Plan Plan: Septic shock, under investigation. Rule out urine tract infection with secondary sepsis. Pneumonia is felt to be less likely. Clinically improved and the patient is currently normotensive off pressors Fever, currently afebrile secondary to above Acute hypotension, resuscitated with IV fluids, currently off pressors, currently on IV cefepime Acute leukocytosis, improving Acute kidney injury, improving, renal function has normalized Acute mental status change, improving Schizoaffective disorder History of hypertension. History of hyperlipidemia. History of hypothyroidism. History of GERD. Morbid obesity. Multiple other medical problems and comorbidities. Plan Patient is on room air oxygen. Oxygenation will be monitored. Monitor procalcitonin level Urine cultures and blood cultures results are still pending Continue cefepime Continue IV fluids a normal saline 75 cc an hour Resume home medications Provide diet Adequate urine output Mental status improving Transferred out of the intensive care unit Will continue to follow
[2024-04-30 07:17] LABS: African American GFR (CKD) >90 (>60 ml/min/1.73 sqM); Non-African American GFR(CKD) 78 (>60 ml/min/1.73 sqM)
--- NOTE | 2024-04-30 07:48 | P.PN ---
Subjective Progress Note Date: 04/28/24 Principal diagnosis: Reason for follow-up is sepsis possible pneumonia Patient is a 69-year-old female with a past medical history significant for hypertension hyperlipidemia reflux thyroid disorder anxiety depression, patient was [facility] the [facility] for evaluation of mental status changes concern for possible pneumonia on the basis of CT. On today's evaluation that is 04/28/2024, patient did have resolution of her fever and is afebrile this morning patient is requiring some amount of pressor support and is currently in the ICU she is said to be breathing comfortably and is currently on 2 L nasal cannula oxygen denies any chest pain or worsening cough no abdominal pain no diarrhea. Patient white count is down to 11,000 creatinine is 1.06, culture have been negative so far Objective - Vital Signs Vital signs: Vital Signs Temp 98.1 F 04/28/24 08:00 Pulse 81 04/28/24 10:00 Resp 16 04/28/24 10:00 BP 95/51 04/28/24 10:00 Pulse Ox 93 L 04/28/24 10:00 FiO2 Intake & Output 04/27/24 04/28/24 04/28/24 18:59 06:59 18:59 Intake Total 92.769 301.915 Output Total 880 185 Balance -787.231 116.915 Weight 107 kg Intake: IV 85 Sodium Chloride 0.9% 1, 85 000 ml @ 75 mls/hr IV . [id number] [facility] Rx#:[id number] Intake, IV Titration 92.769 66.915 Amount Norepinephrine 4 mg In 92.769 66.915 Sodium Chloride 0.9% 250 ml @ 0.03 MCG/KG/MIN 11. 406 mls/hr IV .[id number] [facility] Rx#:[id number] Other 150 Output: Urine 880 185 Other: Voiding Method Indwelling Catheter Indwelling Catheter - Exam GENERAL DESCRIPTION: An elderly female lying in bed in no distress RESPIRATORY SYSTEM: Unlabored breathing , decreased breath sounds at bases HEART: S1 S2 regular rate and rhythm , ABDOMEN: Soft , no tenderness EXTREMITIES: No edema feet - Labs CBC & Chem 7: 04/29/24 05:12 04/30/24 06:23 Labs: Abnormal Lab Results - Last 24 Hours (Table) 12/21/24 12/21/24 Range/Units 06:50 06:50 WBC 11.0 H (3.8-10.6) k/uL RBC 3.24 L (3.80-5.40) m/uL MCV 112.2 H (80.0-100.0) fL MCH 35.4 H (25.0-35.0) pg Monocytes # 1.2 H (0-1.0) k/uL Macrocytosis Marked A Chloride 112 H (98-107) mmol/L BUN 37 H (7-17) mg/dL Creatinine 1.06 H (0.52-1.04) mg/dL Glucose 113 H (74-99) mg/dL Microbiology - Last 24 Hours (Table) 04/26/24 18:00 Blood Culture - Preliminary Blood 04/26/24 18:00 Urine Culture - Final Urine,Voided Assessment and Plan (1) Penicillin allergy Current Visit: Yes Status: Acute Code(s): Z88.0 - ALLERGY STATUS TO PENICILLIN SNOMED Code(s): 54458756 (2) Pneumonia Current Visit: Yes Status: Acute Code(s): J18.9 - PNEUMONIA, UNSPECIFIED ORGANISM SNOMED Code(s): 125902771 (3) Sepsis Current Visit: Yes Status: Acute Code(s): A41.9 - SEPSIS, UNSPECIFIED ORGANISM SNOMED Code(s): 83962088 Plan: 1patient presented hospital with sepsis in this patient who did have a fever elevated white count source likely pneumonia as the patient did have a negative UA noticed to have some consolidative changes in the lung bases on the CT with no intra-abdominal pathology no evidence of any cellulitis or other focus of infection 2-patient with a penicillin allergy that would limit the number of antibiotics safe to use 3-patient with renal insufficiency and high risk of nephrotoxicity, vancomycin has been discontinued 4-patient will be continued on cefepime while waiting for the culture to finalize Dictation was produced using [employer] dictation software. please excuse any grammatical, word or spelling errors. Time with Patient: Less than 30
--- NOTE | 2024-04-30 07:49 | P.PN ---
Subjective Progress Note Date: 04/29/24 Principal diagnosis: Reason for follow-up is sepsis possible pneumonia Patient is a 69-year-old female with a past medical history significant for hypertension hyperlipidemia reflux thyroid disorder anxiety depression, patient was brought into the hospital from the local custodial for evaluation of mental status changes concern for possible pneumonia on the basis of CT. On today's evaluation that is 04/29/2024, Patient is afebrile patient is currently on room air and denies having any shortness of breath, the patient denies any chest pain or any worsening cough, the patient denies any nausea vomiting did not have any abdominal pain and no diarrhea, the patient blood pressure has normalized and has been transferred out of the ICU. Patient white count normalized to 8.6 creatinine 0.92 Objective - Vital Signs Vital signs: Vital Signs Temp 97.4 F L 04/29/24 13:34 Pulse 88 04/29/24 20:20 Resp 17 04/29/24 13:34 BP 86/44 04/29/24 20:02 Pulse Ox 94 L 04/29/24 13:34 FiO2 Intake & Output 04/29/24 04/29/24 04/30/24 06:59 18:59 06:59 Intake Total 1360.224 325 Output Total 635 275 Balance 725.224 50 Weight 110.5 kg Intake: IV 825 325 Cefepime 2 gm In Sodium 100 Chloride 0.9% 100 ml @ 25 mls/hr IVPB Q12H [facility] Rx# :[id number] Sodium Chloride 0.9% 1, 825 225 000 ml @ 75 mls/hr IV . [id number] [facility] Rx#:[id number] Intake, IV Titration 55.224 Amount Norepinephrine 4 mg In 55.224 Sodium Chloride 0.9% 250 ml @ 0.03 MCG/KG/MIN 11. 406 mls/hr IV .[id number] [facility] Rx#:[id number] Oral 480 Output: Urine 635 275 Other: Voiding Method Indwelling Catheter Indwelling Catheter - Exam GENERAL DESCRIPTION: An elderly female lying in bed in no distress RESPIRATORY SYSTEM: Unlabored breathing , decreased breath sounds at bases HEART: S1 S2 regular rate and rhythm , ABDOMEN: Soft , no tenderness EXTREMITIES: No edema feet - Labs CBC & Chem 7: 04/29/24 05:12 04/30/24 06:23 Labs: Abnormal Lab Results - Last 24 Hours (Table) 04/29/24 04/29/24 Range/Units 05:12 05:12 RBC 2.83 L (3.80-5.40) m/uL Hgb 10.1 L (11.4-16.0) gm/dL Hct 31.8 L (34.0-46.0) % MCV 112.4 H (80.0-100.0) fL MCH 35.8 H (25.0-35.0) pg Macrocytosis Marked A Chloride 112 H (98-107) mmol/L BUN 27 H (7-17) mg/dL Calcium 8.3 L (8.4-10.2) mg/dL Microbiology - Last 24 Hours (Table) 04/26/24 18:00 Blood Culture - Preliminary Blood Assessment and Plan (1) Penicillin allergy Current Visit: Yes Status: Acute Code(s): Z88.0 - ALLERGY STATUS TO P ENICILLIN SNOMED Code(s): 50818758 (2) Pneumonia Current Visit: Yes Status: Acute Code(s): J18.9 - PNEUMONIA, UNSPECIFIED ORGANISM SNOMED Code(s): 763735596 (3) Sepsis Current Visit: Yes Status: Acute Code(s): A41.9 - SEPSIS, UNSPECIFIED ORGANISM SNOMED Code(s): 98943726 Plan: 1patient presented hospital with sepsis in this patient who did have a fever elevated white count source likely pneumonia as the patient did have a negative UA noticed to have some consolidative changes in the lung bases on the CT with no intra-abdominal pathology no evidence of any cellulitis or other focus of in fection 2-patient with a penicillin allergy that would limit the number of antibiotics safe to use 3-patient with renal insufficiency and high risk of nephrotoxicity, vancomycin has been discontinued did have improvement in her kidney function 4-patient has shown clinical improvement white count normalized, patient will be treated with cefepime and transition to oral antibiotics on discharge Dictation was produced using [employer] dictation software. please excuse any grammatical, word or spelling errors. Time with Patient: Less than 30
--- NOTE | 2024-04-30 12:00 | XR ---
EXAMINATION TYPE: XR chest 1V portable DATE OF EXAM: 04/30/2024 11:52 AM COMPARISON: 04/26/2024 CLINICAL INDICATION: Female, 69 years old with history of CHF, , FINDINGS: Heart limits of normal in size. Mild interstitial density remains. A small left pleural effusion and adjacent patchy left basilar opacity is now noted. Aeration shows some improvement in the left base. IMPRESSION: 1. Similar interstitial densities, correlate for ongoing pulmonary vascular congestion. 2. Some improvement in aeration at the left base though with residual small effusion and adjacent ate lectasis and/or consolidation. [facility], , 04/30/2024 11:57 AM
--- NOTE | 2024-04-30 13:21 | P.PN ---
Subjective Progress Note Date: 04/30/24 On 04/28/2024, patient is being seen in consultation for sepsis and hypotension. The patient presented to the Emergency Department yesterday because of altered mentation. Apparently, the patient was being treated for urine tract infection or diagnosed having UTI an outpatient basis. The patient was lethargic, weak, debilitated and hypotensive. The patient received a total of 4.5 L of IV fluids. Subsequently, the patient was also started on pressors and the patient is currently on low-dose norepinephrine running at 0.03 mcg/kg/min. Blood pressure is stable for now. Her initial white cell count was 20 dropped down to 11. She had an acute kidney injury with a creatinine of 2.9, creatinine today is down to 1.06. The patient is currently on cefepime and vancomycin. UA is mildly abnormal. Chest x-ray shows some limited left basilar atelectasis. The patient remains on room air oxygen. No significant respiratory distress. Minimal cough. Minimal chest congestion. No pleurisy. No hemoptysis. No nausea. No vomiting. No abdominal pain. No chest pain. She is known to have schizoaffective disorder and she is a [facility] resident. Awaiting cultures. Mental status improved significantly compared to yesterday. The patient is able to communicate. On 04/29/2024, the patient is clinically and hemodynamically stable. The patient denies having any complaints. The patient was adequately resuscitated IV fluids and the patient is currently normotensive and she has recovered from acute kidney injury. She presented to us with septic shock likely secondary urine tract infection. The white cell count is dropped down to 8.6 with a hemoglobin 10.1. The patient's renal function is stable with a BUN of 27 and creatinine 0.9 and sodium levels at 141. She is awake and alert and communicating. She is on room air oxygen. She remains on IV cefepime. IV fluids are in the form of normal saline at rate of 75 cc an hour. Rest of the medications remain unchanged. The patient is seen today April 30, 2024 in follow-up on the regular medical floor. She is awake and alert in no acute distress. Maintaining O2 saturations in the 90s on room air. She is continued on cefepime. Blood cultures revealed no growth. Urine culture revealed no growth. Procalcitonin negative at 0.09. Creatinine 0.79. GFR greater than 90. She remains on heparin for DVT prophylaxis. Objective - Vital Signs Vital signs: Vital Signs Temp 98 F 04/30/24 07:17 Pulse 76 04/30/24 12:37 Resp 16 04/30/24 07:17 BP 101/66 04/30/24 07:17 Pulse Ox 98 04/30/24 07:17 FiO2 Intake & Output 04/29/24 04/30/24 04/30/24 18:59 06:59 18:59 Intake Total 325 Output Total 275 400 Balance 50 -400 Intake: IV 325 Cefepime 2 gm In Sodium 100 Chloride 0.9% 100 ml @ 25 mls/hr IVPB Q12H [facility] Rx# :[id number] Sodium Chloride 0.9% 1, 225 000 ml @ 75 mls/hr IV . [id number] [facility] Rx#:[id number] Output: Urine 275 400 Other: Voiding Method Indwelling Catheter Indwelling Catheter # Voids 1 # Bowel Movements 1 - Exam GENERAL EXAM: Alert, pleasant obese 69-year-old female, on room air, comfortable in no apparent distress. HEAD: Normocephalic. EYES: Normal reaction of pupils, equal size. NOSE: Clear with pink turbinates. THROAT: No erythema or exudates. NECK: No masses, no JVD. CHEST: No chest wall deformity. LUNGS: Equal air entry with no crackles, wheeze, rhonchi or dullness. CVS: S1 and S2 normal with no audible murmur, regular rhythm. ABDOMEN: No hepatosplenomegaly, normal bowel sounds, no guarding or rigidity. SPINE: No scoliosis or deformity SKIN: No rashes CENTRAL NERVOUS SYSTEM: No focal deficits, tone is normal in all 4 extremities. EXTREMITIES: There is no peripheral edema. No clubbing, no cyanosis. Peripheral pulses are intact. - Labs CBC & Chem 7: 04/29/24 05:12 04/30/24 06:23 Labs: Microbiology - Last 24 Hours (Table) 04/26/24 18:00 Blood Culture - Preliminary Blood Assessment and Plan Assessment: Septic shock, under investigation. Ruled out urine tract infection with secondary sepsis. Pneumonia is felt to be less likely. Clinically improved and the patient is currently normotensive off pressors Fever, secondary to above, currently afebrile Acute hypotension, resuscitated with IV fluids, currently off pressors, currently on IV cefepime Acute leukocytosis, improving Acute kidney injury, improving, renal function has normalized Acute mental status change, improving Schizoaffective disorder History of hypertension. History of hyperlipidemia. History of hypothyroidism. History of GERD. Morbid obesity. Multiple other medical problems and comorbidities. Plan: The patient was seen and evaluated Labs and medications reviewed Stable and on room air Procalcitonin negative Urine culture revealed no growth Plan is to return to [facility] at discharge I have personally seen and examined the patient, performed the documentation and the assessment and plan as written. Number of minutes spent on the visit: 10 Dictation was produced using [employer] dictation software. Please excuse any grammatical, word or spelling errors.
--- NOTE | 2024-05-01 07:05 | P.PN ---
Subjective Progress Note Date: 04/30/24 The patient presented to the Emergency Department yesterday because of altered mentation. Apparently, the patient was being treated for urine tract infection or diagnosed having UTI an outpatient basis. The patient was lethargic, weak, debilitated and hypotensive. The patient received a total of 4.5 L of IV fluids. Subsequently, the patient was also started on pressors and the patient is currently on low-dose norepinephrine running at 0.03 mcg/kg/min. Blood pressure is stable for now. Her initial white cell count was 20 dropped down to 11. She had an acute kidney injury with a creatinine of 2.9, creatinine today is down to 1.06. The patient is currently on cefepime and vancomycin. UA is mildly abnormal. Chest x-ray shows some limited left basilar atelectasis. The patient remains on room air oxygen. No significant respiratory distress. Minimal cough. Minimal chest congestion. No pleurisy. No hemoptysis. No nausea. No vomiting. No abdominal pain. No chest pain. She is known to have schizoaffective disorder and she is a [facility] resident. Awaiting cultures. Mental status improved significantly compared to yesterday. The patient is able to communicate. 04/30/2024 Patient is seen in follow-up today continues to be confused and extremely lethargic today. Will adjust Haldol as patient takes it 3 times daily and attempt to decrease to twice daily. Continue other current medications. Patient resides at [facility] and will be returning her on discharge. Patient with pulmonary and infectious disease following maintained on antibiotics. Urine culture was negative and will discuss further with infectious disease regarding antibiotics. Patient does have significant psychiatric history with schizophrenia and will continue other current medications. Review of systems: Unable to completely assess as patient is confused and lethargic, arousable but fatigues easily Physical exam: Gen: This is a 69-year-old female who is lethargic although arousable minimally, wakes up and falls asleep easily, alert and oriented x 0-1, well-developed, elderly, ill-appearing, morbidly obese HEENT: Head is atraumatic, normocephalic. Pupils equal, round. Sclerae is anict bernarda. NECK: Supple. No JVD. No lymphadenopathy. No thyromegaly. LUNGS: Diminished breath sounds bilaterally with a few scattered rhonchi. No intercostal retractions. HEART: S1, S2 are muffled ABDOMEN: Soft. Obese bowel sounds are present. No masses. No tenderness. EXTREMITIES: No pedal edema. No calf tenderness. NEUROLOGICAL: Patient is asleep but arousable, fatigues easily, alert and orient ed x 0-1. Diffusely weak Assessment: Septic shock, under investigation. Rule out urine tract infection with secondary sepsis. Pneumonia is felt to be less likely. Acute hypotension, resuscitated with IV fluids and improved off pressor support and out of the ICU Acute leukocytosis, improving Acute kidney injury, improving Acute mental status change, multifactorial, likely metabolic encephalopathy secondary to urinary tract infection as well as possible pneumonia with strong psychiatric history of schizophrenia History of schizophrenia History of hypertension. History of hyperlipidemia. History of hypothyroidism. Morbid obesity with a BMI of 50.9. GI prophylaxis DVT prophylaxis Full code Plan: Patient is seen in follow-up this morning extremely lethargic and somewhat arousable for a few seconds and then falls asleep easily Patient is continued on antibiotics with infectious disease following and will discuss further regarding discharge planning. Patient resides at [facility] and will return there to [facility] on discharge Mentation wax and wanes and will adjust Haldol as she was taking 3 times daily and will attempt twice daily and monitor for improvements in mentation Follow-up on repeat labs and replace electrolytes per protocol Will discuss further with consultations including infectious disease regarding discharge planning with antibiotic recommendations. Due to multiple complex medical issues, overall prognosis is guarded The impression and plan of care has been dictated by Christie Soria, Nurse Practitioner as directed. Dr. David MD I have performed a history and examination and MDM of this patient, discussed the same with the dictator, and agree with the dictator's assessment and plan as written ,documented as a scribe. Based on total visit time, I have performed more than 50% of the visit. Objective - Vital Signs Vital signs: Vital Signs Temp 97.6 F 05/01/24 02:16 Pulse 77 05/01/24 02:16 Resp 17 05/01/24 02:16 BP 103/67 05/01/24 02:16 Pulse Ox 98 05/01/24 02:16 FiO2 Intake & Output 04/30/24 04/30/24 05/01/24 06:59 18:59 06:59 Output Total 400 500 Balance -400 -500 Output: Urine 400 500 Other: Voiding Method Indwelling Catheter Indwelling Catheter # Voids 1 # Bowel Movements 1 - Labs CBC & Chem 7: 04/29/24 05:12 04/30/24 06:23 Labs: Microbiology - Last 24 Hours (Table) 04/26/24 18:00 Blood Culture - Preliminary Blood
[2024-05-01 07:15] LABS: ALT 23 U/L (4-34); African American GFR (CKD) >90 (>60 ml/min/1.73 sqM); Albumin 2.3 g/dL (3.5-5.0); Albumin/Globulin Ratio 0.8; Anion Gap 2 mmol/L; Blood Urea Nitrogen 15 mg/dL (7-17); Calcium 8.6 mg/dL (8.4-10.2); Carbon Dioxide 25 mmol/L (22-30); Chloride 112 mmol/L (98-107); Globulin 2.8 g/dL; Glucose 82 mg/dL (74-99); Non-African American GFR(CKD) 82 (>60 ml/min/1.73 sqM); Sodium 139 mmol/L (137-145); Total Bilirubin 0.2 mg/dL (0.2-1.3); Total Protein 5.1 g/dL (6.3-8.2)
[2024-05-01 07:35] LABS: AST 35 U/L (14-36); Alkaline Phosphatase 54 U/L (38-126); Potassium 5.2 mmol/L (3.5-5.1)
[2024-05-01 08:13] LABS: Basophils % (A) 1 %; Eosinophils # (A) 0.5 k/uL (0-0.7); Eosinophils % (A) 6 %; HCT 34.5 % (34.0-46.0); HGB 10.6 gm/dL (11.4-16.0); Hypochromasia Marked; Lymphocytes # (A) 2.9 k/uL (1.0-4.8); Lymphocytes % (A) 34 %; MCH 34.4 pg (25.0-35.0); MCHC 30.7 g/dL (31.0-37.0); MCV 112.2 fL (80.0-100.0); Macrocytosis Marked; Mean Platelet Volume 7.9; Monocytes % (A) 12 %; Neutrophils # (A) 3.9 k/uL (1.3-7.7); Neutrophils % (A) 46 %; Platelet Count 218 k/uL (150-450); RBC 3.07 m/uL (3.80-5.40); RDW 12.3 % (11.5-15.5); WBC 8.4 k/uL (3.8-10.6)
[2024-05-01] MEDS: haloperidoL 5 MG TAB PO SCH (09:39)
--- NOTE | 2024-05-01 11:40 | P.PN ---
Subjective Progress Note Date: 05/01/24 On 04/28/2024, patient is being seen in consultation for sepsis and hypotension. The patient presented to the Emergency Department yesterday because of altered mentation. Apparently, the patient was being treated for urine tract infection or diagnosed having UTI an outpatient basis. The patient was lethargic, weak, debilitated and hypotensive. The patient received a total of 4.5 L of IV fluids. Subsequently, the patient was also started on pressors and the patient is currently on low-dose norepinephrine running at 0.03 mcg/kg/min. Blood pressure is stable for now. Her initial white cell count was 20 dropped down to 11. She had an acute kidney injury with a creatinine of 2.9, creatinine today is down to 1.06. The patient is currently on cefepime and vancomycin. UA is mildly abnormal. Chest x-ray shows some limited left basilar atelectasis. The patient remains on room air oxygen. No significant respiratory distress. Minimal cough. Minimal chest congestion. No pleurisy. No hemoptysis. No nausea. No vomiting. No abdominal pain. No chest pain. She is known to have schizoaffective disorder and she is a long-term resident. Awaiting cultures. Mental status improved significantly compared to yesterday. The patient is able to communicate. On 04/29/2024, the patient is clinically and hemodynamically stable. The patient denies having any complaints. The patient was adequately resuscitated IV fluids and the patient is currently normotensive and she has recovered from acute kidney injury. She presented to us with septic shock likely secondary urine tract infection. The white cell count is dropped down to 8.6 with a hemoglobin 10.1. The patient's renal function is stable with a BUN of 27 and creatinine 0.9 and sodium levels at 141. She is awake and alert and communicating. She is on room air oxygen. She remains on IV cefepime. IV fluids are in the form of normal saline at rate of 75 cc an hour. Rest of the medications remain unchanged. The patient is seen today April 30, 2024 in follow-up on the regular medical floor. She is awake and alert in no acute distress. Maintaining O2 saturations in the 90s on room air. She is continued on cefepime. Blood cultures revealed no growth. Urine culture revealed no growth. Procalcitonin negative at 0.09. Creatinine 0.79. GFR greater than 90. She remains on heparin for DVT prophylaxis. The patient is seen today May 01, 2024 in follow-up on the regular medical floor. She is awake and alert in no acute distress. Maintaining O2 saturations in the 90s on room air. She has normal saline at 25 mL/h. Chest x-ray had revealed atelectatic changes. Blood cultures revealed no growth. Urine culture revealed no growth. White count 8.4. Hemoglobin 10.6. Platelets 218. Sodium 139. Potassium 5.2. Bicarb 25. BUN 15. Creatinine 0.76. Procalcitonin was negative at 0.09. He is currently on cefepime. Continued on DuoNeb inhalations. Heparin for DVT prophylaxis. Objective - Vital Signs Vital signs: Vital Signs Temp 97.5 F L 05/01/24 07:23 Pulse 80 05/01/24 07:58 Resp 16 05/01/24 07:23 BP 111/73 05/01/24 07:23 Pulse Ox 95 05/01/24 07:23 FiO2 Intake & Output 04/30/24 05/01/24 05/01/24 18:59 06:59 18:59 Output Total 500 600 Balance -500 -600 Output: Urine 500 600 Other: Voiding Method Indwelling Catheter Indwelling Catheter # Voids 1 - Exam GENERAL EXAM: Alert, obese 69-year-old female, on room air, in no apparent distress. HEAD: Normocephalic. EYES: Normal reaction of pupils, equal size. NOSE: Clear with pink turbinates. THROAT: No erythema or exudates. NECK: No masses, no JVD. CHEST: No chest wall deformity. LUNGS: Equal air entry with no crackles, wheeze, rhonchi or dullness. CVS: S1 and S2 normal with no audible murmur, regular rhythm. ABDOMEN: No hepatosplenomegaly, normal bowel sounds, no guarding or rigidity. SPINE: No scoliosis or deformity SKIN: No rashes CENTRAL NERVOUS SYSTEM: No focal deficits, tone is normal in all 4 extremities. EXTREMITIES: There is no peripheral edema. No clubbing, no cyanosis. Peripheral pulses are intact. - Labs CBC & Chem 7: 05/01/24 07:46 05/01/24 06:01 Labs: Abnormal Lab Results - Last 24 Hours (Table) 05/01/24 05/01/24 Range/Units 06:01 07:46 RBC 3.07 L (3.80-5.40) m/uL Hgb 10.6 L (11.4-16.0) gm/dL MCV 112.2 H (80.0-100.0) fL MCHC 30.7 L (31.0-37.0) g/dL Macrocytosis Marked A Potassium 5.2 H (3.5-5.1) mmol/L Chloride 112 H (98-107) mmol/L Total Protein 5.1 L (6.3-8.2) g/dL Albumin 2.3 L (3.5-5.0) g/dL Assessment and Plan Assessment: Septic shock, under investigation. Ruled out urine tract infection with secondary sepsis. Pneumonia is felt to be less likely. Clinically improved and the patient is currently normotensive off pressors Fever, secondary to above, currently afebrile Acute hypotension, resuscitated with IV fluids, currently off pressors, cu rrently on IV cefepime Acute leukocytosis, improving Acute kidney injury, improving, renal function has normalized Acute mental status change, improving Schizoaffective disorder History of hypertension. History of hyperlipidemia. History of hypothyroidism. History of GERD. Morbid obesity. Multiple other medical problems and comorbidities. Plan: The patient was seen and evaluated Labs and medications reviewed Stable and on room air Cleared for discharge Plan is to return to [facility] I have personally seen and examined the patient, performed the documentation and the assessment and plan as written. Number of minutes spent on the visit: 10 Dictation was produced using [employer] dictation software. Please excuse any grammatical, word or spelling errors.
[2024-05-01] MEDS: FUROSEMIDE 20 MG TAB PO STA (14:35)
--- NOTE | 2024-05-01 15:09 | P.PN ---
Subjective Progress Note Date: 04/30/24 Principal diagnosis: Reason for follow-up is sepsis possible pneumonia Patient is a 69-year-old female with a past medical history significant for hypertension hyperlipidemia reflux thyroid disorder anxiety depression, patient was brought into the hospital from the local intermediate for evaluation of mental status changes concern for possible pneumonia on the basis of CT. On today's evaluation that is 04/30/2024, patient has been afebrile, patient is breathing comfortably and is currently on room air, patient does not significant distress she is sleepy did not pass any question no vomiting or diarrhea has been provided. Patient did have a CBC or BMP done today blood cultures are currently pending, chest x-ray did shows improvement in the left base Objective - Vital Signs Vital signs: Vital Signs Temp 98 F 04/30/24 07:17 Pulse 76 04/30/24 12:37 Resp 16 04/30/24 07:17 BP 101/66 04/30/24 07:17 Pulse Ox 98 04/30/24 07:17 FiO2 Intake & Output 04/29/24 04/30/24 04/30/24 18:59 06:59 18:59 Intake Total 325 Output Total 275 400 Balance 50 -400 Intake: IV 325 Cefepime 2 gm In Sodium 100 Chloride 0.9% 100 ml @ 25 mls/hr IVPB Q12H [facility] Rx# :[id number] Sodium Chloride 0.9% 1, 225 000 ml @ 75 mls/hr IV . [id number] [facility] Rx#:[id number] Output: Urine 275 400 Other: Voiding Method Indwelling Catheter Indwelling Catheter # Voids 1 # Bowel Movements 1 - Exam GENERAL DESCRIPTION: An elderly female lying in bed in no distress RESPIRATORY SYSTEM: Unlabored breathing , decreased breath sounds at bases HEART: S1 S2 regular rate and rhythm , ABDOMEN: Soft , no tenderness EXTREMITIES: No edema feet - Labs CBC & Chem 7: 05/01/24 07:46 05/01/24 06:01 Labs: Microbiology - Last 24 Hours (Table) 04/26/24 18:00 Blood Culture - Preliminary Blood Assessment and Plan (1) Penicillin allergy Current Visit: Yes Status: Acute Code(s): Z88.0 - ALLERGY STATUS TO PENICILLIN SNOMED Code(s): 75354922 (2) Pneumonia Current Visit: Yes Status: Acute Code(s): J18.9 - PNEUMONIA, UNSPECIFIED ORGANISM SNOMED Code(s): 002713681 (3) Sepsis Current Visit: Yes Status: Acute Code(s): A41.9 - SEPSIS, UNSPECIFIED ORGANISM SNOMED Code(s): 02297807 Plan: 1patient presented hospital with sepsis in this patient who did have a fever elevated white count source likely pneumonia as the patient did have a negative UA noticed to have some consolidative changes in the lung bases on the CT with no intra-abdominal pathology no evidence of any cellulitis or other focus of infection 2-patient with a penicillin allergy that would limit the number of antibiotics safe to use 3--patient has shown clinical improvement white count normalized, chest x-ray sh owed improvement of the left base, patient will be treated with cefepime while inpatient monitor clinical course closely Dictation was produced using [employer] dictation software. please excuse any gramm atical, word or spelling errors. Time with Patient: Less than 30
--- NOTE | 2024-05-01 15:10 | P.PN ---
Subjective Progress Note Date: 05/01/24 Principal diagnosis: Reason for follow-up is sepsis possible pneumonia Patient is a 69-year-old female with a past medical history significant for hypertension hyperlipidemia reflux thyroid disorder anxiety depression, patient [facility] of mental status changes concern for possible pneumonia on the basis of CT. On today's evaluation that is 05/01/2024, Patient is afebrile this morning patient denies having any chest pain shortness of breath or cough, the patient is currently on room air, patient denies any abdominal pain no diarrhea no nausea no vomiting, patient mention feeling better. Patient white count is 8.4 creatinine 0.76 urine is negative blood cultures pending Objective - Vital Signs Vital signs: Vital Signs Temp 97.5 F L 05/01/24 07:23 Pulse 72 05/01/24 11:46 Resp 16 05/01/24 07:23 BP 111/73 05/01/24 07:23 Pulse Ox 95 05/01/24 07:23 FiO2 Intake & Output 04/30/24 05/01/24 05/01/24 18:59 06:59 18:59 Output Total 500 600 Balance -500 -600 Output: Urine 500 600 Other: Voiding Method Indwelling Catheter Indwelling Catheter # Voids 1 - Exam GENERAL DESCRIPTION: An elderly female lying in bed in no distress RESPIRATORY SYSTEM: Unlabored breathing , decreased breath sounds at bases HEART: S1 S2 regular rate and rhythm , ABDOMEN: Soft , no tenderness EXTREMITIES: No edema feet - Labs CBC & Chem 7: 05/01/24 07:46 05/01/24 06:01 Labs: Abnormal Lab Results - Last 24 Hours (Table) 05/01/24 05/01/24 Range/Units 06:01 07:46 RBC 3.07 L (3.80-5.40) m/uL Hgb 10.6 L (11.4-16.0) gm/dL MCV 112.2 H (80.0-100.0) fL MCHC 30.7 L (31.0-37.0) g/dL Macrocytosis Marked A Potassium 5.2 H (3.5-5.1) mmol/L Chloride 112 H (98-107) mmol/L Total Protein 5.1 L (6.3-8.2) g/dL Albumin 2.3 L (3.5-5.0) g/dL Assessment and Plan (1) Penicillin allergy Current Visit: Yes Status: Acute Code(s): Z88.0 - ALLERGY STATUS TO PENICILLIN SNOMED Code(s): 93756923 (2) Pneumonia Current Visit: Yes Status: Acute Code(s): J18.9 - PNEUMONIA, UNSPECIFIED ORGANISM SNOMED Code(s): 645181885 (3) Sepsis Current Visit: Yes Status: Acute Code(s): A41.9 - SEPSIS, UNSPECIFIED ORGANISM SNOMED Code(s): 22310763 Plan: 1patient presented hospital with sepsis in this patient who did have a fever elevated white count source likely pneumonia as the patient did have a negative UA noticed to have some consolidative changes in the lung bases on the CT with no intra-abdominal pathology no evidence of any cellulitis or other focus of infection 2-patient with a penicillin allergy that would limit the number of antibiotics safe to use 3--patient is afebrile, white count normalized blood culture currently pending, chest x-ray showed improvement of the left base, 4- patient currently being treated with cefepime while inpatient transition to oral antibiotics on discharge Dictation was produced using [employer] dictation software. please excuse any grammatical, word or spelling errors. Time with Patient: Less than 30
[2024-05-01] MEDS: THIAMINE 100 MG TAB PO SCH (16:58)
--- NOTE | 2024-05-01 20:55 | PN ---
PROGRESS NOTE DATE OF SERVICE: 05/01/2024 SUBJECTIVE: This is a 69-year-old woman, who was admitted with septic shock and possibly UTI, is being closely monitored. The patient still complains of "tired and weak." OBJECTIVE: VITAL SIGNS: Pulse is 72, blood pressure is 111/73, respirations 16. CHEST: A few scattered rhonchi. ABDOMEN: Soft. NERVOUS SYSTEM: Diffusely weak. LABORATORY DATA: Reviewed. MCV is 112.2. ASSESSMENT: 1. Septic shock, possibly urinary tract infection. 2. Acute hypotension. 3. Acute kidney injury. 4. Change in mental status, metabolic encephalopathy, schizophrenia. 5. Multiple medical issues. RECOMMENDATIONS: Recommend to continue current management and continue symptomatic treatment. PT, OT evaluation. Repeat labs. Recommend supplementation with vitamins. The patient is on empiric cefepime. Further recommendations to follow. MMODL / IJN: [id number] /
[2024-05-01 21:08] LABS: Glucose,Whole Blood 88 mg/dL (70-110)
[2024-05-02 09:29] LABS: BUN/Creat Ratio 15.43 Ratio (12.00-20.00); Blood Urea Nitrogen 10.8 mg/dL (9.0-27.0); Calcium 8.3 mg/dL (8.7-10.3); Carbon Dioxide 24.6 mmol/L (21.6-31.8); Chloride 107 mmol/L (96-109); Glucose 83 mg/dL (70-110); Potassium 4.5 mmol/L (3.5-5.5); Sodium 138 mmol/L (135-145)
[2024-05-02 09:31] LABS: HCT 31.1 % (37.2-46.3); HGB 9.3 g/dL (12.0-15.0); MCH 34.4 pg (27.0-32.0); MCHC 29.9 g/dL (32.0-37.0); MCV 115.2 FL (80.0-97.0); Mean Platelet Volume 10.5 FL (9.5-12.2); NRBC Per 100 WBC 0 X 10*3/uL (0.00-0.01); Platelet Count 214 X 10*3/uL (140-440); RDW 12.9 % (11.5-14.5); WBC 9.77 X 10*3/uL (4.50-10.00)
[2024-05-02 10:14] LABS: Eosinophils # (M) 0.98 X 10*3/uL (0.04-0.35); Lymphocytes # (M) 2.54 X 10*3/uL (0.90-5.00); Macrocytosis (M) 2+ (None Seen); Metamyelocytes % 2 % (0-0); Monocytes # (M) 0.68 X 10*3/uL (0.20-1.00); Myelocytes % 2 % (0-0); Neutrophils # (M) 5.08 X 10*3/uL (1.80-7.70); Neutrophils % (M) 52 %
--- NOTE | 2024-05-02 10:47 | P.PN ---
Subjective Progress Note Date: 05/02/24 On 04/28/2024, patient is being seen in consultation for sepsis and hypotension. The patient presented to the Emergency Department yesterday because of altered mentation. Apparently, the patient was being treated for urine tract infection or diagnosed having UTI an outpatient basis. The patient was lethargic, weak, debilitated and hypotensive. The patient received a total of 4.5 L of IV fluids. Subsequently, the patient was also started on pressors and the patient is currently on low-dose norepinephrine running at 0.03 mcg/kg/min. Blood pressure is stable for now. Her initial white cell count was 20 dropped down to 11. She had an acute kidney injury with a creatinine of 2.9, creatinine today is down to 1.06. The patient is currently on cefepime and vancomycin. UA is mildly abnormal. Chest x-ray shows some limited left basilar atelectasis. The patient remains on room air oxygen. No significant respiratory distress. Minimal cough. Minimal chest congestion. No pleurisy. No hemoptysis. No nausea. No vomiting. No abdominal pain. No chest pain. She is known to have schizoaffective disorder and she is a skilled nursing resident. Awaiting cultures. Mental status improved significantly compared to yesterday. The patient is able to communicate. On 04/29/2024, the patient is clinically and hemodynamically stable. The patient denies having any complaints. The patient was adequately resuscitated IV fluids and the patient is currently normotensive and she has recovered from acute kidney injury. She presented to us with septic shock likely secondary urine tract infection. The white cell count is dropped down to 8.6 with a hemoglobin 10.1. The patient's renal function is stable with a BUN of 27 and creatinine 0.9 and sodium levels at 141. She is awake and alert and communicating. She is on room air oxygen. She remains on IV cefepime. IV fluids are in the form of normal saline at rate of 75 cc an hour. Rest of the medications remain unchanged. The patient is seen today April 30, 2024 in follow-up on the regular medical floor. She is awake and alert in no acute distress. Maintaining O2 saturations in the 90s on room air. She is continued on cefepime. Blood cultures revealed no growth. Urine culture revealed no growth. Procalcitonin negative at 0.09. Creatinine 0.79. GFR greater than 90. She remains on heparin for DVT prophylaxis. The patient is seen today May 01, 2024 in follow-up on the regular medical floor. She is awake and alert in no acute distress. Maintaining O2 saturations in the 90s on room air. She has normal saline at 25 mL/h. Chest x-ray had revealed atelectatic changes. Blood cultures revealed no growth. Urine culture revealed no growth. White count 8.4. Hemoglobin 10.6. Platelets 218. Sodium 139. Potassium 5.2. Bicarb 25. BUN 15. Creatinine 0.76. Procalcitonin was negative at 0.09. He is currently on cefepime. Continued on DuoNeb inhalations. Heparin for DVT prophylaxis. The patient is seen today May 02, 2024 in follow-up on the regular medical floor. She is awake and alert in no acute distress. She is maintaining good O2 saturation in the 90s on room air. She is continued on bronchodilators. Heparin for DVT prophylaxis. Remains on cefepime. White count 9.7. Hemoglobin 9.3. Platelets 214. Sodium 138. Potassium 4.5. Bicarb 25. BUN 11. Creatinine 0.7. Glucose 83. Blood and urine cultures revealed no growth. Procalcitonin was negative. Objective - Vital Signs Vital signs: Vital Signs Temp 97.4 F L 05/02/24 07:07 Pulse 69 05/02/24 07:07 Resp 16 05/02/24 07:07 BP 93/59 05/02/24 07:07 Pulse Ox 94 L 05/02/24 07:07 FiO2 Intake & Output 05/01/24 05/02/24 05/02/24 18:59 06:59 18:59 Output Total 1800 1200 500 Balance -1800 -1200 -500 Output: Urine 1800 1200 500 Uretheral (Albright) 1200 Other: Voiding Method Indwelling Catheter Indwelling Catheter - Exam GENERAL EXAM: Alert, obese 69-year-old female, resting comfortably in bed, on room air, in no apparent distress. HEAD: Normocephalic. EYES: Normal reaction of pupils, equal size. NOSE: Clear with pink turbinates. THROAT: No erythema or exudates. NECK: No masses, no JVD. CHEST: No chest wall deformity. LUNGS: Equal air entry with no crackles, wheeze, rhonchi or dullness. CVS: S1 and S2 normal with no audible murmur, regular rhythm. ABDOMEN: No hepatosplenomegaly, normal bowel sounds, no guarding or rigidity. SPINE: No scoliosis or deformity SKIN: No rashes CENTRAL NERVOUS SYSTEM: No focal deficits, tone is normal in all 4 extremities. EXTREMITIES: There is no peripheral edema. No clubbing, no cyanosis. Peripheral pulses are intact. - Labs CBC & Chem 7: 05/02/24 06:05 05/02/24 06:05 Labs: Abnormal Lab Results - Last 24 Hours (Table) 05/02/24 05/02/24 Range/Units 06:05 06:05 RBC 2.70 L (4.10-5.20) X 10*6/uL Hgb 9.3 L (12.0-15.0) g/dL Hct 31.1 L (37.2-46.3) % MCV 115.2 H (80.0-97.0) FL MCH 34.4 H (27.0-32.0) pg MCHC 29.9 L (32.0-37.0) g/dL Eosinophils # (Manual) 0.98 H (0.04-0.35) X 10*3/uL Macrocytosis (manual) 2+ A (None Seen) Calcium 8.3 L (8.7-10.3) mg/dL Microbiology - Last 24 Hours (Table) 04/26/24 18:00 Blood Culture - Final Blood Assessment and Plan Assessment: Septic shock, under investigation. Ruled out urine tract infection with secondary sepsis. Pneumonia felt to be less likely. Procalcitonin was negative. Clinically improved and the patient is currently normotensive off pressors Fever, secondary to above, currently afebrile Acute hypotension, resuscitated with IV fluids, currently off pressors, currently on cefepime Acute leukocytosis, normalized Acute kidney injury, improving, renal function has normalized Acute mental status change, improving Schizoaffective disorder History of hypertension History of hyperlipidemia History of hypothyroidism History of GERD Morbid obesity Multiple other medical problems and comorbidities Plan: The patient was seen and evaluated Labs and medications reviewed Remains on bronchodilators Heparin for DVT prophylaxis Stable and on room air Plan is to return to [facility] at discharge I have personally seen and examined the patient, performed the documentation and the assessment and plan as written. Number of minutes spent on the visit: 10 Dictation was produced using [employer] software. Please excuse any grammatical, word or spelling errors.
[2024-05-02] MEDS: MULTIVITAMINS, THERA 1 EACH TAB PO SCH (11:52)
[2024-05-02] MEDS: FOLIC ACID 1 MG TAB PO SCH (11:52)
[2024-05-02] MEDS: ACETAMINOPHEN TAB 325 MG TAB PO PRN (13:04)
--- NOTE | 2024-05-02 18:28 | PN ---
PROGRESS NOTE DATE OF SERVICE: 05/02/2024 SUBJECTIVE: This is a 69-year-old woman, who was admitted with septic shock and UTI. She is being closely monitored. The patient is mildly confused. OBJECTIVE: VITAL SIGNS: Pulse 62, blood pressure 119/70, respirations 18. CHEST: Clear to auscultation. CARDIOVASCULAR: S1 and S2. ABDOMEN: Soft. LABORATORY DATA: Hemoglobin 9.3. Cultures noted. ASSESSMENT: 1. Septic shock, possibly from acute urinary tract infection. 2. Acute hypotension, present on admission. 3. Acute kidney injury. 4. Change in mental status, acute metabolic encephalopathy, schizophrenia. 5. Multiple medical issues. RECOMMENDATIONS: I recommend to continue current management, continue symptomatic treatment, and repeat labs. PT/OT evaluation and possible rehab in the next 24 to 48 hours. Further recommendations to follow. OMER / ARMIDA: [id number] /
[2024-05-03 06:38] LABS: African American GFR (CKD) >90 (>60 ml/min/1.73 sqM); Anion Gap 5 mmol/L; Blood Urea Nitrogen 12 mg/dL (7-17); Calcium 8.6 mg/dL (8.4-10.2); Carbon Dioxide 24 mmol/L (22-30); Chloride 107 mmol/L (98-107); Glucose 76 mg/dL (74-99); Non-African American GFR(CKD) 90 (>60 ml/min/1.73 sqM); Potassium 4.5 mmol/L (3.5-5.1); Sodium 136 mmol/L (137-145)
--- NOTE | 2024-05-03 07:51 | P.PN ---
Subjective Progress Note Date: 05/02/24 Principal diagnosis: Reason for follow-up is sepsis possible pneumonia Patient is a 69-year-old female with a past medical history significant for hypertension hyperlipidemia reflux thyroid disorder anxiety depression, patient was [facility] for evaluation of mental status changes concern for possible pneumonia on the basis of CT. On today's evaluation that is 05/02/2024,the patient denies any fever or any chills, patient is more awake and alert today, breathing comfortably on room air, the patient denies chest pain shortness of breath and no worsening cough, patient denies abdominal pain, no nausea vomiting or diarrhea. Patient white count is 9.77 creatinine 0.7 blood culture negative sputum not collected Objective - Vital Signs Vital signs: Vital Signs Temp 98.0 F 05/02/24 13:43 Pulse 62 05/02/24 13:43 Resp 18 05/02/24 13:43 BP 109/73 05/02/24 13:43 Pulse Ox 96 05/02/24 13:43 FiO2 Intake & Output 05/01/24 05/02/24 05/02/24 18:59 06:59 18:59 Output Total 1800 1200 500 Balance -1800 -1200 -500 Output: Urine 1800 1200 500 Uretheral (Albright) 1200 Other: Voiding Method Indwelling Catheter Indwelling Catheter # Bowel Movements 1 - Exam GENERAL DESCRIPTION: An elderly female lying in bed in no distress RESPIRATORY SYSTEM: Unlabored breathing , decreased breath sounds at bases HEART: S1 S2 regular rate and rhythm , ABDOMEN: Soft , no tenderness EXTREMITIES: No edema feet - Labs CBC & Chem 7: 05/02/24 06:05 05/03/24 06:09 Labs: Abnormal Lab Results - Last 24 Hours (Table) 05/02/24 05/02/24 Range/Units 06:05 06:05 RBC 2.70 L (4.10-5.20) X 10*6/uL Hgb 9.3 L (12.0-15.0) g/dL Hct 31.1 L (37.2-46.3) % MCV 115.2 H (80.0-97.0) FL MCH 34.4 H (27.0-32.0) pg MCHC 29.9 L (32.0-37.0) g/dL Eosinophils # (Manual) 0.98 H (0.04-0.35) X 10*3/uL Macrocytosis (manual) 2+ A (None Seen) Calcium 8.3 L (8.7-10.3) mg/dL Microbiology - Last 24 Hours (Table) 04/26/24 18:00 Blood Culture - Final Blood Assessment and Plan (1) Penicillin allergy Current Visit: Yes Status: Acute Code(s): Z88.0 - ALLERGY STATUS TO PENICILLIN SNOMED Code(s): 30167667 (2) Pneumonia Current Visit: Yes Status: Acute Code(s): J18.9 - PNEUMONIA, UNSPECIFIED ORGANISM SNOMED Code(s): 878988054 (3) Sepsis Current Visit: Yes Status: Acute Code(s): A41.9 - SEPSIS, UNSPECIFIED ORGANISM SNOMED Code(s): 88614489 Plan: 1patient presented hospital with sepsis in this patient who did have a fever elevated white count source likely pneumonia as the patient did have a negative UA noticed to have some consolidative changes in the lung bases on the CT with no intra-abdominal pathology no evidence of any cellulitis or other focus of infection 2-patient with a penicillin allergy that would limit the number of antibiotics safe to use 3--patient is afebrile, white count normalized blood culture has been negative, last chest x-ray showed improvement of the left base, 4- patient will be continued cefepime while inpatient transition to oral Avelox on discharge Dictation was produced using [employer] dictation software. please excuse any grammatical, word or spelling errors. Time with Patient: Less than 30
[2024-05-03 08:29] VITALS: RESP 18
[2024-05-03 11:06] LABS: Basophils % (A) 0 %; Eosinophils # (A) 0.6 k/uL (0-0.7); Eosinophils % (A) 6 %; HCT 32.3 % (34.0-46.0); HGB 10.2 gm/dL (11.4-16.0); Hypochromasia Marked; Lymphocytes # (A) 2.6 k/uL (1.0-4.8); Lymphocytes % (A) 26 %; MCH 35.2 pg (25.0-35.0); MCHC 31.5 g/dL (31.0-37.0); MCV 111.8 fL (80.0-100.0); Macrocytosis Marked; Mean Platelet Volume 7.3; Monocytes # (A) 1.2 k/uL (0-1.0); Monocytes % (A) 12 %; Neutrophils # (A) 5.3 k/uL (1.3-7.7); Neutrophils % (A) 55 %; Platelet Count 288 k/uL (150-450); RBC 2.89 m/uL (3.80-5.40); RDW 12.3 % (11.5-15.5); WBC 9.8 k/uL (3.8-10.6)
--- NOTE | 2024-05-03 12:44 | P.PN ---
Subjective Progress Note Date: 05/03/24 On 04/28/2024, patient is being seen in consultation for sepsis and hypotension. The patient presented to the Emergency Department yesterday because of altered mentation. Apparently, the patient was being treated for urine tract infection or diagnosed having UTI an outpatient basis. The patient was lethargic, weak, debilitated and hypotensive. The patient received a total of 4.5 L of IV fluids. Subsequently, the patient was also started on pressors and the patient is currently on low-dose norepinephrine running at 0.03 mcg/kg/min. Blood pressure is stable for now. Her initial white cell count was 20 dropped down to 11. She had an acute kidney injury with a creatinine of 2.9, creatinine today is down to 1.06. The patient is currently on cefepime and vancomycin. UA is mildly abnormal. Chest x-ray shows some limited left basilar atelectasis. The patient remains on room air oxygen. No significant respiratory distress. Minimal cough. Minimal chest congestion. No pleurisy. No hemoptysis. No nausea. No vomiting. No abdominal pain. No chest pain. She is known to have schizoaffective disorder and she is a long term resident. Awaiting cultures. Mental status improved significantly compared to yesterday. The patient is able to communicate. On 04/29/2024, the patient is clinically and hemodynamically stable. The patient denies having any complaints. The patient was adequately resuscitated IV fluids and the patient is currently normotensive and she has recovered from acute kidney injury. She presented to us with septic shock likely secondary urine tract infection. The white cell count is dropped down to 8.6 with a hemoglobin 10.1. The patient's renal function is stable with a BUN of 27 and creatinine 0.9 and sodium levels at 141. She is awake and alert and communicating. She is on room air oxygen. She remains on IV cefepime. IV fluids are in the form of normal saline at rate of 75 cc an hour. Rest of the medications remain unchanged. The patient is seen today April 30, 2024 in follow-up on the regular medical floor. She is awake and alert in no acute distress. Maintaining O2 saturations in the 90s on room air. She is continued on cefepime. Blood cultures revealed no growth. Urine culture revealed no growth. Procalcitonin negative at 0.09. Creatinine 0.79. GFR greater than 90. She remains on heparin for DVT prophylaxis. The patient is seen today May 01, 2024 in follow-up on the regular medical floor. She is awake and alert in no acute distress. Maintaining O2 saturations in the 90s on room air. She has normal saline at 25 mL/h. Chest x-ray had revealed atelectatic changes. Blood cultures revealed no growth. Urine culture revealed no growth. White count 8.4. Hemoglobin 10.6. Platelets 218. Sodium 139. Potassium 5.2. Bicarb 25. BUN 15. Creatinine 0.76. Procalcitonin was negative at 0.09. He is currently on cefepime. Continued on DuoNeb inhalations. Heparin for DVT prophylaxis. The patient is seen today May 02, 2024 in follow-up on the regular medical floor. She is awake and alert in no acute distress. She is maintaining good O2 saturation in the 90s on room air. She is continued on bronchodilators. Heparin for DVT prophylaxis. Remains on cefepime. White count 9.7. Hemoglobin 9.3. Platelets 214. Sodium 138. Potassium 4.5. Bicarb 25. BUN 11. Creatinine 0.7. Glucose 83. Blood and urine cultures revealed no growth. Procalcitonin was negative. The patient is seen today May 03, 2024 in follow-up on the regular medical floor. She is awake and alert in no acute distress. Continues to maintain good O2 saturations in the 90s on room air. Her procalcitonin was negative at 0.09. Blood cultures negative. Urine culture negative. White count 9.8. Hemoglobin 10.2. Sodium 136. Potassium 4.5. Bicarb 24. BUN 12. Creatinine 0.70. She remains on bronchodilators. Continued on cefepime. Heparin for DVT prophylaxis. Objective - Vital Signs Vital signs: Vital Signs Temp 97.4 F L 05/03/24 07:14 Pulse 76 05/03/24 08:50 Resp 18 05/03/24 07:14 BP 103/42 05/03/24 07:14 Pulse Ox 98 05/03/24 07:14 FiO2 Intake & Output 05/02/24 05/03/24 05/03/24 18:59 06:59 18:59 Output Total 500 700 Balance -500 -700 Output: Urine 500 700 Other: Voiding Method Indwelling Catheter # Bowel Movements 1 - Exam GENERAL EXAM: Alert, obese 69-year-old female, on room air, in no apparent distress. HEAD: Normocephalic. EYES: Normal reaction of pupils, equal size. NOSE: Clear with pink turbinates. THROAT: No erythema or exudates. NECK: No masses, no JVD. CHEST: No chest wall deformity. LUNGS: Equal air entry with no crackles, wheeze, rhonchi or dullness. CVS: S1 and S2 normal with no audible murmur, regular rhythm. ABDOMEN: No hepatosplenomegaly, normal bowel sounds, no guarding or rigidity. SPINE: No scoliosis or deformity SKIN: No rashes CENTRAL NERVOUS SYSTEM: No focal deficits, tone is normal in all 4 extremities. EXTREMITIES: There is no peripheral edema. No clubbing, no cyanosis. Peripher al pulses are intact. - Labs CBC & Chem 7: 05/03/24 10:59 05/03/24 06:09 Labs: Abnormal Lab Results - Last 24 Hours (Table) 05/03/24 05/03/24 Range/Units 06:09 10:59 RBC 2.89 L (3.80-5.40) m/uL Hgb 10.2 L (11.4-16.0) gm/dL Hct 32.3 L (34.0-46.0) % MCV 111.8 H (80.0-100.0) fL MCH 35.2 H (25.0-35.0) pg Monocytes # 1.2 H (0-1.0) k/uL Macrocytosis Marked A Sodium 136 L (137-145) mmol/L Assessment and Plan Assessment: Septic shock, under investigation. Ruled out urine tract infection with secondary sepsis. Pneumonia felt to be less likely. Procalcitonin was negative. Clinically improved and the patient is currently normotensive off pressors Fever, secondary to above, currently afebrile Acute hypotension, resuscitated with IV fluids, currently off pressors, currently on cefepime Acute leukocytosis, normalized Acute kidney injury, improving, renal function has normalized Acute mental status change, improving Schizoaffective disorder History of hypertension History of hyperlipidemia History of hypothyroidism History of GERD Morbid obesity Multiple other medical problems and comorbidities Plan: The patient was seen and evaluated Labs and medications reviewed Remains on bronchodilators Heparin for DVT prophylaxis Stable and on room air Plan is for Avelox on discharge Plan is to return to [facility] I have personally seen and examined the patient, performed the documentation and the assessment and plan as written. Number of minutes spent on the visit: 10 Dictation was produced using [employer] dictation software. Please excuse any grammatical, word or spelling errors.
[2024-05-03 13:18] VITALS: BMI 50.9
--- NOTE | 2024-05-03 14:16 | P.DS ---
Providers Date of admission: 04/26/24 23:06 Expected date of discharge: 05/03/24 Attending physician: Niru Hernandez Consults: 04/27/24 13:54 Consult Physician Routine Consulting Provider: Tony Worley Consult Reason/Comments: sepsis Do you want consulting provider notified?: Yes 04/27/24 19:42 Consult Physician Stat Consulting Provider: Sandy Ponce Consult Reason/Comments: HoTSN/sepsis Do you want consulting provider notified?: Already Contacted Primary care physician: Marshall Grande Hospital Course: Final diagnosis Septic shock, likely secondary to acute urine tract infection with secondary sepsis. Pneumonia is felt to be less likely. Acute hypotension, resuscitated with IV fluids and improved off pressor support Acute leukocytosis, improving Acute kidney injury, improving Acute mental status change, multifactorial, likely metabolic encephalopathy secondary to urinary tract infection as well as strong psychiatric history of schizophrenia History of schizophrenia History of hypertension. History of hyperlipidemia. History of hypothyroidism. Morbid obesity with a BMI of 50.9. GI prophylaxis DVT prophylaxis Full code Discharge disposition Patient is being discharged in a stable condition with guarded prognosis to [facility]. Patient will follow-up with Dr. Grande in the outpatient setting upon discharge. Patient is to continue with current medications and oral Avelox on discharge. Total time taken is greater than 35 minutes. Hospital course This is a 69-year-old female who was recently admitted with altered mental status with metabolic encephalopathy likely secondary to urinary tract infection and being closely monitored with multiple consultations. Patient maintained on IV antibiotics with infectious disease following and urine and blood cultures are negative and patient will continue on oral Avelox on discharge. Patient does have significant history of schizophrenia and medication slightly adjusted as patient was extremely lethargic throughout the entire day and anxious and combative and agitated. Adjusted Haldol slightly. Continue other current medications. Recommend outpatient follow-up with repeat labs of CBC, CMP, mag in the next few days. Patient has been cleared by consultations and will be returning to [facility] on discharge. Please refer to other consultation notes for further HPI. Currently no reports of chest pain, shortness of breath, or palpitations. Patient is afebrile. No reports of nausea or vomiting and patient is tolerating diet. Patient will be discharged to [facility] where she resides today. Guarded prognosis and high risk for readmissions given significant comorbidities Physical exam: Gen: This is a 69-year-old female who is awake, alert and oriented x 1-2, baseline, well-developed, elderly appearing, morbidly obese HEENT: Head is atraumatic, normocephalic. Pupils equal, round. Sclerae is anicteric. NECK: Supple. No JVD. No lymphadenopathy. No thyromegaly. LUNGS: Diminished breath sounds bilaterally otherwise clear to auscultation. No wheezes or rhonchi. No intercostal retractions. HEART: S1, S2 are muffled ABDOMEN: Soft. Obese bowel sounds are present. No masses. No tenderness. EXTREMITIES: No pedal edema. No calf tenderness. NEUROLOGICAL: Patient is awake, alert and oriented x 12, baseline. Cranial nerves 2 through 12 are grossly intact. Diffusely weak Please refer to medication reconciliation sheet for a list of medications. The impression and plan of care has been dictated by Christie Soria, Nurse Practitioner as directed. Dr. David MD I have performed a history and examination and MDM of this patient, discussed the same with the dictator, and agree with the dictator's assessment and plan as written ,documented as a scribe. Based on total visit time, I have performed more than 50% of the visit. Patient Condition at Discharge: Stable Plan - Discharge Summary New Discharge Prescriptions: New Ipratropium-Albuterol Nebulize [Duoneb 0.5 mg-3 mg/3 ml Soln] 3 ml INHALATION RT-TID each haloperidoL [Haldol] 10 mg PO BID@0800,1600 tab Moxifloxacin HCl [Avelox] 400 mg PO DAILY 7 Days #7 tab Folic Acid 1 mg PO DAILY@1200 tab Heparin Sodium,Porcine (1 ml) [Heparin Sodium] 5,000 unit SQ Q12HR each Multivitamins, Thera [Multivitamin (formulary)] 1 each PO DAILY@1200 tab Thiamine [Vitamin B-1] 100 mg PO BID-W/MEALS tab Continue Lovastatin [Mevacor] 20 mg PO HS@2100 Calcium Citrate 200mg 1 tab PO DAILY@1200 Acetaminophen Tab [Tylenol] 650 mg PO Q6HR PRN tab PRN Reason: Mild Pain Or Fever > 100.5 Ipratropium-Albuterol Nebulize [Duoneb 0.5 mg-3 mg/3 ml Soln] 3 ml INHALATION RT-Q6H PRN PRN Reason: Shortness Of Breath/Congestion Na Phos,M-B/Na Phos,Di-Ba [Fleet Adult] 133 ml RECTAL DAILY PRN PRN Reason: Constipation Diclofenac Sodium Gel [Voltaren 1% Gel] 1 applic TOPICAL BID@0800,1700 Furosemide [Lasix] 40 mg PO BID@0800,1700 Magnesium Hydroxide [Milk of Magnesia Concentrate] 7,200 mg PO Q48H PRN PRN Reason: Constipation Nystatin 100,000Unit/gm Cream [Mycostatin Cream] 1 applic TOPICAL TID bisacodyL [Dulcolax] 10 mg RECTAL DAILY PRN PRN Reason: Constipation Divalproex Sodium [Depakote] 500 mg PO TID@0800,1400,2200 Docusate [Colace] 100 mg PO BID@0800,1700 Ensure Enlive 120 ml PO DAILY@0800 ALPRAZolam [Xanax] 0.25 mg PO BID@0800,1700 #6 tab DULoxetine HCL [Cymbalta] 60 mg PO DAILY@0700 Levothyroxine Sodium [Synthroid] 100 mcg PO DAILY@0800 ARIPiprazole [Abilify] 30 mg PO DAILY@0800 Mag Hydrox/Al Hydrox/Simeth [Maalox] 30 ml PO Q6H PRN PRN Reason: Gi Upset Loperamide HCl [Imodium A-D] 2 - 4 mg PO QID PRN PRN Reason: Diarrhea guaiFENesin [guaiFENesin Oral Solution] 200 mg PO Q4H PRN PRN Reason: Cough Alendronate Sodium [Fosamax] 70 mg PO SA@0400 Losartan [Cozaar] 50 mg PO DAILY@0800 Cholecalciferol [Vitamin D3 (25 Mcg = 1000 Iu)] 50 mcg PO DAILY@0800 Gabapentin [Neurontin] 100 mg PO BID@0800,1700 #6 cap Hydrophilic Cream [Triad (Kerodex geq)] 1 applic TOPICAL TID Caldesene Powder 1 applic TOPICAL BID Potassium Chloride ER [K-Dur 10] 10 meq PO DAILY@0800 Discontinued haloperidoL [Haldol] 10 mg PO TID@0800,1400,2200 Discharge Medication List ARIPiprazole [Abilify] 30 mg PO DAILY@0800 05/16/22 [History] Calcium Citrate 200mg 1 tab PO DAILY@1200 05/16/22 [History] DULoxetine HCL [Cymbalta] 60 mg PO DAILY@0700 05/16/22 [History] Levothyroxine Sodium [Synthroid] 100 mcg PO DAILY@0800 05/16/22 [History] Lovastatin [Mevacor] 20 mg PO HS@2100 05/16/22 [History] Acetaminophen Tab [Tylenol] 650 mg PO Q6HR PRN tab 05/19/22 [Rx] Alendronate Sodium [Fosamax] 70 mg PO SA@0400 03/19/23 [History] Cholecalciferol [Vitamin D3 (25 Mcg = 1000 Iu)] 50 mcg PO DAILY@0800 03/19/23 [History] Diclofenac Sodium Gel [Voltaren 1% Gel] 1 applic TOPICAL BID@0800,1700 03/19/23 [History] Furosemide [Lasix] 40 mg PO BID@0800,1700 03/19/23 [History] Ipratropium-Albuterol Nebulize [Duoneb 0.5 mg-3 mg/3 ml Soln] 3 ml INHALATION RT-Q6H PRN 03/19/23 [History] Loperamide HCl [Imodium A-D] 2 - 4 mg PO QID PRN 03/19/23 [History] Losartan [Cozaar] 50 mg PO DAILY@0800 03/19/23 [History] Mag Hydrox/Al Hydrox/Simeth [Maalox] 30 ml PO Q6H PRN 03/19/23 [History] Magnesium Hydroxide [Milk of Magnesia Concentrate] 7,200 mg PO Q48H PRN 03/19/23 [History] Na Phos,M-B/Na Phos,Di-Ba [Fleet Adult] 133 ml RECTAL DAILY PRN 03/19/23 [History] guaiFENesin [guaiFENesin Oral Solution] 200 mg PO Q4H PRN 03/19/23 [History] Gabapentin [Neurontin] 100 mg PO BID@0800,1700 #6 cap 03/25/23 [Rx] Caldesene Powder 1 applic TOPICAL BID 04/26/24 [History] Divalproex Sodium [Depakote] 500 mg PO TID@0800,1400,2200 04/26/24 [History] Docusate [Colace] 100 mg PO BID@0800,1700 04/26/24 [History] Ensure Enlive 120 ml PO DAILY@0800 04/26/24 [History] Hydrophilic Cream [Triad (Kerodex geq)] 1 applic TOPICAL TID 04/26/24 [History] Nystatin 100,000Unit/gm Cream [Mycostatin Cream] 1 applic TOPICAL TID 04/26/24 [History] Potassium Chloride ER [K-Dur 10] 10 meq PO DAILY@0800 04/26/24 [History] bisacodyL [Dulcolax] 10 mg RECTAL DAILY PRN 04/26/24 [History] ALPRAZolam [Xanax] 0.25 mg PO BID@0800,1700 #6 tab 05/03/24 [Rx] Folic Acid 1 mg PO DAILY@1200 tab 05/03/24 [Rx] Heparin Sodium,Porcine (1 ml) [Heparin Sodium] 5,000 unit SQ Q12HR each 05/03/24 [Rx] Ipratropium-Albuterol Nebulize [Duoneb 0.5 mg-3 mg/3 ml Soln] 3 ml INHALATION RT-TID each 05/03/24 [Rx] Moxifloxacin HCl [Avelox] 400 mg PO DAILY 7 Days #7 tab 05/03/24 [Rx] Multivitamins, Thera [Multivitamin (formulary)] 1 each PO DAILY@1200 tab 05/03/24 [Rx] Thiamine [Vitamin B-1] 100 mg PO BID-W/MEALS tab 05/03/24 [Rx] haloperidoL [Haldol] 10 mg PO BID@0800,1600 tab 05/03/24 [Rx] Follow up Appointment(s)/Referral(s): Marshall Grande MD [Primary Care Provider] - 1-2 days Activity/Diet/Wound Care/Special Instructions: Patient is going to [facility] on the [facility] Activity as tolerated Continue taking medications as prescribed Continue with oral Avelox once daily for 7 days Follow-up primary care provider on discharge Discharge Disposition: TRANSFER TO SNF/F
[2024-05-03 14:49] VITALS: BP 93/63; PULSE 66; TEMP 97.3
--- NOTE | 2024-05-03 15:20 | P.PN ---
Subjective Progress Note Date: 05/03/24 Principal diagnosis: Reason for follow-up is sepsis possible pneumonia Patient is a 69-year-old female with a past medical history significant for hypertension hyperlipidemia reflux thyroid disorder anxiety depression, patient was brought into the hospital from the local long term for evaluation of mental status changes concern for possible pneumonia on the basis of CT. On today's evaluation that is 05/03/2024,the patient remains to be afebrile, patient is on room air not requiring supplemental oxygen and denies any shortness of breath no chest pain or any worsening cough.Patient denies having any nausea or vomiting, no abdominal pain and no diarrhea has been reported. Patient white count is 9.8, creatinine 0.70 blood urine culture have been negative Objective - Vital Signs Vital signs: Vital Signs Temp 97.3 F L 05/03/24 14:31 Pulse 66 05/03/24 14:31 Resp 18 05/03/24 14:31 BP 93/63 05/03/24 14:31 Pulse Ox 95 05/03/24 14:31 FiO2 Intake & Output 05/02/24 05/03/24 05/03/24 18:59 06:59 18:59 Output Total 500 700 Balance -500 -700 Weight 110.5 kg Output: Urine 500 700 Other: Voiding Method Indwelling Catheter Indwelling Catheter # Bowel Movements 1 - Exam GENERAL DESCRIPTION: An elderly female lying in bed in no distress RESPIRATORY SYSTEM: Unlabored breathing , decreased breath sounds at bases HEART: S1 S2 regular rate and rhythm , ABDOMEN: Soft , no tenderness EXTREMITIES: No edema feet - Labs CBC & Chem 7: 05/03/24 10:59 05/03/24 06:09 Labs: Abnormal Lab Results - Last 24 Hours (Table) 05/03/24 05/03/24 Range/Units 06:09 10:59 RBC 2.89 L (3.80-5.40) m/uL Hgb 10.2 L (11.4-16.0) gm/dL Hct 32.3 L (34.0-46.0) % MCV 111.8 H (80.0-100.0) fL MCH 35.2 H (25.0-35.0) pg Monocytes # 1.2 H (0-1.0) k/uL Macrocytosis Marked A Sodium 136 L (137-145) mmol/L Assessment and Plan (1) Penicillin allergy Current Visit: Yes Status: Acute Code(s): Z88.0 - ALLERGY STATUS TO PENICILLIN SNOMED Code(s): 38782527 (2) Pneumonia Current Visit: Yes Status: Acute Code(s): J18.9 - PNEUMONIA, UNSPECIFIED ORGANISM SNOMED Code(s): 019170226 (3) Sepsis Current Visit: Yes Status: Acute Code(s): A41.9 - SEPSIS, UNSPECIFIED ORGANISM SNOMED Code(s): 00107585 Plan: 1patient presented hospital with sepsis in this patient who did have a fever elevated white count source likely pneumonia as the patient did have a negative UA noticed to have some consolidative changes in the lung bases on the CT with no intra-abdominal pathology no evidence of any cellulitis or other focus of infection 2-patient with a penicillin allergy that would limit the number of antibiotics safe to use 3--patient is afebrile, white count normalized blood culture has been negative, last chest x-ray showed improvement of the left base, 4- patient we will be able to finish therapy oral Avelox x 7 days on discharge Dictation was produced using [employer] dictation software. please excuse any grammatical, word or spelling errors. Time with Patient: Less than 30
== END 2024-05-03 18:11 | DRG 871 ==
LOC: EC 16:36 → 3SCARD 23:06 → 4SSUR 04-27 11:48 → 3SCARD 04-27 20:45 → 2SICU 04-27 22:52 → 4SSUR 04-29 10:46
PROVIDERS: ADMIT Hospitalist; ATTEND Hospitalist
PROC: 3E033XZ Introduction of Vasopressor into Peripheral Vein, Percutaneous Approach (ICD-10-PCS; principal; 2024-04-27)
DX: A41.9 Sepsis, unspecified organism (principal); G93.41 Metabolic encephalopathy; R65.21 Severe sepsis with septic shock; N17.0 Acute kidney failure with tubular necrosis; N39.0 Urinary tract infection, site not specified; J98.11 Atelectasis; Z68.43 Body mass index [BMI] 50.0-59.9, adult; F25.9 Schizoaffective disorder, unspecified; I10 Essential (primary) hypertension; E78.5 Hyperlipidemia, unspecified; E03.9 Hypothyroidism, unspecified; E66.01 Morbid (severe) obesity due to excess calories; K21.9 Gastro-esophageal reflux disease without esophagitis; Z79.890 Hormone replacement therapy; Z88.0 Allergy status to penicillin
CPT/HCPCS: 36410; 36415; 70450; 71045; 74176; 76937; 80048; 80053; 80202; 80306; 81001; 82550; 82565; 83605; 83735; 83880; 84145; 84439; 84443; 84484; 85025; 85027; 85610; 85730; 87040; 87086; 93005; 94640; 94760; 96361; 96365; 96366; 96367; 96368; 96375; 96376; 99291